=== PATIENT | female | born 1990 | race Caucasian/White ===

== ENCOUNTER 2017-11-05 07:13 | Day surgery (SDC) | payer MEDICAID, SELFPAY ==
[2017-11-05] VITALS (7 sets, daily range): BP systolic 133–157; BP diastolic 81–95; PULSE 102–122; RESP 18; TEMP 36.3–37.1; O2SAT 89–98; BMI 58.3
[2017-11-05 07:51] LABS: Internal QC Validated? YES +Cl - CLEAR BKGD; Pregnancy, Urine Negative Negative
[2017-11-05 08:20] LABS: Bedside Glucose 204 mg/dL (70-110)
[2017-11-05] MEDS: Clindamycin 900 MG/50 ML BAG 75 MG IV (08:41)
--- NOTE | 2017-11-05 08:50 | BON_PTH ---
PATIENT: TODD NESS LOC: [facility] [place] U#:[id number] AGE/SX: 27/F ROOM: RE11/05/[address]: Dr. Zenobia Warner DPM : 1990 BED: DIS: 11/05/2017 SPEC #: [id number] RECD: 11/05/17 15:12 STATUS: ARIELLE MORRISSEY #: [id number] ANTHONY: 11/05/17 08:[address]: Zenobia Warner DEPT: SURGICAL PATHOLOGY RECD BY: Scott Sanford ENTERED: 11/08/17 07:20 SP TYPE: Bone OTHR DR: Dr. Jayro Hines MD Tissues: Bone of foot, NOS Procedures: Decalcification bone/plaque Surgery Specimen Level IV HEADER OPERATION: Excision foot fracture fragment with calcaneal cuboid joint PRE-OP DIAGNOSIS: Arthritis, instability cuboid joint TISSUE SUBMITTED: Bone fragments ? right foot MICROSCOPIC DIAGNOSIS Bone fragments, right foot, biopsy: Reparative and reactive change. Cartilaginous tissue with reparative change. No evidence of acute osteomyelitis. AM:amira 11/11/17 COMMENT Clinical correlation is suggested. MICROSCOPIC DESCRIPTION Slides are reviewed. GROSS DESCRIPTION Received in fixative is one container labeled with the patient's name and designated right foot bone fragment. The specimen consists of multiple irregular fragments of light bennett to dark bennett bone that in aggregate measure 3 x 2.5 x 1 cm. The largest fragment is sectioned and totally submitted along with the smaller fragments in one cassette after decalcification. / AM:amira 11/08/17 TC:5 CPT: 83359, 86844
--- NOTE | 2017-11-05 08:50 | RAD_ITS ---
STUDY: X-RAY - RIGHT FOOT CLINICAL: Female, 27 years old. Arthrodesis. TECHNIQUE: 3 cone-down view(s) of the foot were obtained intraoperatively. COMPARISON: None. FINDINGS: There is evidence of arthrodesis of the distal portion of the calcaneus and cuboid bone. RAD/Foot min 3 Views IMPRESSION: Arthrodesis of the distal portion of the calcaneus and cuboid bone. Electronically Signed: Uriel Najera MD at 14:38 EST Tel [phone], Service support ,
[2017-11-05] MEDS: Bupiv/Epi 0.5% Mpf 30 ML Vial (10:30)
[2017-11-05] MEDS: Bupivacaine Mpf 0.5% 30 ML VIAL (12:33)
--- NOTE | 2017-11-05 13:01 | PCM.DC.POD ---
Discharge Diet: No Restrictions Discharge Activity: May not drive while taking narcotic pain medications., May Not Shower Weight Bearing Status: No weight bearing Keep extremity elevated above heart level: Right Leg Additional Activity Instructions:: strict non weightbearing to right lower extremity with wheelchair use. Keep splint in place Call your doctor if your incision/area has: Continuous Slow Oozing, Sudden Increased Bleeding, Increased Pain/ Swelling, Increased Redness, Foul Smelling Discharge, Swelling at the incision site Call your doctor if you observe: Fever of 101 or Higher, Numbness or Tingling, Shortness of breath, Calf discomfort, Uncontrolled pain Cleanse incision/area with: Do not get Incision Wet, Keep Dressing Clean & Dry Allergies/Adverse Reactions: Allergies Penicillins Allergy (Verified 11/02/17 14:34) Hives angioedema as well etodolac [From Lodine] Adverse Reaction (Intermediate, Verified 11/02/17 14:34) Chest tightness bupropion HCl [From Wellbutrin] Adverse Reaction (Verified 11/02/17 14:34) Other suicidal Medications to take at Discharge Lisinopril [Zestril] 10 mg PO DAILY 09/21/16 Metformin HCl [Glucophage] 500 mg PO BIDCM 09/21/16 Propranolol HCl [Inderal] 10 mg PO BID 09/21/16 Cyclobenzaprine [Flexeril] 10 mg PO TID PRN PRN 11/02/17 Ergocalciferol [Vitamin D] 50,000 unit PO Q7D 11/02/17 Famotidine [Pepcid] 20 mg PO DAILY 11/02/17 Primary Care Physician: Jayro Hines [Primary Care Provider] - Please Follow Up With: Zenobia Warner DPM When: [facility], or sooner if concerns please call Proposed Discharge Date: 11/05/17
--- NOTE | 2017-11-05 13:06 | RAD_ITS ---
STUDY: X-RAY - RIGHT FOOT CLINICAL: Female, 27 years old. Arthrodesis. TECHNIQUE: 4 view(s) of the foot. COMPARISON: Comparison is made with prior examination done earlier in the day. FINDINGS: Normal talus, calcaneus, and tarsal bones. The patient is status post arthrodesis of the distal portion of the calcaneus and cuboid bone. Normal metatarsi. Normal metatarsophalangeal joint of the great toe. Normal tibial and fibular sesamoid bones. Normal interphalangeal joint of the great toe. Normal phalanges of the great toe. Normal second through fifth metatarsophalangeal joints. Normal interphalangeal joints and phalanges of the lesser toes. Postoperative soft tissue changes. RAD/Foot min 3 Views IMPRESSION: Status post arthrodesis of the distal portion of the calcaneal and cuboid bones. Electronically Signed: Uriel Najera MD at 14:38 EST Tel [phone], Service support ,
--- NOTE | 2017-11-05 13:09 | PCM.IMDPSTOP ---
Problem List (1) Calcaneus fracture, right Status: Chronic Qualifiers: Encounter type: sequela Calcaneus location: anterior process Fracture type: closed Fracture alignment: displaced Qualified Code(s): S92.021S - Displaced fracture of anterior process of right calcaneus, sequela (2) Arthritis of right foot Status: Chronic (3) Right foot pain Status: Chronic Immediate Post-Op Note Date of Procedure: 11/05/17 - surgeon: Maico Warner DPM. Manager Sharepoint: Christoph Baca PGY2 Primary Surgeon/Physician: Zenobia Warner DPM seed analysis laboratory assistant: none Pre-Operative Diagnosis: 1. non healed anterior process fracture of calcaneus. 2. arthritis / instability of calcaneal cuboid joint. 3. right foot pain. 4. gastrocnemius equinus, right Post-Operative Diagnosis: 1. non healed anterior process fracture of calcaneus. 2. arthritis / instability of calcaneal cuboid joint. 3. right foot pain. 4. gastrocnemius equinus, right Surgery/Procedure Performed:: 1. excision of fracture fragment, right foot. 2. arthrodesis of calcaneal cuboid joint with internal fixation, right. 3. open gastrocnemius equinus, right lower extremity Description of Surgical Findings:: solid fixation hemostasis controlled see detailed operative report The patient tolerated the procedure well and was transported to the PACU with vitals stable and vascular status intact to the right lower extremity. All post operative orders were entered electronically. Estimated Blood Loss: < 150 mL Specimen's removed: fracture fragment, right foot Type of Anesthesia:: General, Local - preoperative: 20 cc 1:1 mixture of 1% lidocaine plain and 0.5% marcaine plain administered in typical right ankle block fashion intraoperative: 9 cc of 0.5% marcaine with epinephrine administered to right leg at gastrocnemius recession site post operative: 10 cc of 1:1 mixture of 1% lidocaine plain and 0.5% marcaine plain administered in typical ankle block fashion - Admit VTE Documentation VTE Present on Admission: No VTE Mechan Device Prophylaxis: SCD's VTE Pharm Prophylaxis ordered?: Yes
--- NOTE | 2017-11-05 13:14 | PCM.OPRPT ---
Problem List (1) Calcaneus fracture, right Status: Chronic Qualifiers: Encounter type: sequela Calcaneus location: anterior process Fracture type: closed Fracture alignment: nondisplaced Qualified Code(s): S92.024S - Nondisplaced fracture of anterior process of right calcaneus, sequela Comment: non healing (2) Arthritis of right foot Status: Chronic (3) Right foot pain Status: Chronic Report of Operation Date of Procedure: 11/05/17 - surgeon: Maico Warner DPM. Associate Merchandiser: Christoph Baca PGY2 Pre-Operative Diagnosis: 1. non healed anterior process fracture of calcaneus. 2. arthritis of calcaneal cuboid joint. 3. right foot pain. 4. Gastrocnemius equinus, right Post-Operative Diagnosis: 1. non healed anterior process fracture of calcaneus. 2. arthritis of calcaneal cuboid joint. 3. right foot pain. 4. Gastrocnemius equinus, right Surgery/Procedure Performed:: 1. excision of fracture fragment, right foot. 2. arthrodesis of calcaneal cuboid joint with internal fixation, right. 3. open gastrocnemius equinus, right lower extremity Description of Surgical Findings:: Hemostasis: Well-padded pneumatic right thigh tourniquet, 325 mmHg Materials: 1 two hole Arthrex double compression staple, 2 cortical screws, 1 Arthrex compression staple, 2-0 Vicryl, 4-0 nylon Complications: none foam gun operator: None - resident foam gun operator: none Type of Anesthesia:: General, Local - preoperative: 20 cc 1:1 mixture of 1% lidocaine plain and 0.5% marcaine plain administered in typical right ankle block fashion intraoperative: 9 cc of 0.5% marcaine with epinephrine administered to right leg at gastrocnemius recession site post operative: 10 cc of 1:1 mixture of 1% lidocaine plain and 0.5% marcaine plain administered in typical ankle block fashion Specimen's removed: fracture fragment, right foot Estimated Blood Loss (mL): < 150 mL Description of Procedure: Indications: This is a 27-year-old female with significant past medical history of diabetes, obesity, hypertension, depression, and smoking history continues to have right foot pain. She has a history of remote anterior process of the calcaneus fracture with nonhealing and surgical intervention for fragment excision in 2009. She had an additional second surgery this past year for this condition in outside facility by different foot and ankle surgeon again to attempt to remove any additional fracture fragmentation and inspect the calcaneal cuboid joint. She is unable to bear weight, wear shoes, or tolerate touch to this injury site. She continues to fail conservative care including offloading, activity modification, shoe gear change, bracing, strapping, oral pain and anti-inflammatory medications. This is affecting her daily activities. Clinically, her neurovascular status is intact and she has pain on palpation to the calcaneocuboid joint as well as the previous fracture site. There is pain with cuboid calcaneal manipulation. There is no pain to palpation to the subtalar joint. She has decreased ankle joint dorsiflexion with a measurement of -4? with the knee extended and this is increased with the knee bent. Clinically, she also has a flatfoot deformity with decreased medial longitudinal arch noted during an antalgic gait. Her radiographs of the foot demonstrate an abnormal medial calcaneocuboid joint with fracture fragment viewable. There are no other acute fractures or dislocations or degeneration of the adjacent joints. Her MRI exam demonstrates fracture fragments to the calcaneocuboid joint area near the anterior process site and some degenerative and abnormal fragmentation to the medial aspect of the calcaneocuboid joint. The fracture site is not healed. There is no arthritis or edema in the subtalar joint. She did also have a local anesthetic diagnostic injection to the calcaneocuboid joint administered away from the fracture fragment site which did provide relief for over 5 hours confirming joint involvement. She has no pain with passive manipulation of the subtalar joint. The preoperative indications, planned procedure, possible benefits, risks, complications, and anticipated healing time management were discussed in detail with the patient. She understands and elects to proceed with surgery at this time. She understands potential complications include the following but are not limited to: pain, scarring, infection, swelling, loss of feeling, blood clots, allergic reaction, hardware failure, delayed or nonhealing, loss of limb, function, life, need for additional surgery. The goal of the surgery is to reduce pain and improve stability of the calcaneocuboid joint. She understands the goal of the surgery is not reconstruction of her flatfoot deformity. She had two previous fracture fragment excision type surgeries and she understands this procedure will be more aggressive involving fusion of the problematic joint due to arthritis and continued instability/pain. The surgical limb and consent were signed. I answered all of her questions to her satisfaction. She did have a preoperative clearance performed by Dr. Thompson and this is appreciated. A history and physical exam was performed as was her diagnostic data including hemoglobin A1c (7.2%), CBC, CMP. She started smoking cessation and his decreased. She continues on vitamin D supplementation to optimize healing as well. She also has increase family and social support schedule for the postoperative time frame. Procedure in detail: The patient was transported to the operating room via cart and placed on the operating table and placed in supine position. Final verification the patient, surgery, limb designation was performed. IV antibiotics was administered preoperatively including clindamycin; this patient has a penicillin allergy. A well-padded pneumatic right thigh tourniquet was placed. Her right limb was bumped to allow good exposure. The local anesthetic was administered by the podiatry team as noted above. MAC anesthesia was initiated. The right lower extremity was prepped and draped in the usual aseptic manner. Right lower extremity was exsanguinated with an Esmarch bandage and the tourniquet was inflated at this time. Surgery began the following matter: Attention was first directed to the right foot which a curvilinear incision was made just distal to the fibula heading in the direction of the fourth and fifth metatarsal bases through the skin. The patient was moving a lot at this time and she was converted to general anesthesia per recommendation of the anesthesia team. This was successfully performed. The surgery then proceeded. Blunt dissection was performed down to the subcutaneous layer and with scar tissue from her previous surgeries was identified. Care was taken to identify, protect and retract all neurovascular structures at this point and throughout the remainder of surgery. The extensor digitorum brevis muscle belly at the insertion was identified and a linear incision was made distal to the site in which the extensor digitorum brevis was reflected superiorly. The peroneal tendons were identified and retracted inferiorly. The calcaneocuboid joint was identified and confirmed radiographically and with direct visualization. The medial aspect of his joint was investigated in which the fracture fragments were identified and carefully excised from the adjacent soft tissue. These fragments were sent to pathology. Next the joint was reviewed and was noted to be very mobile on passive manipulation and there was some fragmentation within the joint at the medial aspect and some degeneration of the cartilage encompassing approximately over 40% of the wound with evidence of arthritis and instability I suspected at this time. The decision was made to perform the arthrodesis to address both of these issues. The joint surfaces were prepped in which the remaining cartilage was removed utilizing curettes and osteotomes. Subchondral drilling and fish scaling was used to optimize arthrodesis success and to break through the subchondral bone plate. Bone graft fibers were next packed into the wound site and the calcaneocuboid joint was realigned with the foot in a loaded position. This appeared stable and proper alignment clinically and radiographically was confirmed. This was temporarily held in place with a K wire. An arthrex double compression plate and compression staple were applied to the lateral and dorsal aspect of this joint according to standard AO fixation and company protocol techniques. Solid fixation was achieved and was tested with all temporary hardware removed. Intraoperative fluoroscopy was used to confirm proper placement of screws and alignment of the arthrodesis site. Saline irrigation was performed to irrigate the soft tissue. The extensor digitorum brevis muscle belly was used to cover over the hardware back in its anatomic position. The tourniquet was deflated at this time and brisk capillary refill time is noted to all digits of the right foot. Pressure and electrocauterization was used to control minimal bleeding. No pulsatile bleeding was noted. Deep closure was achieved with Vicryl suture and the skin was reapproximated with 4-0 nylon utilizing horizontal mattress technique. Next, the bump was removed and the patient right lower extremity was placed in the frog-leg position to gain exposure to the premarked posterior right leg. The intraoperative local anesthetic with epinephrine was administered to the gastrocnemius recession surgical site. Approximately three fingerbreadths below the medial gastrocnemius head, a 3 cm linear incision was made in the skin just medial to the midline. Blunt dissection was performed through the subcutaneous layer with finger dissection in which the fascial layer was identified. A puncture was made in this fascial layer and additional adipose and veins were identified suggesting that this was a pseudo fascial layer. The fascial layer was next confirmed and a puncture was made to expose the gastrocnemius aponeurosis. The medial most aspect of this was identified and resected with a 15 blade taking care to avoid any venous or neurological structures. This layer was identifiably separate from the deeper soleus aponeurosis and the medial and lateral most aspects in which the soleal aponeurosis fibers were left intact. Improved ankle dorsiflexion with knee extended was identified after this procedure was performed. Copious irrigation was performed with saline irrigation. Deep minimal closure of the fascial layer and more superficial subcutaneous layer was performed with Vicryl. The skin was further reapproximated with nylon suture. Hemostasis was considered controlled. A postoperative dressing consisting of Adaptic soaked in Betadine, 4 x 4, abdominal pad, Kerlix, and Christopher wrap were applied. She was further splinted with fiberglass posterior mold with sugar tong splint with the lower extremity in a relaxed rectus position. After procedure: The patient tolerated the procedure and anesthesia well. She was transferred to the PACU with vital signs stable and vascular status intact to the right lower extremity. She will be discharged home upon continued PACU stability and pain control. The patient was advised to ice and elevate for postoperative pain and inflammation control. She was provided with a postoperative pain medication prescription, Percocet. She was advised on safe and proper use. She was also advised to start Lovenox injections tomorrow for DVT prophylaxis; she was advised again on safe and proper use. She was advised to continue strict nonweightbearing to the right lower extremity with wheelchair or walker use. She already has picked up these durable medical equipment items. She will be staying with family members who will help her in the recovery process. Postoperative x-rays were reviewed with hardware in place with proper trajectory and proper reduction of the deformity. No acute injuries were noted. She will follow-up with Dr. Warner in the clinic next week or will call sooner if concerns. Zenobia Warner DPM, [facility] [phone]
[2017-11-05 13:25] LABS: Bedside Glucose 162 mg/dL (70-110)
[2017-11-05] MEDS: oxyCODONE 5 MG Tablet PO (14:05)
== END 2017-11-05 14:55 | disposition home or self-care (01) ==
LOC: SDC 07:14 → AC 07:16
PROVIDERS: Anesthesiology; Visit Provider Podiatrist
PROC: (CPT 28899; principal; 2017-11-05 08:35)
PROC: (CPT 27687; 2017-11-05 08:35)
DX: S92.021 Displaced fracture of anterior process of right calcaneus (principal); M79.671 Pain in right foot; M13.871 Other specified arthritis, right ankle and foot; E11.9 Type 2 diabetes mellitus without complications; I10 Essential (primary) hypertension; K21.9 Gastro-esophageal reflux disease without esophagitis; M54.5 Low back pain; G89.29 Other chronic pain; G43.909 Migraine, unspecified, not intractable, without status migrainosus
CPT/HCPCS: 01480; 27687; 28715; 73630; 73650; 76000; 81025; 82962; 88305; 88311; J7120; J2405

== ENCOUNTER 2017-12-26 20:18 | Emergency (ER) | payer MEDICAID, SELFPAY ==
[2017-12-26 20:21] VITALS: BP 142/89; PULSE 115; RESP 15; TEMP 36.7; BMI 56.8
--- NOTE | 2017-12-26 21:17 | CT_ITS ---
STUDY: CT ABDOMEN AND PELVIS WITHOUT CONTRAST REASON FOR EXAM: Female, 27 years old. Right upper quadrant pain. RADIATION DOSAGE (If Supplied By Facility): CTDIvol = ( 24.18 ) mGy, DLP = ( 1335.01 ) mGycm TECHNIQUE: Transaxial images were obtained from the dome of the diaphragm to the symphysis pubis without oral contrast, and without intravenous contrast. Sagittal and coronal images were reconstructed. Individualized dose optimization techniques were used for this CT. COMPARISON: 08/21/2017. FINDINGS: The visualized portions of lung bases demonstrate again calcified granuloma in the left lower lobe. The visualized portions of the heart are within normal limits. There again is diffuse fatty infiltration of the liver. The liver is enlarged. No focal lesion is definitely identified. There is non-visualization of the gallbladder, which may be secondary to either contraction or a prior cholecystectomy. Normal spleen. Normal pancreas. Normal bilateral adrenal glands. The previously noted small bilateral nonobstructing renal stones are not seen at this time. There is no evidence of hydronephrosis. The stomach is not well distended. There are nonspecific fluid-filled small bowel loops. There is no evidence of small bowel obstruction. There is fecal retention. There may be mild diverticulosis of the sigmoid colon however there is no evidence of acute diverticulitis. There is no evidence of acute diverticulitis. The exam however is limited due to artifacts due to patient body habitus. There is non-visualization of the appendix. Normal abdominal aorta. Normal inferior vena cava. Normal retroperitoneum. The urinary bladder is not well-distended. There is a small umbilical hernia containing fat. There are Schmorl's nodes in the lower thoracic spine. CT/Abdomen/Pelvis without Cont IMPRESSION: Hepatomegaly. Fatty infiltration of the liver. Nonvisualization of the appendix. Nonspecific fluid-filled small bowel loops without evidence of small bowel obstruction. Mild enteritis is possible. Fecal retention. Electronically Signed: Russell Laird MD at 23:17 EST Tel , Service support ,
[2017-12-26 21:35] LABS: Absolute Lymphocyte Count 1.92 X10^3/ul (0.83-4.51); Absolute Neutrophil Count 4.7 X10^3/uL (2.0-7.7); Basophil# 0.01 X10^3/uL; Basophil% 0.1 % (0-1); Eosinophil# 0.12 X10^3/uL; Eosinophils% 1.7 % (0-5); Hematocrit 37.2 % (37-47); Hemoglobin 11.8 g/dl (12.0-15.0); Lymphocyte # 1.92 X10^3/ul (4.0); Lymphocyte % 27.2 % (19-41); Mean Corp Hgb Conc 31.7 g/gl (32-36); Mean Corpuscular Hgb 29.6 pg (27.0-32.0); Mean Corpuscular Volume 93.2 fL (81-99); Mean Platelet Vol. 9.6 fl (6.2-12.0); Monocyte# 0.29 X10^3/uL; Monocyte% 4.1 % (0-10); Neutrophil % 66.8 % (47-70); Platelet Count 281 K/mm3 (150-450); RBC Distribution Width CV 13.6 % (11.6-14.6); RBC Distribution Width SD 46.5 fl (35.1-43.9); Red Blood Count 3.99 M/mm3 (4.2-5.4); White Blood Count 7.1 K/mm3 (4.4-11.0)
[2017-12-26 21:41] LABS: Anion Gap 10 (5-15); BUN 9 mg/dL (7-18); BUN/Creat Ratio 9.7 RATIO (10-20); Calcium,Total 8.9 mg/dL (8.5-10.1); Chloride 106 mmol/L (98-107); Creatinine, Serum 0.93 mg/dL (0.55-1.02); EST Glomerular Filtration Rate 76 mL/min (>60); Est Glom Filt Rate - Afr Amer 92 mL/min (>60); Glucose 118 mg/dL (70-110); Lipase 219 U/L (73-393); Potassium 3.8 mmol/L (3.5-5.1); Sodium Level 141 mmol/L (136-145)
[2017-12-26 21:45] LABS: POSITIVE COUNT NO; POSITIVE DIFFERENTIAL NO; POSITIVE MORPHOLOGY NO
[2017-12-26 21:46] LABS: Pregnancy, Serum, hCG Quali. NEGATIVE Negative (0-9 Nonpreg)
[2017-12-26 21:49] LABS: Bacteria 0 SEEN /hpf (None Seen); Mucous, Urine 0 SEEN /hpf (<or=2+)
[2017-12-26 21:50] LABS: Color, Urine Yellow (Yellow); Glucose, Dipstick Normal (Normal); Ketone-Dipstick 5 mg/dl (Negative); Leukocyte Esterase-Dipstick 25 /ul (Negative); Nitrite-Dipstick Negative (Negative); Occult Blood-Urine 10 /ul (Negative); Protein-Dipstick 15 mg/dl (Negative); Specific Gravity, Urine 1.025 (1.002-1.030); Urine Bilirubin Dipstick Negative (Negative); Urine Clarity Clear (Clear); Urine Urobilinogen Normal (Normal)
[2017-12-26] MEDS: Ondansetron 4 MG/2 ML Vial IV (21:51)
[2017-12-26] MEDS: 0.9% Normal Saline 1,000 ML 1000 ML IV (21:51)
[2017-12-26 21:56] LABS: Red Blood Cells-Urine 0-5 SEEN /hpf (0-5); White Blood Cells 0-5 SEEN /hpf (0-5)
[2017-12-26 21:57] LABS: Calcium Oxalate Crystals Ur 2+ /hpf (<or=2+); Squamous Epithelial Cells - UA 0-5 SEEN /hpf (5-10)
--- NOTE | 2017-12-27 00:08 | ED.VISSUMM ---
- ER Visit Summary Date of Service: 12/27/17 Chief Complaint: Nausea and vomiting History of Present Illness: The patient is a 27 F presenting with nausea and vomiting which started 5 hours prior to arrival. She states she has vomited 7 times. Denies blood in her emesis. Denies diarrhea. She states she had a normal bowel movement this morning. She has right-sided flank pain. She has a history of kidney stones. Previous cholecystectomy. Denies fever, chest pain, shortness of breath. Physical Examination: Vitals are stable. Patient is afebrile. Alert no acute distress. HEENT exam is unremarkable. Neck is supple. Lungs are clear and equal bilaterally. Heart is regular rate and rhythm. Abdomen is soft obese, nontender nondistended. No guarding or rebound. Back: mild right CVA tenderness Extremities are unremarkable. Skin is warm and dry. Remainder of exam is unremarkable. Emergency Department Course and Treatment: Patient is given IV fluids, morphine, Zofran. She had improvement of her symptoms. CBC is normal except for hemoglobin 11.8. Chemistries normal except for glucose 118. Lipase is 219. Urinalysis is 0-5 white cells, 0-5 red cells, positive calcium oxalate crystals. HCG negative. CT abdomen pelvis shows hepatomegaly, fatty infiltration of the liver, nonvisualization of the appendix, nonspecific fluid-filled small bowel loops without evidence of small bowel obstruction, mild enteritis is possible, fecal retention. On reevaluation, patient has no tenderness of the right lower quadrant. She is advised to watch for worsening symptoms and return to ED if her abdominal pain worsens or if she develops new symptoms. She is advised to follow-up with her primary care physician. She is able to tolerate p.o. on reevaluation. She is given a prescription for Zofran. Disposition: Discharge home Impression: Right flank pain This note was generated with [employer] dictation software. It may contain incorrect words, spelling, and punctuation that were not noted in review of the chart prior to signing ED Disposition - Plan for ED Patient: Chief Complaint: Nausea/Vomiting Referrals: Jayro Hines [Primary Care Provider] -
--- NOTE | 2017-12-27 00:16 | ED.DEP ---
ED Disposition - Plan for ED Patient: Chief Complaint: Nausea/Vomiting Instructions: ED Flank Pain Uncertain Cause, ED Nausea Vomiting Prescriptions: Ondansetron [Zofran Odt] 4 mg PO Q8H PRN PRN #10 tablet PRN Reason: Nausea Referrals: Jayro Hines [Primary Care Provider] -
[2017-12-27 00:34] VITALS: BP 143/95; PULSE 80; RESP 16; O2SAT 100
--- NOTE | 2017-12-27 00:35 | ED.RN ---
DISCHARGE INSTRUCTIONS GIVEN TO AND REVIEWED WITH PATIENT, PATIENT DENIES QUESTIONS OR CONCERNS AND VOICES UNDERSTANDING OF DISCHARGE INSTRUCTIONS. PT AMBULATES OUT OF ROOM WITHOUT DIFFICULTY.
== END 2017-12-27 00:37 | disposition home or self-care (01) ==
LOC: ED 21:39
PROVIDERS: Emergency Provider Emergency Medicine
DX: R10.9 Unspecified abdominal pain (principal); R11.2 Nausea with vomiting, unspecified; E11.9 Type 2 diabetes mellitus without complications; I10 Essential (primary) hypertension; Z72.0 Tobacco use; Z87.442 Personal history of urinary calculi; Z90.49 Acquired absence of other specified parts of digestive tract
CPT/HCPCS: 74176; 80048; 81001; 83690; 84703; 85025; 96361; 96374; 96375; 99284; J7030; A4216; J2405

== ENCOUNTER → 2018-02-07 10:31 | Outpatient (CLI) | payer MEDICAID, SELFPAY ==
[2018-02-07 11:51] LABS: Vitamin D,25 Hydroxy 26.6 ng/mL (29.95-100.01)
== END ==
PROVIDERS: Visit Provider Podiatrist
DX: E55.9 Vitamin D deficiency, unspecified (principal); S92.009A Unspecified fracture of unspecified calcaneus, initial encounter for closed fracture
CPT/HCPCS: 36415; 82306

== ENCOUNTER 2018-03-19 00:18 | Emergency (ER) | payer MEDICAID, SELFPAY ==
--- NOTE | 2018-03-18 23:30 | RAD_ITS ---
STUDY: X-RAY - LEFT KNEE REASON FOR EXAM: Female, 27 years old. Trauma. Knee pain TECHNIQUE: 4 view(s) of the knee. COMPARISON: None. FINDINGS: Normal visualized distal femur. Normal visualized proximal tibia and fibula. Normal proximal tibiofibular articulation. Normal medial femorotibial compartment. Normal lateral femorotibial compartment. Normal patellofemoral articulation. The soft tissue structures are unremarkable. RAD/Knee 4 or More Views IMPRESSION: Normal x-ray examination of the knee. Electronically Signed: Stevan Juarez MD at 1:12 EDT Tel , Service support ,
--- NOTE | 2018-03-19 00:41 | ED.VISSUMM ---
- ER Visit Summary Date of Service: 03/19/18 Chief Complaint: Pain left knee History of Present Illness: The patient is a 27 F pain in the left knee 2 days ago after twisting from chair. She states she felt a pop. She is able to ambulate however increasing pain. Currently wearing a walking boot on the right lower extremity from foot fusion in October [address] luke). Ibuprofen 6 PM with no relief. No history of knee problems. No fevers. Physical Examination: General: Alert and oriented ?3, no acute distress HEENT: Normocephalic, atraumatic. Moist mucosa membranes Neck: supple, nontender. Cardiovascular: Regular rate and rhythm, no murmurs Respiratory: Normal breath sounds, symmetric, no distress Abdomen: Soft, nontender, nondistended Extremities: Left lower extremity: Negative logroll. Knee extensor mechanism intact. Negative varus and valgus. Tender at the proximal tibia laterally. Skin intact. No ankle or foot tenderness. Right lower extremity: Walking boot at the foot. Neuro: no focal neurological deficits. Test Results: Left knee x-ray: No fracture or dislocation Emergency Department Course and Treatment: Patient given oxycodone in the ED. X-ray negative. Reviewed [facility] report, consistent with her reported last prescription in October posterior surgery for an opiate. She is written for 12 tabs to use. Should continue ibuprofen. She states her foot doctor does not handle her knees. She is given follow-up with on-call orthopedist. Christopher wrap placed to the knee. She is able to ambulate. Treatment Plan: [] Disposition: Discharge Impression: Left knee sprain This note was generated with [employer] dictation software. It may contain incorrect words, spelling, and punctuation that were not noted in review of the chart prior to signing ED Disposition - Plan for ED Patient: Disposition: Home or Assisted Living Diagnosis: Left knee sprain Instructions: ED Sprain Knee Prescriptions: Oxycodone HCl/Acetaminophen [Percocet 5/325] 1 tablet PO Q6H PRN PRN 3 Days #12 tablet PRN Reason: Pain Referrals: Jayro Hines [Primary Care Provider] - Phillip Stanley DO [STAFF PHYSICIAN] - 5-7 Days
== END 2018-03-19 01:00 | disposition home or self-care (01) ==
PROVIDERS: Emergency Provider Emergency Medicine
DX: S83.92XA Sprain of unspecified site of left knee, initial encounter (principal); X50.1XXA Overexertion from prolonged static or awkward postures, initial encounter; Y93.89 Activity, other specified; E66.9 Obesity, unspecified; Z79.899 Other long term (current) drug therapy; K21.9 Gastro-esophageal reflux disease without esophagitis; E11.9 Type 2 diabetes mellitus without complications; I10 Essential (primary) hypertension; G43.909 Migraine, unspecified, not intractable, without status migrainosus
CPT/HCPCS: 73564; 99283

== ENCOUNTER 2018-03-31 14:36 | Emergency (ER) | payer MEDICAID, SELFPAY ==
[2018-03-31 14:38] VITALS: BP 181/113; PULSE 95; RESP 16; TEMP 36.2; O2SAT 99; BMI 59.8
--- NOTE | 2018-03-31 14:58 | ED.DCSUM_ITS ---
- ER Visit Summary Date of Service: 03/31/18 Chief Complaint: Bilateral ear pain, sore throat History of Present Illness: The patient is a 27 F who has had bilateral ear pain and sore throat since yesterday. Throat is worse with swallowing. She has had some slight nausea. Denies any ear drainage. No nasal congestion or cough. She tried Tylenol and ibuprofen without any relief. Denies fevers. Physical Examination: Vital signs are reviewed. HEENT exam reveals TMs are clear. Throat is mildly erythematous. Tonsils are not swollen. No exudates. Neck supple without lymphadenopathy. The rest exam is unremarkable. See T sheet for details Test Results: None indicated Emergency Department Course and Treatment: Patient appears to have a viral etiology. I do not feel she requires antibiotics. I will treat her with Mucinex D. She will follow-up with her PCP Treatment Plan: [] Disposition: Discharge Impression: Viral URI This note was generated with [employer] dictation software. It may contain incorrect words, spelling, and punctuation that were not noted in review of the chart prior to signing ED Disposition - Plan for ED Patient: Chief Complaint: Ear Problem Referrals: NOT,DEFINED [Primary Care Provider] -
--- NOTE | 2018-03-31 14:59 | ED.DEP ---
ED Disposition - Plan for ED Patient: Disposition: Home or Assisted Living Chief Complaint: Ear Problem Instructions: ED Upper Resp Infec No Abx Tx Prescriptions: Guaifenesin/Pseudoephedrne HCl [Mucinex D ER 1,200-120 mg Tab] 1 ea PO BID #14 tab.er.12h Referrals: NOT,DEFINED [Primary Care Provider] -
== END 2018-03-31 15:09 | disposition home or self-care (01) ==
LOC: ED 15:08
PROVIDERS: Emergency Provider Emergency Medicine
DX: J06.9 Acute upper respiratory infection, unspecified (principal); E11.9 Type 2 diabetes mellitus without complications; I10 Essential (primary) hypertension
CPT/HCPCS: 99282

== ENCOUNTER 2018-04-02 21:22 | Emergency (ER) | payer MEDICAID, SELFPAY ==
[2018-04-02 21:22] VITALS: BP 158/119; PULSE 110; RESP 22; TEMP 37.1; BMI 59.2
--- NOTE | 2018-04-02 21:56 | ED.DCSUM_ITS ---
- ER Visit Summary Date of Service: 04/02/18 Chief Complaint: Headache, ear pain History of Present Illness: The patient is a 27 F with history of migraine presents to the emergency department with headache, jaw pain, ear pain. Patient 's been having symptoms for the past 3 days. She was actually seen here 2 days ago and diagnosed with a URI. She was placed on Mucinex. She states it does not seem like it is helping. Over the past day and a half, she has had worsening pain in her left lower jaw into her neck. She states she felt like the pain is brought on a migraine. She states this feels like her normal headaches. She denies any visual change. She does admit to nausea. She tried Tylenol and ibuprofen with no relief. She states that she has had some pain with chewing. It does radiate to her left ear. She has had no chest pain or shortness of breath. Physical Examination: Well-appearing patient is in no acute distress. Head is normocephalic, atraumatic. Pupils equal round reactive, extraocular muscles intact. There is no temporal artery tenderness. There is no vesicular rash. Neck supple. Kernig's and Brudzinski's are negative. Posterior oropharynx is widely patent. There is tenderness to palpation over teeth 20 and 22. There is widespread dental disease. No Angel angina. No trismus or stridor. Heart regular rate and rhythm. Lungs clear, chest nontender. Abdomen soft, nontender , nondistended. Neuro exam displays no focal or lateralizing deficit. 2+ symmetric lower extremity reflexes. No clonus. No ataxia or gait abnormality. Test Results: [] Emergency Department Course and Treatment: The patient's symptoms do seem to be referred from dental infection. Her submental space is soft. Her neck is supple. The TMs are clear. There is no vesicular rash. Patient was treated with migraine medication and will be started on clindamycin. The patient did have improvement of her headache. She has a benign examination. She is not meningitic. She is not encephalopathic. Patient will be continued on clindamycin as an outpatient. She will be continued on anti-inflammatories. She will be discharged home, return with any worsening symptoms. Treatment Plan: [] Disposition: Discharge Impression: 1. Dental pain 2. Migraine headache-resolved This note was generated with Dragon dictation software. It may contain incorrect words, spelling, and punctuation that were not noted in review of the chart prior to signing ED Disposition - Plan for ED Patient: Disposition: Home or Assisted Living Chief Complaint: Headache Instructions: ED Tooth Pain, ED Headache Migraine Prescriptions: Ibuprofen [Motrin] 800 mg PO TID PRN PRN #20 tab PRN Reason: Pain Clindamycin [Cleocin] 300 mg PO 4X/DAY #80 cap Referrals: Care Physician,No Primary [Primary Care Provider] -
[2018-04-02] MEDS: Ketorolac 30 MG/ML Syringe IV (22:02)
[2018-04-02] MEDS: DiphenhydrAMINE 50 MG/ML Syringe IV (22:03)
[2018-04-02] MEDS: 0.9% Normal Saline 1,000 ML 999 ML IV (22:03)
[2018-04-02] MEDS: proCHLORPERazine 10 MG/2 ML Vial IV (22:03)
[2018-04-02] MEDS: Clindamycin HCl 150 MG Capsule 300 MG PO (22:03)
[2018-04-02] MEDS: LORazepam 2 MG/ML Syringe 1 MG IV (22:24)
[2018-04-02 22:49] VITALS: PULSE 78; RESP 17; O2SAT 98
== END 2018-04-02 22:49 | disposition home or self-care (01) ==
PROVIDERS: Emergency Provider Emergency Medicine
DX: K02.9 Dental caries, unspecified (principal); K08.89 Other specified disorders of teeth and supporting structures; G43.909 Migraine, unspecified, not intractable, without status migrainosus; E66.9 Obesity, unspecified; E11.9 Type 2 diabetes mellitus without complications; I10 Essential (primary) hypertension; K21.9 Gastro-esophageal reflux disease without esophagitis; Z72.0 Tobacco use
CPT/HCPCS: 99282; J7030; A4216

== ENCOUNTER 2018-04-10 15:24 | Emergency (ER) | payer MEDICAID, SELFPAY ==
[2018-04-10 15:25] VITALS: BP 162/109; PULSE 97; RESP 17; TEMP 37.5; O2SAT 99; BMI 59.5
--- NOTE | 2018-04-10 15:48 | ED.DCSUM_ITS ---
- ER Visit Summary Date of Service: 04/10/18 Chief Complaint: Dental pain History of Present Illness: The patient is a 27 F who presents with dental pain. She initially saw a dentist last month. She was referred to an oral surgeon. She states they are not able to see her until June. She was seen on April 02 here in the emergency department due to headache and dental pain and she was started on clindamycin and ibuprofen. She has been on this since the but reports no improvement. She went to the urgent care who advised her to continue her clindamycin and advised that she needs follow-up with a dentist. She then presented here due to ongoing pain. Physical Examination: Hypertensive at 162/109 vitals otherwise unremarkable Patient has widespread dental decay she has some mild tenderness diffusely of the left mandibular teeth in the premolar and molar regions I do not appreciate a focal abscess amenable to incision and drainage There is no trismus There is no sublingual edema Tympanic membranes are clear Test Results: Not indicated Emergency Department Course and Treatment: I again stressed to the patient that she needs to follow-up with dentistry and oral surgeon. Since she does not seem to be improving with clindamycin will have her discontinue this and try azithromycin as she also has a history of a penicillin allergy. She states that ibuprofen is not helping. We will have her discontinue this and try another anti-inflammatory and she is prescribed naproxen. She was instructed on signs and symptoms which should prompt return here to the emergency department for reevaluation and was discharged home. Treatment Plan: [] Disposition: Discharge Impression: Odontalgia This note was generated with [employer] dictation software. It may contain incorrect words, spelling, and punctuation that were not noted in review of the chart prior to signing ED Disposition - Plan for ED Patient: Chief Complaint: Dental Referrals: Care Physician,No Primary [Primary Care Provider] -
--- NOTE | 2018-04-10 15:48 | ED.DEP ---
ED Disposition - Plan for ED Patient: Chief Complaint: Dental Instructions: ED Tooth Pain Prescriptions: Azithromycin [Zithromax] 250 mg PO DAILY #4 tab Naproxen [Naprosyn] 500 mg PO BID #20 tab Referrals: Care Physician,No Primary [Primary Care Provider] - Additional Instructions: Stop your ibuprofen and clindamycin and start new prescriptions. It is very important that you follow-up with a dentist or oral surgeon for definitive management.
--- NOTE | 2018-04-10 15:54 | ED.RN ---
PT SPOUSE DEMANDED THAT ORAL SURGEON BE CALLED INTO SEE PT. ADVISED PT SPOUSE THAT THEY NEEDED TO SEE THE ORAL SURGEON IN THE DRS OFFICE, THAT DR NUNEZ FELT SHE DIDN'T MEET CRITERIA FOR AN ORAL SURGEON. SPOUSE BECAME IRATE AND STATED THAT WE WERE NOT TREATING THE PT CORRECTLY, ALSO THAT FIORITA WILL COME TO THE HOSPITAL. GAVE PT LIST OF DENTIST TO POSSIBLY USE. PT LEFT.
== END 2018-04-10 16:00 | disposition home or self-care (01) ==
PROVIDERS: Emergency Provider Emergency Medicine
DX: K08.89 Other specified disorders of teeth and supporting structures (principal); R11.0 Nausea; K02.9 Dental caries, unspecified; K21.9 Gastro-esophageal reflux disease without esophagitis; E11.9 Type 2 diabetes mellitus without complications; I10 Essential (primary) hypertension; Z72.0 Tobacco use; Z98.818 Other dental procedure status; Z88.0 Allergy status to penicillin
CPT/HCPCS: 99282

== ENCOUNTER 2018-04-13 15:00 | Outpatient (RCR) | payer MEDICAID, SELFPAY ==
--- NOTE | 2018-02-01 17:46 | HP.PTEVAL_ITS ---
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 Date of Evaluation: 02/01/18 Physical Therapist: Dedra Dangelo - Visit Plan Frequency: 2x /Week Duration: 3 Months Plan: 2X/ week for 12 weeks. Start with AT with 25-50% with CAM boot (Dr farfan with AT) for R ankle AROM, light stretching and strengthening, edema control. May also do some hip and core strength with in limits as well. RESTRICITION PER SCRIPT: WB 25-50% IN CAM BOOT. WATCH MIDFOOT MOTIONS OF INV AND EV UNTIL BONE FUSION IS CONFIRMED - Subjective Subjective: When 7 years old got foot caught under old fashioned Post.[employer] go Rounds. They put in soft cast and mom would not put it back on. In 2009 her foot swelled after walking around [place]. Foot was broken. Saw Dr Burroughs had an MRI done and found it was broke and was in a cast for 8 weeks. At 8 weeks she was placed in walking boot and walked out of the office and felt a real sharp pain and was then NWB and was broke again and went to Dr Lindo in [facility]. In 2009 surgery to remove bone chip. In 2015 she steped on [place] out of vehicle and twisted ankle and they said it was sprained and continued to have more problems and then back to Dr Lindo and another MRI and surgery for another bone chip in 2016. She continue to have more issues and Dr Warner saw where her foot was broke again and the walking boot was not helping. She removed a bone and fused the bones together and that was Nov 05, 2017. She is now in CAM boot and is 25-50% WB. She sees the on Wednesday Morning and will confirm on Wednesday that it is fused this Wednesday. She usually has pain after she has walked on it for a little bit. She has 3 kids and not being able to play with them is hard. She has a bone stimulator that she uses twice a day. She feels water therapy would be good at this point cause weight bearing is rough. - Pain R foot pain Pain Intensity (Out of 10): 4 - Objective R ankle DF 5 DEGREES, AND 30 DEGREES PF. L ankel DF 5 degrees and 62 degrees PF. Girth measurements: R med to lat mal 32.5 cm, figure 8 64.4 cm, met heads 27 cm. L med to lat mal 32 cm, figure 8 62 cm, and met heads 26 cm. Gait: walks with a walking boot with approx 50% WB on the R LE. Tender to palpation along the scar. increase swelling noted along the incision. Increase discomfort with toe towel crunches and increase stiffness. - Goals Goal 1:: I HEP Goal Time Frame: 8-12 Weeks Goal 2:: Increase R ankle AROM to 10 degrees DF Goal Time Frame: 8-12 Weeks Goal 3:: BY DC....ONE WB RESTRCTION IS LIFTED....Increase strength in R ankle to be able to perform 3 x 10 heel and toe raises with some UE support once WB restricitin is lifted Goal Time Frame: 8-12 Weeks Goal 4:: BY DC....be able to walk with a normal gait pattern with no pain and no antalgic gait. Goal Time Frame: 8-12 Weeks - Rehabilitation Potential Rehabilitation Potential: Good - Anticipated Interventions Patient/Client Instruction: Educate patient on: Condition, Plan of Care For the Purpose of:: To decrease pain, To decrease swelling/inflammation, To increase ROM, To improve nutrient delivery to tissue, To improve muscle performance and motor function, To improve ability to perform ADL's, To increase tolerance to activity/condition/position, To improve performance and independence with ADL's, To improve ability of physical actions for home/ community/work/leisure, To improve gait and locomotor functions, To improve health of tissue, To decrease soft tissue restriction, To increase flexibility/ ROM, To improve balance Therapeutic Exercise to Include: Strength training, Balance training, Flexibilty training, Gait and locomotor training, In an aquatic setting, Passive ROM, Active ROM For the Purpose of:: To decrease pain, To decrease swelling/inflammation, To increase ROM, To improve nutrient delivery to tissue, To improve muscle performance and motor function, To improve ability to perform ADL's, To increase tolerance to activity/condition/position, To improve ability of physical actions for home/community/work/leisure, To improve gait and locomotor functions, To improve health of tissue, To decrease soft tissue restriction, To increase flexibility/ROM, To improve balance Functional Training to Include: Gait training For the Purpose of:: To improve gait and locomotor functions Thank you for the opportunity to evaluate your patient. For Medicare and Medicare HMO plans, please review the plan of care and approve it. It will need to be FAXED BACK to us at [phone] for Medicare purposes. Please let me know if there are questions or concerns regarding this plan of care. Physician Signature: Date:
--- NOTE | 2018-07-27 17:29 | HP.PTDCNRP_ITS ---
HP - Discharge Summary (1) - Patient Information TODD RODRIGUEZ was seen in my office for initial evaluation on 02/01/18. The following Plan of Care was established for this patient: Initial Frequency: 2x /Week Initial Duration: 3 Months - Anticipated Interventions Patient/Client Instruction: Educate patient on: Condition, Plan of Care For the Purpose of:: To decrease pain, To decrease swelling/inflammation, To increase ROM, To improve nutrient delivery to tissue, To improve muscle performance and motor function, To improve ability to perform ADL's, To increase tolerance to activity/condition/position, To improve performance and independence with ADL's, To improve ability of physical actions for home/ community/work/leisure, To improve gait and locomotor functions, To improve health of tissue, To decrease soft tissue restriction, To increase flexibility/ ROM, To improve balance Therapeutic Exercise to Include: Strength training, Balance training, Flexibilty training, Gait and locomotor training, In an aquatic setting, Passive ROM, Active ROM For the Purpose of:: To decrease pain, To decrease swelling/inflammation, To increase ROM, To improve nutrient delivery to tissue, To improve muscle performance and motor function, To improve ability to perform ADL's, To increase tolerance to activity/condition/position, To improve ability of physical actions for home/community/work/leisure, To improve gait and locomotor functions, To improve health of tissue, To decrease soft tissue restriction, To increase flexibility/ROM, To improve balance Functional Training to Include: Gait training For the Purpose of:: To improve gait and locomotor functions This patient was last seen in our office 04/13/18. Pertinent comments regarding their Physical therapy will appear below: Pt did not reschedule and will be discharged from our care at this time At this point I will be discontinuing this patient from physical therapy. I would be happy to see this patient again in the future if found appropriate by the physician. Thank you! Dedra Dangelo
== END 2018-04-13 19:00 | disposition home or self-care (01) ==
LOC: PT 15:00
PROVIDERS: Visit Provider Podiatrist
DX: Z98.890 Other specified postprocedural states (principal)
CPT/HCPCS: 36415; 82306; 97113; 97161; 97530

== ENCOUNTER 2018-04-19 17:55 | Emergency (ER) | payer MEDICAID, SELFPAY ==
[2018-04-19 17:56] VITALS: BP 169/106; PULSE 93; RESP 16; TEMP 36.8; O2SAT 99; BMI 56.8
--- NOTE | 2018-04-19 18:17 | CT_ITS ---
STUDY: CT ABDOMEN AND PELVIS WITHOUT CONTRAST REASON FOR EXAM: Female, 27 years old. Left flank pain RADIATION DOSAGE (If Supplied By Facility): CTDIvol = ( 34.45 ) mGy, DLP = ( 1764.54 ) mGycm TECHNIQUE: Transaxial images were obtained from the lower chest to the upper thighs without oral contrast, and without intravenous contrast. Sagittal and coronal images were reconstructed. Individualized dose optimization techniques were used for this CT. COMPARISON: December 26, 2017 FINDINGS: There is a stable 1.3 cm calcified granuloma in the left lower lobe. There is no pleural effusion. The heart is normal in size. There is diffuse decreased density of the liver. The liver is enlarged. There is non-visualization of the gallbladder, which may be secondary to either contraction or a prior cholecystectomy. The spleen measures about 14 cm in the sagittal plane. The pancreas is unremarkable. The adrenal glands are unremarkable. There is a 2 mm calcification in the midpole of the right kidney. There is no dilatation of the collecting system in the right kidney. There is a punctate calcification in the upper pole of the left kidney and another 3 mm calcification in the midpole of the left kidney. There are two calcifications in the left renal pelvis measuring about 2 mm each. There is no dilatation of the collecting system in the left kidney. The stomach is unremarkable. The small bowel is unremarkable. The colon is unremarkable. There is non-visualization of the appendix. The aorta and branch vessels are unremarkable. The IVC is unremarkable. The retroperitoneum is unremarkable. There is no free fluid in the abdomen. The urinary bladder is unremarkable. The uterus is normal in size and appearance. There is a 3 cm cystic mass in the right ovary. The soft tissues are unremarkable. The osseous structures are unremarkable. CT/Abdomen/Pelvis without Cont IMPRESSION: There are two stones in the left renal pelvis measuring about 2 mm each. Although there is no significant hydronephrosis seen on this CT, these stones may be causing partial obstruction of the left collecting system. Calyceal stones are present in both kidneys. There is a 2 mm stone in the midpole of the right kidney. There is a punctate stone in the upper pole of the left kidney and a 3 mm stone in the midpole of the left kidney. There are no acute bowel abnormalities. There is no ascites, free air or significant lymphadenopathy. There is a 3 cm cyst in the right ovary. The liver is markedly enlarged with fatty infiltration. The spleen is prominent in size. Electronically Signed: Lita Pham MD at 20:03 EDT Tel Direct: [phone], Service support ,
--- NOTE | 2018-04-19 18:28 | ED.DCSUM_ITS ---
- ER Visit Summary Date of Service: 04/19/18 Chief Complaint: Left flank pain History of Present Illness: The patient is a 27 F with no primary care physician. She reports that she has left flank pain that began abruptly at 2: 00 today. It is a constant tightness with intermittent sharp episodes. It is 10 out of 10 at worst and 8 out of 10 currently. Is worsened by nothing and relieved by nothing. Patient reports she has been nausea and vomiting, but this began yesterday before the flank pain. States that she is on approximately 10 times. No blood or emesis. No diarrhea. No melena or hematochezia. No dysuria, frequency, or hematuria. Her last period was January of this year, but she reports that she has a Nexplanon and her cycles are irregular. Physical Examination: Vitals: Stable. Afebrile. General: Well-nourished and well-developed. Head: Normocephalic atraumatic. Neck: Supple, no lymphadenopathy. No JVD. Nontender. Cardiovascular: Regular rate and rhythm. No murmurs. Respiratory: No respiratory distress. Clear to auscultation bilaterally. Abdominal: Soft, nontender, nondistended, normal bowel sounds. No guarding, rebound, or peritoneal signs. Back: Moderate left CVA tenderness. Extremities: Nontender, no edema. Skin: Normal color, no rash. Neurologic: Alert and oriented ?3. Cranial nerves II through XII are intact. Normal strength and sensation. Psych: Normal affect. Test Results: test is negative. UA shows blood without evidence of infection. Clinical Impression(s) from Imaging Studies Abdomen/Pelvis CT 04/19/18 18:17 IMPRESSION: There are two stones in the left renal pelvis measuring about 2 mm each. Although there is no significant hydronephrosis seen on this CT, these stones may be causing partial obstruction of the left collecting system. Calyceal stones are present in both kidneys. There is a 2 mm stone in the midpole of the right kidney. There is a punctate stone in the upper pole of the left kidney and a 3 mm stone in the midpole of the left kidney. There are no acute bowel abnormalities. There is no ascites, free air or significant lymphadenopathy. There is a 3 cm cyst in the right ovary. The liver is markedly enlarged with fatty infiltration. The spleen is prominent in size. Electronically Signed: Lita Pham MD at 20:03 EDT Tel Direct: [phone], Service support , Emergency Department Course and Treatment: Patient had an IV placed. She was given a liter bolus of normal saline, Toradol, Zofran, Phenergan, and morphine IV. She is resting comfortably. Treatment Plan: Patient will be discharged with naproxen, [place], and Zofran. She is given a urine strainer. Instructed to follow Dr. Braden in 1 week if not improving. Return to the emergency department for any worsening symptoms. Disposition: To home in improved and stable condition. Impression: 1. Left ureterolithiasis. This note was generated with [employer] dictation software. It may contain incorrect words, spelling, and punctuation that were not noted in review of the chart prior to signing ED Disposition - Plan for ED Patient: Chief Complaint: Flank Pain Instructions: ED Stone Renal W Colic Prescriptions: Ondansetron [Zofran Odt] 4 mg PO Q8H PRN PRN #10 tablet PRN Reason: Nausea Hydrocodone/Acetaminophen [[place] 5-325 Tablet] 1 - 2 each PO 4X/DAY PRN PRN 5 Days #20 tablet PRN Reason: Pain Naproxen [Naprosyn] 500 mg PO BID #14 tablet Referrals: Willis Braden MD [STAFF PHYSICIAN] - 1 Week if not improving
[2018-04-19] MEDS: Ketorolac 30 MG/ML Syringe IV (18:29)
[2018-04-19] MEDS: 0.9% Normal Saline 1,000 ML 999 ML IV (18:29)
[2018-04-19] MEDS: Ondansetron 4 MG/2 ML Vial IV (18:40)
[2018-04-19 18:42] LABS: Bacteria 0 SEEN /hpf (None Seen); Mucous, Urine 0 SEEN /hpf (<or=2+)
[2018-04-19 18:52] LABS: Color, Urine Yellow (Yellow); Glucose, Dipstick Normal (Normal); Ketone-Dipstick Negative (Negative); Leukocyte Esterase-Dipstick 100 /ul (Negative); Nitrite-Dipstick Negative (Negative); Occult Blood-Urine 250 /ul (Negative); Protein-Dipstick 30 mg/dl (Negative); Urine Bilirubin Dipstick Negative (Negative); Urine Clarity Cloudy (Clear); Urine Urobilinogen Normal (Normal)
[2018-04-19 19:01] LABS: Red Blood Cells-Urine > 100 SEEN /hpf (0-5); Squamous Epithelial Cells - UA 0-5 SEEN /hpf (5-10)
[2018-04-19 19:02] LABS: White Blood Cells 0-5 SEEN /hpf (0-5)
[2018-04-19 19:04] VITALS: BP 178/113; PULSE 92; RESP 16; O2SAT 98
[2018-04-19 19:05] LABS: Pregnancy, Serum, hCG Quali. NEGATIVE Negative (0-9 Nonpreg)
[2018-04-19] MEDS: proMETHazine 25 MG/ML Syringe 6.25 MG IV (19:35)
[2018-04-19] MEDS: Morphine 4 MG/ML Syringe IV (19:46)
[2018-04-19 20:32] VITALS: BP 163/96; PULSE 82; RESP 18; O2SAT 98
== END 2018-04-19 20:37 | disposition home or self-care (01) ==
PROVIDERS: Emergency Provider Emergency Medicine
DX: N20.1 Calculus of ureter (principal); E11.9 Type 2 diabetes mellitus without complications; I10 Essential (primary) hypertension; F17.200 Nicotine dependence, unspecified, uncomplicated; Z87.442 Personal history of urinary calculi
CPT/HCPCS: 74176; 81001; 84703; 96361; 96374; 96375; 96376; 99283; J7030; A4216; J2405

== ENCOUNTER 2018-04-26 21:12 | Emergency (ER) | payer MEDICAID, SELFPAY ==
[2018-04-26 21:13] VITALS: BP 177/100; PULSE 107; RESP 22; TEMP 36.8; O2SAT 99; BMI 57.9
--- NOTE | 2018-04-26 21:19 | RAD_ITS ---
STUDY: X-RAY - RIGHT FOOT CLINICAL: Female, 27 years old. Pain, surgery TECHNIQUE: 3 view(s) of the foot. COMPARISON: 11/05/2017 FINDINGS: There is periarticular osteopenia. There is fixation at the calcaneocuboid joint. There is virtually nondisplaced fracture at the second and third metatarsal necks. No osseous destruction. RAD/Foot min 3 Views IMPRESSION: Virtually nondisplaced fracture, second, third metatarsal necks Status post fixation at the calcaneocuboid joint Periarticular osteopenia Electronically Signed: Ming Roland MD at 21:53 EDT Tel , Service support ,
--- NOTE | 2018-04-26 22:09 | ED.DCSUM_ITS ---
- ER Visit Summary Date of Service: 04/26/18 Chief Complaint: Right foot injury History of Present Illness: The patient is a 27 F states that she stepped in a hole tonight causing her toes to be bent back. She heard a pop and notes pain over the second third metatarsal area. She has had prior ankle fusion with Dr. Warner. She denies any other injuries. Physical Examination: Afebrile vital signs are stable Patient has mild swelling and tenderness palpation over the second third and fourth metatarsal area on the dorsum of the right foot. Neurovascularly intact distally. Test Results: Displaced fractures of the second and third metatarsal neck. Emergency Department Course and Treatment: I spoke with Dr. Sanford. Plan will be a boot orthosis and crutches. She is to do nonweightbearing or at worst partial weightbearing and follow-up in the office. I will provide [employer] for pain control. Impression: 1. Right second and third metatarsal neck fracture This note was generated with [employer] dictation software. It may contain incorrect words, spelling, and punctuation that were not noted in review of the chart prior to signing ED Disposition - Plan for ED Patient: Disposition: Home or Assisted Living Chief Complaint: Lower Extremity Injury Instructions: ED Fx Foot Prescriptions: Hydrocodone/Acetaminophen [[employer] 5-325 Tablet] 1 - 2 ea PO 4X/DAY PRN PRN 5 Days #20 tab PRN Reason: Pain Referrals: Zenobia Warner DPM [STAFF PHYSICIAN] - (CALL TO ARRANGE FOLLOW UP)
[2018-04-26 22:30] VITALS: BP 170/84; PULSE 76; RESP 18; O2SAT 100
[2018-04-26] MEDS: HYDROcodone Bitartrate/Apap 5/325 Tablet PO (22:32)
== END 2018-04-26 22:45 | disposition home or self-care (01) ==
PROVIDERS: Emergency Provider Emergency Medicine
DX: S92.321A Displaced fracture of second metatarsal bone, right foot, initial encounter for closed fracture (principal); S92.331A Displaced fracture of third metatarsal bone, right foot, initial encounter for closed fracture; X50.1XXA Overexertion from prolonged static or awkward postures, initial encounter; Y93.9 Activity, unspecified; Y92.9 Unspecified place or not applicable; E66.9 Obesity, unspecified; K21.9 Gastro-esophageal reflux disease without esophagitis; E11.9 Type 2 diabetes mellitus without complications; I10 Essential (primary) hypertension; Z79.84 Long term (current) use of oral hypoglycemic drugs; Z79.899 Other long term (current) drug therapy; Z72.0 Tobacco use
CPT/HCPCS: 73630; 99284

== ENCOUNTER 2018-06-09 11:46 | Emergency (ER) | payer MEDICAID, SELFPAY ==
[2018-06-09 11:47] VITALS: BP 166/128; PULSE 81; RESP 20; TEMP 36.9; O2SAT 97; BMI 57.6
[2018-06-09 12:23] VITALS: BP 158/120; PULSE 100; RESP 20; O2SAT 97
[2018-06-09 13:03] LABS: Mucous, Urine 0 SEEN /hpf (<or=2+)
[2018-06-09] MEDS: Ondansetron 4 MG/2 ML Vial IV (13:05)
[2018-06-09] MEDS: Morphine 4 MG/ML Syringe IV (13:05)
[2018-06-09] MEDS: 0.9% Normal Saline 1,000 ML 1000 ML IV (13:05)
[2018-06-09 13:07] LABS: Color, Urine Yellow (Yellow); Glucose, Dipstick Normal (Normal); Ketone-Dipstick Negative (Negative); Leukocyte Esterase-Dipstick 100 /ul (Negative); Nitrite-Dipstick Negative (Negative); Occult Blood-Urine 250 /ul (Negative); Protein-Dipstick 30 mg/dl (Negative); Urine Bilirubin Dipstick Negative (Negative); Urine Clarity Sl. Cloudy (Clear); Urine Urobilinogen Normal (Normal)
[2018-06-09 13:12] LABS: Internal QC Validated? YES +Cl - CLEAR BKGD; Pregnancy, Urine Negative Negative
[2018-06-09 13:14] LABS: ALB/GLOB Ratio 0.8 RATIO (0.9-2.4); AST(SGOT) 18 U/L (15-37); Alanine Aminotransfer ALT/SGPT 44 U/L (13-56); Albumin, Serum 3.6 g/dL (3.2-5.0); Alkaline Phosphatase 94 U/L (45-117); Anion Gap 8 (5-15); BUN 12 mg/dL (7-18); Calcium,Total 9.2 mg/dL (8.5-10.1); Chloride 105 mmol/L (98-107); EST Glomerular Filtration Rate 69 mL/min (>60); Est Glom Filt Rate - Afr Amer 84 mL/min (>60); Estimated Creatinine Clearance 79.99 ml/min; Globulin 4.5 g/dL (2.2-4.2); Glucose 136 mg/dL (74-106); Potassium 4.1 mmol/L (3.5-5.1); Protein, Total 8.1 g/dL (6.4-8.2); Sodium Level 138 mmol/L (136-145)
[2018-06-09 13:15] LABS: Bacteria RARE /hpf (None Seen); Calcium Oxalate Crystals Ur 2+ /hpf (<or=2+); Red Blood Cells-Urine 0-5 SEEN /hpf (0-5); Squamous Epithelial Cells - UA 0-5 SEEN /hpf (5-10); White Blood Cells 0-5 SEEN /hpf (0-5)
[2018-06-09 13:18] LABS: Hematocrit 40.3 % (37-47); Hemoglobin 12.8 g/dl (12.0-15.0); Mean Corp Hgb Conc 31.8 g/gl (32-36); Mean Corpuscular Hgb 29.2 pg (27.0-32.0); Mean Platelet Vol. 9.9 fl (6.2-12.0); Platelet Count 314 K/mm3 (150-450); RBC Distribution Width CV 13.2 % (11.6-14.6); Red Blood Count 4.38 M/mm3 (4.2-5.4); White Blood Count 10.4 K/mm3 (4.4-11.0)
[2018-06-09 13:19] LABS: Scan Indicated on CBC? Y/N NO
[2018-06-09 13:28] LABS: Pregnancy, Serum, hCG Quali. NEGATIVE Negative (0-9 Nonpreg)
[2018-06-09 14:00] VITALS: BP 161/96; PULSE 87; RESP 18; O2SAT 100
--- NOTE | 2018-06-09 14:50 | ED.VISSUMM ---
- ER Visit Summary Date of Service: 06/09/18 Chief Complaint: Nausea vomiting urinary frequency and flank pain History of Present Illness: The patient is a 28 F with above complaints for 2-3 days. She denies fever she has some left lower quadrant and flank pain. Physical Examination: She is morbidly obese, clear lungs, soft abdomen slight left lower quadrant abdominal pain and flank pain. Not appear in distress, does not appear toxic. Emergency Department Course and Treatment: Patient is found to have a urinary tract infection however with the flank pain she likely has the beginning of pyelonephritis, her white count is unremarkable. I did give her ceftriaxone in the emergency department I will send her home with p.o. antibiotics. If she has fever chills or gets worse she needs to return. discharge stable condition Impression: Pyelonephritis This note was generated with [employer] dictation software. It may contain incorrect words, spelling, and punctuation that were not noted in review of the chart prior to signing ED Disposition - Plan for ED Patient: Disposition: Home or Assisted Living Chief Complaint: Nausea/Vomiting Instructions: Discharge Instructions for Pyelonephritis Prescriptions: Hydrocodone Bitart/Apap 5-325 [[place] 5/325] 1 - 2 tab PO Q4H PRN PRN 5 Days #12 tab PRN Reason: Pain Smz/Tmp Ds [Bactrim Ds] 1 tab PO BID #20 tab Referrals: Care Physician,No Primary [Primary Care Provider] - 3-5 Days
--- NOTE | 2018-06-09 14:56 | ED.DCSUM_ITS ---
- ER Visit Summary Date of Service: 06/09/18 Chief Complaint: Nausea vomiting urinary frequency and flank pain History of Present Illness: The patient is a 28 F with above complaints for 2-3 days. She denies fever she has some left lower quadrant and flank pain. Physical Examination: She is morbidly obese, clear lungs, soft abdomen slight left lower quadrant abdominal pain and flank pain. Not appear in distress, does not appear toxic. Emergency Department Course and Treatment: Patient is found to have a urinary tract infection however with the flank pain she likely has the beginning of pyelonephritis, her white count is unremarkable. I did give her ceftriaxone in the emergency department I will send her home with p.o. antibiotics. If she has fever chills or gets worse she needs to return. discharge stable condition Impression: Pyelonephritis This note was generated with [employer] dictation software. It may contain incorrect words, spelling, and punctuation that were not noted in review of the chart prior to signing ED Disposition - Plan for ED Patient: Disposition: Home or Assisted Living Chief Complaint: Nausea/Vomiting Instructions: Discharge Instructions for Pyelonephritis Prescriptions: Hydrocodone Bitart/Apap 5-325 [[place] 5/325] 1 - 2 tab PO Q4H PRN PRN 5 Days #12 tab PRN Reason: Pain Smz/Tmp Ds [Bactrim Ds] 1 tab PO BID #20 tab Referrals: Care Physician,No Primary [Primary Care Provider] - 3-5 Days
[2018-06-09 15:15] VITALS: BP 159/105; PULSE 80; RESP 14; O2SAT 98
--- NOTE | 2018-06-09 15:15 | ED.RN ---
PT GIVEN WRITTEN AND VERBAL DISCHARGE INSTRUCTIONS AND HOME GOING PRESCRIPTIONS. PT VERBALIZES UNDERSTANDING AND DENIES AN Y FURTHER QUESTIONS. PT SIGNS RELEASE OF INFORMATION TO TAKE HOME RECORD OF MEDICATIONS GIVEN IN ED. IV D/C AND COVERED WITH 2X2 GAUZE DRESSING AND PAPER TAPE. PT DRESSES SELF AND DRIVES WHEELCHAIR OUT OF ED.
== END 2018-06-09 15:17 | disposition home or self-care (01) ==
PROVIDERS: Emergency Provider Emergency Medicine
DX: N12 Tubulo-interstitial nephritis, not specified as acute or chronic (principal); E66.01 Morbid (severe) obesity due to excess calories; E11.9 Type 2 diabetes mellitus without complications; I10 Essential (primary) hypertension
CPT/HCPCS: 80053; 81001; 81025; 84703; 85027; 96361; 96365; 96375; 99283; J7030; A4216; J2405

== ENCOUNTER 2018-06-14 10:49 | Emergency (ER) | payer MEDICAID, SELFPAY ==
[2018-06-14 10:50] VITALS: BP 152/97; PULSE 112; RESP 18; TEMP 37.1; O2SAT 98; BMI 57.6
--- NOTE | 2018-06-14 11:11 | CT_ITS ---
STUDY: CT ABDOMEN AND PELVIS WITHOUT CONTRAST REASON FOR EXAM: Female, 28 years old. Lower abdominal pain. History of UTI. RADIATION DOSAGE (If Supplied By Facility): CTDIvol = ( 34.45 ) mGy, DLP = ( 1824.83 ) mGycm TECHNIQUE: Transaxial images were obtained from the dome of the diaphragm to the symphysis pubis without oral contrast, and without intravenous contrast. Sagittal and coronal images were reconstructed. Individualized dose optimization techniques were used for this CT. COMPARISON: Comparison is made with prior study dated April 19, 2018. FINDINGS: Stable calcified granuloma in the posterior segment of the left lower lobe. The visualized portions of the heart are within normal limits. There is decreased attenuation of the liver consistent with steatosis. Hepatomegaly. The patient status post cholecystectomy. Normal spleen. Normal pancreas. There is a small, circumscribed, smooth, low attenuation left adrenal mass, consistent with an adrenal adenoma. This measures 1.4 cm. Normal right adrenal gland. Normal right kidney. Normal left kidney. Normal visualized stomach. Normal small intestine. Normal colon. The appendix is visualized and appears normal. Normal abdominal aorta. Normal inferior vena cava. Normal retroperitoneum. Normal urinary bladder. There is a 2.8 cm cyst in the right ovary. There is a small umbilical hernia containing fat. Normal osseous structures. CT/Abdomen/Pelvis without Cont IMPRESSION: Hepatomegaly and fatty infiltration of the liver 2.8 cm cyst in the right ovary. Electronically Signed: Uriel Najera MD at 12:11 EDT Tel [phone], Service support ,
[2018-06-14] MEDS: Morphine 4 MG/ML Syringe IV (11:36)
[2018-06-14] MEDS: Ondansetron 4 MG/2 ML Vial IV (11:36)
[2018-06-14] MEDS: 0.9% Normal Saline 1,000 ML 1000 ML IV (11:36)
[2018-06-14 11:42] LABS: Mucous, Urine 0 SEEN /hpf (<or=2+)
[2018-06-14 11:47] LABS: Absolute Lymphocyte Count 2.09 X10^3/ul (0.83-4.51); Absolute Neutrophil Count 7.8 X10^3/uL (2.0-7.7); Basophil# 0.03 X10^3/uL; Basophil% 0.3 % (0-1); Eosinophil# 0.14 X10^3/uL; Eosinophils% 1.3 % (0-5); Hematocrit 39.6 % (37-47); Hemoglobin 12.9 g/dl (12.0-15.0); Lymphocyte # 2.09 X10^3/ul (4.0); Lymphocyte % 19.9 % (19-41); Mean Corp Hgb Conc 32.6 g/gl (32-36); Mean Corpuscular Hgb 29.9 pg (27.0-32.0); Mean Corpuscular Volume 91.7 fL (81-99); Mean Platelet Vol. 9.5 fl (6.2-12.0); Monocyte# 0.45 X10^3/uL; Monocyte% 4.3 % (0-10); Neutrophil # 7.79 X10^3/uL (2.7-7.7); Platelet Count 287 K/mm3 (150-450); RBC Distribution Width CV 13.4 % (11.6-14.6); RBC Distribution Width SD 44.4 fl (35.1-43.9); Red Blood Count 4.32 M/mm3 (4.2-5.4); White Blood Count 10.5 K/mm3 (4.4-11.0)
[2018-06-14 11:48] LABS: POSITIVE COUNT NO; POSITIVE DIFFERENTIAL NO; POSITIVE MORPHOLOGY NO
[2018-06-14 11:48] LABS: Color, Urine Yellow (Yellow); Glucose, Dipstick Normal (Normal); Ketone-Dipstick Negative (Negative); Leukocyte Esterase-Dipstick 25 /ul (Negative); Nitrite-Dipstick Negative (Negative); Occult Blood-Urine 250 /ul (Negative); Protein-Dipstick 15 mg/dl (Negative); Urine Bilirubin Dipstick Negative (Negative); Urine Clarity Sl. Cloudy (Clear); Urine Urobilinogen Normal (Normal)
[2018-06-14 11:54] LABS: Bacteria 1+ /hpf (None Seen); Red Blood Cells-Urine 25-50 SEEN /hpf (0-5); Squamous Epithelial Cells - UA 0-5 SEEN /hpf (5-10); White Blood Cells 0-5 SEEN /hpf (0-5)
[2018-06-14 12:01] LABS: Anion Gap 8 (5-15); BUN 11 mg/dL (7-18); BUN/Creat Ratio 10.8 RATIO (10-20); Calcium,Total 8.8 mg/dL (8.5-10.1); Chloride 104 mmol/L (98-107); Creatinine, Serum 1.02 mg/dL (0.55-1.02); EST Glomerular Filtration Rate 68 mL/min (>60); Est Glom Filt Rate - Afr Amer 82 mL/min (>60); Estimated Creatinine Clearance 78.43 ml/min; Glucose 140 mg/dL (74-106); Potassium 4.2 mmol/L (3.5-5.1); Sodium Level 136 mmol/L (136-145)
[2018-06-14 13:03] VITALS: PULSE 92; RESP 15; O2SAT 96
--- NOTE | 2018-06-14 13:34 | ED.DCSUM_ITS ---
- ER Visit Summary Date of Service: 06/14/18 Chief Complaint: Pelvic pain flank pain dysuria History of Present Illness: The patient is a 28 F who was seen last week was diagnosed with a urinary tract infection and early pyelonephritis was discharged with antibiotics presents with worsening flank pain dysuria and abdominal pain. She tells me she feels worse than she did a week ago. Physical Examination: Orbitally obese female who objectively does not appear in significant distress. Clear lungs regular rate and rhythm abdomen is soft, there is some suprapubic pain and bilateral CVA tenderness no guarding or rebound. rse Emergency Department Course and Treatment: She received IV Rocephin her white counts 10.5, however her symptoms are not improving and she still has a urinary tract infection I will admit her. Impression: [] Pyelonephritis This note was generated with [employer] dictation software. It may contain incorrect words, spelling, and punctuation that were not noted in review of the chart prior to signing ED Disposition - Plan for ED Patient: Chief Complaint: Complaint Referrals: Care Physician,No Primary [Primary Care Provider] -
[2018-06-14] MEDS: Ceftriaxone 1 GM/50 mL Premix x1 IV (13:36)
[2018-06-14 13:43] VITALS: BP 148/102; PULSE 93; RESP 18; TEMP 36.6; O2SAT 98
[2018-06-14] MEDS: oxyCODONE 5 MG Tablet PO (13:54)
--- NOTE | 2018-06-14 14:10 | ED.VISSUMM ---
- ER Visit Summary Date of Service: 06/14/18 Patient was seen by the hospitalist who thought this is more musculoskeletal, we will give her muscle relaxants and discharge her home she is to continue her antibiotics. This note was generated with [employer] dictation software. It may contain incorrect words, spelling, and punctuation that were not noted in review of the chart prior to signing ED Disposition - Plan for ED Patient: Chief Complaint: Complaint Referrals: Care Physician,No Primary [Primary Care Provider] -
--- NOTE | 2018-06-14 14:11 | ED.DEP ---
ED Disposition - Plan for ED Patient: Disposition: Home or Assisted Living Chief Complaint: Complaint Prescriptions: Cyclobenzaprine [Flexeril] 10 mg PO TID PRN #20 tab PRN Reason: Muscle Spasm Referrals: Care Physician,No Primary [Primary Care Provider] - 3-5 Days
--- NOTE | 2018-06-14 15:00 | PCM.CONS.GEN ---
Problem List (1) Back pain Status: Acute Qualifiers: Back pain location: low back pain Chronicity: acute Back pain laterality: bilateral Sciatica presence: without sciatica Qualified Code(s): M54.5 - Low back pain Reason for Consult Date of Consultation: 06/14/18 Reason for Consultation: back pain. History of Present Illness: The patient is a 28 year old F presents with back pain. Began as one-sided pain and was seen in the emergency room also have urinary tract infection possible pyelonephritis and discharged with antibiotics. Patient returns today which is worsening pain on both sides. Denies any fever chills. Hospitalist service was asked to evaluate patient for her acute back pain and. [] Past Medical History Past Medical History (Chronic Problems): Chronic Problems Right foot pain (Chronic) Arthritis of right foot (Chronic) Calcaneus fracture, right (Chronic) non healing Allergies Penicillins Allergy (Verified 06/14/18 10:52) Hives angioedema as well etodolac [From Lodine] Adverse Reaction (Intermediate, Verified 06/14/18 10:52) Chest tightness bupropion HCl [From Wellbutrin] Adverse Reaction (Verified 06/14/18 14:07) suicidal suicidal Home Medications: Ambulatory Orders Medication Instructions Recorded Lisinopril [Zestril] 10 mg PO DAILY 09/21/16 Metformin HCl [Glucophage] 500 mg PO BIDCM 09/21/16 Propranolol HCl [Inderal] 10 mg PO BID 09/21/16 Famotidine [Pepcid] 20 mg PO DAILY 11/02/17 Hydrocodone Bitart/Apap 5-325 1 - 2 tab PO Q4H PRN PRN 5 Days 06/09/18 [[place] 5/325] #12 tab Cyclobenzaprine [Flexeril] 10 mg PO TID PRN #20 tab 06/14/18 Smz/Tmp Ds [Bactrim Ds] 1 tablet PO BID 06/14/18 Surgical History: cholecystectomy, - - 3 previous right foot surgeries Right gastrocnemius recession, calcaneal cuboid joint arthrodesis, fracture fragment excision (Dr. Warner 11/05/2017) Smoking Status: Current every day smoker Tobacco Use: Cigarettes - *Family History Maternal History Items: No pertinent history Review of Systems Constitutional: Denies: Anorexia, Chills, Fever Eyes: Denies: Blurred vision, Double vision HEENT: Denies: Head Aches, Sinus Congestion, Sinus Drainage Cardiovascular: Denies: Chest Pain, Palpitations Respiratory: Denies: Cough, Shortness of breath at rest, Sputum production Gastrointestinal: Denies: Abdominal Pain, Diarrhea, Dyspepsia Genitourinary: Denies: Dysuria Musculoskeletal: Reports: Back Pain. Denies: Arm Pain Skin: Denies: Rash, Wounds Neurological: Reports: - - Patient has been wheelchair-bound since breaking her foot. Comment: All review of systems are negative except as mentioned in the history of present illness and the other review of systems. - Physical Exam General: Alert, Cooperative, No apparent distress HEENT: Atraumatic, Normocephalic Oral: Moist Mucosa, No Gingival or Mucosal Lesions/ Ulcerations Neck: No Nodes, Thyroid Normal Size and Texture Lungs: Clear to auscultation, Normal air movement, No rhonchi, No wheeze Cardiovascular: Regular rate, Regular Rhythm, Normal S1, Normal S2, No murmurs Abdomen: Bowel Sounds Present, Soft, Non Tender, Non-Distended Extremities: No edema, No Calf Tenderness Musculoskeletal: - - Thoracic and lumbar paraspinal tenderness Psych/Mental Status: Appropriate, Anxious Vital Signs Temp Pulse Resp BP Pulse Ox 36.6 C 93 18 148/102 H 98 06/14/18 13:43 06/14/18 13:43 06/14/18 13:43 06/14/18 13:43 06/14/18 13:43 Oxygen Delivery Method Room Air Weight: 166.922 kg Body Mass Index (BMI) 57.6 Finger Stick Blood Glucose 164 Laboratory Tests Past 24 Hrs 06/14/18 06/14/18 06/14/18 11:30 11:33 11:33 WBC 10.5 RBC 4.32 Hgb 12.9 Hct 39.6 MCV 91.7 MCH 29.9 MCHC 32.6 RDW 13.4 RDW Differential 44.4 H Plt Count 287 MPV 9.5 Immature Gran % (Auto) 0.200 Neut % (Auto) 74.0 H Lymph % (Auto) 19.9 [place] % (Auto) 4.3 Eos % (Auto) 1.3 Baso % (Auto) 0.3 Absolute Neuts (auto) 7.8 H Absolute Lymphs (auto) 2.09 Total Counted Not Reportable Sodium 136 Potassium 4.2 Chloride 104 Carbon Dioxide 24.0 Anion Gap 8 BUN 11 Creatinine 1.02 Estim Creat Clear Calc 78.43 Est GFR (MDRD) Af Amer 82 Est GFR (MDRD) Non-Af 68 BUN/Creatinine Ratio 10.8 Glucose 140 H Calcium 8.8 Urine Color Yellow Urine Clarity Sl. Cloudy Urine pH 6.0 Ur Specific [place] 1.020 Urine Protein 15 H Urine Glucose (UA) Normal Urine Ketones Negative Urine Occult Blood 250 H Urine Nitrite Negative Urine Bilirubin Negative Urine Urobilinogen Normal Ur Leukocyte Esterase 25 H Urine RBC 25-50 SEEN Urine WBC 0-5 SEEN Ur Squamous Epith Cells 0-5 SEEN Urine Bacteria 1+ Urine Mucus 0 SEEN Assessment/Plan All Active Problems Back pain (Acute) Cellulitis of leg without foot, right (Acute) Right leg pain (Acute) 1. Back pain I personally reviewed images of her CT abdomen and pelvis. I evaluated her lumbar spine did not did not show any fractures. Patient's pain seems to be more from muscle spasms in the paraspinal musculature. I reviewed the patient's urinalysis there was a little bit of blood but nothing really concerning for urinary tract infection much less pyelonephritis. And I feel her pain is not due to pyelonephritis in the absence of fever and any leukocytosis. Do not feel the patient requires hospitalization for that and recommended Flexeril. I discussed this with Dr. Blount and the plan will be to discharge the patient to home. Code Visit Office Visits / Consults: [id number] OP Consult L3
--- NOTE | 2018-06-14 15:05 | CON.PCM_ITS ---
Problem List (1) Back pain Status: Acute Qualifiers: Back pain location: low back pain Chronicity: acute Back pain laterality : bilateral Sciatica presence: without sciatica Qualified Code(s): M54.5 - Low back pain Reason for Consult Date of Consultation: 06/14/18 Reason for Consultation: back pain. History of Present Illness: The patient is a 28 year old F presents with back pain. Began as one-sided pain and was seen in the emergency room also have urinary tract infection possible pyelonephritis and discharged with antibiotics. Patient returns today which is worsening pain on both sides. Denies any fever chills. Hospitalist service was asked to evaluate patient for her acute back pain and. [] Past Medical History Past Medical History (Chronic Problems): Chronic Problems Right foot pain (Chronic) Arthritis of right foot (Chronic) Calcaneus fracture, right (Chronic) non healing Allergies Penicillins Allergy (Verified 06/14/18 10:52) Hives angioedema as well etodolac [From Lodine] Adverse Reaction (Intermediate, Verified 06/14/18 10:52) Chest tightness bupropion HCl [From Wellbutrin] Adverse Reaction (Verified 06/14/18 14:07) suicidal suicidal Home Medications: Ambulatory Orders Medication Instructions Recorded Lisinopril [Zestril] 10 mg PO DAILY 09/21/16 Metformin HCl [Glucophage] 500 mg PO BIDCM 09/21/16 Propranolol HCl [Inderal] 10 mg PO BID 09/21/16 Famotidine [Pepcid] 20 mg PO DAILY 11/02/17 Hydrocodone Bitart/Apap 5-325 1 - 2 tab PO Q4H PRN PRN 5 Days 06/09/18 [[place] 5/325] #12 tab Cyclobenzaprine [Flexeril] 10 mg PO TID PRN #20 tab 06/14/18 Smz/Tmp Ds [Bactrim Ds] 1 tablet PO BID 06/14/18 Surgical History: cholecystectomy, - - 3 previous right foot surgeries Right gastrocnemius recession, calcaneal cuboid joint arthrodesis, fracture fragment excision (Dr. Warner 11/05/2017) Smoking Status: Current every day smoker Tobacco Use: Cigarettes - *Family History Maternal History Items: No pertinent history Review of Systems Constitutional: Denies: Anorexia, Chills, Fever Eyes: Denies: Blurred vision, Double vision HEENT: Denies: Head Aches, Sinus Congestion, Sinus Drainage Cardiovascular: Denies: Chest Pain, Palpitations Respiratory: Denies: Cough, Shortness of breath at rest, Sputum production Gastrointestinal: Denies: Abdominal Pain, Diarrhea, Dyspepsia Genitourinary: Denies: Dysuria Musculoskeletal: Reports: Back Pain. Denies: Arm Pain Skin: Denies: Rash, Wounds Neurological: Reports: - - Patient has been wheelchair-bound since breaking her foot. Comment: All review of systems are negative except as mentioned in the history of present illness and the other review of systems. - Physical Exam General: Alert, Cooperative, No apparent distress HEENT: Atraumatic, Normocephalic Oral: Moist Mucosa, No Gingival or Mucosal Lesions/ Ulcerations Neck: No Nodes, Thyroid Normal Size and Texture Lungs: Clear to auscultation, Normal air movement, No rhonchi, No wheeze Cardiovascular: Regular rate, Regular Rhythm, Normal S1, Normal S2, No murmurs Abdomen: Bowel Sounds Present, Soft, Non Tender, Non-Distended Extremities: No edema, No Calf Tenderness Musculoskeletal: - - Thoracic and lumbar paraspinal tenderness Psych/Mental Status: Appropriate, Anxious Vital Signs Temp Pulse Resp BP Pulse Ox 36.6 C 93 18 148/102 H 98 06/14/18 13:43 06/14/18 13:43 06/14/18 13:43 06/14/18 13:43 06/14/18 13:43 Oxygen Delivery Method Room Air Weight: 166.922 kg Body Mass Index (BMI) 57.6 Finger Stick Blood Glucose 164 Laboratory Tests Past 24 Hrs 06/14/18 06/14/18 06/14/18 11:30 11:33 11:33 WBC 10.5 RBC 4.32 Hgb 12.9 Hct 39.6 MCV 91.7 MCH 29.9 MCHC 32.6 RDW 13.4 RDW Differential 44.4 H Plt Count 287 MPV 9.5 Immature Gran % (Auto) 0.200 Neut % (Auto) 74.0 H Lymph % (Auto) 19.9 [place] % (Auto) 4.3 Eos % (Auto) 1.3 Baso % (Auto) 0.3 Absolute Neuts (auto) 7.8 H Absolute Lymphs (auto) 2.09 Total Counted Not Reportable Sodium 136 Potassium 4.2 Chloride 104 Carbon Dioxide 24.0 Anion Gap 8 BUN 11 Creatinine 1.02 Estim Creat Clear Calc 78.43 Est GFR (MDRD) Af Amer 82 Est GFR (MDRD) Non-Af 68 BUN/Creatinine Ratio 10.8 Glucose 140 H Calcium 8.8 Urine Color Yellow Urine Clarity Sl. Cloudy Urine pH 6.0 Ur Specific [place] 1.020 Urine Protein 15 H Urine Glucose (UA) Normal Urine Ketones Negative Urine Occult Blood 250 H Urine Nitrite Negative Urine Bilirubin Negative Urine Urobilinogen Normal Ur Leukocyte Esterase 25 H Urine RBC 25-50 SEEN Urine WBC 0-5 SEEN Ur Squamous Epith Cells 0-5 SEEN Urine Bacteria 1+ Urine Mucus 0 SEEN Assessment/Plan All Active Problems Back pain (Acute) Cellulitis of leg without foot, right (Acute) Right leg pain (Acute) 1. Back pain * I personally reviewed images of her CT abdomen and pelvis. I evaluated her lumbar spine did not did not show any fractures. Patient's pain seems to be more from muscle spasms in the paraspinal musculature. * I reviewed the patient's urinalysis there was a little bit of blood but nothing really concerning for urinary tract infection much less pyelonephritis. And I feel her pain is not due to pyelonephritis in the absence of fever and any leukocytosis. * Do not feel the patient requires hospitalization for that and recommended Flexeril. I discussed this with Dr. Blount and the plan will be to discharge the patient to home. Code Visit Office Visits / Consults: [id number] OP Consult L3
== END 2018-06-14 14:31 | disposition home or self-care (01) ==
PROVIDERS: Emergency Provider Emergency Medicine
DX: N12 Tubulo-interstitial nephritis, not specified as acute or chronic (principal); E66.9 Obesity, unspecified; E11.9 Type 2 diabetes mellitus without complications; I10 Essential (primary) hypertension; F17.200 Nicotine dependence, unspecified, uncomplicated
CPT/HCPCS: 74176; 80048; 81001; 85025; 87086; 96361; 96365; 96375; 99284; J7030; J7050; J2405

== ENCOUNTER 2018-07-20 09:57 | Emergency (ER) | payer MEDICAID, SELFPAY ==
[2018-07-20 09:58] VITALS: BP 167/110; PULSE 120; RESP 20; TEMP 36.6; O2SAT 98; BMI 60.0
--- NOTE | 2018-07-20 10:12 | ED.VISSUMM ---
- ER Visit Summary Date of Service: 07/20/18 Chief Complaint: Bilateral lower quadrant abdominal pain with nausea, vomiting diarrhea History of Present Illness: The patient is a 28 F who presents with bilateral lower abdominal pain that is associated with nausea, vomiting and diarrhea that started yesterday. She is vomited total of 2 times. She has had 7 loose watery stools. She denies hematemesis, melena or hematochezia. She denies maroon colored fluids. She does complain of thirst and dry mouth. She states she not permitted to stand because of a calcaneal fracture right foot and is uncertain whether she will be lightheaded or not. She denies headache. She denies ocular, visual auditory symptoms. I trouble speech or swallowing. Denies cardiac respiratory symptoms. She denies any urologic or gynecologic symptoms. She has no ill contacts. She has not been on any antibiotics in the past month. There is no history of inflammatory bowel disorder. Please read written note for complete detail Physical Examination: Vital signs remarkable for an elevated blood pressure 167/110 and heart rate of 120. HEENT exam is remarkable for dry tongue and mucosa. Heart is rapid and regular without murmur, gallop or rub. Lungs are clear to auscultation. Abdomen is remarkable for bilateral lower quadrant abdominal pain. Bowel sounds are slightly increased. There is no guarding or perineal findings. There is swelling of the right foot secondary to calcaneal fracture and dependent edema since she is not permitted to stand and weight-bear. Neuro exam is nonfocal Test Results: Basic metabolic panel is remarkable for an elevated glucose, 169. Emergency Department Course and Treatment: IV was established and she received 1 L of normal saline wide open and 4 mg of Zofran IV push. Patient states blood sugar was greater than 200 this morning. She states that is about baseline. BMP was obtained to assess renal function and electrolytes. Will reassess in 30-45 minutes. Treatment Plan: Patient was reassessed at 1145. She still complains of nausea and one episode of emesis. 12.5 mg of promethazine was ordered. A second liter of normal saline was ordered since she has not urinated nor does she have the urge to urinate. Most recent systolic blood pressure 139. Patient according the nurse had no vomiting diarrhea during her stay even though she reported one episode of vomiting. She has urinated after the second liter. She has passed p.o. challenge. Disposition: Discharge to home with family and prescription for Bentyl and promethazine Impression: 1. Abdominal pain with nausea, vomiting diarrhea 2. Moderate dehydration 3. Hyperglycemia and type II diabetic 4. Sinus tachycardia documented on monitor This note was generated with [employer] dictation software. It may contain incorrect words, spelling, and punctuation that were not noted in review of the chart prior to signing ED Disposition - Plan for ED Patient: Chief Complaint: Nausea/Vomiting/Diarrhea Instructions: ED Vomiting Diarrhea Nonspecific Ad Prescriptions: Promethazine HCl 25 mg PO Q6H PRN PRN #10 tab PRN Reason: Nausea/Vomiting Referrals: Care Physician,No Primary [Primary Care Provider] - Additional Instructions: If no improvement in 2-3 days follow-up with your doctor assigned by your insurance carrier, [employer]
[2018-07-20 10:15] VITALS: BP 168/118
[2018-07-20] MEDS: 0.9% Normal Saline 1,000 ML 1000 ML IV (10:29)
[2018-07-20] MEDS: Ondansetron 4 MG/2 ML Vial IV (10:29)
[2018-07-20 10:51] LABS: Anion Gap 6 (5-15); BUN 10 mg/dL (7-18); BUN/Creat Ratio 10.7 RATIO (10-20); Calcium,Total 8.8 mg/dL (8.5-10.1); Chloride 106 mmol/L (98-107); Creatinine, Serum 0.93 mg/dL (0.55-1.02); EST Glomerular Filtration Rate 75 mL/min (>60); Est Glom Filt Rate - Afr Amer 91 mL/min (>60); Estimated Creatinine Clearance 86.02 ml/min; Glucose 169 mg/dL (74-106); Potassium 3.7 mmol/L (3.5-5.1); Sodium Level 139 mmol/L (136-145)
[2018-07-20 11:19] VITALS: BP 145/85
[2018-07-20] MEDS: Dicyclomine 10 MG Capsule 20 MG PO (11:21)
[2018-07-20] MEDS: proMETHazine 25 MG/ML Syringe 12.5 MG IV (11:54)
[2018-07-20 12:36] VITALS: BP 162/126; PULSE 97; RESP 18; TEMP 36.8; O2SAT 96
[2018-07-20 12:51] VITALS: BP 139/99; PULSE 78; RESP 18
[2018-07-20 13:06] VITALS: BP 139/99; PULSE 79; RESP 18
== END 2018-07-20 13:07 | disposition home or self-care (01) ==
PROVIDERS: Emergency Provider Emergency Medicine
DX: R11.2 Nausea with vomiting, unspecified (principal); R19.7 Diarrhea, unspecified; R10.9 Unspecified abdominal pain; E86.0 Dehydration; E11.65 Type 2 diabetes mellitus with hyperglycemia; R00.0 Tachycardia, unspecified; I10 Essential (primary) hypertension; Z72.0 Tobacco use
CPT/HCPCS: 80048; 96361; 96374; 96375; 99285; J7030; A4216; J2405

== ENCOUNTER 2018-09-03 16:36 | Emergency (ER) | payer MEDICAID, SELFPAY ==
[2018-09-03 16:39] VITALS: BP 168/118; PULSE 105; RESP 20; TEMP 37; O2SAT 99; BMI 60.0
--- NOTE | 2018-09-03 17:27 | ED.VISSUMM ---
- ER Visit Summary Date of Service: 09/03/18 Chief Complaint: Flank pain History of Present Illness: The patient is a 28 F who is had left flank pain since yesterday. She states that wraps around to the front part of her abdomen. She has had associated nausea with this. She denies hematuria or dysuria. She does have a history of kidney stones. She fell 6 days ago. At that time she was evaluated at [place]. She was put on Flexeril and Motrin. She now continues to have a headache since that fall. She has a history of migraine headaches as well. Physical Examination: Vital signs reviewed. BMI is 60. HEENT exam unremarkable. Heart is regular rate and rhythm without murmurs. Lungs are clear to auscultation. Abdomen is soft and nontender. Back exam reveals left lumbar tenderness to palpation. There is no CVA tenderness. Extremities reveal no edema. Skin exam normal. Neurologic exam normal. Test Results: Urinalysis negative infection. Emergency Department Course and Treatment: Patient was given Reglan, Benadryl, Toradol and normal saline. She had a minor reaction to the Reglan but this is since gotten better. She states her headache is much better at 1835. There is no blood or infection in her urine. I feel the patient can be discharged with NSAIDs for pain at home. She will follow-up with her primary care physician. Treatment Plan: [] Disposition: Discharge Impression: Headache, left flank pain This note was generated with [employer] dictation software. It may contain incorrect words, spelling, and punctuation that were not noted in review of the chart prior to signing ED Disposition - Plan for ED Patient: Disposition: Home or Assisted Living Chief Complaint: Flank Pain Instructions: ED Cephalgia Unspecified Prescriptions: Diflunisal [Dolobid] 500 mg PO TID #20 tab Referrals: Care Physician,No Primary [Primary Care Provider] -
[2018-09-03 17:38] LABS: Bacteria 0 SEEN /hpf (None Seen); Mucous, Urine 0 SEEN /hpf (<or=2+)
[2018-09-03] MEDS: Ketorolac 30 MG/ML Syringe IV (17:47)
[2018-09-03] MEDS: 0.9% Normal Saline 1,000 ML 999 ML IV (17:47)
[2018-09-03] MEDS: DiphenhydrAMINE 50 MG/ML Syringe 25 MG IV (17:47)
[2018-09-03 17:48] LABS: Color, Urine Yellow (Yellow); Glucose, Dipstick Normal (Normal); Ketone-Dipstick Negative (Negative); Leukocyte Esterase-Dipstick 500 /ul (Negative); Nitrite-Dipstick Negative (Negative); Occult Blood-Urine Negative /ul (Negative); Protein-Dipstick 30 mg/dl (Negative); Specific Gravity, Urine 1.025 (1.002-1.030); Urine Clarity Clear (Clear); Urine Urobilinogen 1 mg/dl (Normal)
[2018-09-03] MEDS: Metoclopramide 10 MG/2 ML Vial IV (17:57)
[2018-09-03 17:58] LABS: Urine Bilirubin Dipstick 1 mg/dL (Negative)
[2018-09-03 18:05] LABS: Calcium Oxalate Crystals Ur 1+ /hpf (<or=2+); Red Blood Cells-Urine 0-5 SEEN /hpf (0-5); Squamous Epithelial Cells - UA 0-5 SEEN /hpf (5-10); White Blood Cells 0-5 SEEN /hpf (0-5)
[2018-09-03 18:06] LABS: Internal QC Validated? YES +Cl - CLEAR BKGD; Pregnancy, Urine Negative Negative
--- NOTE | 2018-09-03 18:37 | ED.DEP ---
ED Disposition - Plan for ED Patient: Disposition: Home or Assisted Living Chief Complaint: Flank Pain Instructions: ED Cephalgia Unspecified Prescriptions: Diflunisal [Dolobid] 500 mg PO TID #20 tab Referrals: Care Physician,No Primary [Primary Care Provider] -
[2018-09-03 18:53] VITALS: BP 164/116; PULSE 89; RESP 16
== END 2018-09-03 18:53 | disposition home or self-care (01) ==
PROVIDERS: Emergency Provider Emergency Medicine
DX: R51 Headache (principal); R10.9 Unspecified abdominal pain; R11.0 Nausea; E11.9 Type 2 diabetes mellitus without complications; I10 Essential (primary) hypertension; Z72.0 Tobacco use; Z87.442 Personal history of urinary calculi
CPT/HCPCS: 81001; 81025; 96361; 96374; 96375; 99284; J7030

== ENCOUNTER 2018-09-19 22:24 | Emergency (ER) | payer MEDICAID, SELFPAY ==
[2018-09-19 22:25] VITALS: BP 154/102; PULSE 109; RESP 19; TEMP 36.8; O2SAT 99; BMI 60.0
--- NOTE | 2018-09-19 22:45 | ED.DCSUM_ITS ---
- ER Visit Summary Date of Service: 09/19/18 Chief Complaint: Left flank pain History of Present Illness: The patient is a 28 F history of noncemented diabetes, hypertension, migraines and kidney stones. Patient states yesterday she started having mild intermittent left flank pain is worse in the last 3 ho urs. Denies any gross hematuria. No fever. Denies any back injury. Associated nausea no vomiting or diarrhea. No melena. Physical Examination: Young female. No acute distress. Vital signs are stable afebrile. H EENT exam unremarkable. Moist membranes. Neck nontender. Lungs clear to auscultation bilaterally. Heart regular rhythm no murmur rate about 100. Abdomen obese but soft nontender normal bowel sounds no peritoneal signs. Nondistended. Moving all 4 extremities. Neurovascularly intact. He has left CVA and soft tissue tenderness to her back. Neurologically she is awake alert with no focal motor deficits. Test Results: Urinalysis shows no whites or reds or bacteria in the microscopic urinalysis but blood on the macro. No nitrates. No signs of a UTI. This may be from kidney stone. Emergency Department Course and Treatment: Patient treated with IM Toradol and 2 p.o. [place]. On repeat exam she is doing well at 2320. She is comfortable being discharged home. Patient has had multiple CT flank study in the past and we will defer at this time. Treatment Plan: [place] home pack and a prescription for Toradol for possible kidney stone. Strain urine for stone. Return if intractable pain, fever or feeling worse. Disposition: Discharge Impression: Acute left flank pain with hematuria History of kidney stones This note was generated with [employer] dictation software. It may contain incorrect words, spelling, and punctuation that were not noted in review of the chart prior to signing ED Disposition - Plan for ED Patient: Disposition: Home or Assisted Living Chief Complaint: Flank Pain Instructions: ED Flank Pain Uncertain Cause Prescriptions: Ketorolac [Toradol] 10 mg PO Q4H #10 tab Referrals: Prateek Honeycutt MD [Primary Care Provider] - As Needed Additional Instructions: Plenty of fluids and rest. Strain your urine for possible kidney stone. Follow-up your primary care physician as needed. Limited [place] and Toradol for flank pain for the possibility of this being a kidney stone.
[2018-09-19] MEDS: HYDROcodone Bitartrate/Apap 5/325 Tablet PO ×2 (22:50→23:32)
[2018-09-19] MEDS: Ketorolac 60 MG/2 ML Vial IM (22:50)
[2018-09-19 23:01] LABS: Bacteria 0 SEEN /hpf (None Seen); Mucous, Urine 0 SEEN /hpf (<or=2+)
[2018-09-19 23:04] LABS: Color, Urine Yellow (Yellow); Glucose, Dipstick Normal (Normal); Ketone-Dipstick Negative (Negative); Leukocyte Esterase-Dipstick 25 /ul (Negative); Nitrite-Dipstick Negative (Negative); Occult Blood-Urine 50 /ul (Negative); Protein-Dipstick Negative (Negative); Specific Gravity, Urine 1.015 (1.002-1.030); Urine Bilirubin Dipstick Negative (Negative); Urine Clarity Clear (Clear); Urine Urobilinogen Normal (Normal)
[2018-09-19 23:12] LABS: Red Blood Cells-Urine 0-5 SEEN /hpf (0-5); Squamous Epithelial Cells - UA 0-5 SEEN /hpf (5-10); White Blood Cells 0-5 SEEN /hpf (0-5)
--- NOTE | 2018-09-19 23:22 | ED.DEP ---
ED Disposition - Plan for ED Patient: Disposition: Home or Assisted Living Chief Complaint: Flank Pain Instructions: ED Flank Pain Uncertain Cause Prescriptions: Ketorolac [Toradol] 10 mg PO Q4H #10 tab Referrals: Prateek Honeycutt MD [Primary Care Provider] - As Needed Additional Instructions: Plenty of fluids and rest. Strain your urine for possible kidney stone. Follow-up your primary care physician as needed. Limited [place] and Toradol for flank pain for the possibility of this being a kidney stone.
[2018-09-19 23:35] VITALS: BP 149/89; PULSE 85; RESP 17; O2SAT 94
[2018-09-19 23:37] VITALS: RESP 17
== END 2018-09-19 23:38 | disposition home or self-care (01) ==
PROVIDERS: Emergency Provider Emergency Medicine; Family Provider Family Medicine; PCP Family Medicine
DX: R10.9 Unspecified abdominal pain (principal); R31.9 Hematuria, unspecified; E11.9 Type 2 diabetes mellitus without complications; I10 Essential (primary) hypertension; G43.909 Migraine, unspecified, not intractable, without status migrainosus; Z87.442 Personal history of urinary calculi; Z72.0 Tobacco use
CPT/HCPCS: 81001; 96372; 99283

== ENCOUNTER 2018-10-09 22:23 | Emergency (ER) | payer MEDICAID, SELFPAY ==
[2018-10-09 22:23] VITALS: BP 161/103; PULSE 101; RESP 20; TEMP 36.7; O2SAT 98; BMI 60.0
--- NOTE | 2018-10-09 22:35 | RAD_ITS ---
STUDY: X-RAY - RIGHT FOOT CLINICAL: Female, 28 years old. Right foot injury and prior surgery TECHNIQUE: 3 view(s) of the foot. COMPARISON: April 26, 2018 FINDINGS: Normal talus, calcaneus, and tarsal bones. Normal visualized subtalar, talonavicular, calcaneocuboid, tarsal and tarsometatarsal articulations. Metallic hardware transfixes the calcaneocuboid joint. Normal metatarsi. Normal metatarsophalangeal joint of the great toe. Normal tibial and fibular sesamoid bones. Normal interphalangeal joint of the great toe. Normal phalanges of the great toe. Normal second through fifth metatarsophalangeal joints. Normal interphalangeal joints and phalanges of the lesser toes. The soft tissue structures are unremarkable. RAD/Foot min 3 Views IMPRESSION: Postoperative changes. No acute disease. Electronically Signed: Daniel Rios MD at 23:16 EST , Service support ,
--- NOTE | 2018-10-09 22:38 | ED.VISSUMM ---
- ER Visit Summary Date of Service: 10/09/18 Chief Complaint: Right foot pain History of Present Illness: The patient is a 28 F who had a surgery in October 2017 for bone fusion her right foot. Patient states today while walking she felt a pop in her right foot along that site of prior surgery. 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 In spite of doing this she has had continued pain and presented for evaluation. Physical Examination: Blood pressure is 161/103, otherwise vitals unremarkable. Patient sitting upright in bed no acute distress. Lower external examination reveals an old healed incision the lateral tarsal bone region of the right foot. She has mild tenderness along this area with mild edema. She has strong distal pulses. She is good range of motion, but pain with movement. There is no tenderness over the knee or proximal fibula. Test Results: Right foot x-rays reveal postoperative changes with no evidence of acute fracture. Emergency Department Course and Treatment: Patient was given 1 tab of [place] here. Test results are discussed with her. She understands that she may have tendon or ligament injury that is not visible on x-ray. She will be given a walking boot and given a home pack of [place] only. She will follow-up with her company tanker truck driver tomorrow. Treatment Plan: [] Disposition: Discharge Impression: Right foot sprain This note was generated with [employer] dictation software. It may contain incorrect words, spelling, and punctuation that were not noted in review of the chart prior to signing ED Disposition - Plan for ED Patient: Chief Complaint: Lower Extremity Injury Referrals: Prateek Honeycutt MD [Primary Care Provider] -
[2018-10-09] MEDS: HYDROcodone Bitartrate/Apap 5/325 Tablet PO ×2 (22:39→23:32)
--- NOTE | 2018-10-09 23:21 | ED.DEP ---
ED Disposition - Plan for ED Patient: Disposition: Home or Assisted Living Chief Complaint: Lower Extremity Injury Instructions: ED Sprain Foot Referrals: Zenobia Warner DPM [STAFF PHYSICIAN] - As soon as possible
--- NOTE | 2018-10-09 23:37 | ED.RN ---
WALKING BOOT NOT AVAILABLE AND INFORMED OF SAME, AMY WRAP AND WALKING SHOE APPLIED TO RIGHT FOOT.
== END 2018-10-09 23:38 | disposition home or self-care (01) ==
PROVIDERS: Emergency Provider Emergency Medicine; Family Provider Family Medicine; PCP Family Medicine
DX: S93.601A Unspecified sprain of right foot, initial encounter (principal); X58.XXXA Exposure to other specified factors, initial encounter; Y93.01 Activity, walking, marching and hiking; Y92.9 Unspecified place or not applicable; Y99.9 Unspecified external cause status; K21.9 Gastro-esophageal reflux disease without esophagitis; E11.9 Type 2 diabetes mellitus without complications; I10 Essential (primary) hypertension; Z72.0 Tobacco use
CPT/HCPCS: 73630; 99283

== ENCOUNTER 2018-11-24 21:56 | Emergency (ER) | payer MEDICAID, SELFPAY ==
[2018-11-24 21:57] VITALS: BP 158/102; PULSE 111; RESP 16; TEMP 37.2; O2SAT 98; BMI 59.0
--- NOTE | 2018-11-24 22:08 | EKG12_ITS ---
Test Reason : Blood Pressure : / mmHG Vent. Rate : 103 BPM Atrial Rate : 103 BPM P-R Int : 134 ms QRS Dur : 082 ms QT Int : 318 ms P-R-T Axes : 040 023 028 degrees QTc Int : 416 ms Sinus tachycardia Otherwise normal ECG Confirmed by LISSETH RAY, GRICELDA ([id number]), design editor BRISEYDA GANN ([id number] on 11/28/2018 1:22:06 PM Referred By: REJI Confirmed By:GRICELDA MONTANEZ MD
--- NOTE | 2018-11-24 22:09 | ED.VISSUMM ---
- ER Visit Summary Date of Service: 11/24/18 Chief Complaint: [] History of Present Illness: The patient is a 28 F [] Physical Examination: [] Test Results: [] Emergency Department Course and Treatment: [] Treatment Plan: [] Disposition: [] Impression: [] This note was generated with [email or web address] dictation software. It may contain incorrect words, spelling, and punctuation that were not noted in review of the chart prior to signing ED Disposition - Plan for ED Patient: Chief Complaint: Chest Pain Referrals: Prateek Honeycutt MD [Primary Care Provider] -
--- NOTE | 2018-11-24 22:13 | ED.DCSUM_ITS ---
History of Present Illness Chief Complaint: Chest Pain Informant: Patient Onset: Days - 2-3 Context: Gradual Onset Timing: Intermittent Quality: ache Location: mid-sternal. radiates into mid-back between shoulder blades. Current Severity: Moderate Maximum Severity: Moderate Worsened by: lying supine Relieved by: sitting up partially Associated Symptoms: lightheadedness. no sob, jaw/arm pain, nausea, palpitations, syncope. Narrative: Intermittent for the last couple days but today has been constant and radiating into the back for over 6 hours now. Therefore, she called EMS. No history of heart or lung disease. She is treated for hypertension and diabetes. No first- degree family history of heart disease. Discomfort is nonpleuritic. No calf pain or swelling, but she has chronic issues with her right foot for which she is in a boot off and on, saying that she may need another fusion. Her last surgery was about a year ago. - Past Medical History (1) Type 2 diabetes mellitus Status: Chronic (2) HTN (hypertension) Status: Chronic (3) Kidney stones Status: Chronic (4) Arthritis of right foot Status: Chronic Past Medical History - Allergies and Home Meds Allergies/Adverse Reactions: Allergies Penicillins Allergy (Verified 11/24/18 22:03) Hives angioedema as well etodolac [From Lodine] Adverse Reaction (Intermediate, Verified 11/24/18 22:03) Chest tightness bupropion HCl [From Wellbutrin] Adverse Reaction (Verified 11/24/18 22:03) suicidal suicidal metoclopramide [From Reglan] Adverse Reaction (Verified 11/24/18 22:03) Other ANXIETY prochlorperazine [From Compazine] Adverse Reaction (Verified 11/24/18 22:03) Other ANXIETY Primary Care Physician: Prateek Honeycutt MD [Primary Care Provider] - Surgical History: cholecystectomy, - - 3 previous right foot surgeries Right gastrocnemius recession, calcaneal cuboid joint arthrodesis, fracture fragment excision (Dr. Warner 11/05/2017) Smoking Status: Current every day smoker - Family History Maternal Family History: Reports: No pertinent history Review of Systems General: Reports: Malaise. Denies: Chills, Fever, Sweats Cardiovascular: Reports: Chest pain. Denies: Palpitations Respiratory: Denies: Dyspnea, Cough Gastrointestinal: Denies: Abdominal pain, Nausea, Vomiting, Diarrhea, Melena, Hematochezia Genitourinary: Denies: Dysuria, Hematuria, Frequency Musculoskeletal: Reports: Back pain, Extremity Pain. Denies: Neck pain, Swelling Skin: Denies: Rash, Abscess Neurological: Denies: Headache, Weakness, Numbness Psych: Denies: Depression, Anxiety Endocrine: Denies: Polyuria, Polydipsia Hematologic: Denies: Easy bruising, Easy bleeding Allergy: Denies: Swelling of the mouth, Swelling of the tongue Physical Exam Vital Signs/Narrative: Vital Signs Temp Pulse Resp BP Pulse Ox 11/24/18 21:57 98.9 F 111 H 16 158/102 H 98 Inital Vital Signs reviewed: Yes General: Well nourished, Well developed, Obese, - - NAD Head: Normocephalic, Atraumatic Eyes: Perrl, EOMI ENT: Moist mucous membranes, No rhinorrhea Neck: Supple, Nontender, No lymphadenopathy, No JVD Cardiovascular: Regular rate, Regular rhythm, No murmurs, Normal S1, Normal S2, Tachycardia - mild Respiratory: No distress, CTA bilaterally, Chest nontender Abdomen: Soft, Nondistended, Normal bowel sounds, Tender - minimal epigastric only. Negative for: Guarding, Rebound tenderness Back: Nontender, Normal Inspection. Negative for: CVA tenderness Extremities: Nontender - no calf tenderness. R foot boot left intact., No edema Skin: Normal color, No rash Neurological: Alert, Oriented x3, Cranial nerves II-XII grossly intact, Normal Strength, Normal Sensation Psychological: Normal affect Diagnostic/Tx/Re-eval Impressions Chest X-Ray 11/24/18 22:20 IMPRESSION: Normal x-ray examination of the chest. Electronically Signed: Leta Ann MD at 22:58 EST , Service support , 11/24/18 22:20 Chest PA and Lateral [RAD] Stat Laboratory Results 11/24/18 11/24/18 22:04 22:04 WBC 10.9 RBC 4.09 L Hgb 11.9 L Hct 36.8 L MCV 90.0 MCH 29.1 MCHC 32.3 RDW 13.2 RDW Differential 43.7 Plt Count 269 MPV 9.1 Immature Gran % (Auto) 0.300 Neut % (Auto) 76.9 H Lymph % (Auto) 17.7 L Whiteside % (Auto) 3.9 Eos % (Auto) 1.1 Baso % (Auto) 0.1 Absolute Neuts (auto) 8.4 H Absolute Lymphs (auto) 1.93 Total Counted Not Reportable Reactive Lymphocytes RARE Sodium 138 Potassium 3.6 Chloride 106 Carbon Dioxide 24.0 Anion Gap 8 BUN 10 Creatinine 0.93 Estim Creat Clear Calc 86.02 Est GFR (MDRD) Af Amer 91 Est GFR (MDRD) Non-Af 75 BUN/Creatinine Ratio 10.8 Glucose 181 H Calcium 8.6 Troponin I < 0.015 - Rhythm Strip Rhythm Strip: Sinus Tach Rate: 102 Ectopy: None - EKG Initial EKG Interpretation: Sinus Rhythm, No Acute Injury Pattern, - - nml EKG other than mi ld tachycardia. no S1Q3T3. Prior: Unchanged - Medical Decision Making Labs and chest x-ray are normal. Her EKG shows no acute injury pattern except for a heart rate of 103 is normal. After a GI cocktail her symptoms are improved although it is still there is some. I do not think this is a PE and I do not think she needs further emergency department workup at this time. We will place her on a PPI and advised she follow-up closely with her doctor, she is comfortable with that plan. ED Disposition - Plan for ED Patient: Disposition: Home or Assisted Living Chief Complaint: Chest Pain Diagnosis: Chest pain, unspecified Instructions: ED Chest Pain NonCardiac Prescriptions: Omeprazole 40 mg PO DAILY #30 capsule. Referrals: Prateek Honeycutt MD [Primary Care Provider] - 3-5 Days if not improving
[2018-11-24 22:18] LABS: Absolute Lymphocyte Count 1.93 X10^3/ul (0.83-4.51); Absolute Neutrophil Count 8.4 X10^3/uL (2.0-7.7); Basophil# 0.01 X10^3/uL; Basophil% 0.1 % (0-1); Eosinophil# 0.12 X10^3/uL; Eosinophils% 1.1 % (0-5); Hematocrit 36.8 % (37-47); Hemoglobin 11.9 g/dl (12.0-15.0); Lymphocyte # 1.93 X10^3/ul (4.0); Lymphocyte % 17.7 % (19-41); Mean Corp Hgb Conc 32.3 g/gl (32-36); Mean Corpuscular Hgb 29.1 pg (27.0-32.0); Mean Platelet Vol. 9.1 fl (6.2-12.0); Monocyte# 0.42 X10^3/uL; Monocyte% 3.9 % (0-10); Neutrophil # 8.39 X10^3/uL (2.7-7.7); Neutrophil % 76.9 % (47-70); POSITIVE DIFFERENTIAL NO; Platelet Count 269 K/mm3 (150-450); RBC Distribution Width CV 13.2 % (11.6-14.6); RBC Distribution Width SD 43.7 fl (35.1-43.9); Red Blood Count 4.09 M/mm3 (4.2-5.4); White Blood Count 10.9 K/mm3 (4.4-11.0)
[2018-11-24 22:19] LABS: Differential Indicated SCAN CRITERIA MET; POSITIVE COUNT NO; POSITIVE MORPHOLOGY YES
--- NOTE | 2018-11-24 22:20 | RAD_ITS ---
STUDY: X-RAY CHEST REASON FOR EXAM: Female, 28 years old. Chest pain. TECHNIQUE: 2 views COMPARISON: None. FINDINGS: The lungs are clear and expanded. There is no demonstrated pleural abnormality. Normal size heart. Normal mediastinum and marissa. Normal visualized pulmonary arteries. Normal visualized aortic arch and descending thoracic aorta. Normal visualized thoracic spine. Normal visualized ribs, clavicles, and shoulders. There is no demonstrated abnormality of the visualized soft tissue structures of the upper abdomen. RAD/Chest PA and Lateral IMPRESSION: Normal x-ray examination of the chest. Electronically Signed: Leta Ann MD at 22:58 EST , Service support ,
[2018-11-24] MEDS: Mag Hydrox/Al Hydrox/Simeth 30 ML UDC PO (22:22)
[2018-11-24 22:29] LABS: Anion Gap 8 (5-15); BUN 10 mg/dL (7-18); BUN/Creat Ratio 10.8 RATIO (10-20); Calcium,Total 8.6 mg/dL (8.5-10.1); Chloride 106 mmol/L (98-107); Creatinine, Serum 0.93 mg/dL (0.55-1.02); EST Glomerular Filtration Rate 75 mL/min (>60); Est Glom Filt Rate - Afr Amer 91 mL/min (>60); Estimated Creatinine Clearance 86.02 ml/min; Glucose 181 mg/dL (74-106); Potassium 3.6 mmol/L (3.5-5.1); Sodium Level 138 mmol/L (136-145)
[2018-11-24 22:43] LABS: Reactive Lymphocyte RARE
[2018-11-24 23:34] VITALS: BP 160/105; PULSE 99; RESP 15; O2SAT 99
[2018-11-24] MEDS: Pantoprazole Sodium 40 MG Tablet PO (23:54)
[2018-11-24 23:56] VITALS: BP 159/102; PULSE 95; RESP 16; O2SAT 99
== END 2018-11-24 23:58 | disposition home or self-care (01) ==
PROVIDERS: Emergency Provider Emergency Medicine; Family Provider Family Medicine; PCP Family Medicine
DX: R07.9 Chest pain, unspecified (principal); E66.9 Obesity, unspecified; I10 Essential (primary) hypertension; E11.9 Type 2 diabetes mellitus without complications; F17.200 Nicotine dependence, unspecified, uncomplicated; Z87.442 Personal history of urinary calculi; Z88.0 Allergy status to penicillin; R00.0 Tachycardia, unspecified
CPT/HCPCS: 71046; 80048; 84484; 85025; 93005; 99285; A4216

== ENCOUNTER → 2018-12-21 15:03 | Outpatient (CLI) | payer MEDICAID, SELFPAY ==
[2018-11-24 21:57] VITALS: BMI 59.0
[2018-12-21 18:08] LABS: ALB/GLOB Ratio 0.8 RATIO (0.9-2.4); AST(SGOT) 11 U/L (15-37); Alanine Aminotransfer ALT/SGPT 34 U/L (13-56); Albumin, Serum 3.3 g/dL (3.2-5.0); Alkaline Phosphatase 93 U/L (45-117); Anion Gap 10 (5-15); BUN 14 mg/dL (7-18); BUN/Creat Ratio 14.4 RATIO (10-20); Calcium,Total 9.1 mg/dL (8.5-10.1); Chloride 104 mmol/L (98-107); Creatinine, Serum 0.97 mg/dL (0.55-1.02); EST Glomerular Filtration Rate 71 mL/min (>60); Est Glom Filt Rate - Afr Amer 86 mL/min (>60); Globulin 4.1 g/dL (2.2-4.2); Glucose 172 mg/dL (74-106); Potassium 4.6 mmol/L (3.5-5.1); Protein, Total 7.4 g/dL (6.4-8.2); Sodium Level 140 mmol/L (136-145)
[2018-12-21 18:39] LABS: Absolute Lymphocyte Count 2.46 X10^3/ul (0.83-4.51); Absolute Neutrophil Count 7.4 X10^3/uL (2.0-7.7); Basophil# 0.02 X10^3/uL; Basophil% 0.2 % (0-1); Eosinophil# 0.13 X10^3/uL; Eosinophils% 1.2 % (0-5); Hematocrit 40.2 % (37-47); Hemoglobin 12.6 g/dl (12.0-15.0); Lymphocyte # 2.46 X10^3/ul (4.0); Lymphocyte % 23.3 % (19-41); Mean Corp Hgb Conc 31.3 g/gl (32-36); Mean Corpuscular Volume 92.6 fL (81-99); Mean Platelet Vol. 9.5 fl (6.2-12.0); Monocyte# 0.42 X10^3/uL; Neutrophil # 7.38 X10^3/uL (2.7-7.7); Neutrophil % 70.1 % (47-70); Platelet Count 335 K/mm3 (150-450); RBC Distribution Width CV 13.8 % (11.6-14.6); RBC Distribution Width SD 46.7 fl (35.1-43.9); Red Blood Count 4.34 M/mm3 (4.2-5.4); White Blood Count 10.5 K/mm3 (4.4-11.0)
[2018-12-21 18:40] LABS: Differential Indicated SCAN CRITERIA MET; POSITIVE COUNT NO; POSITIVE DIFFERENTIAL NO; POSITIVE MORPHOLOGY YES
--- OUTSIDE RECORDS SUMMARY | 2019-02-22 17:39 | XMS RPT_ITS ---
:1990 Author Organization OHIP Support Name Relationship Address Phone ISAI LOZANO Unavailable [address] + [place] [address] THI BRYANT Unavailable [address] + [place] [address] UE Unavailable Unavailable Unavailable ISAI LOZANO Unavailable [address] + [place] [address] THI BRYANT Unavailable [address] + [place] [address] UE Unavailable Unavailable Unavailable ISAI LOZANO Unavailable [address] + [place] [address] THI BRYANT Unavailable [address] + [place] [address] UE Unavailable Unavailable Unavailable CORBY GRIFFITHS Unavailable [address] + [place] [address] JOSÉ MIGUEL STANLEYSHUA Unavailable [address] + [place] [address] UE Unavailable Unavailable Unavailable CORBY GRIFFITHS Unavailable [address] + [place] [address] THI BRYANT Unavailable [address] + [place] [address] UE Unavailable Unavailable Unavailable CORBY GRIFFITHS Unavailable [address] + [place] [address] THI BRYANT Unavailable [address] + [place] [address] UE Unavailable Unavailable Unavailable THI, BRYANT Unavailable Unavailable + THI BRYANT Unavailable Unavailable + CORBY GRIFFITHS Unavailable [address] + [place] [address] THI BRYANT Unavailable [address] + [place] [address] UE Unavailable Unavailable Unavailable CORBY GRIFFITHS Unavailable [address] + [place] [address] ROME BRYANT Unavailable [address] + [place] [address] UE Unavailable Unavailable Unavailable CORBY GRIFFITHS Unavailable [address] + [place] [address] ROME BRYANT Unavailable [address] + [place] [address] UE Unavailable Unavailable Unavailable CORBY GRIFFITHS Unavailable [address] + [place] [address] ROME BRYANT Unavailable [address] + [place] [address] UE Unavailable Unavailable Unavailable CORBY GRIFFITHS Unavailable [address] + [place] [address] ROME, BRYANT Unavailable [address] + [place] [address] UE Unavailable Unavailable Unavailable CORBY GRIFFITHS Unavailable [address] + [place] [address] ROME, BRYANT Unavailable [address] + [place] [address] UE Unavailable Unavailable Unavailable CORBY GRIFFITHS Unavailable [address] + [place] [address] THI, BRYANT Unavailable [address] + [place] [address] UE Unavailable Unavailable Unavailable CORBY GRIFFITHS Unavailable [address] + [place] [address] THI, BRYANT Unavailable [address] + [place] [address] UE Unavailable Unavailable Unavailable CORBY GRIFFITHS Unavailable [address] + [place] [address] SVETLANA STANLEYUA Unavailable [address] + [place] [address] UE Unavailable Unavailable Unavailable TUNDE, CORBY Unavailable [address] + [place] [address] SVETLANA STANLEYUA Unavailable [address] + [place] [address] UE Unavailable Unavailable Unavailable TUNDE, CORBY Unavailable [address] + [place] [address] SVETLANA STANLEYUA Unavailable [address] + [place] [address] UE Unavailable Unavailable Unavailable TUNDE CORBY Unavailable [address] + [place] [address] BRYANT STANLEY Unavailable [address] + [place] [address] UE Unavailable Unavailable Unavailable Care Team Providers Name Role Phone Gene Cormier Attending Unavailable Zenobia Warner Consulting Unavailable Prateek Honeycutt Primary Care Unavailable Wilmar Chow Attending Unavailable Primay Care Physicia, No Primary Care Unavailable Zenobia Warner Attending Unavailable HINES, DALJIT Primary Care Unavailable Zenobia Warner Referring Unavailable Chano Chavarria Attending Unavailable HINES, DALJIT Primary Care Unavailable Yinka Prateek Primary Care Unavailable Lita Palomo Attending Unavailable Primay Care Physicia, No Primary Care Unavailable Wilmar Chow Attending Unavailable Primay Care Physicia, No Primary Care Unavailable Sinclair, Chris Attending Unavailable Jacques Alcaraz Attending Unavailable Primay Care Physicia, No Primary Care Unavailable Primay Care Physicia, No Primary Care Unavailable Gianni Blount Attending Unavailable Primay Care Physicia, No Primary Care Unavailable Gianni Blount Attending Unavailable Primay Care Physicia, No Primary Care Unavailable Keny Dietrich Attending Unavailable Santosh Johnson Attending Unavailable Primay Care Physicia, No Primary Care Unavailable Primay Care Physicia, No Primary Care Unavailable Bryant Stout Attending Unavailable Primay Care Physicia, No Primary Care Unavailable Christoph Miramontes Attending Unavailable Zenobia Warner Attending Unavailable Alexandrialey, Prateek Primary Care Unavailable Prateek Honeycutt Primary Care Unavailable HERBERT HART Attending Unavailable Zenobia Warner Attending Unavailable Zenobia Warner Referring Unavailable DALJIT HINES Primary Care Unavailable Usman Chapman Attending Unavailable Prateek Honeycutt Primary Care Unavailable UZMA SYKES MD Attending Unavailable AYAAN RAY., DR. GIANNI Breaux Primary Care Unavailable PROBLEMS PROBLEMS DATE TYPE CONDITION / CODE ATTENDING STATUS SOURCE 06/09/2018 Unknown N28.85 - Gianni Blount Active [facility] N28.85(ICD-10) Repository 04/26/2018 Unknown S92.901A - Keny Dietrich Active [facility] Unspecified fracture Community of right foot, Hospital initial encounter for Repository closed fracture / S92.901A(ICD-10) 04/20/2018 Unknown N20.0 - Calculus of ElizabethSantosh sanchez Active [facility] N20.0(ICD-10) Hospital Repository 07/29/2018 Unknown Z98.890 - Other Fascione, Active [facility] specified [facility] / Z98.890(ICD-10) Repository 03/21/2018 Unknown S83.90XA - Sprain of Le, Chano Active [facility] [place] unspecified site of Community unspecified knee, Hospital initial encounter / Repository S83.90XA(ICD-10) 02/07/2018 Unknown E55.9 - Vitamin D Fascione, Active [facility] deficiency, [facility] unspecified / Hospital E55.9(ICD-10) Repository PROCEDURES PROCEDURES No Procedure Records FoundRESULTS RESULTS COMPREHENSIVE METABOLIC Collected: 12/21/2018 Status: F Source: [place] [facility] 3:05 PM [facility] REPOSITORY TYPE CODE TESTS RESULT OUT OF RANGE REFERENCE UNITS LAB L501.0100 74-106 mg/dL High GLU 172 Result Comment: Fasting Glucose result greater than or equal to 126 mg/dL suggests DIABETES MELLITUS per A.D.A. criteria. Please note revised GLUCOSE reference range effective 2017. LAB L501.1000 7-18 mg/dL Normal BUN 14 LAB L501.1100 0.55-1.02 mg/dL Normal CREAT,SERUM 0.97 Result Comment: The validity of the calculated GFR AND GFRAA in patients over 70 years has not been determined. Clinical correlation is essential. LAB L501.1110 >60 mL/min Normal EST GFR 71 Result Comment: Non- GFR Calc LAB L501.1115 >60 mL/min Normal EST GFR - AA 86 Result Comment: GFR Calc LAB L501.1300 10-20 RATIO Normal BUN/CRE 14.4 LAB L501.1500 6.4-8.2 g/dL T Normal PROT 7.4 LAB L501.1800 3.2-5.0 g/dL Normal ALB 3.3 LAB L501.1950 2.2-4.2 g/dL Normal GLOB 4.1 LAB L501.2000 0.9-2.4 RATIO Low A/G 0.8 LAB L501.2200 8.5-10.1 mg/dL CA Normal 9.1 LAB L501.4100 15-37 U/L Low AST 11 LAB L501.4305 45-117 U/L Normal ALK P 93 LAB L501.4405 13-56 U/L Normal ALT 34 LAB L501.4600 0.20-1.00 mg/dL T Normal BILI 0.20 LAB L501.5300 136-145 mmol/L NA Normal 140 LAB L501.5600 3.5-5.1 mmol/L K Normal 4.6 LAB L501.5900 98-107 mmol/L CL Normal 104 LAB L501.6100 21.0-32.0 mmol/L Normal CO2 26.0 LAB L501.6200 5-15 Normal GAP 10 Performed By: #### L500.4050, L100.0100 #### [facility] [address] [place], [place] [address]all [place]ji. [place], [place], [address] CBC W/DIFF, AUTOMATED Collected: 12/21/2018 Status: F Source: [place] 3:05 PM [facility] REPOSITORY TYPE CODE TESTS RESULT OUT OF RANGE REFERENCE UNITS LAB L100.1000 4.4-11.0 K/mm3 Normal WBC 10.5 LAB L100.1200 4.2-5.4 M/mm3 Normal RBC 4.34 LAB L100.1300 12.0-15.0 g/dl Normal HGB 12.6 LAB L100.1400 37-47 % Normal HCT 40.2 LAB L100.1500 81-99 fL Normal MCV 92.6 LAB L100.1600 27.0-32.0 pg Normal MCH 29.0 LAB L100.1700 32-36 g/gl Low MCHC 31.3 LAB L100.1810 11.6-14.6 % Normal RDW CV 13.8 LAB L100.1820 35.1-43.9 fl High RDW SD 46.7 LAB L100.1900 150-450 K/mm3 Normal PLT 335 LAB L100.2000 6.2-12.0 fl Normal MPV 9.5 LAB L100.2100 47-70 % High NEUT% 70.1 LAB L100.2200 19-41 % Normal LY% 23.3 LAB L100.2300 0-10 % Normal MONO% 4.0 LAB L100.2400 0-5 % Normal EO% 1.2 LAB L100.2500 0-1 % Normal BASO% 0.2 LAB L100.2550 0.0-0.9 % High IM GRAN % 1.200 Result Comment: IG% - Immature Granulocytes (promyelocytes, myelocytes and metamyelocytes) > 1% indicates that a LEFT SHIFT is Present. LAB L100.2620 2.0-7.7 X10 3/uL Normal Absolute Neut 7.4 LAB L100.2720 0.83-4.51 X10 3/ul Normal Absolute Lymph 2.46 Performed By: #### L500.4050, L100.0100 #### [facility] [address] [place], [address] PROGRESS Observed: 12/14/2018 Status: COMPLETED Source: [place] 11:55 AM [facility] REPOSITORY HNO ID: [id number] Author: Katherin Blair Service: (none) Author Type: Nurse Practitioner Type: Progress Notes Filed: 12/14/2018 11:58 AM Note Text: Subjective HPI Pt presents with c/o sore throat and nasal congestion x 2 days. This am developed an occasional moist cough. Denies fever, chills, myalgias, dyspnea. Has not taken any OTC medications. Review of Systems Constitutional: Negative for chills and fever. HENT: Positive for congestion and sore throat. Negative for ear discharge, ear pain, sinus pain and tinnitus. Respiratory: Positive for cough. Negative for sputum production, shortness of breath and wheezing. Cardiovascular: Negative for chest pain. Skin: Negative for rash. Neurological: Negative for headaches. Objective Physical Exam Constitutional: She is oriented to person, place, and time and well-developed, well-nourished, and in no distress. No distress. HENT: Head: Normocephalic. Right Ear: Hearing, tympanic membrane, external ear and ear canal normal. Left Ear: Hearing, tympanic membrane, external ear and ear canal normal. Nose: Nose normal. Right sinus exhibits no maxillary sinus tenderness and no frontal sinus tenderness. Left sinus exhibits no maxillary sinus tenderness and no frontal sinus tenderness. Mouth/Throat: Uvula is midline and mucous membranes are normal. Oropharyngeal exudate (right tonsil) and posterior oropharyngeal erythema (mild erythema) present. No posterior oropharyngeal edema or tonsillar abscesses. Eyes: Pupils are equal, round, and reactive to light. Conjunctivae are normal. Right eye exhibits no discharge. Left eye exhibits no discharge. Neck: Neck supple. Cardiovascular: Normal rate, regular rhythm and normal heart sounds. Exam reveals no gallop and no friction rub. No murmur heard. Pulmonary/Chest: Effort normal and breath sounds normal. No accessory muscle usage. No tachypnea. No respiratory distress. She has no decreased breath sounds (CTA, good air movement throughout, no cough noted during exam.). She has no wheezes. She has no rhonchi. She has no rales. Lymphadenopathy: She has no cervical adenopathy. Neurological: She is alert and oriented to person, place, and time. Skin: Skin is warm. She is not diaphoretic. BP 136/82 Pulse 116 Temp 37.1 ?C (98.7 ?F) (Tympanic) Resp 16 Wt (!) 170.1 kg (375 lb) SpO2 97% BMI 58.73 kg/m? .Patient presents with: ST, and congestion: x 2 days PAST MEDICAL HISTORY Diagnosis Date - Anemia ANEMIA WITH PREVIOUS - Anemia complicating 09/09/2012 September 09, 2012 started on iron - Diabetes in 06/12/2014 - Dysthymic disorder Depression (non-psychotic) - Fam hx-diabetes mellitus 01/14/2011 - Family history of congenital heart defect 06/20/2013 06/20/2013 Father of the baby's father born with heart valve defect. TKRN - FRACTURE ANKLE - History of depression 05/05/2012 06/20/2013 Pt has a history of depression since age 10. She has been off medication since 2009. She believes she is doing well off medication. Discussed increased risks of depression during and and importance of reporting the development or worsening of symptoms should they occur. Pt had suicidal thoughts at age 10 and 13 but none since then. She did some cutting in the past but none for approximately 10 years. TKRN - History of recurrent UTI (urinary tract infection) 05/05/2012 05/21/2013Pt has a history of recurrent UTI. Discussed importance of reporting the onset of any symptoms of a UTI should it occur during . TKRN - Hypertension complicating 11/10/2012 November 16, 2012 Stopped labetlol due to lower bps, normal bps now Sm November 10, 2012 normal 24 hour urine on labetalol 100mg BID Recommend delivery at 39-40 weeks. Weekly NST/NELSON - Mild or unspecified pre-eclampsia, unspecified as to episode of care 2008 Pre-ecclampsia - Obesity, unspecified - depression - Tobacco use 03/07/2014 PAST SURGICAL HISTORY Procedure Laterality Date - DANDC, DIAG AND/OR THERAPEUTIC Dilation AND curettage - FOOT RIGHT OP SURGERY 06/2010 Dr. Belgica Curry. - LAPAROSCOPIC CHOLEYCYSTECTOMY 03-23-13 - PAST SURGICAL HISTORY OF 2005 WISDOM TEETH - SUCTION D AND C 2012 8 week missed ab ALLERGIES Compazine [Prochlorperazine Edisylate]; Lodine [Etodolac]; Penicillins; Reglan [Metoclopramide Hcl]; Wellbutrin [Bupropion Hcl] MEDICATIONS meloxicam (MOBIC) 7.5 mg tablet Take 7.5 mg by mouth once daily. propranolol (INDERAL) 10 mg tablet Take 1 tablet by mouth twice daily. famotidine (PEPCID) 20 mg tablet Take 1 tablet by mouth once daily. metFORMIN (GLUCOPHAGE) 500 mg tablet Take 500 mg by mouth twice daily with meals. lisinopril (ZESTRIL, PRINIVIL) 10 mg tablet Take 10 mg by mouth once daily. lidocaine viscous (LIDOCAINE VISCOUS) 2 % solution Gargle and spit 10-15mLs every 3-4 hours as need for throat discomfort. ibuprofen (MOTRIN) 600 mg tablet Take 1 tablet by mouth every 6 hours as needed for Pain. guaiFENesin (MUCINEX) 600 mg 12 hr tablet Take 2 tablets by mouth twice daily. ergocalciferol, vitamin D2, (DRISDOL) 50,000 unit capsule Take 1 capsule by mouth once each week. cyclobenzaprine (FLEXERIL) 10 mg tablet Take 1 tablet by mouth three times daily as needed for Pain. clindamycin (CLEOCIN) 150 mg capsule Take 1 capsule by mouth four times daily. FAMILY HISTORY Problem Relation Age of Onset - Arthritis Maternal Grandmother - Arthritis Maternal Grandfather - Arthritis Paternal Grandmother - Arthritis Paternal Grandfather - Cancer Paternal Grandfather - Diabetes Maternal Grandmother - Diabetes Maternal Grandfather - Diabetes Paternal Grandmother - Diabetes Paternal Grandfather - Heart Maternal Grandmother - Heart Maternal Grandfather - Heart Paternal Grandmother - Heart Paternal Grandfather - Heart Paternal Uncle - Hypertension Maternal Grandmother - Hypertension Maternal Grandfather - Lipids Maternal Grandmother - Lipids Maternal Grandfather - Stroke Maternal Grandmother Social History Substance Use Topics - Smoking status: Current Every Day Smoker Packs/day: 0.25 Years: 7.00 Types: Cigarettes - Smokeless tobacco: Former User - Alcohol use Yes Comment: OCCASIONALLY, BUT NOT WHILE ASSESSMENT/PLAN: 1. Viral URI with cough - ICD9: 465.9, ICD10: J06.9, B97.89 (primary diagnosis) - Discussed viral etiology and rationale for treatment. - Symptomatic treatment with prn analgesia - Supportive care with fluids and rest - Follow up in 3-5 days if symptoms persist or sooner if worsening of symptoms - GUAIFENESIN ER 600 MG TABLET, EXTENDED RELEASE 12 HR 2. Sore throat - ICD9: 462, ICD10: J02.9 - Rapid Strep negative in the office today and Throat culture pending - Discussed supportive care treatment with fluids, rest and analgesia. - The patient should follow up in 3-5 days if symptoms persist or worsen - Call back if drooling, increased temperature, symptoms of dehydration and/or still sick in one week - RAPID STREP TEST B/O - GROUP A STREPTOCOCCUS BY PCR - LIDOCAINE 2 % MUCOSAL SOLUTION - IBUPROFEN 600 MG TABLET the patient is instructed to return or seek emergency treatment if symptoms become worse or with any acute change in condition. The patient verbalizes understanding and is in agreement with plan of care. Katherin Blair CNP GROUP A STREP BY Collected: 12/14/2018 Status: F Source: [place] PCR 10:40 AM [facility] REPOSITORY TYPE CODE TESTS RESULT OUT OF REFERENCE UNITS RANGE LAB GASSRC Throat Swab GAS Specimen Source LAB PCRGAS Negative for Group A Strep Group A PCR Streptococcus by PCR. Result Comment: This test was developed and its performance characteristics determined by [facility]'s [facility] ([facility]). It has not been cleared or approved by the FDA. [facility] is regulated under CLIA as qualified to perform high-complexity testing. This test is used for clinical purposes. It should not be regarded as inv estigational or for research. Performed By: #### GASPCR #### [facility] [address] [place], [place] [address] CNOV Observed: 12/14/2018 Status: COMPLETED Source: [place] 10:15 AM [facility] REPOSITORY Office Visit (WSTR) KRISTA ROWE ([id number]) 1990 F Date Time Provider Department 12/14/18 10:15 AM KATHERIN BLAIR [facility] During your visit today, we recorded the following information about you: Temperature Pulse Respiration Blood pressure 98.7 degrees 116/minute 16/minute 136/82 Weight 170.1 kg Katherin Blair APRN.DARIA 12/14/2018 10:38 AM Signed [facility] PATIENT INFO COMMON COLD OVERVIEW The common cold is one of the most frequent illnesses in the [place]. Although most colds are mild and resolve within a short time period, colds cost billions of dollars per year, mostly due to lost time at work and school. COMMON COLD CAUSES The common cold is a group of symptoms caused by one of a large number of viruses. Rhinoviruses cause the greatest number of colds; there are more than 100 different varieties of rhinovirus. Most viruses cause a person to be ill only once. However, due to the large number of viruses, a person can have a cold multiple times throughout his or her lifetime. The average adult experiences two to three colds per year, while children average 8 to 12 colds per year. Colds are transmitted from [id number]-[id number]. Less often, the virus can be transmitted by touching a surface. Direct contact ? People with colds typically carry the cold virus on their hands. The virus may remain alive on the skin and capable of infecting another person for at least two hours. Thus, if a sick person shakes someone's hand and that individual then touches his eye, nose, or mouth, the virus can be transmitted and later infect that person. Infection from particles on surfaces ? Some cold viruses can live on surfaces (such as a counter top, door handle, or phone) for several hours. Inhaling viral particles ? Droplets containing viral particles can be breathed, coughed, or sneezed into the air by a person with a cold. The virus can be transmitted to others if another person is standing close (a few feet) and the droplet touches that person?s eye, nose, or mouth. Covering the mouth while coughing or sneezing greatly reduces this risk. Most cold viruses are not spread by saliva. Thus, kissing itself is not likely to transmit the common cold, but close direct contact can. Colds are not caused by cold climates or being exposed to cold air. However, some types of virus cause more colds during certain seasons (eg, fall and winter versus spring). COMMON COLD SIGNS AND SYMPTOMS The common cold usually causes nasal congestion, runny nose, and sneezing. A sore throat may be present on the first day but usually resolves quickly. If a cough occurs, it generally develops on about the fourth or fifth day of symptoms, typically when congestion and runny nose are usually resolving. COMMON COLD COMPLICATIONS In most cases, colds do not cause serious illness. Most colds last for three to seven days, although many people continue to have symptoms (coughing, sneezing, congestion) for up to two weeks. Some viruses that cause the common cold can also depress the immune system or cause swelling in the lining of the nose or airways; this can, in turn, lead to a new viral infection or bacterial infection. ? One of the more common complications is sinusitis, which is usually caused by viruses and rarely (about 2 percent of the time) by bacteria. However, it can be difficult to distinguish bacterial sinusitis from sinusitis caused by a cold because the signs and symptoms can be similar Having thick or yellow to green-colored nasal discharge does not mean that bacterial sinusitis has developed; discolored nasal discharge is a normal phase of the common cold. ? Lower respiratory infections, such as pneumonia or bronchitis, may develop following a cold. ? Infection of the middle ear, or otitis media, can accompany or follow a cold. ? The influenza virus, which causes the flu, can also cause features similar to those of a cold. However, the flu usually causes other signs and symptoms (fever, body aches) and is more serious than a cold. COMMON COLD TREATMENT There is no specific treatment for the viruses that cause the common cold. Most treatments are aimed at relieving some of the symptoms of the cold, but do not shorten or cure the cold. Antibiotics are not useful for treating the common cold; antibiotics are only used to treat illnesses caused by bacteria, not viruses. The symptoms of a cold will resolve over time, even without any treatment. The following are treatments that may reduce the symptoms caused by the common cold. People with underlying medical conditions and those who use other [id number]-[id number] or prescription medications should speak with their healthcare provider or pharmacist to ensure that it is safe to use these treatments. Runny nose and nasal congestion ? Runny nose and congestion may improve with the use of decongestants. Pseudoephedrine is a decongestant that can improve nasal congestion. Most drugstores in the [place] carry pseudoephedrine behind the counter, so it must be requested from the pharmacist (a prescription is not required). Antihistamines such as diphenhydramine (Benadryl?) may also help, but can cause side effects such as drowsiness and drying of the eyes, nose, and mouth. Nasal inhalers, including ipratropium bromide (Atrovent?, available by prescription) may relieve runny nose and sneezing while cromolyn sodium (NasalCrom?, a non-prescription medicine) may relieve runny nose, cough, and sneezing. Other nasal sprays such an oxymetazoline (Afrin? and others) can also give temporary relief of nasal congestion. However, these sprays should never be used for more than two to three days; use for more than three days use can worsen congestion. Nasal irrigation and saline sprays ? Rinsing the nose with a salt-water (saline) solution is called nasal irrigation or nasal lavage. Saline is also available in a standard nasal spray, although this is not as effective as using larger amounts of water in an irrigation. Nasal irrigation is particularly useful for treating drainage down the back of the throat, sneezing, nasal dryness, and congestion. The treatment helps by rinsing out allergens and irritants from the nose. Saline rinses also clean the nasal lining and can be used before applying sprays containing medications, to get a better effect from the medication. Nasal lavage with warmed saline can be performed as needed, once per day, or twice daily for increased symptoms. Nasal lavage carries few risks when performed correctly. Saline nasal sprays and irrigation kits can be purchased [id number]-[id number]. Saline mixes can also be purchased or patients can make their own solution. A variety of devices, including bulb syringes, Neti pots, and bottle sprayers, may be used to perform nasal lavage; instructions for nasal lavage are provided in the table. At least 200 mL (about 3/4 cup) of fluid is recommended for each nostril. Sore throat and headache ? Sore throat and headache are best treated with a mild pain reliever such as acetaminophen (Tylenol?) or a non-steroidal anti-inflammatory agent such as ibuprofen or naproxen (Motrin? or Aleve?). Cough ? Common cough medicine ingredients include guaifenesin and dextromethorphan; these are often combined with other medications in dtqg-kpv-cwfpuhl cold formulas. However, the benefit of cough medicines is likely to be small to non-existent. In clinical trials, cough suppressants were no more effective in reducing the duration or severity of coughing due to cold than a placebo (a non-drug substitute). Antibiotics ? Antibiotics should not be used to treat an uncomplicated common cold. As noted above, colds are caused by viruses. Antibiotics treat bacterial, not viral infections. Alternative treatments ? Heated, humidified air can improve symptoms of nasal congestion and runny nose, and causes few to no side effects. PREVENTION Hand washing is an essential and highly effective way to prevent the spread of infection. Hands should be wet with water and plain soap, and rubbed together for 15 to 30 seconds. Special attention should be paid to the fingernails, between the fingers, and the wrists. Hands should be rinsed thoroughly, and dried with a single use towel. Alcohol-based hand rubs are a good alternative for disinfecting hands if a sink is not available. Hand rubs should be spread over the entire surface of hands, fingers, and wrists until dry, and may be used several times. These rubs can be used repeatedly without skin irritation or loss of effectiveness. Hand rubs are available as a liquid or wipe in small, portable sizes that are easy to carry in a pocket or handbag. When a sink is available, visibly soiled hands should be washed with soap and water. Hands should be washed before preparing food and eating, and after coughing, blowing the nose, or sneezing. While it is not always possible to limit contact with people who may be infected with a cold, touching the eyes, nose, or mouth after direct contact should be avoided when possible. In addition, tissues should be used to cover the mouth when sneezing or coughing. These used tissues should be disposed of promptly. Sneezing/coughing into the sleeve of one's clothing (at the inner elbow) is another means of containing sprays of saliva and secretions and does not contaminate the hands. SUMMARY ? The average adult experiences two to three colds per year, while children average 8 to 12 colds per year. ? Symptoms of the common cold usually include nasal congestion, runny nose, and sneezing. They typically last for three to seven days, although many people have symptoms (coughing, sneezing, congestion) for up to two weeks. ? People with colds typically carry the cold virus on their hands, where it can infect another person for at least two hours. Some cold viruses can live on surfaces (such as a counter top, door handle, or phone) for several hours. Droplets containing viral particles can be breathed, coughed, or sneezed into the air. ? There is no specific treatment for colds. Treatment may reduce some of the symptoms of the cold, but do not shorten or cure the cold. Antibiotics are not useful for treating the common cold. Hand washing can prevent the spread of infection. Hands should be wet with water and plain soap, and rubbed together for 15 to 30 seconds. Alcohol-based hand rubs are a good alternative for disinfecting hands if a sink is not available Katherin Blair APRN.DARIA 12/14/2018 11:58 AM Signed Subjective HPI Pt presents with c/o sore throat and nasal congestion x 2 days. This am developed an occasional moist cough. Denies fever, chills, myalgias, dyspnea. Has not taken any OTC medications. Review of Systems Constitutional: Negative for chills and fever. HENT: Positive for congestion and sore throat. Negative for ear discharge, ear pain, sinus pain and tinnitus. Respiratory: Positive for cough. Negative for sputum production, shortness of breath and wheezing. Cardiovascular: Negative for chest pain. Skin: Negative for rash. Neurological: Negative for headaches. Objective Physical Exam Constitutional: She is oriented to person, place, and time and well-developed, well-nourished, and in no distress. No distress. HENT: Head: Normocephalic. Right Ear: Hearing, tympanic membrane, external ear and ear canal normal. Left Ear: Hearing, tympanic membrane, external ear and ear canal normal. Nose: Nose normal. Right sinus exhibits no maxillary sinus tenderness and no frontal sinus tenderness. Left sinus exhibits no maxillary sinus tenderness and no frontal sinus tenderness. Mouth/Throat: Uvula is midline and mucous membranes are normal. Oropharyngeal exudate (right tonsil) and posterior oropharyngeal erythema (mild erythema) present. No posterior oropharyngeal edema or tonsillar abscesses. Eyes: Pupils are equal, round, and reactive to light. Conjunctivae are normal. Right eye exhibits no discharge. Left eye exhibits no discharge. Neck: Neck supple. Cardiovascular: Normal rate, regular rhythm and normal heart sounds. Exam reveals no gallop and no friction rub. No murmur heard. Pulmonary/Chest: Effort normal and breath sounds normal. No accessory muscle usage. No tachypnea. No respiratory distress. She has no decreased breath sounds (CTA, good air movement throughout, no cough noted during exam.). She has no wheezes. She has no rhonchi. She has no rales. Lymphadenopathy: She has no cervical adenopathy. Neurological: She is alert and oriented to person, place, and time. Skin: Skin is warm. She is not diaphoretic. BP 136/82 Pulse 116 Temp 37.1 ?C (98.7 ?F) (Tympanic) Resp 16 Wt (!) 170.1 kg (375 lb) SpO2 97% BMI 58.73 kg/m? .Patient presents with: ST, and congestion: x 2 days PAST MEDICAL HISTORY Diagnosis Date - Anemia ANEMIA WITH PREVIOUS - Anemia complicating 09/09/2012 September 09, 2012 started on iron - Diabetes in 06/12/2014 - Dysthymic disorder Depression (non-psychotic) - Fam hx-diabetes mellitus 01/14/2011 - Family history of congenital heart defect 06/20/2013 06/20/2013 Father of the baby's father born with heart valve defect. TKRN - FRACTURE ANKLE - History of depression 05/05/2012 06/20/2013 Pt has a history of depression since age 10. She has been off medication since 2009. She believes she is doing well off medication. Discussed increased risks of depression during and and importance of reporting the development or worsening of symptoms should they occur. Pt had suicidal thoughts at age 10 and 13 but none since then. She did some cutting in the past but none for approximately 10 years. TKRN - History of recurrent UTI (urinary tract infection) 05/05/2012 05/21/2013Pt has a history of recurrent UTI. Discussed importance of reporting the onset of any symptoms of a UTI should it occur during . TKRN - Hypertension complicating 11/10/2012 November 16, 2012 Stopped labetlol due to lower bps, normal bps now Sm November 10, 2012 normal 24 hour urine on labetalol 100mg BID Recommend delivery at 39-40 weeks. Weekly NST/NELSON - Mild or unspecified pre-eclampsia, unspecified as to episode of care 2008 Pre-ecclampsia - Obesity, unspecified - depression - Tobacco use 03/07/2014 PAST SURGICAL HISTORY Procedure Laterality Date - DANDC, DIAG AND/OR THERAPEUTIC Dilation AND curettage - FOOT RIGHT OP SURGERY 06/2010 Dr. Belgica Curry. - LAPAROSCOPIC CHOLEYCYSTECTOMY 03-23-13 - PAST SURGICAL HISTORY OF 2006 WISDOM TEETH - SUCTION D AND C 2012 8 week missed ab ALLERGIES Compazine [Prochlorperazine Edisylate]; Lodine [Etodolac]; Penicillins; Reglan [Metoclopramide Hcl]; Wellbutrin [Bupropion Hcl] MEDICATIONS meloxicam (MOBIC) 7.5 mg tablet Take 7.5 mg by mouth once daily. propranolol (INDERAL) 10 mg tablet Take 1 tablet by mouth twice daily. famotidine (PEPCID) 20 mg tablet Take 1 tablet by mouth once daily. metFORMIN (GLUCOPHAGE) 500 mg tablet Take 500 mg by mouth twice daily with meals. lisinopril (ZESTRIL, PRINIVIL) 10 mg tablet Take 10 mg by mouth once daily. lidocaine viscous (LIDOCAINE VISCOUS) 2 % solution Gargle and spit 10-15mLs every 3-4 hours as need for throat discomfort. ibuprofen (MOTRIN) 600 mg tablet Take 1 tablet by mouth every 6 hours as needed for Pain. guaiFENesin (MUCINEX) 600 mg 12 hr tablet Take 2 tablets by mouth twice daily. ergocalciferol, vitamin D2, (DRISDOL) 50,000 unit capsule Take 1 capsule by mouth once each week. cyclobenzaprine (FLEXERIL) 10 mg tablet Take 1 tablet by mouth three times daily as needed for Pain. clindamycin (CLEOCIN) 150 mg capsule Take 1 capsule by mouth four times daily. FAMILY HISTORY Problem Relation Age of Onset - Arthritis Maternal Grandmother - Arthritis Maternal Grandfather - Arthritis Paternal Grandmother - Arthritis Paternal Grandfather - Cancer Paternal Grandfather - Diabetes Maternal Grandmother - Diabetes Maternal Grandfather - Diabetes Paternal Grandmother - Diabetes Paternal Grandfather - Heart Maternal Grandmother - Heart Maternal Grandfather - Heart Paternal Grandmother - Heart Paternal Grandfather - Heart Paternal Uncle - Hypertension Maternal Grandmother - Hypertension Maternal Grandfather - Lipids Maternal Grandmother - Lipids Maternal Grandfather - Stroke Maternal Grandmother Social History Substance Use Topics - Smoking status: Current Every Day Smoker Packs/day: 0.25 Years: 7.00 Types: Cigarettes - Smokeless tobacco: Former User - Alcohol use Yes Comment: OCCASIONALLY, BUT NOT WHILE ASSESSMENT/PLAN: 1. Viral URI with cough - ICD9: 465.9, ICD10: J06.9, B97.89 (primary diagnosis) - Discussed viral etiology and rationale for treatment. - Symptomatic treatment with prn analgesia - Supportive care with fluids and rest - Follow up in 3-5 days if symptoms persist or sooner if worsening of symptoms - GUAIFENESIN ER 600 MG TABLET, EXTENDED RELEASE 12 HR 2. Sore throat - ICD9: 462, ICD10: J02.9 - Rapid Strep negative in the office today and Throat culture pending - Discussed supportive care treatment with fluids, rest and analgesia. - The patient should follow up in 3-5 days if symptoms persist or worsen - Call back if drooling, increased temperature, symptoms of dehydration and/or still sick in one week - RAPID STREP TEST B/O - GROUP A STREPTOCOCCUS BY PCR - LIDOCAINE 2 % MUCOSAL SOLUTION - IBUPROFEN 600 MG TABLET the patient is instructed to return or seek emergency treatment if symptoms become worse or with any acute change in condition. The patient verbalizes understanding and is in agreement with plan of care. Katherin Blair CNP Referring Provider: SELF [[id number]] Allergies As of Date: 12/14/2018 Noted Allergy Reaction COMPAZINE (PROCHLORPERAZINE EDISY*12/14/2018 1 - Mental Status Change Comments: Causes anxiety attack LODINE (ETODOLAC) 10/03/2015 14 - Other: See Comments Comments: Chest Pain PENICILLINS 03/14/2009 4 - Hives 12 - Shortness of Breath REGLAN (METOCLOPRAMIDE HCL) 12/14/2018 1 - Mental Status Change Comments: Causes anxiety attack WELLBUTRIN (BUPROPION HCL) 01/28/2011 1 - Mental Status Change Comments: Anger/aggression Date Reviewed: 12/14/2018 Reviewed by: Lorelei Palacio LPN - Fully Assessed Reason for Visit: ST, and congestion [Other] Cmt: x 2 days Primary Visit Diagnosis:Viral URI with cough [J06.9, B97.89] Other Visit Diagnosis:Sore throat [J02.9] Order(s):RAPID STREP TEST B/O [[id number]] Order #: [id number] GROUP A STREPTOCOCCUS BY PCR [SQGASPCR] Order #: [id number] lidocaine viscous (LIDOCAINE VISCOUS) 2 % solutionGargle and spit 10-15mLs every 3-4 hours as need for throat discomfort.Disp: 120 mLRfl: 0 ibuprofen (MOTRIN) 600 mg tabletTake 1 tablet by mouth every 6 hours as needed for Pain.Disp: 30 tabletRfl: 0 guaiFENesin (MUCINEX) 600 mg 12 hr tabletTake 2 tablets by mouth twice daily.Disp: 30 tabletRfl: 0 Prescriptions as of 12/14/2018 Sig: MELOXICAM 7.5 MG TABLET Take 7.5 mg by mouth once hilary* PROPRANOLOL 10 MG TABLET Take 1 tablet by mouth twice * FAMOTIDINE 20 MG TABLET Take 1 tablet by mouth once d* METFORMIN 500 MG TABLET Take 500 mg by mouth twice da* LISINOPRIL 10 MG TABLET Take 10 mg by mouth once jared* LIDOCAINE 2 % MUCOSAL SOLUTION Gargle and spit 10-15mLs ever* IBUPROFEN 600 MG TABLET Take 1 tablet by mouth every * GUAIFENESIN ER 600 MG TABLET,* Take 2 tablets by mouth twice* ERGOCALCIFEROL (VITAMIN D2) 5* Take 1 capsule by mouth once * CYCLOBENZAPRINE 10 MG TABLET Take 1 tablet by mouth three * CLINDAMYCIN HCL 150 MG CAPSULE Take 1 capsule by mouth four * Problem List As Of Date 12/14/2018 Noted Resolved Supervision of other high-risk [O09.8*INVALID FOR*05/16/2012 Fx cuboid-closed [S92.213A] INVALID FOR*05/16/2012 Closed fracture of calcaneus [S92.009A] INVALID FOR*05/16/2012 More... Routine general medical examination at a [facility]*INVALID FOR*05/16/2012 Class: Chronic More... Routine gynecological examination [Z01.419] INVALID FOR*05/16/2012 Class: Chronic More... More... Iron deficiency [E61.1] INVALID FOR*05/16/2012 More... Patient requested diagnostic testing [Z01.89] INVALID FOR*09/08/2012 More... More... More... More... More... More... More... More... More... More... More... Tattoos [L81.8] INVALID FOR*01/30/2015 More... More... More... Dysthymic disorder [F34.1] More... Tobacco use [Z72.0] INVALID FOR*01/30/2015 More... Seasonal allergies [J30.2] INVALID FOR* History of kidney stones [Z87.442] INVALID FOR* Arthralgia [M25.50] INVALID FOR* MACY positive [R76.8] INVALID FOR* ESR raised [R70.0] INVALID FOR* CRP elevated [R79.82] INVALID FOR* Hx of preeclampsia, prior , currently *INVALID FOR*01/30/2015 More... History of recurrent UTI (urinary tract infecti*INVALID FOR*01/30/2015 More... More... Family history of congenital heart defect [Z82.*INVALID FOR*01/30/2015 More... Diabetes in (HCC) [O24.919] INVALID FOR*01/30/2015 More... SUPRF HIGH RISK NEC [V23.89] [O09.899]INVALID FOR*01/30/2015 More... Anemia complicating [O99.019] INVALID FOR*01/30/2015 Other instructions from your clinician: EXPRESS CARE PATIENT INFO COMMON COLD OVERVIEW The common cold is one of the most frequent illnesses in the [place]. Although most colds are mild and resolve within a short time period, colds cost billions of dollars per year, mostly due to lost time at work and school. COMMON COLD CAUSES The common cold is a group of symptoms caused by one of a large number of viruses. Rhinoviruses cause the greatest number of colds; there are more than 100 different varieties of rhinovirus. Most viruses cause a person to be ill only once. However, due to the large number of viruses, a person can have a cold multiple times throughout his or her lifetime. The average adult experiences two to three colds per year, while children average 8 to 12 colds per year. Colds are transmitted from gkruno-il-dcxtwn. Less often, the virus can be transmitted by touching a surface. Direct contact ? People with colds typically carry the cold virus on their hands. The virus may remain alive on the skin and capable of infecting another person for at least two hours. Thus, if a sick person shakes someone's hand and that individual then touches his eye, nose, or mouth, the virus can be transmitted and later infect that person. Infection from particles on surfaces ? Some cold viruses can live on surfaces (such as a counter top, door handle, or phone) for several hours. Inhaling viral particles ? Droplets containing viral particles can be breathed, coughed, or sneezed into the air by a person with a cold. The virus can be transmitted to others if another person is standing close (a few feet) and the droplet touches that person?s eye, nose, or mouth. Covering the mouth while coughing or sneezing greatly reduces this risk. Most cold viruses are not spread by saliva. Thus, kissing itself is not likely to transmit the common cold, but close direct contact can. Colds are not caused by cold climates or being exposed to cold air. However, some types of virus cause more colds during certain seasons (eg, fall and winter versus spring). COMMON COLD SIGNS AND SYMPTOMS The common cold usually causes nasal congestion, runny nose, and sneezing. A sore throat may be present on the first day but usually resolves quickly. If a cough occurs, it generally develops on about the fourth or fifth day of symptoms, typically when congestion and runny nose are usually resolving. COMMON COLD COMPLICATIONS In most cases, colds do not cause serious illness. Most colds last for three to seven days, although many people continue to have symptoms (coughing, sneezing, congestion) for up to two weeks. Some viruses that cause the common cold can also depress the immune system or cause swelling in the lining of the nose or airways; this can, in turn, lead to a new viral infection or bacterial infection. ? One of the more common complications is sinusitis, which is usually caused by viruses and rarely (about 2 percent of the time) by bacteria. However, it can be difficult to distinguish bacterial sinusitis from sinusitis caused by a cold because the signs and symptoms can be similar Having thick or yellow to green-colored nasal discharge does not mean that bacterial sinusitis has developed; discolored nasal discharge is a normal phase of the common cold. ? Lower respiratory infections, such as pneumonia or bronchitis, may develop following a cold. ? Infection of the middle ear, or otitis media, can accompany or follow a cold. ? The influenza virus, which causes the flu, can also cause features similar to those of a cold. However, the flu usually causes other signs and symptoms (fever, body aches) and is more serious than a cold. COMMON COLD TREATMENT There is no specific treatment for the viruses that cause the common cold. Most treatments are aimed at relieving some of the symptoms of the cold, but do not shorten or cure the cold. Antibiotics are not useful for treating the common cold; antibiotics are only used to treat illnesses caused by bacteria, not viruses. The symptoms of a cold will resolve over time, even without any treatment. The following are treatments that may reduce the symptoms caused by the common cold. People with underlying medical conditions and those who use other kpcf-llc-mlyybze or prescription medications should speak with their healthcare provider or pharmacist to ensure that it is safe to use these treatments. Runny nose and nasal congestion ? Runny nose and congestion may improve with the use of decongestants. Pseudoephedrine is a decongestant that can improve nasal congestion. Most drugstores in the [place] carry pseudoephedrine behind the counter, so it must be requested from the pharmacist (a prescription is not required). Antihistamines such as diphenhydramine (Benadryl?) may also help, but can cause side effects such as drowsiness and drying of the eyes, nose, and mouth. Nasal inhalers, including ipratropium bromide (Atrovent?, available by prescription) may relieve runny nose and sneezing while cromolyn sodium (NasalCrom?, a non-prescription medicine) may relieve runny nose, cough, and sneezing. Other nasal sprays such an oxymetazoline (Afrin? and others) can also give temporary relief of nasal congestion. However, these sprays should never be used for more than two to three days; use for more than three days use can worsen congestion. Nasal irrigation and saline sprays ? Rinsing the nose with a salt-water (saline) solution is called nasal irrigation or nasal lavage. Saline is also available in a standard nasal spray, although this is not as effective as using larger amounts of water in an irrigation. Nasal irrigation is particularly useful for treating drainage down the back of the throat, sneezing, nasal dryness, and congestion. The treatment helps by rinsing out allergens and irritants from the nose. Saline rinses also clean the nasal lining and can be used before applying sprays containing medications, to get a better effect from the medication. Nasal lavage with warmed saline can be performed as needed, once per day, or twice daily for increased symptoms. Nasal lavage carries few risks when performed correctly. Saline nasal sprays and irrigation kits can be purchased [id number]. Saline mixes can also be purchased or patients can make their own solution. A variety of devices, including bulb syringes, Neti pots, and bottle sprayers, may be used to perform nasal lavage; instructions for nasal lavage are provided in the table. At least 200 mL (about 3/4 cup) of fluid is recommended for each nostril. Sore throat and headache ? Sore throat and headache are best treated with a mild pain reliever such as acetaminophen (Tylenol?) or a non-steroidal anti-inflammatory agent such as ibuprofen or naproxen (Motrin? or Aleve?). Cough ? Common cough medicine ingredients include guaifenesin and dextromethorphan; these are often combined with other medications in hzno-cfa-edxffim cold formulas. However, the benefit of cough medicines is likely to be small to non-existent. In clinical trials, cough suppressants were no more effective in reducing the duration or severity of coughing due to cold than a placebo (a non-drug substitute). Antibiotics ? Antibiotics should not be used to treat an uncomplicated common cold. As noted above, colds are caused by viruses. Antibiotics treat bacterial, not viral infections. Alternative treatments ? Heated, humidified air can improve symptoms of nasal congestion and runny nose, and causes few to no side effects. PREVENTION Hand washing is an essential and highly effective way to prevent the spread of infection. Hands should be wet with water and plain soap, and rubbed together for 15 to 30 seconds. Special attention should be paid to the fingernails, between the fingers, and the wrists. Hands should be rinsed thoroughly, and dried with a single use towel. Alcohol-based hand rubs are a good alternative for disinfecting hands if a sink is not available. Hand rubs should be spread over the entire surface of hands, fingers, and wrists until dry, and may be used several times. These rubs can be used repeatedly without skin irritation or loss of effectiveness. Hand rubs are available as a liquid or wipe in small, portable sizes that are easy to carry in a pocket or handbag. When a sink is available, visibly soiled hands should be washed with soap and water. Hands should be washed before preparing food and eating, and after coughing, blowing the nose, or sneezing. While it is not always possible to limit contact with people who may be infected with a cold, touching the eyes, nose, or mouth after direct contact should be avoided when possible. In addition, tissues should be used to cover the mouth when sneezing or coughing. These used tissues should be disposed of promptly. Sneezing/coughing into the sleeve of one's clothing (at the inner elbow) is another means of containing sprays of saliva and secretions and does not contaminate the hands. SUMMARY ? The average adult experiences two to three colds per year, while children average 8 to 12 colds per year. ? Symptoms of the common cold usually include nasal congestion, runny nose, and sneezing. They typically last for three to seven days, although many people have symptoms (coughing, sneezing, congestion) for up to two weeks. ? People with colds typically carry the cold virus on their hands, where it can infect another person for at least two hours. Some cold viruses can live on surfaces (such as a counter top, door handle, or phone) for several hours. Droplets containing viral particles can be breathed, coughed, or sneezed into the air. ? There is no specific treatment for colds. Treatment may reduce some of the symptoms of the cold, but do not shorten or cure the cold. Antibiotics are not useful for treating the common cold. Hand washing can prevent the spread of infection. Hands should be wet with water and plain soap, and rubbed together for 15 to 30 seconds. Alcohol-based hand rubs are a good alternative for disinfecting hands if a sink is not available Prescriptions ordered this encounter Disp Refills Start End LIDOCAINE 2 % MUCOSAL SOLUTION 120 * 0 12/14/2018 Sig: Gargle and spit 10-15mLs every 3-4 hours as need for throat discomfort. IBUPROFEN 600 MG TABLET 30 t* 0 12/14/2018 Route: ORAL Sig: Take 1 tablet by mouth every 6 hours as needed for Pain. GUAIFENESIN ER 600 MG TABLET, EXTEND* 30 t* 0 12/14/2018 Route: ORAL Sig: Take 2 tablets by mouth twice daily. Encounter Status:Closed by KATHERIN BLAIR CNP on 12/14/18 12 LEAD ELECTROCARDIOGRAM Observed: 11/28/2018 Status: F Source: [place] 1:22 PM [facility] REPOSIT[facility] Cardiovascular Services [address] [place] [address] 12 Lead EKG 11/24/18 2201 MR#: [id number] Acct: [id number] Name: KRISTA ROWE Rep #: [id number] : 1990 28 From: Gianni Montanez MD Attending Dr: Status: DEP ER Ordering Dr: Herbert Hart MD Date: 11/24/18 Location: ED Sex: F C Admitted: Test Reason : Blood Pressure : / mmHG Vent. Rate : 103 BPM Atrial Rate : 103 BPM P-R Int : 134 ms QRS Dur : 082 ms QT Int : 318 ms P-R-T Axes : 040 023 028 degrees QTc Int : 416 ms Sinus tachycardia Otherwise normal ECG Confirmed by LISSETH RAY, GIANNI ([id number]), electronic news gathering editor BRISEYDA GANN ([id number]) on 11/28/2018 1:22:06 PM Referred By: REJI Confirmed By:GIANNI MONTANEZ MD 11/28/18 1322 Date Gianni Montanez MD CC: HERBERT HART MD; Prateek Honeycutt MD Signed EMERGENCY DEPARTMENT Observed: 11/24/2018 Status: F Source: [place] SUMMARY 11:45 PM [facility] REPOSITORY [facility] Medical Records Department [address] [place] [address] Emergency Department Summary 11/24/18 2209 MR#: [id number] Acct: [id number] Name: KRISTA ROWE Rep #: [id number] : 1990 28 From: Herbert Hart MD PCP: Prateek Honeycutt MD Status: REG ER History of Present Illness Chief Complaint: Chest Pain Informant: Patient Onset: Days - 2-3 Context: Gradual Onset Timing: Intermittent Quality: ache Location: mid-sternal. radiates into mid-back between shoulder blades. Current Severity: Moderate Maximum Severity: Moderate Worsened by: lying supine Relieved by: sitting up partially Associated Symptoms: lightheadedness. no sob, jaw/arm pain, nausea, palpitations, syncope. Narrative: Intermittent for the last couple days but today has been constant and radiating into the back for over 6 hours now. Therefore, she called EMS. No history of heart or lung disease. She is treated for hypertension and diabetes. No first-degree family history of heart disease. Discomfort is nonpleuritic. No calf pain or swelling, but she has chronic issues with her right foot for which she is in a boot off and on, saying that she may need another fusion. Her last surgery was about a year ago. - Past Medical History (1) Type 2 diabetes mellitus Status: Chronic (2) HTN (hypertension) Status: Chronic (3) Kidney stones Status: Chronic (4) Arthritis of right foot Status: Chronic Past Medical History - Allergies and Home Meds Allergies/Adverse Reactions: Allergies Penicillins Allergy (Verified 11/24/18 22:03) Hives angioedema as well etodolac [From Lodine] Adverse Reaction (Intermediate, Verified 11/24/18 22:03) Chest tightness bupropion HCl [From Wellbutrin] Adverse Reaction (Verified 11/24/18 22:03) suicidal suicidal metoclopramide [From Reglan] Adverse Reaction (Verified 11/24/18 22:03) Other ANXIETY prochlorperazine [From Compazine] Adverse Reaction (Verified 11/24/18 22:03) Other ANXIETY Primary Care Physician: Prateek Honeycutt MD [Primary Care Provider] - Surgical History: cholecystectomy, - - 3 previous right foot surgeries Right gastrocnemius recession, calcaneal cuboid joint arthrodesis, fracture fragment excision (Dr. Warner 11/05/2017) Smoking Status: Current every day smoker - Family History Maternal Family History: Reports: No pertinent history Review of Systems General: Reports: Malaise. Denies: Chills, Fever, Sweats Cardiovascular: Reports: Chest pain. Denies: Palpitations Respiratory: Denies: Dyspnea, Cough Gastrointestinal: Denies: Abdominal pain, Nausea, Vomiting, Diarrhea, Melena, Hematochezia Genitourinary: Denies: Dysuria, Hematuria, Frequency Musculoskeletal: Reports: Back pain, Extremity Pain. Denies: Neck pain, Swelling Skin: Denies: Rash, Abscess Neurological: Denies: Headache, Weakness, Numbness Psych: Denies: Depression, Anxiety Endocrine: Denies: Polyuria, Polydipsia Hematologic: Denies: Easy bruising, Easy bleeding Allergy: Denies: Swelling of the mouth, Swelling of the tongue Physical Exam Vital Signs/Narrative: Vital Signs 11/24/18 21:57 98.9 F 111 H 16 158/102 H 98 Inital Vital Signs reviewed: Yes General: Well nourished, Well developed, Obese, - - NAD Head: Normocephalic, Atraumatic Eyes: Perrl, EOMI ENT: Moist mucous membranes, No rhinorrhea Neck: Supple, Nontender, No lymphadenopathy, No JVD Cardiovascular: Regular rate, Regular rhythm, No murmurs, Normal S1, Normal S2, Tachycardia - mild Respiratory: No distress, CTA bilaterally, Chest nontender Abdomen: Soft, Nondistended, Normal bowel sounds, Tender - minimal epigastric only. Negative for: Guarding, Rebound tenderness Back: Nontender, Normal Inspection. Negative for: CVA tenderness Extremities: Nontender - no calf tenderness. R foot boot left intact., No edema Skin: Normal color, No rash Neurological: Alert, Oriented x3, Cranial nerves II-XII grossly intact, Normal Strength, Normal Sensation Psychological: Normal affect Diagnostic/Tx/Re-eval Impressions Chest X-Ray 11/24/18 22:20 IMPRESSION: Normal x-ray examination of the chest. Electronically Signed: Leta Ann MD at 22:58 EST , Service support , 11/24/18 22:20 Chest PA and Lateral [RAD] Stat Laboratory Results WBC 10.9 RBC 4.09 L Hgb 11.9 L Hct 36.8 L MCV 90.0 MCH 29.1 MCHC 32.3 RDW 13.2 RDW Differential 43.7 Plt Count 269 - Rhythm Strip Rhythm Strip: Sinus Tach Rate: 102 Ectopy: None - EKG Initial EKG Interpretation: Sinus Rhythm, No Acute Injury Pattern, - - nml EKG other than mild tachycardia. no S1Q3T3. Prior: Unchanged - Medical Decision Making Labs and chest x-ray are normal. Her EKG shows no acute injury pattern except for a heart rate of 103 is normal. After a GI cocktail her symptoms are improved although it is still there is some. I do not think this is a PE and I do not think she needs further emergency department workup at this time. We will place her on a PPI and advised she follow-up closely with her doctor, she is comfortable with that plan. ED Disposition - Plan for ED Patient: Disposition: Home or Assisted Living Chief Complaint: Chest Pain Diagnosis: Chest pain, unspecified Instructions: ED Chest Pain NonCardiac Prescriptions: Omeprazole 40 mg PO DAILY #30 capsule.dr Referrals: Prateek Honeycutt MD [Primary Care Provider] - 3-5 Days if not improving What to do if you have Problems For any increased pain, shortness of breath, bleeding, nausea or vomiting, chest pain, or any unexpected problems, contact your Primary Care Provider. Call [facility] ([phone]) or report to the closest Emergency Room. Call 911 if necessary. 11/24/18 5775 <Electronically signed by Herbert Hart MD> Date Herbert Hart MD Cosigner Signature (If Indicated): Date CC: Prateek Honeycutt MD CHEST PA AND LATERAL Observed: 11/24/2018 Status: F Source: [place] 10:09 PM [facility] REPOSITORY [facility] Imaging Services [address] [place] [address] Chest PA and Lateral MR#: [id number] Acct: [id number] Name: KRISTA ROWE Rep #: [id number] : 1990 F 28 From: Leta Ann MD PCP: Prateek Honeycutt MD Status: REG ER Study: Chest PA and Lateral Date of Exam: 11/24/18 Exam# [id number] Ordering Dr: Herbert Hart MD STUDY: X-RAY CHEST REASON FOR EXAM: Female, 28 years old. Chest pain. TECHNIQUE: 2 views COMPARISON: None. FINDINGS: The lungs are clear and expanded. There is no demonstrated pleural abnormality. Normal size heart. Normal mediastinum and marissa. Normal visualized pulmonary arteries. Normal visualized aortic arch and descending thoracic aorta. Normal visualized thoracic spine. Normal visualized ribs, clavicles, and shoulders. There is no demonstrated abnormality of the visualized soft tissue structures of the upper abdomen. RAD/Chest PA and Lateral IMPRESSION: Normal x-ray examination of the chest. Electronically Signed: Leta Ann MD at 22:58 EST , Service support , CC: HERBERT HART MD; Prateek Honeycutt MD Product Developer: Signed CBC W/DIFF, AUTOMATED Collected: 11/24/2018 Status: F Source: [place] 10:04 PM [facility] REPOSITORY TYPE CODE TESTS RESULT OUT OF RANGE REFERENCE UNITS LAB L100.1000 4.4-11.0 K/mm3 Normal WBC 10.9 LAB L100.1200 4.2-5.4 M/mm3 Low RBC 4.09 LAB L100.1300 12.0-15.0 g/dl Low HGB 11.9 LAB L100.1400 37-47 % Low HCT 36.8 LAB L100.1500 81-99 fL Normal MCV 90.0 LAB L100.1600 27.0-32.0 pg Normal MCH 29.1 LAB L100.1700 32-36 g/gl Normal MCHC 32.3 LAB L100.1810 11.6-14.6 % Normal RDW CV 13.2 LAB L100.1820 35.1-43.9 fl Normal RDW SD 43.7 LAB L100.1900 150-450 K/mm3 Normal PLT 269 LAB L100.2000 6.2-12.0 fl Normal MPV 9.1 LAB L100.2100 47-70 % High NEUT% 76.9 LAB L100.2200 19-41 % Low LY% 17.7 LAB L100.2300 0-10 % Normal MONO% 3.9 LAB L100.2400 0-5 % Normal EO% 1.1 LAB L100.2500 0-1 % Normal BASO% 0.1 LAB L100.2550 0.0-0.9 % Normal IM GRAN % 0.300 Result Comment: IG% - Immature Granulocytes (promyelocytes, myelocytes and metamyelocytes) > 1% indicates that a LEFT SHIFT is Present. LAB L100.2620 2.0-7.7 X10 3/uL High Absolute Neut 8.4 LAB L100.2720 0.83-4.51 X10 3/ul Normal Absolute Lymph 1.93 LAB L100.4700 Normal REACTIVE LYMPH RARE Performed By: #### L100.0100 #### [facility] [address] [facility] [place], [place], [address] BASIC METABOLIC Collected: 11/24/2018 Status: F Source: [place] PROFILE (BMP) 10:04 PM [facility] REPOSITORY TYPE CODE TESTS RESULT OUT OF RANGE REFERENCE UNITS LAB L501.0100 74-106 mg/dL High GLU 181 Result Comment: Fasting Glucose result greater than or equal to 126 mg/dL suggests DIABETES MELLITUS per A.D.A. criteria. Please note revised GLUCOSE reference range effective 2017. LAB L501.1000 7-18 mg/dL Normal BUN 10 LAB L501.1100 0.55-1.02 mg/dL Normal CREAT,SERUM 0.93 Result Comment: The validity of the calculated GFR AND GFRAA in patients over 70 years has not been determined. Clinical correlation is essential. LAB L501.1110 >60 mL/min Normal EST GFR 75 Result Comment: Non- GFR Calc LAB L501.1115 >60 mL/min Normal EST GFR - AA 91 Result Comment: GFR Calc LAB L501.1255 ml/min Normal Estimated CRCL 86.02 LAB L501.1300 10-20 RATIO Normal BUN/CRE 10.8 LAB L501.2200 8.5-10 mg/dL Normal .1 CA 8.6 LAB L501.5300 136-14 mmol/L Normal 5 NA 138 LAB L501.5600 3.5-5. mmol/L Normal 1 K 3.6 LAB L501.5900 98-107 mmol/L Normal CL 106 LAB L501.6100 21.0-3 mmol/L Normal 2.0 CO2 24.0 LAB L501.6200 5-15 Normal GAP 8 Performed By: #### L500.2500, L501.4010 #### [facility] [address] [place], [address] TROPONIN-I Collected: 11/24/2018 Status: F Source: [place] 10:04 PM [facility] REPOSITORY TYPE CODE TESTS RESULT OUT OF RANGE REFERENCE UNITS LAB L501.4010 <0.045 ng/mL Normal < 0.015 TROPONIN-I Result Comment: TROPONIN-I EXPECTED VALUES <0.045 Negative 0.045 - 0.590 Consistent with Cardiac Damage > OR = 0.600 Critical Value Not every elevated troponin is indicative of PR. These values should be used with clinical judgement in examining the patient's clinical picture for diagnosis. To establish a diagnosis of PR versus myocardial injury, there must be a demonstrated rise and/or fall in the troponin values, in addition to ischemic symptoms, EKG changes, new regional wall motion abnormality, and/or angiographical evidence. PLEASE NOTE: REFERENCE RANGES EDITED 18 Performed By: #### L500.2500, L501.4010 #### [facility] [address] [place], [address] EMERGENCY DEPARTMENT Observed: 10/10/2018 Status: F Source: [place] SUMMARY 4:44 AM [facility] REPOSITORY [facility] Medical Records Department [address] [place] [address] Emergency Department Summary 10/09/18 2238 MR#: [id number] Acct: [id number] Name: KRISTA ROWE Rep #: [id number] : 1990 28 From: Lita Palomo MD PCP: Prateek Honeycutt MD Status: DEP ER - ER Visit Summary Date of Service: 10/09/18 Chief Complaint: Right foot pain History of Present Illness: The patient is a 28 F who had a surgery in October 2017 for bone fusion her right foot. Patient states today while walking she felt a pop in her right foot along that site of prior surgery. Patient called her slitter processed film who advised her to ice, elevate, and take anti-inflammatories. In spite of doing this she has had continued pain and presented for evaluation. Physical Examination: Blood pressure is 161/103, otherwise vitals unremarkable. Patient sitting upright in bed no acute distress. Lower external examination reveals an old healed incision the lateral tarsal bone region of the right foot. She has mild tenderness along this area with mild edema. She has strong distal pulses. She is good range of motion, but pain with movement. There is no tenderness over the knee or proximal fibula. Test Results: Right foot x-rays reveal postoperative changes with no evidence of acute fracture. Emergency Department Course and Treatment: Patient was given 1 tab of [place] here. Test results are discussed with her. She understands that she may have tendon or ligament injury that is not visible on x-ray. She will be given a walking boot and given a home pack of [place] only. She will follow-up with her slitter processed film tomorrow. Treatment Plan: [] Disposition: Discharge Impression: Right foot sprain This note was generated with ChoicePass dictation software. It may contain incorrect words, spelling, and punctuation that were not noted in review of the chart prior to signing ED Disposition - Plan for ED Patient: Chief Complaint: Lower Extremity Injury Referrals: Prateek Honeycutt MD [Primary Care Provider] - What to do if you have Problems For any increased pain, shortness of breath, bleeding, nausea or vomiting, chest pain, or any unexpected problems, contact your Primary Care Provider. Call [facility] ([phone]) or report to the closest Emergency Room. Call 911 if necessary. 10/10/18 0444 <Electronically signed by Lita Palomo MD> Date Lita Palomo MD Cosigner Signature (If Indicated): Date CC: Prateek Honeycutt MD DISCHARGE INSTRUCTION Observed: 10/09/2018 Status: F Source: [place] 11:22 PM [facility] RE[facility] Medical Records Department [address] [place] [address] Discharge Instruction 10/09/18 2321 MR#: [id number] Acct: [id number] Name: KRISTA ROWE Rep #: [id number] : 1990 28 From: Lita Palomo MD PCP: Prateek Honeycutt MD Status: REG ER ED Disposition - Plan for ED Patient: Disposition: Home or Assisted Living Chief Complaint: Lower Extremity Injury Instructions: ED Sprain Foot Referrals: Zenobia Warner DPM [STAFF PHYSICIAN] - As soon as possible What to do if you have Problems For any increased pain, shortness of breath, bleeding, nausea or vomiting, chest pain, or any unexpected problems, contact your Primary Care Provider. Call [facility] ([phone]) or report to the closest Emergency Room. Call 911 if necessary. 10/09/18 2322 <Electronically signed by Lita Palomo MD> Date Lita Palomo MD Cosigner Signature (If Indicated): Date CC: Prateek Honeycutt MD FOOT MIN 3 VIEWS Observed: 10/09/2018 Status: F Source: [place] 10:35 PM [facility] Imaging Services [address] [place] [address] Foot min 3 Views MR#: [id number] Acct: [id number] Name: KRISTA ROWE Rep #: [id number] : 1990 F 28 From: Daniel Rios MD PCP: Prateek Honeycutt MD Status: REG ER Study: Foot min 3 Views Date of Exam: 10/09/18 Exam# [id number] Ordering Dr: Lita Palomo MD STUDY: X-RAY - RIGHT FOOT CLINICAL: Female, 28 years old. Right foot injury and prior surgery TECHNIQUE: 3 view(s) of the foot. COMPARISON: April 26, 2018 FINDINGS: Normal talus, calcaneus, and tarsal bones. Normal visualized subtalar, talonavicular, calcaneocuboid, tarsal and tarsometatarsal articulations. Metallic hardware transfixes the calcaneocuboid joint. Normal metatarsi. Normal metatarsophalangeal joint of the great toe. Normal tibial and fibular sesamoid bones. Normal interphalangeal joint of the great toe. Normal phalanges of the great toe. Normal second through fifth metatarsophalangeal joints. Normal interphalangeal joints and phalanges of the lesser toes. The soft tissue structures are unremarkable. RAD/Foot min 3 Views IMPRESSION: Postoperative changes. No acute disease. Electronically Signed: Daniel Rios MD at 23:16 EST , Service support , CC: Prateek Honeycutt MD; Lita Palomo MD Product Developer: Signed DISCHARGE INSTRUCTION Observed: 09/19/2018 Status: F Source: [place] 11:29 PM [facility] Medical Records Department [address] [place] [address] Discharge Instruction 09/19/18 2322 MR#: [id number] Acct: [id number] Name: KRISTA ROWE Rep #: [id number] : 1990 28 From: Usman Chapman MD PCP: Prateek Honeycutt MD Status: REG ER ED Disposition - Plan for ED Patient: Disposition: Home or Assisted Living Chief Complaint: Flank Pain Instructions: ED Flank Pain Uncertain Cause Prescriptions: Ketorolac [Toradol] 10 mg PO Q4H #10 tab Referrals: Prateek Honeycutt MD [Primary Care Provider] - As Needed Additional Instructions: Plenty of fluids and rest. Strain your urine for possible kidney stone. Follow-up your primary care physician as needed. Limited [place] and Toradol for flank pain for the possibility of this being a kidney stone. What to do if you have Problems For any increased pain, shortness of breath, bleeding, nausea or vomiting, chest pain, or any unexpected problems, contact your Primary Care Provider. Call [facility] ([phone]) or report to the closest Emergency Room. Call 911 if necessary. 09/19/18 2329 <Electronically signed by Usman Chapman MD> Date Usman Chapman MD Cosigner Signature (If Indicated): Date CC: Prateek Honeycutt MD EMERGENCY DEPARTMENT Observed: 09/19/2018 Status: F Source: [place] SUMMARY 11:29 PM [facility] REPOSITORY [facility] Medical Records Department [address] [place] [address] Emergency Department Summary 09/19/18 2243 MR#: [id number] Acct: [id number] Name: SUSAN ROWESUSHANT Mo Rep #: [id number] : 1990 28 From: Usman Chapman MD PCP: Prateek Honeycutt MD Status: REG ER - ER Visit Summary Date of Service: 09/19/18 Chief Complaint: Left flank pain History of Present Illness: The patient is a 28 F history of noncemented diabetes, hypertension, migraines and kidney stones. Patient states yesterday she started having mild intermittent left flank pain is worse in the last 3 hours. Denies any gross hematuria. No fever. Denies any back injury. Associated nausea no vomiting or diarrhea. No melena. Physical Examination: Young female. No acute distress. Vital signs are stable afebrile. H EENT exam unremarkable. Moist membranes. Neck nontender. Lungs clear to auscultation bilaterally. Heart regular rhythm no murmur rate about 100. Abdomen obese but soft nontender normal bowel sounds no peritoneal signs. Nondistended. Moving all 4 extremities. Neurovascularly intact. He has left CVA and soft tissue tenderness to her back. Neurologically she is awake alert with no focal motor deficits. Test Results: Urinalysis shows no whites or reds or bacteria in the microscopic urinalysis but blood on the macro. No nitrates. No signs of a UTI. This may be from kidney stone. Emergency Department Course and Treatment: Patient treated with IM Toradol and 2 p.o. [place]. On repeat exam she is doing well at 2320. She is comfortable being discharged home. Patient has had multiple CT flank study in the past and we will defer at this time. Treatment Plan: [place] home pack and a prescription for Toradol for possible kidney stone. Strain urine for stone. Return if intractable pain, fever or feeling worse. Disposition: Discharge Impression: Acute left flank pain with hematuria History of kidney stones This note was generated with ChoicePass dictation software. It may contain incorrect words, spelling, and punctuation that were not noted in review of the chart prior to signing ED Disposition - Plan for ED Patient: Disposition: Home or Assisted Living Chief Complaint: Flank Pain Instructions: ED Flank Pain Uncertain Cause Prescriptions: Ketorolac [Toradol] 10 mg PO Q4H #10 tab Referrals: Prateek Honeycutt MD [Primary Care Provider] - As Needed Additional Instructions: Plenty of fluids and rest. Strain your urine for possible kidney stone. Follow-up your primary care physician as needed. Limited [place] and Toradol for flank pain for the possibility of this being a kidney stone. What to do if you have Problems For any increased pain, shortness of breath, bleeding, nausea or vomiting, chest pain, or any unexpected problems, contact your Primary Care Provider. Call [facility] ([phone]) or report to the closest Emergency Room. Call 911 if necessary. 09/19/18 2329 <Electronically signed by Usman Chapman MD> Date Usman Chapman MD Cosigner Signature (If Indicated): Date CC: Prateek Honeycutt MD URINALYSIS, COMPLETE Collected: 09/19/2018 Status: F Source: BAO 10:53 PM [facility] REPOSITORY Order Comment: How was Urine Obtained? MELTER CASTER TO SPECIFY TYPE CODE TESTS RESULT OUT OF RANGE REFERENCE UNITS LAB L400.3000 Yellow COLOR Normal Yellow LAB L400.3050 Clear Normal CLARITY Clear LAB L400.3200 Normal mg/dl Normal GLUCOSE, UR Normal LAB L400.3300 Negative mg/dL Normal BILIRUBIN URINE Negative LAB L400.3400 Negative mg/dl Normal KETONE UR Negative LAB L400.3465 1.002-1.030 Normal SP.GR. DIPSTX 1.015 LAB L400.3550 5.0 - 8.0 pH UR Normal 6.0 LAB L400.3600 Negative mg/dl PROT Normal DIPSTX Negative LAB L400.3700 Normal mg/dl Normal UROBILI Normal LAB L400.3750 Negative Normal NITRITE UR Negative LAB L400.3780 Negative /ul High 50 OCCULT BLOOD-UR LAB L400.3800 Negative /ul High LEUK 25 ESTERASE LAB L400.4050 0-5 /hpf WBC Normal 0-5 SEEN LAB L400.4100 0-5 /hpf Normal RBC-UA 0-5 SEEN LAB L400.4150 5-10 /hpf SQUAM Normal EPI 0-5 SEEN LAB L400.4300 None Seen /hpf 0 Normal BACTERIA SEEN LAB L400.4350 <or=2+ /hpf 0 Normal MUCUS, URINE SEEN Performed By: #### L400.0001 #### [facility] [address] [place], [address] EMERGENCY DEPARTMENT Observed: 09/03/2018 Status: F Source: [place] SUMMARY 8:47 PM [facility] REPOSITORY [facility] Medical Records Department [address] [place] [address] Emergency Department Summary 09/03/18 1727 MR#: [id number] Acct: [id number] Name: KRISTA ROWE Rep #: [id number] : 1990 28 From: Wilmar Chow MD PCP: Care Physician, No Primary Status: DEP ER - ER Visit Summary Date of Service: 09/03/18 Chief Complaint: Flank pain History of Present Illness: The patient is a 28 F who is had left flank pain since yesterday. She states that wraps around to the front part of her abdomen. She has had associated nausea with this. She denies hematuria or dysuria. She does have a history of kidney stones. She fell 6 days ago. At that time she was evaluated at [facility]. She was put on Flexeril and Motrin. She now continues to have a headache since that fall. She has a history of migraine headaches as well. Physical Examination: Vital signs reviewed. BMI is 60. HEENT exam unremarkable. Heart is regular rate and rhythm without murmurs. Lungs are clear to auscultation. Abdomen is soft and nontender. Back exam reveals left lumbar tenderness to palpation. There is no CVA tenderness. Extremities reveal no edema. Skin exam normal. Neurologic exam normal. Test Results: Urinalysis negative infection. Emergency Department Course and Treatment: Patient was given Reglan, Benadryl, Toradol and normal saline. She had a minor reaction to the Reglan but this is since gotten better. She states her headache is much better at 1835. There is no blood or infection in her urine. I feel the patient can be discharged with NSAIDs for pain at home. She will follow-up with her primary care physician. Treatment Plan: [] Disposition: Discharge Impression: Headache, left flank pain This note was generated with ChoicePass dictation software. It may contain incorrect words, spelling, and punctuation that were not noted in review of the chart prior to signing ED Disposition - Plan for ED Patient: Disposition: Home or Assisted Living Chief Complaint: Flank Pain Instructions: ED Cephalgia Unspecified Prescriptions: Diflunisal [Dolobid] 500 mg PO TID #20 tab Referrals: Care Physician,No Primary [Primary Care Provider] - What to do if you have Problems For any increased pain, shortness of breath, bleeding, nausea or vomiting, chest pain, or any unexpected problems, contact your Primary Care Provider. Call [facility] ([phone]) or report to the closest Emergency Room. Call 911 if necessary. 09/03/182046 <Electronically signed by Wilmar Chow MD> Date Wilmar Chow MD Cosigner Signature (If Indicated): Date CC: No Primary Care Physician DISCHARGE INSTRUCTION Observed: 09/03/2018 Status: F Source: BAO 6:38 PM [facility] REPOSIT[facility] Medical Records Department [address] [place] [address] Discharge Instruction 09/03/181836 MR#: [id number] Acct: [id number] Name: KRISTA ROWE Rep #: [id number] : 1990 28 From: Wilmar Chow MD PCP: Care Physician, No Primary Status: REG ER ED Disposition - Plan for ED Patient: Disposition: Home or Assisted Living Chief Complaint: Flank Pain Instructions: ED Cephalgia Unspecified Prescriptions: Diflunisal [Dolobid] 500 mg PO TID #20 tab Referrals: Care Physician,No Primary [Primary Care Provider] - What to do if you have Problems For any increased pain, shortness of breath, bleeding, nausea or vomiting, chest pain, or any unexpected problems, contact your Primary Care Provider. Call [facility] ([phone]) or report to the closest Emergency Room. Call 911 if necessary. 09/03/181837 <Electronically signed by Wilmar Chow MD> Date Wilmar Chow MD Cosigner Signature (If Indicated): Date CC: No Primary Care Physician URINALYSIS, COMPLETE Collected: 09/03/2018 Status: F Source: BAO 5:37 PM [facility] REPOSITORY Order Comment: Order Date: 09/03/18 How was Urine Obtained? MELTER CASTER TO SPECIFY TYPE CODE TESTS RESULT OUT OF RANGE REFERENCE UNITS LAB L400.3000 Yellow COLOR Normal Yellow LAB L400.3050 Clear Normal CLARITY Clear LAB L400.3200 Normal mg/dl Normal GLUCOSE, UR Normal LAB L400.3300 Negative mg/dL High BILIRUBIN URINE 1 Result Comment: COLOR OF URINE MAY AFFECT DIPSTICK RESULTS. LAB L400.3400 Negative mg/dl Normal KETONE UR Negative LAB L400.3465 1.002-1.030 Normal SP.GR. DIPSTX 1.025 LAB L400.3550 5.0 - 8.0 pH Normal UR 6.0 LAB L400.3600 Negative mg/dl High PROT DIPSTX 30 LAB L400.3700 Normal mg/dl High UROBILI 1 LAB L400.3750 Negative Normal NITRITE UR Negative LAB L400.3780 Negative /ul Normal OCCULT Negative BLOOD-UR LAB L400.3800 Negative /ul High LEUK ESTERASE 500 LAB L400.4050 0-5 /hpf Normal WBC 0-5 SEEN LAB L400.4100 0-5 /hpf Normal RBC-UA 0-5 SEEN LAB L400.4150 5-10 /hpf Normal SQUAM EPI 0-5 SEEN LAB L400.4300 None Seen /hpf Normal BACTERIA 0 SEEN LAB L400.4350 <or=2+ /hpf Normal MUCUS, URINE 0 SEEN LAB L400.4700 <or=2+ /hpf CA Normal OX CRYSTAL 1+ Performed By: #### L400.0001 #### [facility] [address] [place], [address] ,URINE Collected: 09/03/2018 Status: F Source: [place] 5:37 PM [facility] REPOSITORY Order Comment: Order Date: 09/03/18 TYPE CODE TESTS RESULT OUT OF REFERENCE UNITS RANGE LAB L400.8000 Negative Normal HCGUQUAL Negative Result Comment: Very dilute urine specimens, as indicated by a low specific gravity, may not contain admitting representative levels of hCG. If is still suspected, a first morning urine specimen should be collected 48 hours later and tested. Performed By: #### L400.7600 #### [facility] [address] [place], [address] EMERGENCY DEPARTMENT Observed: 07/20/2018 Status: F Source: [place] SUMMARY 12:55 PM [facility] REPOSITORY [facility] Medical Records Department [address] [place] [address] [place] [address] Emergency Department Summary 07/20/18 1012 MR#: [id number] Acct: [id number] Name: KRISTA ROWE Rep #: [id number] : 1990 28 From: Chris Sinclair MD PCP: Care Physician, No Primary Status: REG ER - ER Visit Summary Date of Service: 07/20/18 Chief Complaint: Bilateral lower quadrant abdominal pain with nausea, vomiting diarrhea History of Present Illness: The patient is a 28 F who presents with bilateral lower abdominal pain that is associated with nausea, vomiting and diarrhea that started yesterday. She is vomited total of 2 times. She has had 7 loose watery stools. She denies hematemesis, melena or hematochezia. She denies maroon colored fluids. She does complain of thirst and dry mouth. She states she not permitted to stand because of a calcaneal fracture right foot and is uncertain whether she will be lightheaded or not. She denies headache. She denies ocular, visual auditory symptoms. I trouble speech or swallowing. Denies cardiac respiratory symptoms. She denies any urologic or gynecologic symptoms. She has no ill contacts. She has not been on any antibiotics in the past month. There is no history of inflammatory bowel disorder. Please read written note for complete detail Physical Examination: Vital signs remarkable for an elevated blood pressure 167/110 and heart rate of 120. HEENT exam is remarkable for dry tongue and mucosa. Heart is rapid and regular without murmur, gallop or rub. Lungs are clear to auscultation. Abdomen is remarkable for bilateral lower quadrant abdominal pain. Bowel sounds are slightly increased. There is no guarding or perineal findings. There is swelling of the right foot secondary to calcaneal fracture and dependent edema since she is not permitted to stand and weight-bear. Neuro exam is nonfocal Test Results: Basic metabolic panel is remarkable for an elevated glucose, 169. Emergency Department Course and Treatment: IV was established and she received 1 L of normal saline wide open and 4 mg of Zofran IV push. Patient states blood sugar was greater than 200 this morning. She states that is about baseline. BMP was obtained to assess renal function and electrolytes. Will reassess in 30-45 minutes. Treatment Plan: Patient was reassessed at 1145. She still complains of nausea and one episode of emesis. 12.5 mg of promethazine was ordered. A second liter of normal saline was ordered since she has not urinated nor does she have the urge to urinate. Most recent systolic blood pressure 139. Patient according the nurse had no vomiting diarrhea during her stay even though she reported one episode of vomiting. She has urinated after the second liter. She has passed p.o. challenge. Disposition: Discharge to home with family and prescription for Bentyl and promethazine Impression: 1. Abdominal pain with nausea, vomiting diarrhea 2. Moderate dehydration 3. Hyperglycemia and type II diabetic 4. Sinus tachycardia documented on monitor This note was generated with ChoicePass dictation software. It may contain incorrect words, spelling, and punctuation that were not noted in review of the chart prior to signing ED Disposition - Plan for ED Patient: Chief Complaint: Nausea/Vomiting/Diarrhea Instructions: ED Vomiting Diarrhea Nonspecific Ad Prescriptions: Promethazine HCl 25 mg PO Q6H PRN PRN #10 tab PRN Reason: Nausea/Vomiting Referrals: Care Physician,No Primary [Primary Care Provider] - Additional Instructions: If no improvement in 2-3 days follow-up with your doctor assigned by your insurance carrier, [employer] What to do if you have Problems For any increased pain, shortness of breath, bleeding, nausea or vomiting, chest pain, or any unexpected problems, contact your Primary Care Provider. Call [facility] ([phone]) or report to the closest Emergency Room. Call 911 if necessary. 07/20/18 1255 <Electronically signed by Chris Sinclair MD> Date Chris Sinclair MD Cosigner Signature (If Indicated): Date CC: No Primary Care Physician BASIC METABOLIC Collected: 07/20/2018 Status: F Source: BAO PROFILE ([facility]) 10:30 AM [facility] REPOSITORY TYPE CODE TESTS RESULT OUT OF RANGE REFERENCE UNITS LAB L501.0100 74-106 mg/dL High GLU 169 Result Comment: Fasting Glucose result greater than or equal to 126 mg/dL suggests DIABETES MELLITUS per A.D.A. criteria. Please note revised GLUCOSE reference range effective 2017. LAB L501.1000 7-18 mg/dL Normal BUN 10 LAB L501.1100 0.55-1.02 mg/dL Normal CREAT,SERUM 0.93 Result Comment: The validity of the calculated GFR AND GFRAA in patients over 70 years has not been determined. Clinical correlation is essential. LAB L501.1110 >60 mL/min Normal EST GFR 75 Result Comment: Non- GFR Calc LAB L501.1115 >60 mL/min Normal EST GFR - AA 91 Result Comment: GFR Calc LAB L501.1255 ml/min Normal Estimated CRCL 86.02 LAB L501.1300 10-20 RATIO Normal BUN/CRE 10.7 LAB L501.2200 8.5-10 mg/dL Normal .1 CA 8.8 LAB L501.5300 136-14 mmol/L Normal 5 NA 139 LAB L501.5600 3.5-5. mmol/L Normal 1 K 3.7 LAB L501.5900 98-107 mmol/L Normal CL 106 LAB L501.6100 21.0-3 mmol/L Normal 2.0 CO2 27.0 LAB L501.6200 5-15 Normal GAP 6 Performed By: #### L500.2500 #### [facility] [address] [place], [address] CONSULTATION Observed: 06/14/2018 Status: F Source: [place] 3:05 PM [facility] RE[facility] Medical Records Department [address] [place] [address] Consultation 06/14/18 1500 MR#: [id number] Acct: [id number] Name: KRISTA ROWE Rep #: [id number] : 1990 28 From: Jacques Alcaraz DO PCP: Care Physician, No Primary Status: DEP ER Y Location: ED Problem List (1) Back pain Status: Acute Qualifiers: Back pain location: low back pain Chronicity: acute Back pain laterality: bilateral Sciatica presence: without sciatica Qualified Code(s): M54.5 - Low back pain Reason for Consult Date of Consultation: 06/14/18 Reason for Consultation: back pain. History of Present Illness: The patient is a 28 year old F presents with back pain. Began as one-sided pain and was seen in the emergency room also have urinary tract infection possible pyelonephritis and discharged with antibiotics. Patient returns today which is worsening pain on both sides. Denies any fever chills. Hospitalist service was asked to evaluate patient for her acute back pain and. [] Past Medical History Past Medical History (Chronic Problems): Chronic Problems Right foot pain (Chronic) Arthritis of right foot (Chronic) Calcaneus fracture, right (Chronic) non healing Allergies Penicillins Allergy (Verified 06/14/18 10:52) Hives angioedema as well etodolac [From Lodine] Adverse Reaction (Intermediate, Verified 06/14/18 10:52) Chest tightness bupropion HCl [From Wellbutrin] Adverse Reaction (Verified 06/14/18 14:07) suicidal suicidal Home Medications: Ambulatory Orders Medication Instructions Recorded Lisinopril [Zestril] 10 mg PO DAILY 09/21/16 Surgical History: cholecystectomy, - - 3 previous right foot surgeries Right gastrocnemius recession, calcaneal cuboid joint arthrodesis, fracture fragment excision (Dr. Warner 11/05/2017) Smoking Status: Current every day smoker Tobacco Use: Cigarettes - *Family History Maternal History Items: No pertinent history Review of Systems Constitutional: Denies: Anorexia, Chills, Fever Eyes: Denies: Blurred vision, Double vision HEENT: Denies: Head Aches, Sinus Congestion, Sinus Drainage Cardiovascular: Denies: Chest Pain, Palpitations Respiratory: Denies: Cough, Shortness of breath at rest, Sputum production Gastrointestinal: Denies: Abdominal Pain, Diarrhea, Dyspepsia Genitourinary: Denies: Dysuria Musculoskeletal: Reports: Back Pain. Denies: Arm Pain Skin: Denies: Rash, Wounds Neurological: Reports: - - Patient has been wheelchair-bound since breaking her foot. Comment: All review of systems are negative except as mentioned in the history of present illness and the other review of systems. - Physical Exam General: Alert, Cooperative, No apparent distress HEENT: Atraumatic, Normocephalic Oral: Moist Mucosa, No Gingival or Mucosal Lesions/ Ulcerations Neck: No Nodes, Thyroid Normal Size and Texture Lungs: Clear to auscultation, Normal air movement, No rhonchi, No wheeze Cardiovascular: Regular rate, Regular Rhythm, Normal S1, Normal S2, No murmurs Abdomen: Bowel Sounds Present, Soft, Non Tender, Non-Distended Extremities: No edema, No Calf Tenderness Musculoskeletal: - - Thoracic and lumbar paraspinal tenderness Psych/Mental Status: Appropriate, Anxious Vital Signs Temp Pulse Resp BP Pulse Ox 36.6 C 93 18 148/102 H 98 06/14/18 13:43 06/14/18 13:43 06/14/18 13:43 06/14/18 13:43 06/14/18 13:43 Oxygen Delivery Method Room Air Weight: 166.922 kg Body Mass Index (BMI) 57.6 Finger Stick Blood Glucose 164 Laboratory Tests Past 24 Hrs Assessment/Plan All Active Problems Back pain (Acute) Cellulitis of leg without foot, right (Acute) Right leg pain (Acute) 1. Back pain * I personally reviewed images of her CT abdomen and pelvis. I evaluated her lumbar spine did not did not show any fractures. Patient's pain seems to be more from muscle spasms in the paraspinal musculature. * I reviewed the patient's urinalysis there was a little bit of blood but nothing really concerning for urinary tract infection much less pyelonephritis. And I feel her pain is not due to pyelonephritis in the absence of fever and any leukocytosis. * Do not feel the patient requires hospitalization for that and recommended Flexeril. I discussed this with Dr. Blount and the plan will be to discharge the patient to home. Code Visit Office Visits / Consults: [id number] OP Consult L3 06/14/18 1505 <Electronically signed by Jacques Alcaraz DO> Date Jacques Alcaraz DO Cosigner Signature (if applicable): Date CC: No Primary Care Physician Signed DISCHARGE INSTRUCTION Observed: 06/14/2018 Status: F Source: BAO 2:12 PM [facility] REPOSITORY [facility] Medical Records Department [address] [place] [address] Discharge Instruction 06/14/18 1411 MR#: [id number] Acct: [id number] Name: KRISTA ROWE Rep #: [id number] : 1990 28 From: Gianni Blount MD PCP: Ginny Physician, No Primary Status: REG ER ED Disposition - Plan for ED Patient: Disposition: Home or Assisted Living Chief Complaint: Complaint Prescriptions: Cyclobenzaprine [Flexeril] 10 mg PO TID PRN #20 tab PRN Reason: Muscle Spasm Referrals: Care Physician,No Primary [Primary Care Provider] - 3-5 Days What to do if you have Problems For any increased pain, shortness of breath, bleeding, nausea or vomiting, chest pain, or any unexpected problems, contact your Primary Care Provider. Call [facility] ([phone]) or report to the closest Emergency Room. Call 911 if necessary. 06/14/18 1412 <Electronically signed by Gianni Blount MD> Date Gianni Blount MD Cosigner Signature (If Indicated): Date CC: No Primary Care Physician EMERGENCY DEPARTMENT Observed: 06/14/2018 Status: F Source: [place] SUMMARY 2:11 PM [facility] REPOS[facility]ORY [facility] Medical Records Department [address] [place] [address] Emergency Department Summary 06/14/18 1410 MR#: [id number] Acct: [id number] Name: KRISTA ROWE Rep #: [id number] : 1990 28 From: Gianni Blount MD PCP: Ginny Physician, No Primary Status: REG ER - ER Visit Summary Date of Service: 06/14/18 Patient was seen by the hospitalist who thought this is more musculoskeletal, we will give her muscle relaxants and discharge her home she is to continue her antibiotics. This note was generated with Zen[employer]rollation software. It may contain incorrect words, spelling, and punctuation that were not noted in review of the chart prior to signing ED Disposition - Plan for ED Patient: Chief Complaint: Complaint Referrals: Care Physician,No Primary [Primary Care Provider] - What to do if you have Problems For any increased pain, shortness of breath, bleeding, nausea or vomiting, chest pain, or any unexpected problems, contact your Primary Care Provider. Call [facility] ([phone]) or report to the closest Emergency Room. Call 911 if necessary. 06/14/18 1411 <Electronically signed by Gianni Blount MD> Date Gianni Blount MD Cosigner Signature (If Indicated): Date CC: No Primary Care Physician EMERGENCY DEPARTMENT Observed: 06/14/2018 Status: F Source: [place] SUMMARY 1:34 PM [facility] REPOS[facility] Medical Records Department [address] [place] [address] Emergency Department Summary 06/14/18 1328 MR#: [id number] Acct: [id number] Name: KRISTA ROWE Rep #: [id number] : 1990 28 From: Gianni Blount MD PCP: Ginny Physician, No Primary Status: REG ER - ER Visit Summary Date of Service: 06/14/18 Chief Complaint: Pelvic pain flank pain dysuria History of Present Illness: The patient is a 28 F who was seen last week was diagnosed with a urinary tract infection and early pyelonephritis was discharged with antibiotics presents with worsening flank pain dysuria and abdominal pain. She tells me she feels worse than she did a week ago. Physical Examination: Orbitally obese female who objectively does not appear in significant distress. Clear lungs regular rate and rhythm abdomen is soft, there is some suprapubic pain and bilateral CVA tenderness no guarding or rebound. rse Emergency Department Course and Treatment: She received IV Rocephin her white counts 10.5, however her symptoms are not improving and she still has a urinary tract infection I will admit her. Impression: [] Pyelonephritis This note was generated with Dragon dictation software. It may contain incorrect words, spelling, and punctuation that were not noted in review of the chart prior to signing ED Disposition - Plan for ED Patient: Chief Complaint: Complaint Referrals: Care Physician,No Primary [Primary Care Provider] - What to do if you have Problems For any increased pain, shortness of breath, bleeding, nausea or vomiting, chest pain, or any unexpected problems, contact your Primary Care Provider. Call [facility] ([phone]) or report to the closest Emergency Room. Call 911 if necessary. 06/14/18 1334 <Electronically signed by Gianni Blount MD> Date Gianni Blount MD Cosigner Signature (If Indicated): Date CC: No Primary Care Physician CBC W/DIFF, AUTOMATED Collected: 06/14/2018 Status: F Source: BAO 11:33 AM [facility] REPOSITORY TYPE CODE TESTS RESULT OUT OF RANGE REFERENCE UNITS LAB L100.1000 4.4-11.0 K/mm3 Normal WBC 10.5 LAB L100.1200 4.2-5.4 M/mm3 Normal RBC 4.32 LAB L100.1300 12.0-15.0 g/dl Normal HGB 12.9 LAB L100.1400 37-47 % Normal HCT 39.6 LAB L100.1500 81-99 fL Normal MCV 91.7 LAB L100.1600 27.0-32.0 pg Normal MCH 29.9 LAB L100.1700 32-36 g/gl Normal MCHC 32.6 LAB L100.1810 11.6-14.6 % Normal RDW CV 13.4 LAB L100.1820 35.1-43.9 fl High RDW SD 44.4 LAB L100.1900 150-450 K/mm3 Normal PLT 287 LAB L100.2000 6.2-12.0 fl Normal MPV 9.5 LAB L100.2100 47-70 % High NEUT% 74.0 LAB L100.2200 19-41 % Normal LY% 19.9 LAB L100.2300 0-10 % Normal MONO% 4.3 LAB L100.2400 0-5 % Normal EO% 1.3 LAB L100.2500 0-1 % Normal BASO% 0.3 LAB L100.2550 0.0-0.9 % Normal IM GRAN % 0.200 Result Comment: IG% - Immature Granulocytes (promyelocytes, myelocytes and metamyelocytes) > 1% indicates that a LEFT SHIFT is Present. LAB L100.2620 2.0-7.7 X10 3/uL High Absolute Neut 7.8 LAB L100.2720 0.83-4.51 X10 3/ul Normal Absolute Lymph 2.09 Performed By: #### L100.0100 #### [facility] [address] [place], [address] BASIC METABOLIC Collected: 06/14/2018 Status: F Source: [place] PROFILE (BMP) 11:33 AM [facility] REPOSITORY TYPE CODE TESTS RESULT OUT OF RANGE REFERENCE UNITS LAB L501.0100 74-106 mg/dL High GLU 140 Result Comment: Fasting Glucose result greater than or equal to 126 mg/dL suggests DIABETES MELLITUS per A.D.A. criteria. Please note revised GLUCOSE reference range effective 2017. LAB L501.1000 7-18 mg/dL Normal BUN 11 LAB L501.1100 0.55-1.02 mg/dL Normal CREAT,SERUM 1.02 Result Comment: The validity of the calculated GFR AND GFRAA in patients over 70 years has not been determined. Clinical correlation is essential. LAB L501.1110 >60 mL/min Normal EST GFR 68 Result Comment: Non- GFR Calc LAB L501.1115 >60 mL/min Normal EST GFR - AA 82 Result Comment: GFR Calc LAB L501.1255 ml/min Normal Estimated CRCL 78.43 LAB L501.1300 10-20 RATIO Normal BUN/CRE 10.8 LAB L501.2200 8.5-10 mg/dL Normal .1 CA 8.8 LAB L501.5300 136-14 mmol/L Normal 5 NA 136 LAB L501.5600 3.5-5. mmol/L Normal 1 K 4.2 LAB L501.5900 98-107 mmol/L Normal CL 104 LAB L501.6100 21.0-3 mmol/L Normal 2.0 CO2 24.0 LAB L501.6200 5-15 Normal GAP 8 Performed By: #### L500.2500 #### [facility] [address] [place], [place], [address] URINALYSIS, COMPLETE Collected: 06/14/2018 Status: F Source: BAO 11:30 AM [facility] REPOSITORY Order Comment: Order Date: 06/14/18 How was Urine Obtained? CLEAN CATCH TYPE CODE TESTS RESULT OUT OF RANGE REFERENCE UNITS LAB L400.3000 Yellow COLOR Normal Yellow LAB L400.3050 Clear Normal CLARITY Sl. Cloudy LAB L400.3200 Normal mg/dl Normal GLUCOSE, UR Normal LAB L400.3300 Negative mg/dL Normal BILIRUBIN URINE Negative LAB L400.3400 Negative mg/dl Normal KETONE UR Negative LAB L400.3465 1.002-1.030 Normal SP.GR. DIPSTX 1.020 LAB L400.3550 5.0 - 8.0 pH UR Normal 6.0 LAB L400.3600 Negative mg/dl High PROT 15 DIPSTX LAB L400.3700 Normal mg/dl Normal UROBILI Normal LAB L400.3750 Negative Normal NITRITE UR Negative LAB L400.3780 Negative /ul High OCCULT BLOOD-UR 250 LAB L400.3800 Negative /ul High LEUK 25 ESTERASE LAB L400.4050 0-5 /hpf WBC Normal 0-5 SEEN LAB L400.4100 0-5 /hpf Normal RBC-UA 25-50 SEEN LAB L400.4150 5-10 /hpf SQUAM Normal EPI 0-5 SEEN LAB L400.4300 None Seen /hpf 1+ Normal BACTERIA LAB L400.4350 <or=2+ /hpf 0 Normal MUCUS, URINE SEEN Performed By: #### L400.0001 #### [facility] [address] [place], [address] Observed: 06/14/2018 Status: F Source: BAO CULTURE, URINE 11:30 AM [facility] REPOSITORY Order Date: 06/14/18 Urine Culture Culture exhibits no growth. Performed By: #### M100.0650 #### [facility] [address] [place], [address] ABDOMEN/PELVIS WITHOUT Observed: 06/14/2018 Status: F Source: BAO CONT 11:13 AM [facility] REPOSITORY [facility] Imaging Services [address] [place] [address] Abdomen/Pelvis without Cont MR#: [id number] Acct: [id number] Name: KRISTA ROWE Rep #: [id number] : 1990 F 28 From: Uriel Najera MD PCP: Care Physician, No Primary Status: REG ER Study: Abdomen/Pelvis without Cont Date of Exam: 06/14/18 Exam# [id number] Ordering Dr: Gianni Blount MD STUDY: CT ABDOMEN AND PELVIS WITHOUT CONTRAST REASON FOR EXAM: Female, 28 years old. Lower abdominal pain. History of UTI. RADIATION DOSAGE (If Supplied By Facility): CTDIvol = ( 34.45 ) mGy, DLP = ( 1824.83 ) mGycm TECHNIQUE: Transaxial images were obtained from the dome of the diaphragm to the symphysis pubis without oral contrast, and without intravenous contrast. Sagittal and coronal images were reconstructed. Individualized dose optimization techniques were used for this CT. COMPARISON: Comparison is made with prior study dated April 19, 2018. FINDINGS: Stable calcified granuloma in the posterior segment of the left lower lobe. The visualized portions of the heart are within normal limits. There is decreased attenuation of the liver consistent with steatosis. Hepatomegaly. The patient status post cholecystectomy. Normal spleen. Normal pancreas. There is a small, circumscribed, smooth, low attenuation left adrenal mass, consistent with an adrenal adenoma. This measures 1.4 cm. Normal right adrenal gland. Normal right kidney. Normal left kidney. Normal visualized stomach. Normal small intestine. Normal colon. The appendix is visualized and appears normal. Normal abdominal aorta. Normal inferior vena cava. Normal retroperitoneum. Normal urinary bladder. There is a 2.8 cm cyst in the right ovary. There is a small umbilical hernia containing fat. Normal osseous structures. CT/Abdomen/Pelvis without Cont IMPRESSION: Hepatomegaly and fatty infiltration of the liver 2.8 cm cyst in the right ovary. Electronically Signed: Uriel Najera MD at 12:11 EDT Tel [phone], Service support , CC: No Primary Care Physician; Gianni Blount MD Product Developer: Signed EMERGENCY DEPARTMENT Observed: 06/09/2018 Status: F Source: [place] SUMMARY 2:56 PM [facility] REPOSITORY [facility] Medical Records Department [address] [place] [address] Emergency Department Summary 06/09/18 1450 MR#: [id number] Acct: [id number] Name: KRISTA ROWE Rep #: [id number] : 1990 28 From: Gianni Blount MD PCP: Care Physician, No Primary Status: REG ER - ER Visit Summary Date of Service: 06/09/18 Chief Complaint: Nausea vomiting urinary frequency and flank pain History of Present Illness: The patient is a 28 F with above complaints for 2-3 days. She denies fever she has some left lower quadrant and flank pain. Physical Examination: She is morbidly obese, clear lungs, soft abdomen slight left lower quadrant abdominal pain and flank pain. Not appear in distress, does not appear toxic. Emergency Department Course and Treatment: Patient is found to have a urinary tract infection however with the flank pain she likely has the beginning of pyelonephritis, her white count is unremarkable. I did give her ceftriaxone in the emergency department I will send her home with p.o. antibiotics. If she has fever chills or gets worse she needs to return. discharge stable condition Impression: Pyelonephritis This note was generated with ChoicePass dictation software. It may contain incorrect words, spelling, and punctuation that were not noted in review of the chart prior to signing ED Disposition - Plan for ED Patient: Disposition: Home or Assisted Living Chief Complaint: Nausea/Vomiting Instructions: Discharge Instructions for Pyelonephritis Prescriptions: Hydrocodone Bitart/Apap 5-325 [[place] 5/325] 1 - 2 tab PO Q4H PRN PRN 5 Days #12 tab PRN Reason: Pain Smz/Tmp Ds [Bactrim Ds] 1 tab PO BID #20 tab Referrals: Care Physician,No Primary [Primary Care Provider] - 3-5 Days What to do if you have Problems For any increased pain, shortness of breath, bleeding, nausea or vomiting, chest pain, or any unexpected problems, contact your Primary Care Provider. Call [facility] ([phone]) or report to the closest Emergency Room. Call 911 if necessary. 06/09/18 7866 <Electronically signed by Gianni Blount MD> Date Gianni Blount MD Cosigner Signature (If Indicated): Date CC: No Primary Care Physician URINALYSIS, COMPLETE Collected: 06/09/2018 Status: C Source: BAO 12:24 PM [facility] REPOSITORY Order Comment: Order Date: 06/09/18 Has pt arrived? Y Order Date: 06/09/18 How was Urine Obtained? MELTER CASTER TO SPECIFY TYPE CODE TESTS RESULT OUT OF RANGE REFERENCE UNITS LAB L400.4050 0-5 /hpf Normal WBC 0-5 SEEN Result Comment: AMENDED REPORT 06/09/18 2594 WBC previously reported as: 0 SEEN /hpf LAB L400.4100 0-5 /hpf Normal RBC-UA 0-5 SEEN Result Comment: AMENDED REPORT 06/09/185 RBC-UA previously reported as: 0 SEEN /hpf LAB L400.4150 5-10 /hpf Normal SQUAM EPI 0-5 SEEN Result Comment: AMENDED REPORT 06/09/181314 SQUAM EPI previously reported as: 0 SEEN /hpf LAB L400.4300 None Seen /hpf Normal BACTERIA RARE Result Comment: AMENDED REPORT 06/09/185 BACTERIA previously reported as: 0 SEEN /hpf LAB L400.4350 <or=2+ /hpf Normal MUCUS, URINE 0 SEEN LAB L400.3000 Yellow COLOR Normal Yellow LAB L400.3050 Clear Normal CLARITY Sl. Cloudy LAB L400.3200 Normal mg/dl Normal GLUCOSE, UR Normal LAB L400.3300 Negative mg/dL Normal BILIRUBIN URINE Negative LAB L400.3400 Negative mg/dl Normal KETONE UR Negative LAB L400.3465 1.002-1.030 Normal SP.GR. DIPSTX 1.020 LAB L400.3550 5.0 - 8.0 pH UR Normal 5.0 LAB L400.3600 Negative mg/dl PROT High DIPSTX 30 LAB L400.3700 Normal mg/dl Normal UROBILI Normal LAB L400.3750 Negative Normal NITRITE UR Negative LAB L400.3780 Negative /ul High OCCULT BLOOD-UR 250 LAB L400.3800 Negative /ul LEUK High ESTERASE 100 LAB L400.4700 <or=2+ /hpf CA OX Normal CRYSTAL 2+ Performed By: #### L400.0001, L400.7600 #### [facility] [address] [place], [place], [address] ,URINE Collected: 06/09/2018 Status: F Source: [place] 12:24 PM [facility] REPOSITORY Order Comment: Order Date: 06/09/18 Has pt arrived? Y Order Date: 06/09/18 How was Urine Obtained? MELTER CASTER TO SPECIFY TYPE CODE TESTS RESULT OUT OF REFERENCE UNITS RANGE LAB L400.8000 Negative Normal HCGUQUAL Negative Result Comment: Very dilute urine specimens, as indicated by a low specific gravity, may not contain admitting representative levels of hCG. If is still suspected, a first morning urine specimen should be collected 48 hours later and tested. Performed By: #### L400.0001, L400.7600 #### [facility] [address] [facility] [place], [address] COMPREHENSIVE METABOLIC Collected: 06/09/2018 Status: F Source: [place] PROFIL 12:00 PM [facility] REPOSITORY TYPE CODE TESTS RESULT OUT OF RANGE REFERENCE UNITS LAB L501.0100 74-106 mg/dL High GLU 136 Result Comment: Fasting Glucose result greater than or equal to 126 mg/dL suggests DIABETES MELLITUS per A.D.A. criteria. Please note revised GLUCOSE reference range effective 2017. LAB L501.1000 7-18 mg/dL Normal BUN 12 LAB L501.1100 0.55-1.02 mg/dL Normal CREAT,SERUM 1.00 Result Comment: The validity of the calculated GFR AND GFRAA in patients over 70 years has not been determined. Clinical correlation is essential. LAB L501.1110 >60 mL/min Normal EST GFR 69 Result Comment: Non- GFR Calc LAB L501.1115 >60 mL/min Normal EST GFR - AA 84 Result Comment: GFR Calc LAB L501.1255 ml/min Normal Estimated CRCL 79.99 LAB L501.1300 10-20 RATIO Normal BUN/CRE 12.0 LAB L501.1500 6.4-8. g/dL Normal 2 T PROT 8.1 LAB L501.1800 3.2-5. g/dL Normal 0 ALB 3.6 LAB L501.1950 2.2-4. g/dL High 2 GLOB 4.5 LAB L501.2000 0.9-2. RATIO Low 4 A/G 0.8 LAB L501.2200 8.5-10 mg/dL Normal .1 CA 9.2 LAB L501.4100 15-37 U/L Normal AST 18 LAB L501.4305 45-117 U/L Normal ALK P 94 LAB L501.4405 13-56 U/L Normal ALT 44 LAB L501.4600 0.20-1 mg/dL Normal .00 T BILI 0.20 LAB L501.5300 136-14 mmol/L Normal 5 NA 138 LAB L501.5600 3.5-5. mmol/L Normal 1 K 4.1 LAB L501.5900 98-107 mmol/L Normal CL 105 LAB L501.6100 21.0-3 mmol/L Normal 2.0 CO2 25.0 LAB L501.6200 5-15 Normal GAP 8 Performed By: #### L500.4050 #### [facility] [address] [place], [address] CBC-COMPLETE BLOOD CNT Collected: 06/09/2018 Status: F Source: BAO NO DIFF 12:00 PM [facility] REPOSITORY TYPE CODE TESTS RESULT OUT OF RANGE REFERENCE UNITS LAB L100.1000 4.4-11.0 K/mm3 Normal WBC 10.4 LAB L100.1200 4.2-5.4 M/mm3 Normal RBC 4.38 LAB L100.1300 12.0-15.0 g/dl Normal HGB 12.8 LAB L100.1400 37-47 % Normal HCT 40.3 LAB L100.1500 81-99 fL Normal MCV 92.0 LAB L100.1600 27.0-32.0 pg Normal MCH 29.2 LAB L100.1700 32-36 g/gl Low MCHC 31.8 LAB L100.1810 11.6-14.6 % Normal RDW CV 13.2 LAB L100.1820 35.1-43.9 fl High RDW SD 44.0 LAB L100.1900 150-450 K/mm3 Normal PLT 314 LAB L100.2000 6.2-12.0 fl Normal MPV 9.9 Performed By: #### L100.0500 #### [facility] [address] [place], [address] ,SERUM,HCG QUALI. Collected: Status: F Source: [place] 06/09/2018 12:00 PM [facility] REPOSITORY TYPE CODE TESTS RESULT OUT OF REFERENCE UNITS RANGE LAB L700.7000 0-9 Nonpreg Negative Normal HCGSQUAL NEGATIVE LAB L700.6700 =>Qualitative mIU/mL Normal HCG Qual < 1 triggr Performed By: #### L700.6800 #### [facility] [address] [place], [address] EMERGENCY DEPARTMENT Observed: 04/27/2018 Status: F Source: [place] SUMMARY 12:20 AM [facility] REPOSITORY [facility] Medical Records Department [address] [place] [address] Emergency Department Summary 04/26/18 2207 MR#: [id number] Acct: [id number] Name: KRISTA ROWE Rep #: [id number] : 1990 27 From: Keny Dietrich DO PCP: Care Physician, No Primary Status: DEP ER - ER Visit Summary Date of Service: 04/26/18 Chief Complaint: Right foot injury History of Present Illness: The patient is a 27 F states that she stepped in a hole tonight causing her toes to be bent back. She heard a pop and notes pain over the second third metatarsal area. She has had prior ankle fusion with Dr. Warner. She denies any other injuries. Physical Examination: Afebrile vital signs are stable Patient has mild swelling and tenderness palpation over the second third and fourth metatarsal area on the dorsum of the right foot. Neurovascularly intact distally. Test Results: Displaced fractures of the second and third metatarsal neck. Emergency Department Course and Treatment: I spoke with Dr. Sanford. Plan will be a boot orthosis and crutches. She is to do nonweightbearing or at worst partial weightbearing and follow-up in the office. I will provide [place] for pain control. Impression: 1. Right second and third metatarsal neck fracture This note was generated with ChoicePass dictation software. It may contain incorrect words, spelling, and punctuation that were not noted in review of the chart prior to signing ED Disposition - Plan for ED Patient: Disposition: Home or Assisted Living Chief Complaint: Lower Extremity Injury Instructions: ED Fx Foot Prescriptions: Hydrocodone/Acetaminophen [[place] 5-325 Tablet] 1 - 2 ea PO 4X/DAY PRN PRN 5 Days #20 tab PRN Reason: Pain Referrals: Zenobia Warner DPM [STAFF PHYSICIAN] - (CALL TO ARRANGE FOLLOW UP) What to do if you have Problems For any increased pain, shortness of breath, bleeding, nausea or vomiting, chest pain, or any unexpected problems, contact your Primary Care Provider. Call [facility] ([phone]) or report to the closest Emergency Room. Call 911 if necessary. 04/27/18 0020 <Electronically signed by Keny Dietrich DO> Date Keny Dietrich DO Cosigner Signature (If Indicated): Date CC: No Primary Care Physician FOOT MIN 3 VIEWS Observed: 04/26/2018 Status: F Source: BAO 9:23 PM [facility] REPOSITORY [facility] Imaging Services [address] [place] [address] Foot min 3 Views MR#: [id number] Acct: [id number] Name: KRISTA ROWE Rep #: [id number] : 1990 From: Ming Roland MD PCP: Care Physician, No Primary Status: REG ER Study: Foot min 3 Views Date of Exam: 04/26/18 Exam# [id number] Ordering Dr: Keny Dietrich DO STUDY: X-RAY - RIGHT FOOT CLINICAL: Female, 27 years old. Pain, surgery TECHNIQUE: 3 view(s) of the foot. COMPARISON: 11/05/2017 FINDINGS: There is periarticular osteopenia. There is fixation at the calcaneocuboid joint. There is virtually nondisplaced fracture at the second and third metatarsal necks. No osseous destruction. RAD/Foot min 3 Views IMPRESSION: Virtually nondisplaced fracture, second, third metatarsal necks Status post fixation at the calcaneocuboid joint Periarticular osteopenia Electronically Signed: Ming Roland MD at 21:53 EDT Tel , Service support , CC: No Primary Care Physician; Keny Dietrich DO Product Developer: Signed EMERGENCY DEPARTMENT Observed: 04/20/2018 Status: F Source: BAO SUMMARY 12:01 AM [facility] REPOSITORY [facility] Medical Records Department [address] [place] [address] Emergency Department Summary 04/19/18 1827 MR#: [id number] Acct: [id number] Name: KRISTA ROWE Rep #: [id number] : 1990 27 From: Santosh Johnson MD PCP: Care Physician, No Primary Status: DEP ER - ER Visit Summary Date of Service: 04/19/18 Chief Complaint: Left flank pain History of Present Illness: The patient is a 27 F with no primary care physician. She reports that she has left flank pain that began abruptly at 2:00 today. It is a constant tightness with intermittent sharp episodes. It is 10 out of 10 at worst and 8 out of 10 currently. Is worsened by nothing and relieved by nothing. Patient reports she has been nausea and vomiting, but this began yesterday before the flank pain. States that she is on approximately 10 times. No blood or emesis. No diarrhea. No melena or hematochezia. No dysuria, frequency, or hematuria. Her last period was January of this year, but she reports that she has a Nexplanon and her cycles are irregular. Physical Examination: Vitals: Stable. Afebrile. General: Well-nourished and well-developed. Head: Normocephalic atraumatic. Neck: Supple, no lymphadenopathy. No JVD. Nontender. Cardiovascular: Regular rate and rhythm. No murmurs. Respiratory: No respiratory distress. Clear to auscultation bilaterally. Abdominal: Soft, nontender, nondistended, normal bowel sounds. No guarding, rebound, or peritoneal signs. Back: Moderate left CVA tenderness. Extremities: Nontender, no edema. Skin: Normal color, no rash. Neurologic: Alert and oriented 3. Cranial nerves II through XII are intact. Normal strength and sensation. Psych: Normal affect. Test Results: test is negative. UA shows blood without evidence of infection. Clinical Impression(s) from Imaging Studies Abdomen/Pelvis CT 04/19/18 18:17 IMPRESSION: There are two stones in the left renal pelvis measuring about 2 mm each. Although there is no significant hydronephrosis seen on this CT, these stones may be causing partial obstruction of the left collecting system. Calyceal stones are present in both kidneys. There is a 2 mm stone in the midpole of the right kidney. There is a punctate stone in the upper pole of the left kidney and a 3 mm stone in the midpole of the left kidney. There are no acute bowel abnormalities. There is no ascites, free air or significant lymphadenopathy. There is a 3 cm cyst in the right ovary. The liver is markedly enlarged with fatty infiltration. The spleen is prominent in size. Electronically Signed: Lita Pham MD at 20:03 EDT Tel Direct: [phone], Service support , Emergency Department Course and Treatment: Patient had an IV placed. She was given a liter bolus of normal saline, Toradol, Zofran, Phenergan, and morphine IV. She is resting comfortably. Treatment Plan: Patient will be discharged with naproxen, [place], and Zofran. She is given a urine strainer. Instructed to follow Dr. Braden in 1 week if not improving. Return to the emergency department for any worsening symptoms. Disposition: To home in improved and stable condition. Impression: 1. Left ureterolithiasis. This note was generated with ChoicePass dictation software. It may contain incorrect words, spelling, and punctuation that were not noted in review of the chart prior to signing ED Disposition - Plan for ED Patient: Chief Complaint: Flank Pain Instructions: ED Stone Renal W Colic Prescriptions: Ondansetron [Zofran Odt] 4 mg PO Q8H PRN PRN #10 tablet PRN Reason: Nausea Hydrocodone/Acetaminophen [[place] 5-325 Tablet] 1 - 2 each PO 4X/DAY PRN PRN 5 Days #20 tablet PRN Reason: Pain Naproxen [Naprosyn] 500 mg PO BID #14 tablet Referrals: Willis Braden MD [STAFF PHYSICIAN] - 1 Week if not improving What to do if you have Problems For any increased pain, shortness of breath, bleeding, nausea or vomiting, chest pain, or any unexpected problems, contact your Primary Care Provider. Call [facility] ([phone]) or report to the closest Emergency Room. Call 911 if necessary. 04/20/18 0001 <Electronically signed by Santosh Johnson MD> Date Santosh Johnson MD Cosigner Signature (If Indicated): Date CC: No Primary Care Physician URINALYSIS, COMPLETE Collected: 04/19/2018 Status: F Source: [place] 6:35 PM [facility] REPOSITORY Order Comment: How was Urine Obtained? CLEAN CATCH TYPE CODE TESTS RESULT OUT OF RANGE REFERENCE UNITS LAB L400.3000 Yellow COLOR Normal Yellow LAB L400.3050 Clear Normal CLARITY Cloudy LAB L400.3200 Normal mg/dl Normal GLUCOSE, UR Normal LAB L400.3300 Negative mg/dL Normal BILIRUBIN URINE Negative LAB L400.3400 Negative mg/dl Normal KETONE UR Negative LAB L400.3465 1.002-1.030 Normal SP.GR. DIPSTX 1.020 LAB L400.3550 5.0 - 8.0 pH UR Normal 6.0 LAB L400.3600 Negative mg/dl High PROT 30 DIPSTX LAB L400.3700 Normal mg/dl Normal UROBILI Normal LAB L400.3750 Negative Normal NITRITE UR Negative LAB L400.3780 Negative /ul High OCCULT BLOOD-UR 250 LAB L400.3800 Negative /ul High LEUK ESTERASE 100 LAB L400.4050 0-5 /hpf WBC Normal 0-5 SEEN LAB L400.4100 0-5 /hpf > Normal RBC-UA 100 SEEN LAB L400.4150 5-10 /hpf SQUAM Normal EPI 0-5 SEEN LAB L400.4300 None Seen /hpf 0 Normal BACTERIA SEEN LAB L400.4350 <or=2+ /hpf 0 Normal MUCUS, URINE SEEN Performed By: #### L400.0001 #### [facility] [address] [facility] [place], [address] ABDOMEN/PELVIS WITHOUT Observed: 04/19/2018 Status: F Source: BAO CONT 6:18 PM [facility] REPOSITORY [facility] Imaging Services [address] [place] [address] Abdomen/Pelvis without Cont MR#: [id number] Acct: [id number] Name: KRISTA ROWE Chely Rep #: [id number] : 1990 F 27 From: Lita Pham MD PCP: Care Physician, No Primary Status: REG ER Study: Abdomen/Pelvis without Cont Date of Exam: 04/19/18 Exam# [id number] Ordering Dr: Santosh Johnson MD STUDY: CT ABDOMEN AND PELVIS WITHOUT CONTRAST REASON FOR EXAM: Female, 27 years old. Left flank pain RADIATION DOSAGE (If Supplied By Facility): CTDIvol = ( 34.45 ) mGy, DLP = ( 1764.54 ) mGycm TECHNIQUE: Transaxial images were obtained from the lower chest to the upper thighs without oral contrast, and without intravenous contrast. Sagittal and coronal images were reconstructed. Individualized dose optimization techniques were used for this CT. COMPARISON: December 26, 2017 FINDINGS: There is a stable 1.3 cm calcified granuloma in the left lower lobe. There is no pleural effusion. The heart is normal in size. There is diffuse decreased density of the liver. The liver is enlarged. There is non-visualization of the gallbladder, which may be secondary to either contraction or a prior cholecystectomy. The spleen measures about 14 cm in the sagittal plane. The pancreas is unremarkable. The adrenal glands are unremarkable. There is a 2 mm calcification in the midpole of the right kidney. There is no dilatation of the collecting system in the right kidney. There is a punctate calcification in the upper pole of the left kidney and another 3 mm calcification in the midpole of the left kidney. There are two calcifications in the left renal pelvis measuring about 2 mm each. There is no dilatation of the collecting system in the left kidney. The stomach is unremarkable. The small bowel is unremarkable. The colon is unremarkable. There is non-visualization of the appendix. The aorta and branch vessels are unremarkable. The IVC is unremarkable. The retroperitoneum is unremarkable. There is no free fluid in the abdomen. The urinary bladder is unremarkable. The uterus is normal in size and appearance. There is a 3 cm cystic mass in the right ovary. The soft tissues are unremarkable. The osseous structures are unremarkable. CT/Abdomen/Pelvis without Cont IMPRESSION: There are two stones in the left renal pelvis measuring about 2 mm each. Although there is no significant hydronephrosis seen on this CT, these stones may be causing partial obstruction of the left collecting system. Calyceal stones are present in both kidneys. There is a 2 mm stone in the midpole of the right kidney. There is a punctate stone in the upper pole of the left kidney and a 3 mm stone in the midpole of the left kidney. There are no acute bowel abnormalities. There is no ascites, free air or significant lymphadenopathy. There is a 3 cm cyst in the right ovary. The liver is markedly enlarged with fatty infiltration. The spleen is prominent in size. Electronically Signed: Lita Pham MD at 20:03 EDT Tel Direct: [phone], Service support , CC: No Primary Care Physician; Santosh Johnson MD Product Developer: Signed ,SERUM,HCG QUALI. Collected: Status: F Source: [place] 04/19/2018 6:08 PM [facility] REPOSITORY TYPE CODE TESTS RESULT OUT OF REFERENCE UNITS RANGE LAB L700.7000 0-9 Nonpreg Negative Normal HCGSQUAL NEGATIVE LAB L700.6700 =>Qualitative mIU/mL Normal HCG Qual < 1 triggr Performed By: #### L700.6800 #### [facility] [address] [facility] [place], [address] DISCHARGE INSTRUCTION Observed: 04/10/2018 Status: F Source: [place] 3:50 PM [facility] REPOSITORY [facility] Medical Records Department [address] [place] [address] Discharge Instruction 04/10/18 1548 MR#: [id number] Acct: [id number] Name: KRISTA ROWE Rep #: [id number] : 1990 27 From: Bryant Stout MD PCP: Care Physician, No Primary Status: REG ER ED Disposition - Plan for ED Patient: Chief Complaint: Dental Instructions: ED Tooth Pain Prescriptions: Azithromycin [Zithromax] 250 mg PO DAILY #4 tab Naproxen [Naprosyn] 500 mg PO BID #20 tab Referrals: Care Physician,No Primary [Primary Care Provider] - Additional Instructions: Stop your ibuprofen and clindamycin and start new prescriptions. It is very important that you follow-up with a dentist or oral surgeon for definitive management. What to do if you have Problems For any increased pain, shortness of breath, bleeding, nausea or vomiting, chest pain, or any unexpected problems, contact your Primary Care Provider. Call [facility] ([phone]) or report to the closest Emergency Room. Call 911 if necessary. 04/10/18 1550 <Electronically signed by Bryant Stout MD> Date Bryant Stout MD Cosigner Signature (If Indicated): Date CC: No Primary Care Physician EMERGENCY DEPARTMENT Observed: 04/10/2018 Status: F Source: [place] SUMMARY 3:48 PM [facility] REPOSITORY [facility] Medical Records Department [address] [facility] [place] [address] Emergency Department Summary 04/10/18 1545 MR#: [id number] Acct: [id number] Name: KRISTA ROWE Rep #: [id number] : 1990 27 From: Bryant Stout MD PCP: Care Physician, No Primary Status: REG ER - ER Visit Summary Date of Service: 04/10/18 Chief Complaint: Dental pain History of Present Illness: The patient is a 27 F who presents with dental pain. She initially saw a dentist last month. She was referred to an oral surgeon. She states they are not able to see her until June. She was seen on April 02 here in the emergency department due to headache and dental pain and she was started on clindamycin and ibuprofen. She has been on this since the but reports no improvement. She went to the urgent care who advised her to continue her clindamycin and advised that she needs follow- up with a dentist. She then presented here due to ongoing pain. Physical Examination: Hypertensive at 162/109 vitals otherwise unremarkable Patient has widespread dental decay she has some mild tenderness diffusely of the left mandibular teeth in the premolar and molar regions I do not appreciate a focal abscess amenable to incision and drainage There is no trismus There is no sublingual edema Tympanic membranes are clear Test Results: Not indicated Emergency Department Course and Treatment: I again stressed to the patient that she needs to follow-up with dentistry and oral surgeon. Since she does not seem to be improving with clindamycin will have her discontinue this and try azithromycin as she also has a history of a penicillin allergy. She states that ibuprofen is not helping. We will have her discontinue this and try another anti-inflammatory and she is prescribed naproxen. She was instructed on signs and symptoms which should prompt return here to the emergency department for reevaluation and was discharged home. Treatment Plan: [] Disposition: Discharge Impression: Odontalgia This note was generated with ChoicePass dictation software. It may contain incorrect words, spelling, and punctuation that were not noted in review of the chart prior to signing ED Disposition - Plan for ED Patient: Chief Complaint: Dental Referrals: Care Physician,No Primary [Primary Care Provider] - What to do if you have Problems For any increased pain, shortness of breath, bleeding, nausea or vomiting, chest pain, or any unexpected problems, contact your Primary Care Provider. Call [facility] ([phone]) or report to the closest Emergency Room. Call 911 if necessary. 04/10/18 1548 <Electronically signed by Bryant Stout MD> Date Bryant Stout MD Cosigner Signature (If Indicated): Date CC: No Primary Care Physician PROGRESS Observed: 04/10/2018 Status: COMPLETED Source: [place] 2:36 PM [facility] REPOSITORY HNO ID: [id number] Author: Lisa Ramos (Sales And Leasing Agent) Service: (none) Author Type: Nurse Practitioner Type: Progress Notes Filed: 04/10/2018 3:33 PM Note Text: Subjective HPI Krista Rowe is a 27 year old female who presents with left ear and jaw pain, she is taking clindamycin since 04/03 for an infected tooth, prescribed at the ER. She has had some nausea, denies fever or chills. Sounds are muffled in the left ear. She has been taking clindamycin 4 times daily and states the jaw pain never improved on this treatment, only got worse. She has been taking ibuprofen 800 mg 4 times daily without relief. She rates her pain a /10. Review of Systems Constitutional: Negative. Negative for chills and fever. HENT: Positive for ear pain (left), hearing loss and sinus pain (left maxillary area). Negative for congestion, ear discharge and sore throat. See HPI Respiratory: Negative. Negative for cough. Cardiovascular: Negative. Gastrointestinal: Positive for nausea. Negative for abdominal pain, diarrhea and vomiting. Skin: Negative. BP 160/110 (BP Site: Right Arm, BP Position: Sitting, BP Cuff Size: Regular Adult) Pulse 84 Temp 36.4 ?C (97.6 ?F) (Right Tympanic) Resp 16 Wt (!) 171.7 kg (378 lb 9.6 oz) SpO2 99% BMI 59.30 kg/m? PAST MEDICAL HISTORY Diagnosis Date - Anemia ANEMIA WITH PREVIOUS - Anemia complicating 09/09/2012 September 09, 2012 started on iron - Diabetes in 06/12/2014 - Dysthymic disorder Depression (non-psychotic) - [facility]-diabetes mellitus 01/14/2011 - Family history of congenital heart defect 06/20/2013 06/20/2013 Father of the baby's father born with heart valve defect. TKRN - FRACTURE ANKLE - History of depression 05/05/2012 06/20/2013 Pt has a history of depression since age 10. She has been off medication since 2009. She believes she is doing well off medication. Discussed increased risks of depression during and and importance of reporting the development or worsening of symptoms should they occur. Pt had suicidal thoughts at age 10 and 13 but none since then. She did some cutting in the past but none for approximately 10 years. TKRN - History of recurrent UTI (urinary tract infection) 05/05/2012 05/21/2013Pt has a history of recurrent UTI. Discussed importance of reporting the onset of any symptoms of a UTI should it occur during . TKRN - Hypertension complicating 11/10/2012 November 16, 2012 Stopped labetlol due to lower bps, normal bps now Sm November 10, 2012 normal 24 hour urine on labetalol 100mg BID Recommend delivery at 39-40 weeks. Weekly NST/NELSON - Mild or unspecified pre-eclampsia, unspecified as to episode of care 2008 Pre-ecclampsia - Obesity, unspecified - depression - Tobacco use 03/07/2014 PAST SURGICAL HISTORY Procedure Laterality Date - DANDC, DIAG AND/OR THERAPEUTIC Dilation AND curettage - FOOT RIGHT OP SURGERY 06/2010 Dr. Belgica Curry. - LAPAROSCOPIC CHOLEYCYSTECTOMY 03-23-13 - PAST SURGICAL HISTORY OF 2005 WISDOM TEETH - SUCTION D AND C 2012 8 week missed ab ALLERGIES Lodine [Etodolac]; Penicillins; Wellbutrin [Bupropion Hcl] MEDICATIONS propranolol (INDERAL) 10 mg tablet Take 1 tablet by mouth twice daily. ergocalciferol, vitamin D2, (DRISDOL) 50,000 unit capsule Take 1 capsule by mouth once each week. famotidine (PEPCID) 20 mg tablet Take 1 tablet by mouth once daily. cyclobenzaprine (FLEXERIL) 10 mg tablet Take 1 tablet by mouth three times daily as needed for Pain. clindamycin (CLEOCIN) 150 mg capsule Take 1 capsule by mouth four times daily. metFORMIN (GLUCOPHAGE) 500 mg tablet Take 500 mg by mouth twice daily with meals. lisinopril (ZESTRIL, PRINIVIL) 10 mg tablet Take 10 mg by mouth once daily. ondansetron orally disintegrating (ZOFRAN ODT) 4 mg disintegrating tablet Take 1 tablet by mouth every 12 hours as needed for Nausea/Vomiting. albuterol HFA (VENTOLIN HFA) 90 mcg/actuation inhaler Inhale 2 Puffs as instructed every 4 hours as needed for Wheezing/Shortness of Breath. benzonatate (TESSALON PERLE) 100 mg capsule Take 1 capsule by mouth three times daily as needed. Ferrous Sulfate (IRON, FERROUS SULFATE,) 325 mg (65 mg iron) tablet Take 325 mg by mouth daily with breakfast. FOLIC ACID ORAL Take by mouth. fluticasone (FLONASE) 50 mcg/actuation nasal spray Use 2 Sprays in each nostril once daily. FAMILY HISTORY Problem Relation Age of Onset - Arthritis Maternal Grandmother - Arthritis Maternal Grandfather - Arthritis Paternal Grandmother - Arthritis Paternal Grandfather - Cancer Paternal Grandfather - Diabetes Maternal Grandmother - Diabetes Maternal Grandfather - Diabetes Paternal Grandmother - Diabetes Paternal Grandfather - Heart Maternal Grandmother - Heart Maternal Grandfather - Heart Paternal Grandmother - Heart Paternal Grandfather - Heart Paternal Uncle - Hypertension Maternal Grandmother - Hypertension Maternal Grandfather - Lipids Maternal Grandmother - Lipids Maternal Grandfather - Stroke Maternal Grandmother Social History Substance Use Topics - Smoking status: Current Every Day Smoker Packs/day: 0.25 Years: 7.00 Types: Cigarettes - Smokeless tobacco: Former User - Alcohol use Yes Comment: OCCASIONALLY, BUT NOT WHILE Objective Physical Exam Constitutional: She is oriented to person, place, and time and well-developed, well-nourished, and in no distress. HENT: Head: Normocephalic. Right Ear: Tympanic membrane, external ear and ear canal normal. Left Ear: Tympanic membrane, external ear and ear canal normal. Tympanic membrane is not injected and not erythematous. Nose: Sinus tenderness present. No rhinorrhea. Mouth/Throat: Uvula is midline, oropharynx is clear and moist and mucous membranes are normal. Mucous membranes are not pale and not dry. No oral lesions. No trismus in the jaw. Abnormal dentition. Dental caries present. No uvula swelling. No posterior oropharyngeal edema. Eyes: Conjunctivae are normal. Right eye exhibits no discharge. Left eye exhibits no discharge. Neck: Neck supple. Cardiovascular: Normal rate. Pulmonary/Chest: Effort normal. Lymphadenopathy: She has no cervical adenopathy. Neurological: She is alert and oriented to person, place, and time. Skin: Skin is warm and dry. No erythema. Vitals reviewed. ASSESSMENT/PLAN: 1. Pain, dental - ICD9: 525.9, ICD10: K08.89 - referred patient to ER, she is having worsening pain despite appropriate treatment. Cannot rule out sinus involvement in Express Care setting, and cannot prescribe controlled substance for pain control. Patient verbalized understanding. Lisa Ramos APRN.DARIA Jasmine APRN.DARIA RICKETTS Observed: 04/10/2018 Status: COMPLETED Source: [place] 2:15 PM [facility] REPOSITORY Office Visit (UCWSTR) KRISTA ROWE ([id number]) 1990 F Date Time Provider Department 04/10/18 2:15 PM LISA RAMOS ([facility]) [facility] During your visit today, we recorded the following information about you: Temperature Pulse Respiration Blood pressure 97.6 degrees 84/minute 16/minute 160/110 Weight 171.7 kg Lisa Ramos ([facility]) 04/10/2018 3:33 PM Signed Subjective HPI Krista Rowe is a 27 year old female who presents with left ear and jaw pain, she is taking clindamycin since 04/03 for an infected tooth, prescribed at the ER. She has had some nausea, denies fever or chills. Sounds are muffled in the left ear. She has been taking clindamycin 4 times daily and states the jaw pain never improved on this treatment, only got worse. She has been taking ibuprofen 800 mg 4 times daily without relief. She rates her pain a 9/10. Review of Systems Constitutional: Negative. Negative for chills and fever. HENT: Positive for ear pain (left), hearing loss and sinus pain (left maxillary area). Negative for congestion, ear discharge and sore throat. See HPI Respiratory: Negative. Negative for cough. Cardiovascular: Negative. Gastrointestinal: Positive for nausea. Negative for abdominal pain, diarrhea and vomiting. Skin: Negative. BP 160/110 (BP Site: Right Arm, BP Position: Sitting, BP Cuff Size: Regular Adult) Pulse 84 Temp 36.4 ?C (97.6 ?F) (Right Tympanic) Resp 16 Wt (!) 171.7 kg (378 lb 9.6 oz) SpO2 99% BMI 59.30 kg/m? PAST MEDICAL HISTORY Diagnosis Date - Anemia ANEMIA WITH PREVIOUS - Anemia complicating 09/09/2012 September 09, 2012 started on iron - Diabetes in 06/12/2014 - Dysthymic disorder Depression (non-psychotic) - Fam hx-diabetes mellitus 01/14/2011 - Family history of congenital heart defect 06/20/2013 06/20/2013 Father of the baby's father born with heart valve defect. TKRN - FRACTURE ANKLE - History of depression 05/05/2012 06/20/2013 Pt has a history of depression since age 10. She has been off medication since 2009. She believes she is doing well off medication. Discussed increased risks of depression during and and importance of reporting the development or worsening of symptoms should they occur. Pt had suicidal thoughts at age 10 and 13 but none since then. She did some cutting in the past but none for approximately 10 years. TKRN - History of recurrent UTI (urinary tract infection) 05/05/2012 05/21/2013Pt has a history of recurrent UTI. Discussed importance of reporting the onset of any symptoms of a UTI should it occur during . TKRN - Hypertension complicating 11/10/2012 November 16, 2012 Stopped labetlol due to lower bps, normal bps now Sm November 10, 2012 normal 24 hour urine on labetalol 100mg BID Recommend delivery at 39-40 weeks. Weekly NST/NELSON - Mild or unspecified pre-eclampsia, unspecified as to episode of care 2008 Pre-ecclampsia - Obesity, unspecified - depression - Tobacco use 03/07/2014 PAST SURGICAL HISTORY Procedure Laterality Date - DANRI, DIAG AND/OR THERAPEUTIC Dilation AND curettage - FOOT RIGHT OP SURGERY 06/2010 Dr. Belgica Curry. - LAPAROSCOPIC CHOLEYCYSTECTOMY 03-23-13 - PAST SURGICAL HISTORY OF 2006 WISDOM TEETH - SUCTION D AND C 2012 8 week missed ab ALLERGIES Lodine [Etodolac]; Penicillins; Wellbutrin [Bupropion Hcl] MEDICATIONS propranolol (INDERAL) 10 mg tablet Take 1 tablet by mouth twice daily. ergocalciferol, vitamin D2, (DRISDOL) 50,000 unit capsule Take 1 capsule by mouth once each week. famotidine (PEPCID) 20 mg tablet Take 1 tablet by mouth once daily. cyclobenzaprine (FLEXERIL) 10 mg tablet Take 1 tablet by mouth three times daily as needed for Pain. clindamycin (CLEOCIN) 150 mg capsule Take 1 capsule by mouth four times daily. metFORMIN (GLUCOPHAGE) 500 mg tablet Take 500 mg by mouth twice daily with meals. lisinopril (ZESTRIL, PRINIVIL) 10 mg tablet Take 10 mg by mouth once daily. ondansetron orally disintegrating (ZOFRAN ODT) 4 mg disintegrating tablet Take 1 tablet by mouth every 12 hours as needed for Nausea/Vomiting. albuterol HFA (VENTOLIN HFA) 90 mcg/actuation inhaler Inhale 2 Puffs as instructed every 4 hours as needed for Wheezing/Shortness of Breath. benzonatate (TESSALON PERLE) 100 mg capsule Take 1 capsule by mouth three times daily as needed. Ferrous Sulfate (IRON, FERROUS SULFATE,) 325 mg (65 mg iron) tablet Take 325 mg by mouth daily with breakfast. FOLIC ACID ORAL Take by mouth. fluticasone (FLONASE) 50 mcg/actuation nasal spray Use 2 Sprays in each nostril once daily. FAMILY HISTORY Problem Relation Age of Onset - Arthritis Maternal Grandmother - Arthritis Maternal Grandfather - Arthritis Paternal Grandmother - Arthritis Paternal Grandfather - Cancer Paternal Grandfather - Diabetes Maternal Grandmother - Diabetes Maternal Grandfather - Diabetes Paternal Grandmother - Diabetes Paternal Grandfather - Heart Maternal Grandmother - Heart Maternal Grandfather - Heart Paternal Grandmother - Heart Paternal Grandfather - Heart Paternal Uncle - Hypertension Maternal Grandmother - Hypertension Maternal Grandfather - Lipids Maternal Grandmother - Lipids Maternal Grandfather - Stroke Maternal Grandmother Social History Substance Use Topics - Smoking status: Current Every Day Smoker Packs/day: 0.25 Years: 7.00 Types: Cigarettes - Smokeless tobacco: Former User - Alcohol use Yes Comment: OCCASIONALLY, BUT NOT WHILE Objective Physical Exam Constitutional: She is oriented to person, place, and time and well-developed, well-nourished, and in no distress. HENT: Head: Normocephalic. Right Ear: Tympanic membrane, external ear and ear canal normal. Left Ear: Tympanic membrane, external ear and ear canal normal. Tympanic membrane is not injected and not erythematous. Nose: Sinus tenderness present. No rhinorrhea. Mouth/Throat: Uvula is midline, oropharynx is clear and moist and mucous membranes are normal. Mucous membranes are not pale and not dry. No oral lesions. No trismus in the jaw. Abnormal dentition. Dental caries present. No uvula swelling. No posterior oropharyngeal edema. Eyes: Conjunctivae are normal. Right eye exhibits no discharge. Left eye exhibits no discharge. Neck: Neck supple. Cardiovascular: Normal rate. Pulmonary/Chest: Effort normal. Lymphadenopathy: She has no cervical adenopathy. Neurological: She is alert and oriented to person, place, and time. Skin: Skin is warm and dry. No erythema. Vitals reviewed. ASSESSMENT/PLAN: 1. Pain, dental - ICD9: 525.9, ICD10: K08.89 - referred patient to ER, she is having worsening pain despite appropriate treatment. Cannot rule out sinus involvement in Express Care setting, and cannot prescribe controlled substance for pain control. Patient verbalized understanding. Lisa Ramos APRN.DARIA Ramos APRN.DARIA Referring Provider: SELF [[id number]] Allergies As of Date: 04/10/2018 Noted Allergy Reaction LODINE (ETODOLAC) 10/03/2015 14 - Other: See Comments Comments: Chest Pain PENICILLINS 03/14/2009 4 - Hives 12 - Shortness of Breath WELLBUTRIN (BUPROPION HCL) 01/28/2011 1 - Mental Status Change Comments: Anger/aggression Date Reviewed: 04/10/2018 Reviewed by: Lisa Ramos ([facility]) - Fully Assessed Reason for Visit: left ear pain [Other] Cmt: x 3 days Primary Visit Diagnosis:Pain, dental [K08.89] Prescriptions as of 04/10/2018 Sig: PROPRANOLOL 10 MG TABLET Take 1 tablet by mouth twice * ERGOCALCIFEROL (VITAMIN D2) 5* Take 1 capsule by mouth once * FAMOTIDINE 20 MG TABLET Take 1 tablet by mouth once d* CYCLOBENZAPRINE 10 MG TABLET Take 1 tablet by mouth three * CLINDAMYCIN HCL 150 MG CAPSULE Take 1 capsule by mouth four * METFORMIN 500 MG TABLET Take 500 mg by mouth twice da* LISINOPRIL 10 MG TABLET Take 10 mg by mouth once jared* Problem List As Of Date 04/10/2018 Noted Resolved Supervision of other high-risk [O09.8*INVALID FOR*05/16/2012 Fx cuboid-closed [S92.213A] INVALID FOR*05/16/2012 Closed fracture of calcaneus [S92.009A] INVALID FOR*05/16/2012 More... Routine general medical examination at a health*INVALID FOR*05/16/2012 Priority: A Class: Chronic More... Routine gynecological examination [Z01.419] INVALID FOR*05/16/2012 Priority: B Class: Chronic More... More... Iron deficiency [E61.1] INVALID FOR*05/16/2012 Priority: B More... Patient requested diagnostic testing [Z01.89] INVALID FOR*09/08/2012 More... More... More... More... More... More... More... More... More... More... More... Tattoos [L81.8] INVALID FOR*01/30/2015 Priority: D More... More... More... Dysthymic disorder [F34.1] Priority: A More... Tobacco use [Z72.0] INVALID FOR*01/30/2015 Priority: D More... Seasonal allergies [J30.2] INVALID FOR* Priority: B History of kidney stones [Z87.442] INVALID FOR* Arthralgia [M25.50] INVALID FOR* MACY positive [R76.8] INVALID FOR* ESR raised [R70.0] INVALID FOR* CRP elevated [R79.82] INVALID FOR* Hx of preeclampsia, prior , currently *INVALID FOR*01/30/2015 More... History of recurrent UTI (urinary tract infecti*INVALID FOR*01/30/2015 More... More... Family history of congenital heart defect [Z82.*INVALID FOR*01/30/2015 More... Diabetes in (HCC) [O24.919] INVALID FOR*01/30/2015 More... SUPRF HIGH RISK NEC [V23.89] [O09.899]INVALID FOR*01/30/2015 More... Anemia complicating [O99.019] INVALID FOR*01/30/2015 Medications Discontinued During This Encounter ondansetron orally disintegrating (Z* 8 ta* 0 07/31/2017 04/10/2018 Route: ORAL Sig: Take 1 tablet by mouth every 12 hours as needed for Nausea/Vomiting. Disc: Reason for discontinue is not on file. albuterol HFA (VENTOLIN HFA) 90 mcg/* 1 In* 0 07/31/2017 04/10/2018 Route: INHALATION Sig: Inhale 2 Puffs as instructed every 4 hours as needed for Wheezing/Shortness of Breath. Disc: Reason for discontinue is not on file. benzonatate (TESSALON PERLE) 100 mg * 30 c* 0 07/31/2017 04/10/2018 Route: ORAL Sig: Take 1 capsule by mouth three times daily as needed. Disc: Reason for discontinue is not on file. Ferrous Sulfate (IRON, FERROUS SULFA* 04/10/2018 Class: Historical Med Route: ORAL Sig: Take 325 mg by mouth daily with breakfast. Disc: Reason for discontinue is not on file. fluticasone (FLONASE) 50 mcg/actuati* 1 Arpit* 2 08/16/2013 04/10/2018 Route: EACH NOSTRIL Sig: Use 2 Sprays in each nostril once daily. Disc: Reason for discontinue is not on file. FOLIC ACID ORAL 04/10/2018 Class: Historical Med Route: ORAL Sig: Take by mouth. Disc: Reason for discontinue is not on file. Encounter Status:Closed by LISA RAMOS on 04/10/18 EMERGENCY DEPARTMENT Observed: 04/02/2018 Status: F Source: [place] SUMMARY 11:08 PM [facility] REPOSITORY [facility] Medical Records Department [address] [facility] [place] [address] Emergency Department Summary 04/02/18 2154 MR#: [id number] Acct: [id number] Name: KRISTA ROWE Rep #: [id number] : 1990 27 From: Christoph Miramontes MD PCP: Care Physician, No Primary Status: DEP ER - ER Visit Summary Date of Service: 04/02/18 Chief Complaint: Headache, ear pain History of Present Illness: The patient is a 27 F with history of migraine presents to the emergency department with headache, jaw pain, ear pain. Patient's been having symptoms for the past 3 days. She was actually seen here 2 days ago and diagnosed with a URI. She was placed on Mucinex. She states it does not seem like it is helping. Over the past day and a half, she has had worsening pain in her left lower jaw into her neck. She states she felt like the pain is brought on a migraine. She states this feels like her normal headaches. She denies any visual change. She does admit to nausea. She tried Tylenol and ibuprofen with no relief. She states that she has had some pain with chewing. It does radiate to her left ear. She has had no chest pain or shortness of breath. Physical Examination: Well-appearing patient is in no acute distress. Head is normocephalic, atraumatic. Pupils equal round reactive, extraocular muscles intact. There is no temporal artery tenderness. There is no vesicular rash. Neck supple. Kernig's and Brudzinski's are negative. Posterior oropharynx is widely patent. There is tenderness to palpation over teeth 20 and 22. There is widespread dental disease. No Angel angina. No trismus or stridor. Heart regular rate and rhythm. Lungs clear, chest nontender. Abdomen soft, nontender, nondistended. Neuro exam displays no focal or lateralizing deficit. 2+ symmetric lower extremity reflexes. No clonus. No ataxia or gait abnormality. Test Results: [] Emergency Department Course and Treatment: The patient's symptoms do seem to be referred from dental infection. Her submental space is soft. Her neck is supple. The TMs are clear. There is no vesicular rash. Patient was treated with migraine medication and will be started on clindamycin. The patient did have improvement of her headache. She has a benign examination. She is not meningitic. She is not encephalopathic. Patient will be continued on clindamycin as an outpatient. She will be continued on anti-inflammatories. She will be discharged home, return with any worsening symptoms. Treatment Plan: [] Disposition: Discharge Impression: 1. Dental pain 2. Migraine headache-resolved This note was generated with ChoicePass dictation software. It may contain incorrect words, spelling, and punctuation that were not noted in review of the chart prior to signing ED Disposition - Plan for ED Patient: Disposition: Home or Assisted Living Chief Complaint: Headache Instructions: ED Tooth Pain, ED Headache Migraine Prescriptions: Ibuprofen [Motrin] 800 mg PO TID PRN PRN #20 tab PRN Reason: Pain Clindamycin [Cleocin] 300 mg PO 4X/DAY #80 cap Referrals: Care Physician,No Primary [Primary Care Provider] - What to do if you have Problems For any increased pain, shortness of breath, bleeding, nausea or vomiting, chest pain, or any unexpected problems, contact your Primary Care Provider. Call [facility] ([phone]) or report to the closest Emergency Room. Call 911 if necessary. 04/02/18 2308 <Electronically signed by Christoph Miramontes MD> Date Christoph Miramontes MD Cosigner Signature (If Indicated): Date CC: No Primary Care Physician DISCHARGE INSTRUCTION Observed: 03/31/2018 Status: F Source: [place] 3:00 PM [facility] REPOSITORY [facility] Medical Records Department [address] [place] [id number] Discharge Instruction 03/31/18 1459 MR#: [id number] Acct: [id number] Name: BRANDENBARTOLOKRISTA Rep #: [id number] : 1990 27 From: Wilmar Chow MD PCP: NOT, DEFINED Status: PRE ER ED Disposition - Plan for ED Patient: Disposition: Home or Assisted Living Chief Complaint: Ear Problem Instructions: ED Upper Resp Infec No Abx Tx Prescriptions: Guaifenesin/Pseudoephedrne HCl [Mucinex D ER 1,200-120 mg Tab] 1 ea PO BID #14 tab.er.12h Referrals: NOT,DEFINED [Primary Care Provider] - What to do if you have Problems For any increased pain, shortness of breath, bleeding, nausea or vomiting, chest pain, or any unexpected problems, contact your Primary Care Provider. Call [facility] ([phone]) or report to the closest Emergency Room. Call 911 if necessary. 03/31/18 1500 <Electronically signed by Wilmar Chow MD> Date Wilmar Chow MD Cosigner Signature (If Indicated): Date CC: DEFINED NOT; Daljit Hines MD EMERGENCY DEPARTMENT Observed: 03/31/2018 Status: F Source: [place] SUMMARY 2:58 PM [facility] REPOSITORY [facility] Medical Records Department [address] [place] [address] Emergency Department Summary 03/31/18 1456 MR#: [id number] Acct: [id number] Name: KRISTA ROWE Rep #: [id number] : 1990 27 From: Wilmar Chow MD PCP: NOT, DEFINED Status: PRE ER - ER Visit Summary Date of Service: 03/31/18 Chief Complaint: Bilateral ear pain, sore throat History of Present Illness: The patient is a 27 F who has had bilateral ear pain and sore throat since yesterday. Throat is worse with swallowing. She has had some slight nausea. Denies any ear drainage. No nasal congestion or cough. She tried Tylenol and ibuprofen without any relief. Denies fevers. Physical Examination: Vital signs are reviewed. HEENT exam reveals TMs are clear. Throat is mildly erythematous. Tonsils are not swollen. No exudates. Neck supple without lymphadenopathy. The rest exam is unremarkable. See T sheet for details Test Results: None indicated Emergency Department Course and Treatment: Patient appears to have a viral etiology. I do not feel she requires antibiotics. I will treat her with Mucinex D. She will follow-up with her PCP Treatment Plan: [] Disposition: Discharge Impression: Viral URI This note was generated with ChoicePass dictation software. It may contain incorrect words, spelling, and punctuation that were not noted in review of the chart prior to signing ED Disposition - Plan for ED Patient: Chief Complaint: Ear Problem Referrals: NOT,DEFINED [Primary Care Provider] - What to do if you have Problems For any increased pain, shortness of breath, bleeding, nausea or vomiting, chest pain, or any unexpected problems, contact your Primary Care Provider. Call [facility] ([phone]) or report to the closest Emergency Room. Call 911 if necessary. 03/31/18 1458 <Electronically signed by Wilmar Chow MD> Date Wilmar Chow MD Cosigner Signature (If Indicated): Date CC: DEFINED NOT; Daljit Hines MD KNEE 4 OR MORE Observed: 03/19/2018 Status: F Source: [place] VIEWS 2:51 AM [facility] REPOSITORY [facility] Imaging Services [address] [place] [address] [place] [address] Knee 4 or More Views MR#: [id number] Acct: [id number] Name: KRISTA ROWE Rep #: [id number] : 1990 F 27 From: Stevan Juarez MD PCP: DALJIT HINES Status: REG ER Study: Knee 4 or More Views Date of Exam: 03/18/18 Exam# [id number] Ordering Dr: Chano Chavarria DO STUDY: X-RAY - LEFT KNEE REASON FOR EXAM: Female, 27 years old. Trauma. Knee pain TECHNIQUE: 4 view(s) of the knee. COMPARISON: None. FINDINGS: Normal visualized distal femur. Normal visualized proximal tibia and fibula. Normal proximal tibiofibular articulation. Normal medial femorotibial compartment. Normal lateral femorotibial compartment. Normal patellofemoral articulation. The soft tissue structures are unremarkable. RAD/Knee 4 or More Views IMPRESSION: Normal x-ray examination of the knee. Electronically Signed: Stevan Juarez MD at 1:12 EDT Tel , Service support , CC: DALJIT HINES; Chano Chavarria Product Developer: Signed EMERGENCY DEPARTMENT Observed: 03/19/2018 Status: F Source: BAO SUMMARY 12:52 AM [facility] REPOSITORY [facility] Medical Records Department [address] [place] [address] Emergency Department Summary 03/19/18 0041 MR#: [id number] Acct: [id number] Name: KRISTA ROWE Rep #: [id number] : 1990 27 From: Chano Sanchez PCP: DALJIT HINES Status: REG ER - ER Visit Summary Date of Service: 03/19/18 Chief Complaint: Pain left knee History of Present Illness: The patient is a 27 F pain in the left knee 2 days ago after twisting from chair. She states she felt a pop. She is able to ambulate however increasing pain. Currently wearing a walking boot on the right lower extremity from foot fusion in October [address] luke). Ibuprofen 6 PM with no relief. No history of knee problems. No fevers. Physical Examination: General: Alert and oriented 3, no acute distress HEENT: Normocephalic, atraumatic. Moist mucosa membranes Neck: supple, nontender. Cardiovascular: Regular rate and rhythm, no murmurs Respiratory: Normal breath sounds, symmetric, no distress Abdomen: Soft, nontender, nondistended Extremities: Left lower extremity: Negative logroll. Knee extensor mechanism intact. Negative varus and valgus. Tender at the proximal tibia laterally. Skin intact. No ankle or foot tenderness. Right lower extremity: Walking boot at the foot. Neuro: no focal neurological deficits. Test Results: Left knee x-ray: No fracture or dislocation Emergency Department Course and Treatment: Patient given oxycodone in the ED. X-ray negative. Reviewed [facility] report, consistent with her reported last prescription in October posterior surgery for an opiate. She is written for 12 tabs to use. Should continue ibuprofen. She states her foot doctor does not handle her knees. She is given follow-up with on-call orthopedist. Christopher wrap placed to the knee. She is able to ambulate. Treatment Plan: [] Disposition: Discharge Impression: Left knee sprain This note was generated with ChoicePass dictation software. It may contain incorrect words, spelling, and punctuation that were not noted in review of the chart prior to signing ED Disposition - Plan for ED Patient: Disposition: Home or Assisted Living Diagnosis: Left knee sprain Instructions: ED Sprain Knee Prescriptions: Oxycodone HCl/Acetaminophen [Percocet 5/325] 1 tablet PO Q6H PRN PRN 3 Days #12 tablet PRN Reason: Pain Referrals: Daljit Hines [Primary Care Provider] - Phillip Stanley DO [STAFF PHYSICIAN] - 5-7 Days What to do if you have Problems For any increased pain, shortness of breath, bleeding, nausea or vomiting, chest pain, or any unexpected problems, contact your Primary Care Provider. Call [facility] ([phone]) or report to the closest Emergency Room. Call 911 if necessary. 03/19/18 0052 <Electronically signed by Chano Sanchez> Date Chano Sanchez Cosigner Signature (If Indicated): Date CC: DALJIT HINES VITAMIN D,25 HYDROXY Collected: 02/07/2018 Status: F Source: BAO 10:35 AM [facility] REPOSITORY TYPE CODE TESTS RESULT OUT OF REFERENCE UNITS RANGE LAB L506.1000 29.95-100.01 ng/mL Low Vitamin D 26.6 25-OH Result Comment: Vitamin D 25(OH) Status Range Deficiency <20 ng/mL (50nmol/L) Insuffciency 20 - 30 ng/mL (50 - 75 nmol/L) Sufficiency 30 - 100 ng/mL (75 - 250 nmol/L) Toxicity >100 ng/mL (>250 nmol/L) Performed By: #### L506.1000 #### [place] Laboratory [facility] Maye [place]. [place], [address] INITAL EVALUATION (1) Observed: 02/01/2018 Status: F Source: [place] - PT 5:55 PM [facility] REPOSITORY [facility] Physical [facility] 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 Date of Evaluation: 02/01/18 Physical Therapist: Dedra Dangelo - Visit Plan Frequency: 2x /Week Duration: 3 Months Plan: 2X/ week for 12 weeks. Start with AT with 25-50% with CAM boot (Dr farfan with AT) for R ankle AROM, light stretching and strengthening, edema control. May also do some hip and core strength with in limits as well. RESTRICITION PER SCRIPT: WB 25-50% IN CAM BOOT. WATCH MIDFOOT MOTIONS OF INV AND EV UNTIL BONE FUSION IS CONFIRMED - Subjective Subjective: When 7 years old got foot caught under old fashioned [place] go [employer]. They put in soft cast and mom would not put it back on. In 2009 her foot swelled after walking around [place]. Foot was broken. Saw Dr Burroughs had an MRI done and found it was broke and was in a cast for 8 weeks. At 8 weeks she was placed in walking boot and walked out of the office and felt a real sharp pain and was then NWB and was broke again and went to Dr Lindo in [facility]. In 2009 surgery to remove bone chip. In 2015 she steped on [place] out of vehicle and twisted ankle and they said it was sprained and continued to have more problems and then back to Dr Lindo and another MRI and surgery for another bone chip in 2016. She continue to have more issues and Dr Warner saw where her foot was broke again and the walking boot was not helping. She removed a bone and fused the bones together and that was Nov 05, 2017. She is now in CAM boot and is 25-50% WB. She sees the Dr on Wednesday Morning and will confirm on Wednesday that it is fused this Wednesday. She usually has pain after she has walked on it for a little bit. She has 3 kids and not being able to play with them is hard. She has a bone stimulator that she uses twice a day. She feels water therapy would be good at this point cause weight bearing is rough. - Pain R foot pain Pain Intensity (Out of 10): 4 - Objective R ankle DF 5 DEGREES, AND 30 DEGREES PF. L ankel DF 5 degrees and 62 degrees PF. Girth measurements: R med to lat mal 32.5 cm, figure 8 64.4 cm, met heads 27 cm. L med to lat mal 32 cm, figure 8 62 cm, and met heads 26 cm. Gait: walks with a walking boot with approx 50% WB on the R LE. Tender to palpation along the scar. increase swelling noted along the incision. Increase discomfort with toe towel crunches and increase stiffness. - Goals Goal 1:: I HEP Goal Time Frame: 8-12 Weeks Goal 2:: Increase R ankle AROM to 10 degrees DF Goal Time Frame: 8-12 Weeks Goal 3:: BY DC....ONE WB RESTRCTION IS LIFTED....Increase strength in R ankle to be able to perform 3 x 10 heel and toe raises with some UE support once WB restricitin is lifted Goal Time Frame: 8-12 Weeks Goal 4:: BY DC....be able to walk with a normal gait pattern with no pain and no antalgic gait. Goal Time Frame: 8-12 Weeks - Rehabilitation Potential Rehabilitation Potential: Good - Anticipated Interventions Patient/Client Instruction: Educate patient on: Condition, Plan of Care For the Purpose of:: To decrease pain, To decrease swelling/inflammation, To increase ROM, To improve nutrient delivery to tissue, To improve muscle performance and motor function, To improve ability to perform ADL's, To increase tolerance to activity/condition/position, To improve performance and independence with ADL's, To improve ability of physical actions for home/community/work/leisure, To improve gait and locomotor functions, To improve health of tissue, To decrease soft tissue restriction, To increase flexibility/ROM, To improve balance Therapeutic Exercise to Include: Strength training, Balance training, Flexibilty training, Gait and locomotor training, In an aquatic setting, Passive ROM, Active ROM For the Purpose of:: To decrease pain, To decrease swelling/inflammation, To increase ROM, To improve nutrient delivery to tissue, To improve muscle performance and motor function, To improve ability to perform ADL's, To increase tolerance to activity/condition/position, To improve ability of physical actions for home/community/work/leisure, To improve gait and locomotor functions, To improve health of tissue, To decrease soft tissue restriction, To increase flexibility/ROM, To improve balance Functional Training to Include: Gait training For the Purpose of:: To improve gait and locomotor functions Thank you for the opportunity to evaluate your patient. For Medicare and Medicare HMO plans, please review the plan of care and approve it. It will need to be FAXED BACK to us at [phone] for Medicare purposes. Please let me know if there are questions or concerns regarding this plan of care. Physician Signature: Date: <Electronically signed by Dedra Dangelo MPT> 02/01/18 1755 CC: DALJIT Warner DPM Signed For Medicare only, by signing this I certify the plan of care. Physicians Signature Date ALLERGIES ALLERGIES DATE TYPE / CODE NAME / CODE REACTION SEVERITY SOURCE 11/24/2018 Drug bupropion SUICIDAL Unknown [place] Allergy/416 HCl/[id number](RXN Community 538507([facility] ED CT) Repository 11/24/2018 Drug Penicillins/R65642 Hives Unknown [place] Allergy/416 0476(RXNORM) Community 340568([facility] ED CT) Repository 11/24/2018 Drug prochlorperazine/F Other Unknown [place] Allergy/416 493773553(RXNORM) Community 650968([facility] ED CT) Repository 11/24/2018 Drug etodolac/R41800036 Chest tightness MO [place] Allergy/416 7(RXNORM) Community 044926([facility] ED CT) Repository 11/24/2018 Drug metoclopramide/F00 Other Unknown [place] Allergy/611 5009211(RXNORM) Community 377727([facility] ED CT) Repository 10/03/2015 DRUG ETODOLAC OTHER: SEE C [facility] INGREDI/[address] [place] 508536(SNOM Repository ED CT) 01/28/2011 DRUG BUPROPION HCL Mental Chg [facility] INGREDI/[address] [place] 314449(SNOM Repository ED CT) 03/14/2009 Drug PENICILLINS HIVES [facility] Class/79547 [address] [place] 1003(SNOMED Repository CT) ENCOUNTERS ENCOUNTERS ADMIT/DISCHARGE ACCOUNT NUMBER ADMITTING ENCOUNTER LOCATION SOURCE CLASS 12/26/2018 [id number] Ambulatory [facility] ding:NS Repository 12/21/2018 [id number] Ambulatory [facility] ding:MFPLAB Repository 12/14/2018/12/14/19 [id number] Ambulatory [address] [place] Repository 11/24/2018/11/24/20 [id number] Emergency [address] ding:ED Repository 10/09/2018/10/09/20 [id number] Emergency [address] ding:ED Repository 09/19/2018/09/19/20 [id number] Emergency [address] ding:ED Repository 09/03/2018/09/03/20 [id number] Emergency [address] ding:ED Repository 08/29/2018/08/29/20 [id number] Emergency BBuilding:SHAKA Bob [address] [place] [address] Repository 07/20/2018/07/20/20 [id number] Emergency [place] ding:ED Repository 06/14/2018 [id number] Ambulatory BMSBuilding: [place] BMS.[facility] Repository 06/14/2018/06/14/20 [id number] Emergency [address] ding:ED Repository 06/09/2018/06/09/20 [id number] Emergency [address] ding:ED Repository 04/26/2018/04/26/20 [id number] Emergency [place] ding:ED Repository 04/19/2018/04/19/20 [id number] Emergency [address] ding:ED Repository 04/13/2018/04/13/20 [id number] Ambulatory [address] ding:PT Repository 04/10/2018/04/10/20 [id number] Emergency [address] ding:ED Repository 04/10/2018/04/12/20 [id number] Ambulatory [address] Repository 04/02/2018/04/02/20 [id number] Emergency [address] ding:ED Repository 03/31/2018/03/31/20 [id number] Emergency [address] ding:ED Repository 03/19/2018/03/19/20 [id number] Emergency [address] ding:ED Repository 02/07/2018 [id number] Ambulatory [facility] ding:LAB Repository PAYERS PAYERS ENCOUNTER GUARANTOR PAYER SUBSCRIBER SOURCE 12/26/2018 KRITSA Mo Primary KRISTA [id number] Insurance:[facility] [place] Number: [id number] [id number] Repository [address]Vxk: [phone] Date:2018-12-23 O [phone] (CC) [address]ATTN: [place] [address]HQ: 12/26/2018 Secondary NOT GIVENUNK [place] Insurance:SELF PAY [facility] Number: Effective Repository Date:2018-12-23 12/21/2018 KRISTA Mo Primary KRISTA [place] [id number] Insurance:CARESOURCEP BERSCHDOB: [facility] Number: [id number], [place] [id number] Repository [address]Drw: ([phone]) Date:2018-12-21P O [phone] () [address]ATTN: [place] [address]DH: 12/21/2018 Secondary NOT GIVENUNK [place] Insurance:SELF PAY [facility] Number: Effective Repository Date:2018-12-21 11/24/2018 KRISTA Mo Primary KRISTA [place] [id number] [address] Insurance:CARESOURCEP BERSCHDOB: [facility] Number: [id number] Creek, [place] [id number] Repository [address]Ykn: ([phone]) Date:2018-11-24P O [phone] () [address]ATTN: [place] [address]JP: 11/24/2018 Secondary NOT GIVENUNK [place] Insurance:SELF PAY [facility] Number: Effective Repository Date:2018-11-24 10/09/2018 KRISTA Mo Primary RKISTA Gore [id number] N Insurance:CARESOURCEP BERSCHDOB: [facility] [place] Number: [id number], [place] [id number] Repository [address]Att: (330) Date:2018-10-09P O [phone] () [address]ATTN: [place] [address]NJ: 10/09/2018 Secondary NOT GIVENUNK [place] Insurance:SELF PAY [facility] Number: Effective Repository Date:2018-10-09 09/19/2018 KRISTA Mo Primary KRISTA [place] [id number] S Insurance:CARESOURCEP BERSCHDOB: [facility] Number: [id number], [place] [id number] Repository [address]Zse: ([phone]) Date:2018-09-19P O [phone] () [address]ATTN: [place] [address]YI: 09/19/2018 Secondary NOT GIVENUNK [place] Insurance:SELF PAY [facility] Number: Effective Repository Date:2018-09-19 09/03/2018 KRISTA M Primary KRISTA [facility] [id number] S Insurance:CARESOURCEP [facility]ERSCHDOB[facility] Number: [id number], [place] [id number] Repository [address]Atr: ([phone]) Date:2018-09-03P O [phone] () [address]ATTN: [place] [address]LO: 09/03/2018 Secondary NOT GIVENUNK [place] Insurance:SELF PAY [facility] Number: Effective Repository Date:2018-09-03 08/29/2018 KRISTA M [facility]: Insurance:CARESOURCE BERSCHDOB: [facility] N MEDICAIDPolicy [id number] Repository [place] Number: [place], [place] [id number] [place], [place] [address]Kqa: ([phone]) Date:2018-08-29 442[address]Fhy: () [phone] [phone] Name:[address] ()Tel: [phone], [place] [phone] () [address]AH: 07/20/2018 KRISTA M Primary KRISTA M [place] [id number] S Insurance:CARESOURCEP BERSCHDOB: [facility] Number: [id number], [place] [id number] Repository [address]Led: ([phone]) Date:2018-07-20P O [phone] () [address]ATTN: [place] [address]FM: 07/20/2018 Secondary NOT GIVENUNK [place] Insurance:SELF PAY [facility]: Effective Repository Date:2018-07-20 06/14/2018 KRISTA M Primary KRISTA [place] [id number] S Insurance:CARESOURCEP BERSCHDOB: Community [facility] olicy Number: [id number], [place] [id number] Repository [address]Xoi: ([phone]) Date:2018-06-14P O [phone] () [address]ATTN: [place] [address]WF: 06/14/2018 Secondary NOT GIVENUNK [place] Insurance:SELF PAY [facility] Number: Effective Repository Date:2018-06-14 06/14/2018 KRISTA M Primary KRISTA Gore [id number] S Insurance:CARESOURCEP BERSCHDOB: Community [facility] olicy Number: [id number], [place] [id number] Repository [address]Wbk: [phone]) Date:2018-06-14 O [phone] () [address]ATTN: [place] [address]DO: 06/14/2018 Secondary NOT GIVENUNK [place] Insurance:SELF PAY [facility] Number: Effective Repository Date:2018-06-14 06/09/2018 KRISTA M Primary KRISTA Gore [id number] Insurance:CARESOURCEP BERSCHDOB: [place] olicy Number: [id number] Hospital [address]Nze: [phone] [id number] Repository [phone] () Date:2018-06-09 O [address]ATTN: [place] [address]BT: 06/09/2018 Secondary NOT GIVENUNK [place] Insurance:SELF PAY [facility] Number: Effective Repository Date:2018-06-09 04/26/2018 KRISTA M Primary KRISTA Gore [id number] N Insurance:CARESOURCEP BERSCHDOB: [facility], [place] Number: [id number], [place] [id number] Repository [address]Xos: ([phone]) Date:2018-04-26P O [phone] () [address]ATTN: [place] [address]OQ: 04/26/2018 Secondary NOT GIVENUNK [place] Insurance:SELF PAY [facility] Number: Effective Repository Date:2018-04-26 04/19/2018 KRISTA M Primary KRISTA Mo [place] [id number] N Insurance:CARESOURCEP BERSCHDOB: [facility], [place] Number: [id number], [place] [id number] Repository [address]Vsn: (330) Date:2018-04-19P O [phone] () [address]ATTN: [place] [address]HF: 04/19/2018 Secondary NOT GIVENUNK [place] Insurance:SELF PAY [facility] Number: Effective Repository Date:2018-04-19 04/13/2018 KRISTA M Primary KRISTA Gore [id number] Insurance:CARESOURCEP BERSCHDOB: [facility] Number: [id number] Hospital [address]Ape: ([phone] [id number] Repository [phone] () Date:2017-07-30P O [address]ATTN: [place] [address]BS: 04/13/2018 Secondary NOT GIVENUNK [place] Insurance:SELF PAY [facility] Number: Effective Repository Date:2018-01-11 04/10/2018 KRISTA M Primary KRISTA [place] [id number] N Insurance:CARESOURCEP BERSCHDOB: [facility], [place] Number: [id number], [place] [id number] Repository [address]Kwg: (330) Date:2018-04-10P O [phone] () [address]ATTN: [place] [address]EI: 04/10/2018 Secondary NOT GIVENUNK [place] Insurance:SELF PAY [facility] Number: Effective Repository Date:2018-04-10 04/02/2018 KRISTA Mo Primary KRISTA Mo [place] [id number] N Insurance:CARESOURCEP BERSCHDOB: Community [facility] Number: [id number], [place] [id number] Repository [address]Npb: ([phone]) Date:2018-04-02P O [phone] () [address]ATTN: [place] [address]JP: 04/02/2018 Secondary NOT GIVENUNK [place] Insurance:SELF PAY [facility] Number: Effective Repository Date:2018-04-02 03/31/2018 KRISTA Mo Primary KRISTA Mo [place] [id number] N Insurance:CARESOURCEP BERSCHDOB: [facility], [place] Number: [id number], [place] [id number] Repository [address]Not: ([phone]) Date:2018-03-31P O [phone] () [address]ATTN: [place] [address]WH: 03/31/2018 Secondary NOT GIVENUNK [place] Insurance:SELF PAY [facility] Number: Effective Repository Date:2018-03-31 03/19/2018 KRISTA Mo Primary KRISTA Mo [place] [id number] N Insurance:CARESOURCEP BERSCHDOB: [facility], [place] Number: [id number], [place] [id number] Repository [address]Zzv: (330) Date:2018-03-19P O [phone] () [address]ATTN: [place] [address]QO: 03/19/2018 Secondary NOT GIVENUNK [place] Insurance:SELF PAY [facility] Number: Effective Repository Date:2018-03-19 02/07/2018 KRISTA Mo Primary KRISTA Gore [id number] N Insurance:CARESOURCABRAZO CENTRAL CAMPUSSCHDOB: [facility], [place] Number: [id number], [place] [id number] Repository [address]Pgs: [phone]) Date:2018-02-07 O [phone] (NX) [address]ATTN: [place] [address]FN: 02/07/2018 Secondary NOT GIVENFERNY [place] Insurance:SELF PAY [facility] Number: Effective Repository Date:2018-02-07
== END ==
PROVIDERS: Family Provider Family Medicine; PCP Family Medicine; Visit Provider Nurse Practitioner Family
DX: Z01.818 Encounter for other preprocedural examination (principal)
CPT/HCPCS: 36415; 80053; 85025

== ENCOUNTER 2018-12-26 08:55 | Outpatient (RCR) | payer MEDICAID, SELFPAY | END 2018-12-26 23:59 | disposition home or self-care (01) | LOC: NS 08:55 | PROVIDERS: Family Provider Family Medicine; PCP Family Medicine; Visit Provider Podiatrist | DX: E66.8 Other obesity (principal); Z68.44 Body mass index [BMI] 60.0-69.9, adult; Z71.3 Dietary counseling and surveillance | CPT/HCPCS: 97802 ==

== ENCOUNTER 2019-01-11 03:23 | Emergency (ER) | payer MEDICAID, SELFPAY ==
[2019-01-11 03:25] VITALS: BP 147/115; PULSE 139; RESP 20; TEMP 36.9; O2SAT 97; BMI 58.2
[2019-01-11 03:38] VITALS: BP 147/115; PULSE 139; RESP 20; TEMP 36.9; O2SAT 97
[2019-01-11 03:49] VITALS: BP 146/103; PULSE 108; RESP 19; O2SAT 98
[2019-01-11] MEDS: 0.9% Normal Saline 1,000 ML 999 ML IV (04:33)
[2019-01-11] MEDS: Ketorolac 30 MG/ML Syringe IV (04:34)
[2019-01-11] MEDS: Dihydroergotamine 1 MG/ML Ampul IV (04:35)
--- NOTE | 2019-01-11 05:44 | ED.DEP ---
ED Disposition - Plan for ED Patient: Instructions: ED Cephalgia Unspecified Referrals: Prateek Honeycutt MD [Primary Care Provider] -
[2019-01-11 05:59] VITALS: BP 144/66; PULSE 114; RESP 16; O2SAT 95
--- NOTE | 2019-01-11 06:09 | ED.DCSUM_ITS ---
- ER Visit Summary Date of Service: 01/11/19 Chief Complaint: Cough and headache History of Present Illness: The patient is a 28 F who presents with cough and headache. She has been ill for about 2 days. She complains of congestion rhinorrhea and nasal chest congestion. She has had sick contacts with carolyne bhandari. He complains of cough. She reports nausea without vomiting. She does complain of muscle aches and joint aches. Her largest complaint however is a headache which began about 5 hours ago. Physical Examination: Blood pressure 146/103 heart rate 108 Patient appears uncomfortable Moist mucous membranes Heart regular rate and rhythm Lungs are clear Abdomen soft Alert and oriented with no focal or lateralizing neurologic deficits, normal strength, normal sensation Test Results: Rapid influenza negative Emergency Department Course and Treatment: Patient was treated with IV fluids Toradol and dihydroergotamine. On reevaluation her headache is completely resolved. She feels much better. She was advised on supportive care. She understands return for new or worsening symptoms and was discharged home. Treatment Plan: [] Disposition: Discharge Impression: Headache Influenza-like illness This note was generated with [employer] dictation software. It may contain incorrect words, spelling, and punctuation that were not noted in review of the chart prior to signing ED Disposition - Plan for ED Patient: Disposition: Home or Assisted Living Instructions: ED Cephalgia Unspecified Referrals: Prateek Honeycutt MD [Primary Care Provider] -
== END 2019-01-11 05:59 | disposition home or self-care (01) ==
PROVIDERS: Emergency Provider Emergency Medicine; Family Provider Family Medicine; PCP Family Medicine
DX: R51 Headache (principal); R05 Cough; R09.81 Nasal congestion; J34.89 Other specified disorders of nose and nasal sinuses; R11.0 Nausea; M79.10 Myalgia, unspecified site; M25.50 Pain in unspecified joint; E11.9 Type 2 diabetes mellitus without complications; Z79.84 Long term (current) use of oral hypoglycemic drugs; Z72.0 Tobacco use
CPT/HCPCS: 87804; 96361; 96374; 96375; 99283; J7030; A4216; J1110

== ENCOUNTER 2019-01-13 18:46 | Emergency (ER) | payer MEDICAID, SELFPAY ==
[2019-01-13 18:48] VITALS: BP 151/110; PULSE 131; RESP 20; TEMP 35.9; O2SAT 97; BMI 58.2
--- NOTE | 2019-01-13 19:02 | EKG12_ITS ---
Test Reason : Blood Pressure : / mmHG Vent. Rate : 123 BPM Atrial Rate : 123 BPM P-R Int : 128 ms QRS Dur : 078 ms QT Int : 316 ms P-R-T Axes : 041 027 030 degrees QTc Int : 452 ms Sinus tachycardia Otherwise normal ECG Confirmed by REGINA RAY, RANDY ([id number]), news video editor BRISEYDA GANN ([id number]) on 01/17/2019 11:38:16 AM Referred By: CLIFF Confirmed By:RANDY TAPIA MD
[2019-01-13] MEDS: HYDROcodone Bitartrate/Apap 5/325 Tablet PO (19:14)
[2019-01-13 19:20] VITALS: BP 151/110; PULSE 123; PULSE 128; RESP 17; RESP 19; TEMP 35.9; O2SAT 93
[2019-01-13] MEDS: 0.9% Normal Saline 1,000 ML 999 ML IV (19:23)
--- NOTE | 2019-01-13 19:30 | RAD_ITS ---
STUDY: X-RAY CHEST REASON FOR EXAM: Female, 28 years old. Cough congestion fever fatigue TECHNIQUE: PA and lateral views of the chest. COMPARISON: Prior study of 11/24/2018 FINDINGS: flight purser leads are present. There is right perihilar peribronchial cuffing. There is no demonstrated pleural abnormality. Normal size heart. Normal mediastinum and marissa. Normal visualized pulmonary arteries. Normal visualized aortic arch and descending thoracic aorta. Normal visualized thoracic spine. Normal visualized ribs, clavicles, and shoulders. There is no demonstrated abnormality of the visualized soft tissue structures of the upper abdomen. RAD/Chest PA and Lateral IMPRESSION: Right perihilar peribronchial cuffing which may be associated with bronchitis or bronchospastic disease. Electronically Signed: Timmy Vilchis MD at 19:45 EST , Service support ,
[2019-01-13 19:34] LABS: Absolute Lymphocyte Count 1.14 X10^3/ul (0.83-4.51); Absolute Neutrophil Count 2.7 X10^3/uL (2.0-7.7); Basophil# 0.01 X10^3/uL; Basophil% 0.2 % (0-1); Eosinophil# 0.11 X10^3/uL; Eosinophils% 2.6 % (0-5); Hematocrit 39.4 % (37-47); Hemoglobin 12.5 g/dl (12.0-15.0); Lymphocyte # 1.14 X10^3/ul (4.0); Lymphocyte % 26.7 % (19-41); Mean Corp Hgb Conc 31.7 g/gl (32-36); Mean Corpuscular Hgb 28.9 pg (27.0-32.0); Mean Platelet Vol. 9.3 fl (6.2-12.0); Monocyte# 0.27 X10^3/uL; Monocyte% 6.3 % (0-10); Neutrophil # 2.73 X10^3/uL (2.7-7.7); POSITIVE COUNT NO; POSITIVE DIFFERENTIAL NO; POSITIVE MORPHOLOGY NO; Platelet Count 222 K/mm3 (150-450); RBC Distribution Width CV 13.7 % (11.6-14.6); RBC Distribution Width SD 45.7 fl (35.1-43.9); Red Blood Count 4.33 M/mm3 (4.2-5.4); White Blood Count 4.3 K/mm3 (4.4-11.0)
--- NOTE | 2019-01-13 19:37 | ED.VISSUMM ---
- ER Visit Summary Date of Service: 01/13/19 Chief Complaint: Cough, shortness of breath History of Present Illness: The patient is a 28 F who presents to the emergency department upper respiratory infectious symptoms. Patient symptoms began early this week. She was actually seen here. She did negative flu and was treated symptomatically. She states her cough is been worsening. She feeling more short of breath. She had productive sputum. She is also had persistent fevers and chills. She does admit to positive sick contacts. She does have history of diabetes but is not on insulin. She also has a smoking history. Physical Examination: Vital signs reviewed General: Well-nourished, well-developed Head: Normocephalic, atraumatic Eyes: Pupils equal and reactive, extraocular muscles intact Neck, supple, no lymphadenopathy Heart: Regular rate and rhythm Respiratory: No distress, wheezing in all lung maxwell Abdomen: Soft, nontender, nondistended, no peritoneal signs Back: Nontender Extremities: Nontender, no edema, no cords Skin: Normal color no rash Neuro: Alert and oriented, no focal or lateralizing deficits Test Results: [] Emergency Department Course and Treatment: The patient did have wheezing in all lung maxwell. IV was established. She was given fluids. She was also given nebulized breathing treatments. She did have improvement of her aeration. Labs relatively unremarkable. EKG shows sinus tachycardia without acute ischemic change. Chest x-ray does show some focal bronchial cuffing in the right lobe. Given the persistence of her symptoms, continued fever, productive sputum I am going to treat her as an atypical pneumonia. Patient was given azithromycin here. I did discuss prednisone and she has had this without issues before. I will keep her on this along with an inhaler. I do feel that she is safe for outpatient therapy. She is comfortable with this plan of care. She will be discharged home. Treatment Plan: [] Disposition: Discharge Impression: Atypical pneumonia This note was generated with [employer] dictation software. It may contain incorrect words, spelling, and punctuation that were not noted in review of the chart prior to signing ED Disposition - Plan for ED Patient: Instructions: ED Upper Resp Infec Abx Tx Prescriptions: Albuterol Inhaler [Ventolin Hfa] 2 puff INHALATION Q4H PRN PRN #1 inhaler PRN Reason: Wheezing Azithromycin [Zithromax] 250 mg PO DAILY #4 tab Prednisone [Deltasone] 40 mg PO DAILY #10 tab Referrals: Prateek Honeycutt MD [Primary Care Provider] -
[2019-01-13 19:43] LABS: Anion Gap 9 (5-15); BUN 7 mg/dL (7-18); Calcium,Total 8.7 mg/dL (8.5-10.1); Chloride 109 mmol/L (98-107); EST Glomerular Filtration Rate 69 mL/min (>60); Est Glom Filt Rate - Afr Amer 83 mL/min (>60); Estimated Creatinine Clearance 79.99 ml/min; Glucose 147 mg/dL (74-106); Potassium 3.6 mmol/L (3.5-5.1); Sodium Level 140 mmol/L (136-145)
[2019-01-13 19:44] VITALS: PULSE 129; RESP 20
[2019-01-13] MEDS: Albuterol 2.5 MG/3 ML VIAL.NEB. INHALATION (19:45)
[2019-01-13] MEDS: Ipratropium/Albuterol Sulfate 3 ML AMPUL.NEB INHALATION (19:45)
[2019-01-13 19:53] VITALS: BP 155/110; PULSE 121; RESP 20; TEMP 37.2; O2SAT 96
[2019-01-13] MEDS: predniSONE 20 MG Tablet 40 MG PO (20:19)
[2019-01-13] MEDS: Azithromycin 250 MG Tablet 500 MG PO (20:19)
[2019-01-13 20:21] VITALS: BP 153/94; PULSE 79; RESP 20; O2SAT 96
--- NOTE | 2019-01-13 20:22 | ED.RN ---
THIS NURSE REVIEWED D/C INSTRUCTIONS WITH PT. PT VERBALIZED UNDERSTANDING OF INSTRUCTIONS. IV D/C. IV CATHETER INTACT. PT TOLERATED WELL. PT DENIES FURTHER NEEDS OR QUESTIONS AT THIS TIME. PT AMBULATES FROM ROOM ON OWN WITHOUT ASSISTANCE FROMCatherine MONTEIRO
== END 2019-01-13 20:23 | disposition home or self-care (01) ==
LOC: ED 19:16
PROVIDERS: Emergency Provider Emergency Medicine; Family Provider Family Medicine; PCP Family Medicine
DX: J18.9 Pneumonia, unspecified organism (principal); E11.9 Type 2 diabetes mellitus without complications; I10 Essential (primary) hypertension; Z72.0 Tobacco use
CPT/HCPCS: 71046; 80048; 85025; 93005; 94640; 96360; 99285; J7030; A4216

== ENCOUNTER 2019-01-23 16:04 | Emergency (ER) | payer MEDICAID, SELFPAY ==
[2019-01-23 16:05] VITALS: BP 161/110; PULSE 120; RESP 20; TEMP 37; O2SAT 96; BMI 53.5
[2019-01-23 18:17] LABS: Absolute Lymphocyte Count 2.88 X10^3/ul (0.83-4.51); Absolute Neutrophil Count 9.7 X10^3/uL (2.0-7.7); Basophil# 0.02 X10^3/uL; Basophil% 0.1 % (0-1); Eosinophil# 0.15 X10^3/uL; Eosinophils% 1.1 % (0-5); Hematocrit 43.4 % (37-47); Hemoglobin 13.9 g/dl (12.0-15.0); Lymphocyte # 2.88 X10^3/ul (4.0); Lymphocyte % 21.5 % (19-41); Mean Corpuscular Hgb 28.8 pg (27.0-32.0); Mean Platelet Vol. 9.6 fl (6.2-12.0); Monocyte# 0.62 X10^3/uL; Monocyte% 4.6 % (0-10); Neutrophil % 72.4 % (47-70); Platelet Count 356 K/mm3 (150-450); RBC Distribution Width CV 14.2 % (11.6-14.6); RBC Distribution Width SD 46.5 fl (35.1-43.9); Red Blood Count 4.82 M/mm3 (4.2-5.4); White Blood Count 13.4 K/mm3 (4.4-11.0)
[2019-01-23 18:23] VITALS: BP 158/79; PULSE 105; RESP 18; RESP 20; TEMP 37; O2SAT 97
[2019-01-23 18:23] LABS: Anion Gap 8 (5-15); BUN 8 mg/dL (7-18); BUN/Creat Ratio 7.9 RATIO (10-20); Calcium,Total 9.1 mg/dL (8.5-10.1); Chloride 106 mmol/L (98-107); Creatinine, Serum 1.01 mg/dL (0.55-1.02); EST Glomerular Filtration Rate 68 mL/min (>60); Est Glom Filt Rate - Afr Amer 82 mL/min (>60); Glucose 128 mg/dL (74-106); POSITIVE COUNT NO; POSITIVE DIFFERENTIAL NO; POSITIVE MORPHOLOGY NO; Potassium 3.5 mmol/L (3.5-5.1); Sodium Level 137 mmol/L (136-145)
[2019-01-23 18:30] LABS: Pregnancy, Serum, hCG Quali. NEGATIVE Negative (0-9 Nonpreg)
[2019-01-23] MEDS: 0.9% Normal Saline 1,000 ML 1000 ML IV (18:31)
[2019-01-23] MEDS: Ondansetron 4 MG/2 ML Vial IV (18:31)
[2019-01-23] MEDS: Morphine 4 MG/ML Syringe IV (18:31)
[2019-01-23 19:00] VITALS: PULSE 96; RESP 18; TEMP 37.1; O2SAT 98
--- NOTE | 2019-01-23 19:16 | ED.VISSUMM ---
- ER Visit Summary Date of Service: 01/23/19 Chief Complaint: Abdominal pain History of Present Illness: The patient is a [address] Ivy woodson. She reports that she has abdominal pain began yesterday. Is gradually gotten worse. Sharp, cramping pains 1010 worsening a 10 currently. Is worsened by movement relieved by remaining still. She reports she had nausea without vomiting. She states she had approximately 10 episodes of diarrhea. No blood in her stools or black tarry stools. No dysuria frequency. Last menstrual period was 2 weeks ago. No vaginal bleeding or discharge. Patient reports that she was on Zithromax 1 week ago for bronchitis. Patient denies sick contacts. Has not been camping out of the country. No possible bad food exposure. Does not drink well water. Physical Examination: Vitals: Stable. Afebrile. General: Well-nourished and well-developed. Head: Normocephalic atraumatic. Neck: Supple, no lymphadenopathy. No JVD. Nontender. Cardiovascular: Regular rate and rhythm. No murmurs. Respiratory: No respiratory distress. Clear to auscultation bilaterally. Abdominal: Soft, mild diffuse tenderness palpation over entire lower abdomen, nondistended, normal bowel sounds. No guarding, rebound, or peritoneal signs. Back: Nontender. Extremities: Nontender, no edema. Skin: Normal color, no rash. Neurologic: Alert and oriented ?3. Cranial nerves II through XII are intact. Normal strength and sensation. Psych: Normal affect. Test Results: CBC is more for white count 13.4 with 72 segmented neutrophils. Chem-7 is more for glucose 128. test negative. Patient has been unable to provide a stool sample. Emergency Department Course and Treatment: Patient had an IV placed. She was given a liter normal saline. She was given morphine and Zofran IV. She is resting comfortably. Treatment Plan: Patient will be discharged instructions follow-up with her primary care physician 1-2 days if she is not improving. I did discuss with her that she needs to be checked for C. difficile if she continues to have diarrhea. She will be discharged on Zofran. Instructed to push fluids. Use Tylenol and ibuprofen for pain. Return to the emergency department for any worsening symptoms. Disposition: To home in improved and stable condition. Impression: 1. Diarrhea. This note was generated with Dragon dictation software. It may contain incorrect words, spelling, and punctuation that were not noted in review of the chart prior to signing ED Disposition - Plan for ED Patient: Disposition: Home or Assisted Living Instructions: ED Vomiting Diarrhea Nonspecific Ad Prescriptions: Ondansetron [Zofran Odt] 4 mg PO Q8H PRN PRN #10 tablet PRN Reason: Nausea Referrals: Prateek Honeycutt MD [Primary Care Provider] - 1-2 Days if not improving
[2019-01-23 19:47] VITALS: RESP 18
== END 2019-01-23 19:47 | disposition home or self-care (01) ==
PROVIDERS: Emergency Provider Emergency Medicine; Family Provider Family Medicine; PCP Family Medicine
DX: R19.7 Diarrhea, unspecified (principal); R10.9 Unspecified abdominal pain; R11.0 Nausea; E11.9 Type 2 diabetes mellitus without complications; I10 Essential (primary) hypertension; Z87.891 Personal history of nicotine dependence; Z87.442 Personal history of urinary calculi
CPT/HCPCS: 80048; 84703; 85025; 96361; 96374; 96375; 99284; J7030; A4216; J2405

== ENCOUNTER → 2019-02-03 10:36 | Outpatient (CLI) | payer MEDICAID, SELFPAY ==
[2019-01-23 16:05] VITALS: BMI 53.5
[2019-02-03 12:39] LABS: Absolute Lymphocyte Count 1.53 X10^3/ul (0.83-4.51); Absolute Neutrophil Count 5.6 X10^3/uL (2.0-7.7); Basophil# 0.02 X10^3/uL; Basophil% 0.3 % (0-1); Eosinophil# 0.09 X10^3/uL; Eosinophils% 1.2 % (0-5); Lymphocyte # 1.53 X10^3/ul (4.0); Lymphocyte % 20.2 % (19-41); Mean Corpuscular Hgb 29.1 pg (27.0-32.0); Monocyte# 0.32 X10^3/uL; Monocyte% 4.2 % (0-10); Neutrophil % 73.8 % (47-70); Platelet Count 286 K/mm3 (150-450); RBC Distribution Width CV 14.1 % (11.6-14.6); RBC Distribution Width SD 48.4 fl (35.1-43.9); Red Blood Count 4.47 M/mm3 (4.2-5.4); White Blood Count 7.6 K/mm3 (4.4-11.0)
[2019-02-03 12:44] LABS: POSITIVE COUNT NO; POSITIVE DIFFERENTIAL NO; POSITIVE MORPHOLOGY NO
[2019-02-03 12:52] LABS: ALB/GLOB Ratio 0.9 RATIO (0.9-2.4); AST(SGOT) 20 U/L (15-37); Alanine Aminotransfer ALT/SGPT 37 U/L (13-56); Albumin, Serum 3.4 g/dL (3.2-5.0); Alkaline Phosphatase 78 U/L (45-117); Anion Gap 8 (5-15); BUN 11 mg/dL (7-18); Calcium,Total 8.6 mg/dL (8.5-10.1); Chloride 106 mmol/L (98-107); EST Glomerular Filtration Rate 69 mL/min (>60); Est Glom Filt Rate - Afr Amer 84 mL/min (>60); Globulin 3.9 g/dL (2.2-4.2); Glucose 234 mg/dL (74-106); Potassium 4.2 mmol/L (3.5-5.1); Protein, Total 7.3 g/dL (6.4-8.2); Sodium Level 138 mmol/L (136-145)
== END ==
PROVIDERS: Family Provider Family Medicine; PCP Family Medicine; Referring Provider Family Medicine; Visit Provider Family Medicine
DX: Z01.818 Encounter for other preprocedural examination (principal)
CPT/HCPCS: 36415; 80053; 85025

== ENCOUNTER 2019-02-17 13:17 | Observation (INO) | payer MEDICAID, SELFPAY ==
[2019-02-17] VITALS (11 sets, daily range): BP systolic 118–142; BP diastolic 66–98; PULSE 83–121; RESP 14–18; TEMP 35.7–37.3; O2SAT 85–100; BMI 56.7; BMI 58.0
[2019-02-17 06:20] LABS: Internal QC Validated? YES +Cl - CLEAR BKGD; Pregnancy, Urine Negative Negative
[2019-02-17 06:36] LABS: Bedside Glucose 151 mg/dL (70-110)
--- NOTE | 2019-02-17 07:00 | RAD_ITS ---
STUDY: X-RAY - RIGHT FOOT CLINICAL: Female, 28 years old. orif. TECHNIQUE: 3 images, 149.4 sec. fl., 4.71 mgy COMPARISON: None. FINDINGS: Normal talus, calcaneus, and tarsal bones. Arthrodesis of the subtalar and calcaneocuboid articulations. Normal metatarsi. The soft tissue structures are unremarkable. RAD/Foot 2 Views IMPRESSION: Arthrodesis of the subtalar and calcaneocuboid articulations. Electronically Signed: Stevan Juarez, at 14:01 EDT Tel , Service support ,
--- NOTE | 2019-02-17 07:00 | RAD_ITS ---
STUDY: X-RAY - RIGHT TIBIA AND FIBULA REASON FOR EXAM: Female, 28 years old. bone marrow aspiration. orif. 2 images TECHNIQUE: 2 view(s) of the tibia and fibula were obtained. COMPARISON: None. FINDINGS: Normal visualized tibia. Normal visualized fibula. There is a trocar in the proximal tibial metaphysis. The soft tissue structures are unremarkable. RAD/Tibia & Fibula 2 Views IMPRESSION: Normal x-ray examination of the visualized tibia and fibula. Electronically Signed: Stevan Juarez, at 14:02 EDT Tel , Service support ,
[2019-02-17] MEDS: Heparin 10,000 UNITS/10 ML Vial 10000 UNITS (08:10)
[2019-02-17] MEDS: Bupivacaine Mpf 0.5% 30 ML VIAL (11:07)
--- NOTE | 2019-02-17 11:39 | RAD_ITS ---
STUDY: X-RAY - RIGHT FOOT CLINICAL: Female, 28 years old. post op calcaneous cuboid joint arthrodesis TECHNIQUE: 3 view(s) of the foot. COMPARISON: None. FINDINGS: Normal talus, calcaneus, and tarsal bones. Arthrodesis of the subtalar and calcaneocuboid articulations. Normal metatarsi. The soft tissue structures are unremarkable. RAD/Foot min 3 Views IMPRESSION: Arthrodesis of the subtalar and calcaneocuboid articulations. Electronically Signed: Stevan Juarez, at 15:53 EDT Tel , Service support ,
[2019-02-17 12:06] LABS: Bedside Glucose 147 mg/dL (70-110)
--- NOTE | 2019-02-17 12:12 | OP.PCM_ITS ---
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 Arthritis subtalar joint, right. Right foot pain Post-Operative Diagnosis: non union calcaneal cuboid joint, right. Arthritis subtalar joint, right. Right foot pain Surgery/Procedure Performed:: -Revisional arthrodesis with internal fixation of calcaneocuboid joint of right foot with application of bone graft and bone marrow aspirate. -Arthrodesis with internal fixation of subtalar joint of right foot with application of bone graft and bone marrow aspirate Description of Surgical Findings:: Hemostasis: Right well-padded thigh tourniquet, 315 mmHg, 120 minutes Materials: two Arthrex dynanite nitinol kedar (25 x 20 and 18 x 15), two Arthrex 6.7 low profile short threaded cannulated screws (85 and 80 mm), 5 cc allosync (bone graft), cancellous bone chips, BMAC, PRP, PPP, 2-0 and 3-0 Vicryl, 4-0 nylon Complications: None The patient tolerated the procedure and anesthesia well. She was transported to the PACU with vital signs stable and vascular status intact to the right lower extremity. She will be admitted for observation and pain control. Postoperative orders were entered electronically. Postoperative x-rays were reviewed with arthrodesis sites in good alignment with hardware intact and with proper trajectory and placement. I will follow her closely while in house. intelligence applications: None - Surgeon: Zenobia Warner DPM. [employer] Supervisor: Tony Arreguin PGY2 Type of Anesthesia:: General/Regional, Local - Preoperative: 1:1 mixture of 1% lidocaine plain 0.5% Marcaine plain administered in partial right ankle block fashion to include the dorsal intermediate cutaneous and sural nerves, 10 cc Postoperative: 2 cc of same mixture administered locally to the bone marrow aspirate harvest site of the right proximal leg Anesthesiologist: Celio Wade Description of Procedure: Indications: This is a 28-year-old female with significant past medical history of diabetes, obesity, hypertension, depression, vitamin D deficiency, and smoking history (cessation recommended) continues to have right foot pain. She has a history of remote anterior process of the calcaneus fracture with associated degeneration of the calcaneocuboid joint with previous excision of the fracture fragment and arthrodesis. This developed into a nonunion and she now has pain at this site as well as the adjacent subtalar joint of the right lower extremity. She is unable to bear weight, wear shoes, or tolerate touch to this injury site. She continues to fail conservative care including offloading, activity modification, shoe gear change, custom bracing (maine), strapping, oral pain and anti- inflammatory medications. This is affecting her daily activities. Clinically, her neurovascular status is intact and she has pain on palpation to the calcaneocuboid and subtalar joints of the right lower extremity. There is pain with passive manipulation of the subtalar joint. Her ankle joint dorsiflexion remains improved since her previous gastrocnemius recession. Radiographs demonstrate a decently visualized calcaneocuboid joint with hardware in place this consistent with a nonunion. There is also diminished posterior facet subtalar joint space with periarticular sclerosis. She does have other radiographic findings consistent with pes planus including decreased calcaneal inclination angle and anterior displaced sign aligned. The ankle mortise remains rectus and the calcaneal axial x-ray demonstrates a rectus hindfoot. The preoperative indications, planned procedure, possible benefits, risks, complications, and anticipated healing time management were discussed in detail with the patient. She understands and elects to proceed with surgery at this time. She understands potential complications include the following but are not limited to: pain, scarring, infection, swelling, loss of feeling, blood clots, allergic reaction, hardware failure, delayed or nonhealing, loss of limb, function, life, need for additional surgery. The goal of the surgery is to reduce pain and improve stability of the calcaneocuboid and subtalar joints. The surgical limb and consent were signed. I answered all of her questions to her satisfaction. She did have a preoperative clearance performed by Dr. Thompson and this was reviewed. A history and physical exam was performed as was her diagnostic data including hemoglobin A1c (7.3%), CBC, and CMP. 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 I answered all of her questions and she elects to proceed at this time. Procedure in detail: The patient was transported to the operating room via cart and placed on the operating table and placed in supine position. Final verification the patient, surgery, limb designation was performed. IV antibiotics was administered preoperatively including clindamycin; this patient has a penicillin allergy. A well-padded pneumatic right thigh tourniquet was placed. Her right limb was bumped to allow good exposure. The local anesthetic was administered by the podiatry team as noted above. General anesthesia was initiated. The right lower extremity was prepped and draped in the usual aseptic manner. Marrow marrow aspirate was harvested from the right proximal medial tibial tuberosity. A 1 cm linear incision was made just medial to the tibial tuberosity through the skin. Blunt dissection was performed down to the tibia in which a bone marrow aspirate trocar was entered. Care was taken at this point and throughout the remainder of the surgery to identify, protect, and retract all neurovascular structures. A radiograph was utilized to confirm desired positioning. Approximately 80 cc of bone marrow aspirate was extracted and further processed according to standard protocol. The denzel ([email or web address]) system was utilized. This was set aside later for application to the revisional arthrodesis site as well as the in situ subtalar joint arthrodesis site as concentrated BMAC. PRP was also obtained from this sample and mixed with the bone graft as well. Further PPP that was obtained was applied to the incisional wound site during closure as well. This small wound was copiously irrigated with normal saline and the skin was reapproximated with 4-0 nylon. An overlying compressive dressing was applied. Next, the right lower extremity was exsanguinated with an Esmarch bandage and the tourniquet was inflated at this time. Surgery proceeded in the following matter: Attention was first directed to the right foot in which a curvilinear incision was made just distal to the fibula heading in the direction of the fourth and fifth metatarsal bases through the skin utilizing the previous cicatrix. Blunt dissection was performed down to the subcutaneous layer and with scar tissue from her previous surgeries was identified. Care was taken to identify, protect and retract all neurovascular structures at this point and throughout the remainder of surgery. The extensor digitorum brevis muscle belly at the insertion was identified and an L shaped incision was made to reflect this structure superiorly to obtain good exposure. The peroneal tendons were identified and retracted inferiorly. The calcaneocuboid joint was identified including previous staple and plate hardware fixation. An osteotome was used to remove osseous overgrowth and the hardware was removed in total without difficulty. The joint surfaces were inspected and reprepped until additional healthy spongy bleeding bone was noted. Subchondral drilling and fish scaling was used to optimize arthrodesis success and to break through the subchondral bone plate was checked and redone. Allosync mixed with concentrated bone marrow aspirate was applied to this site. Next attention was directed to the posterior facet of the subtalar joint. A small joint distractor was used to allow good exposure to this joint and the joint surfaces were debrided utilizing gentle bur, osteotomes and curved curettes to remove cartilage and subchondral bone plate. The talar and calcaneal surfaces were additionally prepared with subchondral drilling and fish scaling to optimize arthrodesis success. Allosync bone graft was mixed with the concentrated bone marrow aspirate and cancellous bone chips were applied to this site. This was held in a rectus position including slight hindfoot valgus and temporary fixation was achieved with a K wire that correspond to the cannulated Arthrex screw. Proper positioning of the screw and joint were confirmed with intraoperative fluoroscopy. Utilizing proper AO fixation technique, one low- profile screw was applied with good compression noted. Attention was next redirected back at the revisional calcaneocuboid joint arthrodesis site in which a laterally and dorsally applied stable were applied and a compressive manner utilizing proper AO fixation technique to the calcaneocuboid joint. Compression was directly visualized and confirmed with intraoperative fluoroscopy. Solid fixation was achieved and stability was manually test with all temporary hardware removed. Intraoperative fluoroscopy was used to confirm proper placement of screws and alignment of the arthrodesis sites. The tourniquet was deflated at this time and brisk capillary refill time was noted to all digits of the right foot. There was no pulsatile bleeding noted. Attention was then directed back to subtalar joint arthrodesis site in which a second cannulated low-profile Arthrex screw was applied for additional subtalar joint support and rotation control. This was applied with proper AO fixation technique and solid fixation was achieved. Proper placement was confirmed again with intraoperative fluoroscopy. Saline irrigation was performed to the soft tissue. The extensor digitorum brevis muscle belly was used to cover over the hardware back in its anatomic position. Deep closure was achieved with Vicryl suture and the skin was reapproximated with 4-0 nylon utilizing horizontal mattress and simple suture techniques. A postoperative dressing consisting of Adaptic soaked in Betadine, 4 x 4, abdominal pad, Kerlix, and Christopher wrap were applied. She was further splinted with fiberglass posterior mold with sugar tong splint with the lower extremity in a neutral position. After procedure: The patient tolerated the procedure and anesthesia well. She was transferred to the PACU with vital signs stable and vascular status intact to the right lower extremity. She will be monitored from an observation status on the medical surgical floor for postoperative pain control. A postoperative popliteal block was administered. The patient was advised to ice and elevate for postoperative pain and inflammation control. She was provided with postoperative pain medication while on the floor. DVT prophylaxis can be resumed tomorrow morning. She was advised to continue strict nonweightbearing to the right lower extremity with wheelchair or walker use. Smoking cessation, nutritional support, bone stimulator use, and vitamin D supplementation will be continued to optimize healing. Medical comanagement is appreciated. Postoperative orders were entered electronically. Zenobia Warner DPM, [facility] Grafts/Implants Used: see materials - Complications none
--- NOTE | 2019-02-17 13:19 | PCM.HP.STD ---
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 She underwent previous fracture fragment excision and arthrodesis secondary to degenerative changes to the calcaneal cuboid joint. She developed a nonunion that is symptomatic to this site as well as the adjacent subtalar joint. Revisional arthrodesis of the calcaneal cuboid joint and in situ arthrodesis of the subtalar joint of the right lower extremity were performed today she be admitted for pain control. She is stable in the PACU. Past Medical History Past Medical History (Chronic Problems): Chronic Problems Type 2 diabetes mellitus (Chronic) HTN (hypertension) (Chronic) Kidney stones (Chronic) Pseudarthrosis after fusion or arthrodesis (Chronic) Secondary osteoarthritis, right ankle and foot (Chronic) Pes planus of right foot (Chronic) Foot pain, right (Chronic) Right foot pain (Chronic) Arthritis of right foot (Chronic) Calcaneus fracture, right (Chronic) non healing Allergies Penicillins Allergy (Verified 02/10/19 13:36) Hives angioedema as well etodolac [From Lodine] Adverse Reaction (Intermediate, Verified 02/10/19 13:36) Chest tightness bupropion HCl [From Wellbutrin] Adverse Reaction (Verified 02/10/19 13:36) suicidal suicidal metoclopramide [From Reglan] Adverse Reaction (Verified 02/10/19 13:36) Other ANXIETY prochlorperazine [From Compazine] Adverse Reaction (Verified 02/10/19 13:36) Other ANXIETY Home Medications: Ambulatory Orders Medication Instructions Recorded Metformin HCl [Glucophage] 1,000 mg PO BIDCM 09/21/16 Meloxicam 7.5 mg PO DAILY 11/24/18 Albuterol Inhaler [Ventolin Hfa] 2 puff INHALATION Q4H PRN PRN #1 01/13/19 inhaler Sertraline HCl 50 mg PO DAILY 01/13/19 Lisinopril [Zestril] 10 mg PO DAILY 02/10/19 Surgical History: cholecystectomy, - - 3 previous right foot surgeries Right gastrocnemius recession, calcaneal cuboid joint arthrodesis, fracture fragment excision (Dr. Warner 11/05/2017, [address] Lindo in prior years) Psychiatric History: Depression Lives: With Family Smoking Status: Former smoker Tobacco Use: Cigarettes - *Family History Maternal History Items: No pertinent history Review of Systems Unable to obtain accurate/complete ROS d/t: postoperative setting VTE Information - Inpt Only VTE Present on Admission: No VTE Mechan Device Prophylaxis: SCD's VTE Pharm Prophylaxis ordered?: Yes - Physical Exam General: Cooperative, No apparent distress, Lethargic - post operative HEENT: Atraumatic Extremities: No cyanosis, Capillary Refill Less than 3 Seconds - Digits right foot, No Calf Tenderness - Negative Zuleta right, Edema - Bilateral lower extremity, Peripheral Pulses Normal Skin: - - Postoperative dressing is clean, dry, and intact with posterior mold splint in place with the foot in a rectus position Musculoskeletal: No Tenderness to Palpation of Joints or Extremities, - - Rectus foot and ankle right Neurological: - - Lack of sensation secondary to regional block Psych/Mental Status: Normal Affect, Appropriate Vital Signs Temp Pulse Resp BP Pulse Ox 98.2 F 94 16 127/73 H 98 02/17/19 13:00 02/17/19 13:00 02/17/19 13:00 02/17/19 13:00 02/17/19 13:00 Oxygen Flow Rate (L/min) 2 Oxygen Delivery Method Nasal Cannula Weight: 164.5 kg Body Mass Index (BMI) 56.7 Finger Stick Blood Glucose 147 Intake and Output for Last 24 Hours 02/15/19 02/16/19 02/17/19 23:59 23:59 23:59 Intake Total 2200 / 2200 Balance 2200 / 2200 Laboratory Tests Past 24 Hrs 02/17/19 02/17/19 05:55 06:09 Urine Test Negative Blood Type B POSITIVE Antibody Screen NEGATIVE POC Glucose 02/17/19 02/17/19 12:04 06:15 POC Glucose 147 H 151 H Assessment/Plan All Active Problems Back pain (Acute) Cellulitis of leg without foot, right (Acute) Right leg pain (Acute) She is status post right subtalar joint arthrodesis and revisional calcaneal cuboid joint arthrodesis with bone graft and bone marrow aspirate augmentation. She is stable in the PACU setting will be admitted for pain control. Medications have been ordered as needed. Her medical comorbidities are noted. I recommend resuming DVT prophylaxis tomorrow. Her vitamin D level will also be checked. She does have a history of low vitamin D which may have contributed to her nonunion lack of healing. She will also resume bone stimulator use after the surgical wound is healed. Physical therapy will also see her while in house to confirm she can maintain a strict nonweightbearing status to the right lower extremity. Medical management per hospitalist, Dr. Alcaraz is appreciated. The case was discussed. I will continue to follow her while in house closely. Zenobia Warner DPM, [facility] [phone]
--- NOTE | 2019-02-17 14:08 | HP.PCM_ITS ---
Problem List (1) Secondary osteoarthritis, right ankle and foot Status: Chronic History of Present Illness Date of Admission: 02/17/19 Chief Complaint: Post operative right foot. The patient is a 28 year old F admitted postoperatively after undergoing rev isional arthrodesis of the calcaneal cuboid joint and in situ arthrodesis of the subtalar joint of the right lower extremity. Patient admitted for postoperative pain control. Patient states that her pain is fairly well controlled at this time. 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, right ankle and foot (Chronic) Pes planus of right foot (Chronic) Foot pain, right (Chronic) Right foot pain (Chronic) Arthritis of right foot (Chronic) Calcaneus fracture, right (Chronic) non healing Allergies Penicillins Allergy (Verified 02/10/19 13:36) Hives angioedema as well etodolac [From Lodine] Adverse Reaction (Intermediate, Verified 02/10/19 13:36) Chest tightness bupropion HCl [From Wellbutrin] Adverse Reaction (Verified 02/10/19 13:36) suicidal suicidal metoclopramide [From Reglan] Adverse Reaction (Verified 02/10/19 13:36) Other ANXIETY prochlorperazine [From Compazine] Adverse Reaction (Verified 02/10/19 13:36) Other ANXIETY Home Medications: Ambulatory Orders Medication Instructions Recorded Metformin HCl [Glucophage] 1,000 mg PO BIDCM 09/21/16 Meloxicam 7.5 mg PO DAILY 11/24/18 Albuterol Inhaler [Ventolin Hfa] 2 puff INHALATION Q4H PRN PRN #1 01/13/19 inhaler Sertraline HCl 50 mg PO DAILY 01/13/19 Lisinopril [Zestril] 10 mg PO DAILY 02/10/19 Surgical History: cholecystectomy, - - 3 previous right foot surgeries Right gastrocnemius recession, calcaneal cuboid joint arthrodesis, fracture fragment excision (Dr. Warner 11/05/2017, [address] Lindo in prior years) Psychiatric History: Depression Lives: With Family Smoking Status: Former smoker Tobacco Use: Cigarettes - *Family History Maternal History Items: No pertinent history Review of Systems Constitutional: Denies: Chills, Fever, Weight Change Eyes: Denies: Blurred vision, Double vision HEENT: Denies: Head Aches, Sinus Congestion, Sinus Drainage Cardiovascular: Denies: Chest Pain, Palpitations Respiratory: Denies: Cough, Shortness of breath at rest, Sputum production Gastrointestinal: Denies: Abdominal Pain, Nausea, Vomiting Genitourinary: Denies: Dysuria Musculoskeletal: Denies: Joint Pain, Joint Tenderness Skin: Denies: Rash, Wounds Neurological: Denies: Numbness, Tingling, Focal weakness Psychiatric: Reports: Anxiety, Depression Hematologic/ Lymphatic: Denies: Easy Bruising, Easy Bleeding, Hx of blood clot Comment: A 10 point review of systems were negative except as mentioned in the history of present illness and the other review of systems. VTE Information - Inpt Only VTE Present on Admission: No VTE Pharm Prophylaxis ordered?: Yes - Physical Exam General: Alert, Cooperative, No apparent distress HEENT: Atraumatic, Normocephalic Oral: Moist Mucosa, No Gingival or Mucosal Lesions/ Ulcerations Neck: No Nodes, Thyroid Normal Size and Texture Lungs: Clear to auscultation, Normal air movement, No rhonchi, No wheeze Cardiovascular: Regular rate, Regular Rhythm, Normal S1, Normal S2, No murmurs Abdomen: Bowel Sounds Present, Soft, Non Tender, Non-Distended, No Hepato- splenomegaly, Obese Extremities: No edema, No Calf Tenderness Skin: No rashes, No breakdown Musculoskeletal: - - right foot in cast--did not remove. Psych/Mental Status: Normal Affect, Appropriate Vital Signs Temp Pulse Resp BP Pulse Ox 36.8 C 94 16 127/73 H 98 02/17/19 13:00 02/17/19 13:00 02/17/19 13:00 02/17/19 13:00 02/17/19 13:00 Oxygen Flow Rate (L/min) 2 Oxygen Delivery Method Nasal Cannula Weight: 164.5 kg Body Mass Index (BMI) 56.7 Finger Stick Blood Glucose 147 Intake and Output for Last 24 Hours 02/15/19 02/16/19 02/17/19 23:59 23:59 23:59 Intake Total 2200 / 2200 Balance 2200 / 2200 Laboratory Tests Past 24 Hrs 02/17/19 02/17/19 05:55 06:09 Urine Test Negative Blood Type B POSITIVE Antibody Screen NEGATIVE POC Glucose 02/17/19 02/17/19 12:04 06:15 POC Glucose 147 H 151 H Assessment/Plan All Active Problems Back pain (Acute) Cellulitis of leg without foot, right (Acute) Right leg pain (Acute) 1. Postoperative pain control: Patient has oxycodone as well as morphine ordered by podiatry. We will monitor the patient's response postoperatively. 2. Status post revisional arthrodesis: Patient had nonhealing fracture from 2009. Underwent surgery today. Management per podiatry. 3. Diabetes mellitus type 2: [id number]. Continue with metformin. Car control diet. Sliding scale insulin. 4. DVT prophylaxis: Patient high risk given this surgery and elevation. Patient will be on Lovenox. Code Visit OBSV E&M: 83009 Initial observation care L2
[2019-02-17 15:30] LABS: Bedside Glucose 149 mg/dL (70-110)
[2019-02-17] MEDS: Acetaminophen 325 MG Tablet 650 MG PO (21:46)
[2019-02-17 21:56] LABS: Bedside Glucose 161 mg/dL (70-110)
[2019-02-17] MEDS: oxyCODONE 5 MG Tablet 10 MG PO (23:52)
[2019-02-18] MEDS: Morphine 2 MG/ML Syringe IV ×3 (01:15→03:45)
[2019-02-18 02:22] VITALS: BP 136/88; PULSE 96; RESP 18; TEMP 37.3; O2SAT 100
[2019-02-18] MEDS: Ketorolac 30 MG/ML Syringe IV ×2 (05:18→14:12)
[2019-02-18] MEDS: 0.9% NaCl Peripheral Flush Adult/Peds IV ×4 (05:19→14:13)
[2019-02-18] MEDS: Acetaminophen 500 MG Tablet 1000 MG PO ×2 (05:19→14:12)
[2019-02-18] MEDS: Morphine 4 MG/ML Syringe 3 MG IV ×3 (05:57→12:48)
[2019-02-18] MEDS: Insulin Lispro 100 UNIT/ML INSULN.PEN SQ (06:38)
[2019-02-18 06:41] LABS: Bedside Glucose 190 mg/dL (70-110)
[2019-02-18 07:08] LABS: Absolute Neutrophil Count 5.6 X10^3/uL (2.0-7.7); Basophil# 0.01 X10^3/uL; Basophil% 0.1 % (0-1); Eosinophil# 0.05 X10^3/uL; Eosinophils% 0.7 % (0-5); Hematocrit 35.2 % (37-47); Hemoglobin 10.9 g/dl (12.0-15.0); Lymphocyte % 14.7 % (19-41); Mean Corpuscular Hgb 29.4 pg (27.0-32.0); Mean Corpuscular Volume 94.9 fL (81-99); Mean Platelet Vol. 9.8 fl (6.2-12.0); Monocyte# 0.66 X10^3/uL; Monocyte% 8.8 % (0-10); Neutrophil # 5.63 X10^3/uL (2.7-7.7); Neutrophil % 75.4 % (47-70); Platelet Count 231 K/mm3 (150-450); RBC Distribution Width CV 14.3 % (11.6-14.6); RBC Distribution Width SD 46.6 fl (35.1-43.9); Red Blood Count 3.71 M/mm3 (4.2-5.4); White Blood Count 7.5 K/mm3 (4.4-11.0)
[2019-02-18 07:40] LABS: POSITIVE COUNT NO; POSITIVE DIFFERENTIAL NO; POSITIVE MORPHOLOGY NO
[2019-02-18 08:20] VITALS: BP 163/108; PULSE 98; RESP 18; TEMP 36.8; O2SAT 95
[2019-02-18] MEDS: Enoxaparin 40 MG/0.4 ML Syringe SC (08:20)
[2019-02-18] MEDS: oxyCODONE 5 MG Tablet 10 MG PO ×3 (08:20→16:16)
[2019-02-18 08:28] LABS: Vitamin D,25 Hydroxy 18.5 ng/mL (29.95-100.01)
[2019-02-18] MEDS: Sertraline 50 MG Tablet PO (08:58)
[2019-02-18] MEDS: Lisinopril 10 MG Tablet PO (08:58)
--- NOTE | 2019-02-18 09:10 | PCM.PROGNOTE ---
Subjective: The patient is a 28 year old F with significant past medical history of obesity, diabetes, hypertension, and depression was seen bedside postoperative day #1 of right lower extremity subtalar joint arthrodesis and revisional arthrodesis of the calcaneal cuboid joint with bone graft and bone marrow aspirate augmentation. She denies fever, chill, nausea, vomiting, shortness of breath, chest pain, calf pain, constipation. Her pain is rated as a 6 out of 10 this morning and she relates her nerve block has worn off. - Physical Exam General: Alert, Oriented x3, Cooperative Lungs: Clear to auscultation, Normal air movement, No wheeze Cardiovascular: Regular rate, Regular Rhythm Extremities: Capillary Refill Less than 3 Seconds, No Calf Tenderness - negative hutchins signs bilateral, Edema - mild right Skin: Ulcer/ Wound - there is no strikethrough noted on the dressing which is clean, dry, intact Musculoskeletal: - - active range of motion of digits noted. Rectus right lower extremity in splint is intact Neurological: - - epicritic sensation intact via light touch to all digits right foot Psych/Mental Status: Normal Affect, Appropriate Vital Signs Temp Pulse Resp BP Pulse Ox 98.2 F 98 18 163/108 H 95 02/18/19 08:20 02/18/19 08:20 02/18/19 08:20 02/18/19 08:20 02/18/19 08:20 Oxygen Flow Rate (L/min) 3 Oxygen Delivery Method Room Air Weight: 168 kg Body Mass Index (BMI) 58.0 Finger Stick Blood Glucose 147 Intake and Output for Last 24 Hours 02/16/19 02/17/19 02/18/19 23:59 23:59 23:59 Intake Total 2620 / 2620 500 / 500 Output Total 850 / 850 950 / 950 Balance 1770 / 1770 -450 / -450 Laboratory Tests Past 24 Hrs 02/18/19 02/18/19 06:15 06:15 WBC 7.5 RBC 3.71 L Hgb 10.9 L Hct 35.2 L MCV 94.9 MCH 29.4 MCHC 31.0 L RDW 14.3 RDW Differential 46.6 H Plt Count 231 MPV 9.8 Immature Gran % (Auto) 0.300 Neut % (Auto) 75.4 H Lymph % (Auto) 14.7 L [place] % (Auto) 8.8 Eos % (Auto) 0.7 Baso % (Auto) 0.1 Absolute Neuts (auto) 5.6 Absolute Lymphs (auto) 1.10 Total Counted Not Reportable Vitamin D 25-Hydroxy 18.5 L POC Glucose 02/18/19 02/17/19 02/17/19 06:34 21:52 15:20 POC Glucose 190 H 161 H 149 H 02/17/19 12:04 POC Glucose 147 H Medical Necessity - Tobacco Use Smoking Status: Former smoker Tobacco Use: Cigarettes Assessment/Plan All Active Problems Back pain (Acute) Cellulitis of leg without foot, right (Acute) Right leg pain (Acute) Postoperative day #1 right subtalar joint arthrodesis and revisional calcaneal cuboid joint arthrodesis Right lower external knee pain Diabetes Obesity Vitamin D deficiency DVT prophylaxis Her right lower extremity dressing and splint are clean, dry, and intact. Her postoperative x-rays were reviewed with arthrodesis sites and proper alignment with hardware in the desired trajectory and position. No acute injuries are noted. Her labs (CBC) are reviewed and appear to be stable. Her vital signs remained stable and she is afebrile this morning. She did have a very low-grade temperature elevation overnight which is likely secondary to anesthesia; this we monitored. I recommend she continues with strict nonweightbearing to the right lower extremity. Physical therapy will evaluate her today to confirm she is able to safely perform this. To ice and elevate for pain and inflammation management. Her pain medications were adjusted overnight and is noted her regional block has worn off. She will be transitioned off of all IV antibiotics prior to discharge home; she will be reassessed this evening for pain control to consider discharge. She does not appear to be ready this morning yet. She will resume DVT prophylaxis today. We discussed DVT prophylaxis at discharge and she is comfortable utilizing Lovenox. Her low vitamin D level (18.5) was noted and she will continue on supplementation. I also reviewed with her how to improve her vitamin D through sun exposure. She will resume her bone stimulator in a few weeks when her incision is further healed to optimize healing. She understands the anticipated healing and management. She will also continue to go through nutritional services to improve her diabetic stability and weight control. Medical management per hospitalist is appreciated. Please not hesitate to call if you have any questions. The recommended discharge prescriptions including pain medication, DVT prophylaxis, and vitamin D supplementation are in the chart. Zenobia Warner DPM, [facility] [phone]
--- NOTE | 2019-02-18 09:39 | PCM.PN.HOSP ---
Subjective: Increased pain in RLE with nerve block wore off. Vitals/I&O's: Vital Signs Temp Pulse Resp BP Pulse Ox 36.8 C 98 18 163/108 H 95 02/18/19 08:20 02/18/19 08:20 02/18/19 08:20 02/18/19 08:20 02/18/19 08:20 Oxygen Flow Rate (L/min) 3 Oxygen Delivery Method Room Air Weight: 168 kg Body Mass Index (BMI) 58.0 Finger Stick Blood Glucose 147 Intake and Output for Last 24 Hours 02/16/19 02/17/19 02/18/19 23:59 23:59 23:59 Intake Total 2620 / 2620 500 / 500 Output Total 850 / 850 950 / 950 Balance 1770 / 1770 -450 / -450 General: Alert, No apparent distress HEENT: Atraumatic, Normocephalic Oral: Moist Mucosa, No Gingival or Mucosal Lesions/ Ulcerations Neck: No Nodes, Thyroid Normal Size and Texture Lungs: Clear to auscultation, Normal air movement, No rhonchi, No wheeze Cardiovascular: Regular rate, Regular Rhythm, Normal S1, Normal S2, No murmurs Abdomen: Bowel Sounds Present, Soft, Non Tender, Non-Distended, Obese Extremities: - - cast on RLE Neurological: - - FLORES spontaneously. Psych/Mental Status: Normal Affect, Appropriate Laboratory Results 02/17/19 12:04: POC Glucose 147 H 02/17/19 15:20: POC Glucose 149 H 02/17/19 21:52: POC Glucose 161 H 02/18/19 06:15: WBC 7.5, RBC 3.71 L, Hgb 10.9 L, Hct 35.2 L, MCV 94.9, MCH 29.4, MCHC 31.0 L, RDW 14.3, RDW Differential 46.6 H, Plt Count 231, MPV 9.8, Immature Gran % (Auto) 0.300, Neut % (Auto) 75.4 H, Lymph % (Auto) 14.7 L, [place] % (Auto) 8.8, Eos % (Auto) 0.7, Baso % (Auto) 0.1, Absolute Neuts (auto) 5.6, Absolute Lymphs (auto) 1.10, Total Counted Not Reportable 02/18/19 06:15: Vitamin D 25-Hydroxy 18.5 L 02/18/19 06:34: POC Glucose 190 H Current Medications Acetaminophen (Tylenol) 1,000 mg PO Q8 [facility] Last Admin: 02/18/19 05:19 Dose: 1,000 mg Dextrose (D50w Syringe) 0 gm IV X1 PRN; Protocol PRN Reason: Hypoglycemia Enoxaparin Sodium (Lovenox) 40 mg SC DAILY@1000 [place] Last Admin: 02/18/19 08:20 Dose: 40 mg Ergocalciferol (Vitamin D) 50,000 unit PO Q7D [facility] Glucagon () 1 mg IM .X1 PRN PRN Reason: Hypoglycemia Insulin Human Lispro (Humalog Kwikpen (Bkc)) 0 unit SQ TIDAC [facility]; Protocol Last Admin: 02/18/19 06:38 Dose: 2 u Ketorolac Tromethamine (Toradol) 30 mg IV Q8 [facility] Stop: 02/18/19 22:01 Last Admin: 02/18/19 05:18 Dose: 30 mg Lisinopril (Zestril) 10 mg PO DAILY [facility] Last Admin: 02/18/19 08:58 Dose: 10 mg Magnesium Hydroxide (Milk Of Magnesia) 30 ml PO DAILY PRN PRN PRN Reason: Constipation Metformin HCl (Glucophage) 1,000 mg PO BIDCM [facility] Morphine Sulfate () 3 mg IV Q2H PRN PRN PRN Reason: SEVERE PAIN (6-10/10) Last Admin: 02/18/19 08:57 Dose: 3 mg Ondansetron HCl (Zofran) 4 mg IV Q8H PRN PRN PRN Reason: NAUSEA Oxycodone HCl (Oxyir) 10 mg PO Q4H PRN PRN PRN Reason: SEVERE PAIN (6-10/10) Last Admin: 02/18/19 08:20 Dose: 10 mg Sertraline HCl (Zoloft) 50 mg PO DAILY [facility] Last Admin: 02/18/19 08:58 Dose: 50 mg Sodium Chloride () 5 - 15 ml IV UD PRN PRN Reason: SALINE FLUSH Last Admin: 02/18/19 08:58 Dose: 10 ml Medical Necessity - Tobacco Use Smoking Status: Former smoker Tobacco Use: Cigarettes Assessment/Plan All Active Problems Back pain (Acute) Cellulitis of leg without foot, right (Acute) Right leg pain (Acute) 1. Postoperative pain control: Patient has oxycodone as well as morphine ordered by podiatry. We will monitor the patient's response postoperatively. 2. Status post revisional arthrodesis: Patient had nonhealing fracture from 2009. Underwent surgery today. Management per podiatry. 3. Diabetes mellitus type 2: [id number]. Continue with metformin. Carb control diet. Sliding scale insulin. 4. DVT prophylaxis: Patient high risk given this surgery and elevation. Patient will be on Lovenox. Code Visit OBSV E&M: 27087 Subsequent observation care L2
[2019-02-18 11:55] LABS: Bedside Glucose 143 mg/dL (70-110)
[2019-02-18 14:20] VITALS: BP 136/83; PULSE 97; RESP 18; TEMP 36.7; O2SAT 98
--- NOTE | 2019-02-18 14:28 | DCINST_ITS ---
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, right ankle and foot (Chronic) Pes planus of right foot (Chronic) Foot pain, right (Chronic) You will use the following diet at home:: Calorie/Carbohydrate Controlled (specify 1200, 1400, etc) - 1800 Your food should be the consistency of: Regular Your liquids should be the consistency of: Regular/Thin Discharge Activity: Use Walker, Use Crutches Weight Bearing Status: No weight bearing Keep extremity elevated above heart level: Right Leg Call your doctor if your incision/area has: Continuous Slow Oozing, Sudden Increased Bleeding, Increased Pain/ Swelling Call your doctor if you observe: Fever of 101 or Higher Allergies/Adverse Reactions: Allergies Penicillins Allergy (Verified 02/10/19 13:36) Hives angioedema as well etodolac [From Lodine] Adverse Reaction (Intermediate, Verified 02/10/19 13:36) Chest tightness bupropion HCl [From Wellbutrin] Adverse Reaction (Verified 02/10/19 13:36) suicidal suicidal metoclopramide [From Reglan] Adverse Reaction (Verified 02/10/19 13:36) Other ANXIETY prochlorperazine [From Compazine] Adverse Reaction (Verified 02/10/19 13:36) Other ANXIETY Medications to take at Discharge Metformin HCl [Glucophage] 1,000 mg PO BIDCM 09/21/16 Albuterol Inhaler [Ventolin Hfa] 2 puff INHALATION Q4H PRN PRN #1 inhaler 01/13/19 Sertraline HCl 50 mg PO DAILY 01/13/19 Lisinopril [Zestril] 10 mg PO DAILY 02/10/19 Enoxaparin [Lovenox] 40 mg SC DAILY@1000 syringe 02/18/19 Ergocalciferol [Vitamin D] 50,000 unit PO Q7D capsule 02/18/19 Ibuprofen 3 - 4 mg PO TID PRN #1 tablet 02/18/19 Meloxicam 7.5 mg PO DAILY #0 02/18/19 Oxycodone HCl/Acetaminophen [Percocet 10-325 mg Tablet] 1 tablet PO Q4H PRN 1 Days #1 tablet 02/18/19 The following prescriptions were given: Oxycodone HCl/Acetaminophen [Percocet 10-325 mg Tablet] 1 tablet PO Q4H PRN 1 Days #1 tablet PRN Reason: Pain Ibuprofen 3 - 4 mg PO TID PRN #1 tablet PRN Reason: Pain Primary Care Physician: Prateek Honeycutt MD [Primary Care Provider] - Within 2 Weeks Test Results: Test results from this visit will be discussed in further detail at your follow- up appointment, if applicable. Please Follow Up With: Zenobia Warner DPM When: 1 week Proposed Discharge Date: 02/18/19
--- NOTE | 2019-02-18 14:28 | PCM.DC.SUM ---
Discharge Date and Diagnosis Date of Admission: 02/17/19 Date of Discharge: 02/18/19 - Primary Discharge Diagnosis 1. Postoperative pain control: Patient has oxycodone as well as morphine ordered by podiatry. We will monitor the patient's response postoperatively. 2. Status post revisional arthrodesis: Patient had nonhealing fracture from 2009. Underwent surgery today. Management per podiatry. 3. Diabetes mellitus type 2: [id number]. Continue with metformin. Car control diet. Sliding scale insulin. 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 Electronically Signed: Stevan Juarez, at 14:01 EDT Tel , Service support , Tibia/Fibula X-Ray 02/17/19 07:00 IMPRESSION: Normal x-ray examination of the visualized tibia and fibula. Electronically Signed: Stevan Juarez, at 14:02 EDT Tel , Service support , Foot X-Ray 02/17/19 11:39 IMPRESSION: Arthrodesis of the subtalar and calcaneocuboid articulations. Electronically Signed: Stevan Juarez, at 15:53 EDT Tel , Service support , Elinor Warner DPM Operations: - - Revisional arthrodesis with internal fixation of calcaneocuboid joint of right foot with application of bone graft and bone marrow aspirate. -Arthrodesis with internal fixation of subtalar joint of right foot with application of bone graft and bone marrow aspirate Summary of Care Provided: The patient is a 28 year old F admitted postoperatively after undergoing revisional arthrodesis of the calcaneal cuboid joint and in situ arthrodesis of the subtalar joint of the right lower extremity. Patient admitted for postoperative pain control. Patient's course was uncomplicated patient was having pain. Patient did require some IV supplementation. But patient overall is improved. Patient be discharged with Percocet. Patient also was found to have a low 25 hydroxy vitamin D level of 18. Goal level is around 50. Patient has been ordered 50,000 units of ergocalciferol. Patient will need a total of 8 weeks and then can be positioned to 2000 units of cholecalciferol daily. I recommend following up in a 25 hydroxy vitamin D level in about 3 months to make sure that she is not getting too much vitamin D. Patient is nonweightbearing in her right podiatry. Patient will use a walker or crutches. [] - Physical Exam Vital Signs Temp Pulse Resp BP Pulse Ox 36.7 C 97 18 136/83 H 98 02/18/19 14:20 02/18/19 14:20 02/18/19 14:20 02/18/19 14:20 02/18/19 14:20 Oxygen Flow Rate (L/min) 3 Oxygen Delivery Method Room Air Weight: 168 kg Body Mass Index (BMI) 58.0 Finger Stick Blood Glucose 147 Intake and Output for Last 24 Hours 02/16/19 02/17/19 02/18/19 23:59 23:59 23:59 Intake Total 2620 / 2620 940 / 940 Output Total 850 / 850 1450 / 1450 Balance 1770 / 1770 -510 / -510 Laboratory Tests Past 24 Hrs 02/18/19 02/18/19 06:15 06:15 WBC 7.5 RBC 3.71 L Hgb 10.9 L Hct 35.2 L MCV 94.9 MCH 29.4 MCHC 31.0 L RDW 14.3 RDW Differential 46.6 H Plt Count 231 MPV 9.8 Immature Gran % (Auto) 0.300 Neut % (Auto) 75.4 H Lymph % (Auto) 14.7 L [place] % (Auto) 8.8 Eos % (Auto) 0.7 Baso % (Auto) 0.1 Absolute Neuts (auto) 5.6 Absolute Lymphs (auto) 1.10 Total Counted Not Reportable Vitamin D 25-Hydroxy 18.5 L POC Glucose 02/18/19 02/18/19 02/17/19 11:51 06:34 21:52 POC Glucose 143 H 190 H 161 H 02/17/19 15:20 POC Glucose 149 H Discharge Diet: 1800 Calorie Control Diet Discharge Activity: Use Walker, Use Crutches Weight Bearing Status: No weight bearing Keep extremity elevated above heart level: Right Leg Call your doctor if your incision/area has: Continuous Slow Oozing, Sudden Increased Bleeding, Increased Pain/ Swelling Call your doctor if you observe: Fever of 101 or Higher Home Medications: Medications to take at Discharge Metformin HCl [Glucophage] 1,000 mg PO BIDCM 09/21/16 Albuterol Inhaler [Ventolin Hfa] 2 puff INHALATION Q4H PRN PRN #1 inhaler 01/13/19 Sertraline HCl 50 mg PO DAILY 01/13/19 Lisinopril [Zestril] 10 mg PO DAILY 02/10/19 Enoxaparin [Lovenox] 40 mg SC DAILY@1000 syringe 02/18/19 Ergocalciferol [Vitamin D] 50,000 unit PO Q7D capsule 02/18/19 Ibuprofen 3 - 4 mg PO TID PRN #1 tablet 02/18/19 Meloxicam 7.5 mg PO DAILY #0 02/18/19 Oxycodone HCl/Acetaminophen [Percocet 10-325 mg Tablet] 1 tablet PO Q4H PRN 1 Days #1 tablet 02/18/19 Following Prescrptions Were Given to Patient: Oxycodone HCl/Acetaminophen [Percocet 10-325 mg Tablet] 1 tablet PO Q4H PRN 1 Days #1 tablet PRN Reason: Pain Ibuprofen 3 - 4 mg PO TID PRN #1 tablet PRN Reason: Pain Primary Care Physician: Prateek Honeycutt MD [Primary Care Provider] - Within 2 Weeks Please Follow Up With: Zenobia Warner DPM When: 1 week Disposition: Home Minutes spent on discharge:: 28 Patient Condition:: Good Medical Necessity - Tobacco Use Smoking Status: Former smoker Tobacco Use: Cigarettes Meaningful Use Info Meaningful Use Diagnoses (Choose all that apply): None applicable Code Visit OBSV E&M: 42952 Observation care discharge
--- NOTE | 2019-02-18 14:32 | DS.PCM_ITS ---
Discharge Date and Diagnosis Date of Admission: 02/17/19 Date of Discharge: 02/18/19 - Primary Discharge Diagnosis 1. Postoperative pain control: Patient has oxycodone as well as morphine ordered by podiatry. We will monitor the patient's response postoperatively. 2. Status post revisional arthrodesis: Patient had nonhealing fracture from 2009. Underwent surgery today. Management per podiatry. 3. Diabetes mellitus type 2: [id number]. Continue with metformin. Car control diet. Sliding scale insulin. 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 Electronically Signed: Stevan Juarez, at 14:01 EDT Tel , Service support , Tibia/Fibula X-Ray 02/17/19 07:00 IMPRESSION: Normal x-ray examination of the visualized tibia and fibula. Electronically Signed: Stevan Juarez, at 14:02 EDT Tel , Service support , Foot X-Ray 02/17/19 11:39 IMPRESSION: Arthrodesis of the subtalar and calcaneocuboid articulations. Electronically Signed: Stevan Juarez, at 15:53 EDT Tel , Service support , Elinor Warner DPM Operations: - - Revisional arthrodesis with internal fixation of calcaneocuboid joint of right foot with application of bone graft and bone marrow aspirate. - Arthrodesis with internal fixation of subtalar joint of right foot with application of bone graft and bone marrow aspirate Summary of Care Provided: The patient is a 28 year old F admitted postoperatively after undergoing revisional arthrodesis of the calcaneal cuboid joint and in situ arthrodesis of the subtalar joint of the right lower extremity. Patient admitted for postoperative pain control. Patient's course was uncomplicated patient was having pain. Patient did require some IV supplementation. But patient overall is improved. Patient be discharged with Percocet. Patient also was found to have a low 25 hydroxy vitamin D level of 18. Goal level is around 50. Patient has been ordered 50,000 units of ergocalciferol. Patient will need a total of 8 weeks and then can be positioned to 2000 units of cholecalciferol daily. I recommend following up in a 25 hydroxy vitamin D level in about 3 months to make sure that she is not getting too much vitamin D. Patient is nonweightbearing in her right podiatry. Patient will use a walker or crutches. [] - Physical Exam Vital Signs Temp Pulse Resp BP Pulse Ox 36.7 C 97 18 136/83 H 98 02/18/19 14:20 02/18/19 14:20 02/18/19 14:20 02/18/19 14:20 02/18/19 14:20 Oxygen Flow Rate (L/min) 3 Oxygen Delivery Method Room Air Weight: 168 kg Body Mass Index (BMI) 58.0 Finger Stick Blood Glucose 147 Intake and Output for Last 24 Hours 02/16/19 02/17/19 02/18/19 23:59 23:59 23:59 Intake Total 2620 / 2620 940 / 940 Output Total 850 / 850 1450 / 1450 Balance 1770 / 1770 -510 / -510 Laboratory Tests Past 24 Hrs 02/18/19 02/18/19 06:15 06:15 WBC 7.5 RBC 3.71 L Hgb 10.9 L Hct 35.2 L MCV 94.9 MCH 29.4 MCHC 31.0 L RDW 14.3 RDW Differential 46.6 H Plt Count 231 MPV 9.8 Immature Gran % (Auto) 0.300 Neut % (Auto) 75.4 H Lymph % (Auto) 14.7 L [place] % (Auto) 8.8 Eos % (Auto) 0.7 Baso % (Auto) 0.1 Absolute Neuts (auto) 5.6 Absolute Lymphs (auto) 1.10 Total Counted Not Reportable Vitamin D 25-Hydroxy 18.5 L POC Glucose 02/18/19 02/18/19 02/17/19 11:51 06:34 21:52 POC Glucose 143 H 190 H 161 H 02/17/19 15:20 POC Glucose 149 H Discharge Diet: 1800 Calorie Control Diet Discharge Activity: Use Walker, Use Crutches Weight Bearing Status: No weight bearing Keep extremity elevated above heart level: Right Leg Call your doctor if your incision/area has: Continuous Slow Oozing, Sudden Increased Bleeding, Increased Pain/ Swelling Call your doctor if you observe: Fever of 101 or Higher Home Medications: Medications to take at Discharge Metformin HCl [Glucophage] 1,000 mg PO BIDCM 09/21/16 Albuterol Inhaler [Ventolin Hfa] 2 puff INHALATION Q4H PRN PRN #1 inhaler 01/13/19 Sertraline HCl 50 mg PO DAILY 01/13/19 Lisinopril [Zestril] 10 mg PO DAILY 02/10/19 Enoxaparin [Lovenox] 40 mg SC DAILY@1000 syringe 02/18/19 Ergocalciferol [Vitamin D] 50,000 unit PO Q7D capsule 02/18/19 Ibuprofen 3 - 4 mg PO TID PRN #1 tablet 02/18/19 Meloxicam 7.5 mg PO DAILY #0 02/18/19 Oxycodone HCl/Acetaminophen [Percocet 10-325 mg Tablet] 1 tablet PO Q4H PRN 1 Days #1 tablet 02/18/19 Following Prescrptions Were Given to Patient: Oxycodone HCl/Acetaminophen [Percocet 10-325 mg Tablet] 1 tablet PO Q4H PRN 1 Days #1 tablet PRN Reason: Pain Ibuprofen 3 - 4 mg PO TID PRN #1 tablet PRN Reason: Pain Primary Care Physician: Prateek Honeycutt MD [Primary Care Provider] - Within 2 Weeks Please Follow Up With: Zenobia Warner DPM When: 1 week Disposition: Home Minutes spent on discharge:: 28 Patient Condition:: Good Medical Necessity - Tobacco Use Smoking Status: Former smoker Tobacco Use: Cigarettes Meaningful Use Info Meaningful Use Diagnoses (Choose all that apply): None applicable Code Visit OBSV E&M: 46890 Observation care discharge
[2019-02-18 16:25] LABS: Bedside Glucose 143 mg/dL (70-110)
--- NOTE | 2019-02-18 17:20 | DCINST_ITS ---
Discharge Diet: 1800 Calorie Control Diet Discharge Activity: Use Walker, Use Crutches Weight Bearing Status: No weight bearing Keep extremity elevated above heart level: Right Leg Call your doctor if your incision/area has: Continuous Slow Oozing, Sudden Increased Bleeding, Increased Pain/ Swelling Call your doctor if you observe: Fever of 101 or Higher, Calf discomfort, Uncontrolled pain Cleanse incision/area with: Keep Dressing Clean & Dry Allergies/Adverse Reactions: Allergies Penicillins Allergy (Verified 02/10/19 13:36) Hives angioedema as well etodolac [From Lodine] Adverse Reaction (Intermediate, Verified 02/10/19 13:36) Chest tightness bupropion HCl [From Wellbutrin] Adverse Reaction (Verified 02/10/19 13:36) suicidal suicidal metoclopramide [From Reglan] Adverse Reaction (Verified 02/10/19 13:36) Other ANXIETY prochlorperazine [From Compazine] Adverse Reaction (Verified 02/10/19 13:36) Other ANXIETY Medications to take at Discharge Metformin HCl [Glucophage] 1,000 mg PO BIDCM 09/21/16 Albuterol Inhaler [Ventolin Hfa] 2 puff INHALATION Q4H PRN PRN #1 inhaler 01/13/19 Sertraline HCl 50 mg PO DAILY 01/13/19 Lisinopril [Zestril] 10 mg PO DAILY 02/10/19 Enoxaparin [Lovenox] 40 mg SC DAILY@1000 syringe 02/18/19 Ergocalciferol [Vitamin D] 50,000 unit PO Q7D capsule 02/18/19 Ibuprofen 3 - 4 mg PO TID PRN #1 tablet 02/18/19 Meloxicam 7.5 mg PO DAILY #0 02/18/19 Oxycodone HCl/Acetaminophen [Percocet 10-325 mg Tablet] 1 tablet PO Q4H PRN 1 Days #1 tablet 02/18/19 The following prescriptions were given: Oxycodone HCl/Acetaminophen [Percocet 10-325 mg Tablet] 1 tablet PO Q4H PRN 1 Days #1 tablet PRN Reason: Pain Ibuprofen 3 - 4 mg PO TID PRN #1 tablet PRN Reason: Pain Primary Care Physician: Prateek Honeycutt MD [Primary Care Provider] - Within 2 Weeks Test Results: Test results from this visit will be discussed in further detail at your follow- up appointment, if applicable. Please Follow Up With: Zenobia Warner DPM When: 1 week. [facility] if questions / concerns: [phone] Proposed Discharge Date: 02/18/19
== END 2019-02-18 17:30 | disposition home or self-care (01) ==
LOC: SDC 13:27
PROVIDERS: Anesthesiology; Admitting Provider Podiatrist; Family Provider Family Medicine; PCP Family Medicine; Referring Provider Podiatrist; Visit Provider Podiatrist
PROC: (CPT 28725; principal; 2019-02-17 07:15)
DX: M96.0 Pseudarthrosis after fusion or arthrodesis (principal); Y83.8 Other surgical procedures as the cause of abnormal reaction of the patient, or of later complication, without mention of misadventure at the time of the procedure; M21.41 Flat foot [pes planus] (acquired), right foot; M19.271 Secondary osteoarthritis, right ankle and foot; E11.9 Type 2 diabetes mellitus without complications; F32.9 Major depressive disorder, single episode, unspecified; Z79.84 Long term (current) use of oral hypoglycemic drugs; Z79.899 Other long term (current) drug therapy; I10 Essential (primary) hypertension; E66.9 Obesity, unspecified; Z68.43 Body mass index [BMI] 50.0-59.9, adult; Z71.3 Dietary counseling and surveillance; F17.210 Nicotine dependence, cigarettes, uncomplicated
CPT/HCPCS: 01480; 28725; 28740; 64447; 36415; 73590; 73620; 73630; 76000; 81025; 82306; 82962; 85025; 86850; 86900; 96372; 96374; 96375; 96376; 99218; 99406; C1713; J7120; A4216; G0378; G0379; J2405

== ENCOUNTER 2019-07-10 15:20 | Emergency (ER) | payer MEDICAID, SELFPAY ==
[2019-02-17 13:58] VITALS: BMI 58.0
[2019-07-10 15:22] VITALS: BP 162/100; PULSE 82; RESP 18; TEMP 36.2; O2SAT 97; BMI 56.2
--- NOTE | 2019-07-10 17:08 | CT_ITS ---
STUDY: CT ABDOMEN AND PELVIS WITHOUT CONTRAST REASON FOR EXAM: Female, 29 years old. Pain RADIATION DOSAGE (If Supplied By Facility): DLP = ( 1922.73 ) mGycm TECHNIQUE: Transaxial images were obtained from the dome of the diaphragm to the symphysis pubis without oral contrast, and without intravenous contrast. Sagittal and coronal images were reconstructed. Individualized dose optimization techniques were used for this CT. COMPARISON: CT abdomen pelvis June 14, 2018 FINDINGS: Evaluation of the abdominal viscera is limited in the absence of intravenous contrast. There is a stable left base 1.3 cm nodule. The visualized portions of the heart and pericardium are within normal limits. There are no calcified gallstones present. There is decreased hepatic attenuation. The liver is enlarged. No hepatic lesions are present. The spleen is normal in size. The pancreas demonstrates an unremarkable unenhanced appearance. There is a stable left adrenal 1.1 cm adenoma. The right adrenal gland is normal. There are no obstructing renal stones. There is no hydronephrosis. Normal visualized stomach. There is no bowel obstruction or inflammation. The appendix is not visualized, but there are no findings to suggest acute appendicitis. The aorta is normal in caliber. There is no abdominal or pelvic free air, free fluid, fluid collection or lymphadenopathy. There are no destructive osseous lesions. CT/Abdomen/Pelvis without Cont IMPRESSION: No acute abdominal or pelvic pathology demonstrated on this noncontrast CT. Fatty liver and hepatomegaly. 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 Electronically Signed: Usman Will, at 18:33 EDT Tel , Service support ,
--- NOTE | 2019-07-10 17:09 | ED.DCSUM_ITS ---
History of Present Illness Chief Complaint: Abd Pain Detail of Chief Complaint: Right side Informant: Patient Onset: Today - Nausea and vomiting started this morning., Days - Right side abdominal pain/right flank pain for the past 2 to 3 days. Context: Sudden Onset Timing: Continuous, Waxes and wanes Quality: Pain Location: Right flank and abdomen Current Severity: Mild Maximum Severity: Moderate Worsened by: Nothing Relieved by: Nothing Associated Symptoms: Nausea and vomiting Narrative: Patient is a morbidly obese 29-year-old woman with a regular menstrual period who presents with right flank and right-sided abdominal pain that started 2 to 3 days ago. She has history of renal/ureteral calculi. She denies dysuria, frequency, urgency or hematuria. She denies fever, chills or night sweats. She denies respiratory discomfort or pleuritic pain. She is status post cholecystectomy by Dr. Paul 2012. She reports nausea and vomiting several times that started this morning. Nothing makes the pain better or worse. There is no history of trauma. Prior similar symptoms: Yes - Ureterolithiasis Recent Illness/Hospitalization: No - Past Medical History (1) Calcaneus fracture, right Status: Chronic Comment: non healing (2) HTN (hypertension) Status: Chronic (3) Kidney stones Status: Chronic (4) Pes planus of right foot Status: Chronic (5) Secondary osteoarthritis, right ankle and foot Status: Chronic (6) Type 2 diabetes mellitus Status: Chronic Past Medical History - Allergies and Home Meds Allergies/Adverse Reactions: Allergies Penicillins Allergy (Verified 07/10/19 15:24) Hives angioedema as well etodolac [From Lodine] Adverse Reaction (Intermediate, Verified 07/10/19 15:24) Chest tightness bupropion HCl [From Wellbutrin] Adverse Reaction (Verified 07/10/19 15:24) suicidal suicidal metoclopramide [From Reglan] Adverse Reaction (Verified 07/10/19 15:24) Other ANXIETY prochlorperazine [From Compazine] Adverse Reaction (Verified 07/10/19 15:24) Other ANXIETY Primary Care Physician: Prateek Honeycutt MD [Primary Care Provider] - Surgical History: cholecystectomy, - - 3 previous right foot surgeries Right gastrocnemius recession, calcaneal cuboid joint arthrodesis, fracture fragment excision (Dr. Warner 11/05/2017, [address] Lindo in prior years) Lives: Spouse/ Significant Other, With Family Smoking Status: Current every day smoker Alcohol: None Drugs: None - Family History Maternal Family History: Reports: No pertinent history Review of Systems General: Denies: Chills, Fever, Sweats Eyes: Denies: Visual changes - bilaterally, Blurred Vision - bilaterally, Diplopia ENT: Denies: Bilateral ear pain, Rhinorrhea, Sore throat Cardiovascular: Denies: Chest pain, Palpitations Respiratory: Denies: Dyspnea, Cough, Dyspnea on exertion, Orthopnea Gastrointestinal: Reports: Abdominal pain, Nausea, Vomiting, Diarrhea - 1 loose stool. Denies: Constipation, Melena, Hematochezia Genitourinary: Denies: Dysuria, Hematuria, Frequency Musculoskeletal: Reports: Back pain. Denies: Myalgias, Arthralgias, Neck pain, Swelling, Extremity Pain, -, - Skin: Denies: Rash, Wounds Neurological: Denies: Headache, Weakness, Numbness Psych: Reports: Depression Hematologic: Denies: Easy bruising, Easy bleeding Allergy: Denies: Uticaria, Swelling of the mouth Physical Exam Vital Signs/Narrative: Vital Signs Temp Pulse Resp BP Pulse Ox 07/10/19 15:22 97.1 F L 82 18 162/100 H 97 Inital Vital Signs reviewed: Yes General: Well nourished, Well developed, Obese, Acute Distress Head: Normocephalic, Atraumatic Eyes: Perrl, EOMI ENT: No rhinorrhea, Dry mucous membranes Neck: Supple, Nontender, No lymphadenopathy, No JVD Cardiovascular: Regular rate, Regular rhythm, No murmurs, Normal S1, Normal S2 Respiratory: No distress, CTA bilaterally, Chest nontender Abdomen: Soft, Nontender, Nondistended, Normal bowel sounds, No masses Back: Nontender, Normal Inspection. Negative for: CVA tenderness Extremities: Nontender, No edema Skin: Normal color, No rash Neurological: Alert, Oriented x3, Cranial nerves II-XII grossly intact, Normal Strength, Normal Sensation Psychological: Normal affect, Normal Mood Diagnostic/Tx/Re-eval Impressions Abdomen/Pelvis CT 07/10/19 17:08 IMPRESSION: No acute abdominal or pelvic pathology demonstrated on this noncontrast CT. Fatty liver and hepatomegaly. 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 Electronically Signed: Usman Will, at 18:33 EDT Tel , Service support , 07/10/19 17:08 Abdomen/Pelvis without Cont [CT] Stat Laboratory Results 07/10/19 07/10/19 07/10/19 15:32 17:16 17:16 WBC 9.6 RBC 4.30 Hgb 12.7 Hct 39.4 MCV 91.6 MCH 29.5 MCHC 32.2 RDW Std Deviation 44.9 H RDW Coeff of Sarah 13.2 Plt Count 350 MPV 9.4 Immature Gran % (Auto) 0.400 Neut % (Auto) 69.2 Lymph % (Auto) 25.0 Solano % (Auto) 3.8 Eos % (Auto) 1.3 Baso % (Auto) 0.3 Absolute Neuts (auto) 6.7 Absolute Lymphs (auto) 2.41 Nucleated RBC % 0 Differential Comment Platelet Estimate ADEQUATE RBC Morphology NORM C+C Sodium 138 Potassium 3.8 Chloride 106 Carbon Dioxide 26.0 Anion Gap 6 BUN 10 Creatinine 1.03 H Estim Creat Clear Calc 76.96 Est GFR (MDRD) Af Amer 80 Est GFR (MDRD) Non-Af 66 BUN/Creatinine Ratio 9.7 L Glucose 119 H Calcium 8.9 Serum , Qual Urine Color Yellow Urine Clarity Sl. Cloudy Urine pH 7.0 Ur Specific Avery 1.010 Urine Protein 15 H Urine Glucose (UA) Normal Urine Ketones Negative Urine Occult Blood 250 H Urine Nitrite Negative Urine Bilirubin Negative Urine Urobilinogen Normal Ur Leukocyte Esterase 25 H Urine RBC 5-10 SEEN Urine WBC 5-10 SEEN Ur Squamous Epith Cells 0-5 SEEN Urine Bacteria 1+ Urine Mucus 0 SEEN 07/10/19 17:16 WBC RBC Hgb Hct MCV MCH MCHC RDW Std Deviation RDW Coeff of Sarah Plt Count MPV Immature Gran % (Auto) Neut % (Auto) Lymph % (Auto) Solano % (Auto) Eos % (Auto) Baso % (Auto) Absolute Neuts (auto) Absolute Lymphs (auto) Nucleated RBC % Differential Comment Platelet Estimate RBC Morphology Sodium Potassium Chloride Carbon Dioxide Anion Gap BUN Creatinine Estim Creat Clear Calc Est GFR (MDRD) Af Amer Est GFR (MDRD) Non-Af BUN/Creatinine Ratio Glucose Calcium Serum , Qual NEGATIVE Urine Color Urine Clarity Urine pH Ur Specific Avery Urine Protein Urine Glucose (UA) Urine Ketones Urine Occult Blood Urine Nitrite Urine Bilirubin Urine Urobilinogen Ur Leukocyte Esterase Urine RBC Urine WBC Ur Squamous Epith Cells Urine Bacteria Urine Mucus T is unremarkable. UA is suggestive of urinary tract infection. Will treat with antibiotics. Her CBC and electric panel unremarkable. test was negative. The exact cause of her flank pain is unknown. Clinically she does not have pyelonephritis. - Medical Decision Making With nonreproducible pain and history of ureterolithiasis concern patient has obstructing stone. CBC was obtained to assess white count and H&H. Basic metabolic panel was obtained to assess electrolytes, blood sugar since she is diabetic and has not checked her blood sugar recently as well as renal function. UA was obtained to assess for infection. Because she has history of diabetes, hypertension she was medicated with 4 mg of Zofran and 4 mg of morphine. She was not given Toradol. CT of the abdomen was ordered without contrast. Since CAT scan reveals no acute abnormality will discharge with antibiotics for urinary tract infection. ED Disposition - Plan for ED Patient: Disposition: Home or Assisted Living Diagnosis: Urinary tract infection, Acute right flank pain, Right-sided abdominal pain of unknown cause Instructions: Bladder Infection, Female (Adult) Prescriptions: Nitrofurantoin Macrocrystals [Macrobid] 100 mg PO Q12 #10 cap [id number] Referrals: Prateek Honeycutt MD [Primary Care Provider] - 3-5 Days if not improving Additional Instructions: [facility] your designated pharmacy of choice.
[2019-07-10 17:14] LABS: Mucous, Urine 0 SEEN /hpf (<or=2+)
[2019-07-10 17:17] LABS: Color, Urine Yellow (Yellow); Glucose, Dipstick Normal (Normal); Ketone-Dipstick Negative (Negative); Leukocyte Esterase-Dipstick 25 /ul (Negative); Nitrite-Dipstick Negative (Negative); Occult Blood-Urine 250 /ul (Negative); Protein-Dipstick 15 mg/dl (Negative); Urine Bilirubin Dipstick Negative (Negative); Urine Clarity Sl. Cloudy (Clear); Urine Urobilinogen Normal (Normal)
[2019-07-10] MEDS: Ondansetron 4 MG/2 ML Vial IV (17:19)
[2019-07-10] MEDS: Morphine 4 MG/ML Syringe IV ×2 (17:20→18:36)
[2019-07-10] MEDS: 0.9% Normal Saline 1,000 ML 250 ML IV (17:21)
[2019-07-10 17:22] VITALS: RESP 18
[2019-07-10 17:37] LABS: Absolute Lymphocyte Count 2.41 X10^3/uL (0.83-4.51); Absolute Neutrophil Count 6.7 X10^3/uL (2.0-7.7); Basophil# 0.03 X10^3/uL; Basophil% 0.3 % (0-1); Eosinophil# 0.13 X10^3/uL; Eosinophils% 1.3 % (0-5); Hematocrit 39.4 % (37-47); Hemoglobin 12.7 g/dL (12.0-15.0); Lymphocyte # 2.41 X10^3/ul (4.0); Mean Corp Hgb Conc 32.2 g/dL (32-36); Mean Corpuscular Hgb 29.5 pg (27.0-32.0); Mean Corpuscular Volume 91.6 fL (81-99); Mean Platelet Vol. 9.4 fl (6.2-12.0); Monocyte# 0.37 X10^3/uL; Monocyte% 3.8 % (0-10); NRBC Flagged by Analyzer 0 % (0-5); Neutrophil # 6.65 X10^3/uL (2.7-7.7); Neutrophil % 69.2 % (47-70); POSITIVE MORPHOLOGY YES; Platelet Count 350 K/mm3 (150-450); RBC Distribution Width CV 13.2 % (11.6-14.6); RBC Distribution Width SD 44.9 fl (35.1-43.9); White Blood Count 9.6 K/mm3 (4.4-11.0)
[2019-07-10 17:44] LABS: Bacteria 1+ /hpf (None Seen); Red Blood Cells-Urine 5-10 SEEN /hpf (0-5); Squamous Epithelial Cells - UA 0-5 SEEN /hpf (5-10); White Blood Cells 5-10 SEEN /hpf (0-5)
[2019-07-10 17:48] LABS: BUN 10 mg/dL (7-18); Creatinine, Serum 1.03 mg/dL (0.55-1.02); EST Glomerular Filtration Rate 66 mL/min (>60); Estimated Creatinine Clearance 76.96 ml/min; Glucose 119 mg/dL (74-106)
[2019-07-10 17:49] LABS: Anion Gap 6 (5-15); BUN/Creat Ratio 9.7 RATIO (10-20); Calcium,Total 8.9 mg/dL (8.5-10.1); Chloride 106 mmol/L (98-107); Est Glom Filt Rate - Afr Amer 80 mL/min (>60); Potassium 3.8 mmol/L (3.5-5.1); Sodium Level 138 mmol/L (136-145)
[2019-07-10 17:58] LABS: Internal QC Validated? YES +Cl - CLEAR BKGD; Pregnancy, Serum, hCG Quali. NEGATIVE Negative
[2019-07-10 18:44] LABS: Differential Indicated SCAN CRITERIA MET
[2019-07-10 18:45] LABS: Platelet Estimate ADEQUATE (ADEQ); Red Cell Morphology NORM C+C NORMAL (NORM C&C)
[2019-07-10 19:33] VITALS: BP 146/87; RESP 18; O2SAT 98
[2019-07-10] MEDS: Nitrofurantoin Macrocrystals 100 MG Capsule PO (20:45)
[2019-07-10 20:46] VITALS: BP 145/88; PULSE 79; RESP 16; O2SAT 99
== END 2019-07-10 20:55 | disposition home or self-care (01) ==
PROVIDERS: Emergency Provider Emergency Medicine; Family Provider Family Medicine; PCP Family Medicine
DX: N39.0 Urinary tract infection, site not specified (principal); R10.9 Unspecified abdominal pain; E11.9 Type 2 diabetes mellitus without complications; I10 Essential (primary) hypertension; F17.200 Nicotine dependence, unspecified, uncomplicated; Z90.49 Acquired absence of other specified parts of digestive tract; Z88.0 Allergy status to penicillin; M19.271 Secondary osteoarthritis, right ankle and foot; M21.41 Flat foot [pes planus] (acquired), right foot; E66.01 Morbid (severe) obesity due to excess calories; Z87.442 Personal history of urinary calculi; K76.0 Fatty (change of) liver, not elsewhere classified
CPT/HCPCS: 74176; 80048; 81001; 84703; 85025; 96361; 96374; 96375; 96376; 99284; J7030; J2405

== ENCOUNTER → 2019-09-14 13:48 | Outpatient (CLI) | payer MEDICAID, SELFPAY ==
--- NOTE | 2019-09-14 13:50 | CT_ITS ---
STUDY: CT RIGHT ANKLE WITHOUT CONTRAST REASON FOR EXAM: Right foot pain. TECHNIQUE: Thin section transaxial imaging of the ankle was obtained, with sagittal and coronal reconstructed images. Individualized dose optimization techniques were used for this CT. COMPARISON: Radiographs 02/17/2019. FINDINGS: Normal visualized distal tibia and fibula. Normal tibiotalar articulation and talar dome. There are 2 orthopedic screws transfixing the posterior subtalar articulation with osseous bridging at the lateral aspect (sagittal reconstructions 21, 22; coronal reconstruction 63, 64) of approximately 20% of the articulation. There are 2 kedar transfixing the calcaneocuboid articulation without solid osseous bridging (sagittal reconstructions 16-25). There is a well-defined ossicle at the anterior superior calcaneal process (sagittal reconstruction 22). There is an os trigonum. Normal navicular. Normal talonavicular articulation. Normal navicular-cuneiform, cuneiform tarsal bones and intercuneiform articulations. Normal tarsometatarsal articulations and metatarsals. Normal metatarsophalangeal joints, interphalangeal joints and phalanges. There is soft tissue swelling/scarring at the lateral aspect of the hindfoot/midfoot. 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 No demonstrated solid osseous bridging of the calcaneocuboid arthrodesis. Electronically Signed: Amadeo Sainz MD at 10:35 EDT Tel , Service support ,
== END ==
PROVIDERS: Family Provider Family Medicine; PCP Family Medicine; Referring Provider Podiatrist; Visit Provider Podiatrist
DX: M96.0 Pseudarthrosis after fusion or arthrodesis (principal); S92.014A Nondisplaced fracture of body of right calcaneus, initial encounter for closed fracture; M79.671 Pain in right foot
CPT/HCPCS: 73700

== ENCOUNTER → 2019-09-21 10:47 | Outpatient (CLI) | payer MEDICAID, SELFPAY ==
[2019-09-21 13:41] LABS: Vitamin D,25 Hydroxy 31.6 ng/mL (29.95-100.01)
== END ==
PROVIDERS: Family Provider Family Medicine; PCP Family Medicine; Referring Provider Podiatrist; Visit Provider Podiatrist
DX: E55.9 Vitamin D deficiency, unspecified (principal); M96.0 Pseudarthrosis after fusion or arthrodesis
CPT/HCPCS: 36415; 82306

== ENCOUNTER 2019-10-06 05:49 | Day surgery (SDC) | payer MEDICAID, SELFPAY ==
[2019-10-06 06:19] LABS: Internal QC Validated? YES +Cl - CLEAR BKGD; Pregnancy, Urine Negative Negative
[2019-10-06 06:38] VITALS: BP 127/74; PULSE 113; RESP 16; TEMP 36.4; O2SAT 97; BMI 54.9
[2019-10-06 06:45] LABS: Bedside Glucose 149 mg/dL (70-110)
[2019-10-06] MEDS: Lactated Ringers 1,000 ML 100 ML IV (07:04)
--- NOTE | 2019-10-06 07:30 | RAD_ITS ---
STUDY: X-RAY - RIGHT FOOT CLINICAL: Female, 29 years old. Intraoperative imaging for apheresis. TECHNIQUE: 8 coned-down view(s) of the foot. COMPARISON: Comparison is made with prior study dated February 17, 2019. FINDINGS: Intraoperative imaging provided for revision of the arthrodesis with bone aspirate. The hardware is unchanged. RAD/Foot min 3 Views IMPRESSION: Intraoperative imaging provided for revision of arthrodesis and bone aspirate and bone graft. Electronically Signed: Uriel Najera, at 13:11 EST , Service support ,
--- NOTE | 2019-10-06 07:30 | BON_PTH ---
PATIENT: TODD NESS LOC: [facility] U#:[id number] AGE/SX: 29/F ROOM: RE10/06/[address]: Dr. Zenobia Warner DPM : 1990 BED: DIS: 10/06/2019 SPEC #: [id number] RECD: 10/06/19 10:50 STATUS: ARIELLE YUNI #: [id number] ANTHONY: 10/06/19 07:[address]: Zenobia Warner DEPT: SURGICAL PATHOLOGY RECD BY: Babatunde Rockwell ENTERED: 10/06/19 11:34 SP TYPE: Bone OTHR DR: Dr. Prateek Honeycutt MD Tissues: A - Bone of foot, NOS B - Bone of foot, NOS Procedures: Decalcification bone/plaque Surgery Specimen Level IV HEADER OPERATION: Revision arthrodesis with bone marrow aspirate PRE-OP DIAGNOSIS: Subtalar joint nonunion; calcaneal cuboid joint nonunion TISSUE SUBMITTED: A - Subtalar joint, B - Calcaneal cuboid joint bone MICROSCOPIC DIAGNOSIS A. Subtalar joint, biopsy: Fragments of bone and fibrous tissue. No evidence of inflammation. B. Calcaneal cuboid joint bone, biopsy: Reparative and reactive change. No evidence of inflammation. YASMANI:amira 10/11/19 MICROSCOPIC DESCRIPTION Slides are reviewed. GROSS DESCRIPTION A - Received in fixative is one container labeled with the patient's name and designated right subtalar joint. The specimen consists of a core biopsy of bennett bone measuring 0.8 cm in length and 0.3 cm in diameter. The specimen is totally submitted in one cassette after decalcification. B - Received in fixative is one container labeled with the patient's name and designated calcaneal cuboid joint bone. The specimen consists of a core biopsy of bennett bone measuring 0.8 cm in length and 0.3 cm in diameter. The specimen is totally submitted in one cassette after decalcification. / YASMANI:amira 10/06/19 TC:5 CPT: 24770 x2, 20696 x2
[2019-10-06] MEDS: Bupivacaine Mpf 0.5% 30 ML VIAL (07:55)
[2019-10-06 09:42] VITALS: BP 111/73; BP 127/74; PULSE 98; RESP 16; TEMP 36.3; O2SAT 92
--- NOTE | 2019-10-06 09:44 | PCM.DC.POD ---
Discharge Diet: Carb Control Diet Discharge Activity: Use Walker, Use Crutches Ice area for (Minutes): 15 - place behind knee Weight Bearing Status: No weight bearing Keep extremity elevated above heart level: Right Leg Call your doctor if your incision/area has: Continuous Slow Oozing, Sudden Increased Bleeding, Increased Pain/ Swelling, Increased Redness, Foul Smelling Discharge, Swelling at the incision site Call your doctor if you observe: Fever of 101 or Higher, Calf discomfort, Uncontrolled pain Cleanse incision/area with: Keep Dressing Clean & Dry Allergies/Adverse Reactions: Allergies Penicillins Allergy (Verified 10/03/19 15:06) Hives angioedema as well etodolac [From Lodine] Adverse Reaction (Intermediate, Verified 10/03/19 15:06) Chest tightness bupropion HCl [From Wellbutrin] Adverse Reaction (Verified 10/03/19 15:06) suicidal suicidal metoclopramide [From Reglan] Adverse Reaction (Verified 10/03/19 15:06) Other ANXIETY prochlorperazine [From Compazine] Adverse Reaction (Verified 10/03/19 15:06) Other ANXIETY Medications to take at Discharge metFORMIN HCl [Glucophage] 1,000 mg PO BIDCM 09/21/16 Albuterol Inhaler [Ventolin Hfa] 2 puff INHALATION Q4H PRN PRN #1 inhaler 01/13/19 Ergocalciferol [Vitamin D] 50,000 unit PO Q7D cap 02/18/19 Meloxicam 7.5 mg PO DAILY #0 02/18/19 Famotidine 20 mg PO DAILY 07/10/19 sertraline 50 mg tablet 100 mg PO DAILY tab 09/25/19 Lisinopril [Zestril] 10 mg PO DAILY 10/03/19 Primary Care Physician: Prateek Honeycutt MD [Primary Care Provider] - Test Results: Test results from this visit will be discussed in further detail at your follow-up appointment, if applicable. Please Follow Up With: Zenobia Warner DPM When: 1 week at [facility]. Call [phone] sooner if questions. Proposed Discharge Date: 10/06/19
--- NOTE | 2019-10-06 09:50 | OP.PCM_ITS ---
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 She was transported to the PACU with vital signs stable and vascular status intact to the right lower extremity. She will be discharged home upon continued stability. Postoperative x-rays were reviewed prior to leaving the operating room with well aligned arth rodesis sites with hardware remaining intact. No acute injuries are noted. Her specimen results are pending including bone biopsies to each revisional arthrodesis site that were sent to microbiology and pathology. Her postoperative orders were entered electronically. risk control representative: none - Surgeon: Zenobia Warner DPM. Bond Trader: Osvaldo Casarez PGY1 Type of Anesthesia:: General, Local - preoperative injection: One-to-one mixture of 1% lidocaine plain 0.5% Marcaine plain administered in right ankle block fashion Intraoperative: One-to-one mixture of 1% lidocaine plain and 0.5% Marcaine plain administered and local infiltrative manner to the bone marrow aspirate harvest site and Right foot procedure sites, 15 cc Specimen's removed: 1. Calcaneal cuboid joint arthrodesis bone biopsy sent to microbiology including aerobic, anaerobic, acid-fast, fungal. 2. Calcaneal cuboid joint arthrodesis bone biopsy sent to pathology. 3. Subtalar joint arthrodesis bone biopsy sent to microbiology including aerobic, anaerobic, acid- fast, fungal. 4. Subtalar joint arthrodesis bone biopsy sent to pathology Estimated Blood Loss (mL): < 50 mL Description of Procedure: Indications: This is a 29-year-old female with significant past medical history of diabetes, obesity, hypertension, depression, vitamin D deficiency, and smoking history (cessation recommended) continues to have right foot pain. She has a history of remote anterior process of the calcaneus fracture with associated degeneration of the calcaneocuboid joint with previous excision of the fracture fragment and arthrodesis with prior revision. 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 Her most recent CT scan failed to demonstrate osseous bridging at the calcaneocuboid joint and there is only 20% arthrodesis success noted at the posterior facet of the subtalar joint. There is no hardware loosening or malfunction. The arthrodesis sites appear well approximated and compressed. Preoperative x-rays also confirm the approximation of the arthrodesis sites and proper hardware placement. She is unable to bear weight, wear shoes, or tolerate touch to this injury site. She continues to fail conservative care including offloading, activity modification, shoe gear change, custom bracing ([place]), strapping, oral pain and anti- inflammatory medications. Her vitamin D is also managed via pharmacological, diet, and sun exposure modifications. A referral to endocrinology has also been initiated. Her pain and dysfunction is affecting her daily activities. Clinically, her neurovascular status is intact and she has pain on palpation to the calcaneocuboid and subtalar joints of the right lower extremity. Her ankle joint dorsiflexion remains improved since her previous gastrocnemius recession. The preoperative indications, planned procedure, possible benefits, risks, complications, and anticipated healing time management were discussed in detail with the patient. She understands and elects to proceed with surgery at this time. She understands potential complications include the following but are not limited to: pain, scarring, infection, swelling, loss of feeling, blood clots, allergic reaction, hardware failure, delayed or nonhealing, loss of limb, function, life, need for additional surgery. The goal of the surgery is to reduce pain and improve stability of the calcaneocuboid and subtalar joints. The surgical limb and consent were signed. I answered all of her questions to her satisfaction. She did have a preoperative clearance performed by nurse practitioner Masha Umaña, and this was reviewed. A history and physical exam was performed as was her diagnostic data including CBC, and CMP. She started dialysis clinical manager intervention to reduce weight and improve diabetic control. I answered all of her questions and she elects to proceed at this time. Procedure in detail: The patient was transported to the operating room via cart and placed on the operating table and placed in the supine position. Final verification the patient, surgery, limb designation was performed. IV antibiotics was administered preoperatively including clindamycin; this patient has a penicillin allergy. A well-padded pneumatic right thigh tourniquet was placed. Her right limb was bumped to allow good exposure. The local anesthetic was administered by the podiatry team as noted above. General anesthesia was initiated. The right lower extremity was prepped and draped in the usual aseptic manner. Bone marrow aspirate was harvested from the right proximal medial tibial tuberosity. A 1 cm linear incision was made just medial to the tibial tuberosity through the skin. Blunt dissection was performed down to the tibia in which a bone marrow aspirate trocar was entered. Care was taken at this point and throughout the remainder of the surgery to identify, protect, and retract all neurovascular structures. Approximately 40 cc of bone marrow aspirate was extracted and set aside for future surgical use. This was set aside later for application to the revisional arthrodesis sites. This small wound was copiously irrigated with normal saline and the skin was reapproximated with 4-0 nylon. A dressing of gauze and Tegaderm were applied. Next, the right lower extremity was exsanguinated with an Esmarch bandage and the tourniquet was inflated at this time. The surgery proceeded in the following matter: Attention was next directed to the right foot in which a curvilinear incision was made just distal to the fibula about 3 cm in length utilizing the previous cicatrix to gain good exposure of the posterior facet of the subtalar joint. Blunt dissection was performed down to the subcutaneous layer and with scar tissue from her previous surgeries was identified. Care was taken to identify, protect and retract all neurovascular structures and tendons at this point and throughout the remainder of surgery. Proper anatomic location was confirmed with intraoperative fluoroscopy and a Nirav needle biopsy device was entered into the posterior facet of the subtalar joint and the specimens were obtained. This was sent to microbiology and pathology to rule out any infectious process. Next, a drill bit was used to debride and stimulate healing at the posterior facet of the subtalar joint non union site taking care to enter from several different angles under live fluoroscopy. Next 3 cc of augment bone graft that was enriched with growth factors was applied into this debrided nonunion site. After this settled, additional bone marrow aspirate was also applied to enhance the healing process and success. A separate dorsal lateral and lateral right foot incision was made to gain entry to the calcaneocuboid joint. Proper placement was confirmed with intraoperative fluoroscopy and the staple was seen during this dissection. Proper anatomic location was confirmed with intraoperative fluoroscopy and a Nirav needle biopsy device was entered into the calcaneal cuboid joint and the specimens were obtained. This was sent to microbiology and pathology to rule out any infectious process. Next, a drill bit was used to debride and stimulate healing at the calcaneal cuboid joint non union site taking care to enter from several different angles under live fluoroscopy. Next 3 cc of augment bone graft that was enriched with growth factors was applied into this debrided nonunion site. After this settled, additional bone marrow aspirate was also applied to enhance the healing process and success. Intraoperative fluoroscopy was utilized to confirm solid fixation was still achieved and there was no loosening or malfunction of the hardware. No acute injuries were noted. The surgical site was gently irrigated with saline with care taken not to wash away any of the bone graft or bone marrow aspirate application. The extensor digitorum brevis muscle belly was reapproximated with Vicryl. Deep closure was achieved with Vicryl suture. The tourniquet was deflated at this time and brisk capillary refill time was noted to all digits of the right foot. No pulsatile bleeding was noted. The skin was reapproximated with 4-0 nylon utilizing horizontal mattress and simple suture techniques. A postoperative dressing consisting of Adaptic, 4 x 4 gauze, and Kerlix was applied to the foot. She was further splinted with fiberglass posterior mold with the right lower extremity in a neutral position. This was padded well with webril. After procedure: The patient tolerated the procedure and anesthesia well. She was transferred to the PACU with vital signs stable and vascular status intact to the right lower extremity. She will be discharged home today upon continued stability. The patient was advised to ice and elevate for postoperative pain and inflammation control. She was provided with postoperative pain medication prescription and advised on proper and safe use. Smoking cessation, nutritional support, bone stimulator use, and vitamin D supplementation will be continued to optimize healing. She will keep her dressing and splint clean, dry, and intact until she follows up in clinic [facility]. Postoperative orders were entered electronically. Zeonbia Warner DPM, [facility] Grafts/Implants Used: cross medial augment - Complications none - Admit VTE Documentation VTE Present on Admission: No VTE Mechan Device Prophylaxis: SCD's VTE Pharm Prophylaxis ordered?: No Reason prophylaxis not ordered:: Treatment Not Indicated
[2019-10-06 10:00] VITALS: BP 107/64; BP 127/74; PULSE 98; RESP 16; O2SAT 92
[2019-10-06 10:15] VITALS: BP 115/67; BP 127/74; PULSE 98; RESP 16; O2SAT 94
[2019-10-06 10:30] VITALS: BP 105/66; BP 127/74; PULSE 92; RESP 16; TEMP 36.6; O2SAT 94
[2019-10-06] MEDS: HYDROcodone Bitartrate/Apap 5/325 Tablet PO (10:53)
[2019-10-06 12:27] VITALS: BP 105/80; BP 127/74; PULSE 112; RESP 20; TEMP 36.6; O2SAT 99
== END 2019-10-06 12:29 | disposition home or self-care (01) ==
LOC: SDC 05:49 → AC 05:50
PROVIDERS: Anesthesiology; Family Provider Family Medicine; PCP Family Medicine; Referring Provider Podiatrist; Visit Provider Podiatrist
PROC: (CPT 28725; principal; 2019-10-06 07:15)
DX: M96.0 Pseudarthrosis after fusion or arthrodesis (principal); Y83.8 Other surgical procedures as the cause of abnormal reaction of the patient, or of later complication, without mention of misadventure at the time of the procedure; E11.9 Type 2 diabetes mellitus without complications; I10 Essential (primary) hypertension; F41.9 Anxiety disorder, unspecified; F32.9 Major depressive disorder, single episode, unspecified; E66.01 Morbid (severe) obesity due to excess calories; Z68.43 Body mass index [BMI] 50.0-59.9, adult; E55.9 Vitamin D deficiency, unspecified; K21.9 Gastro-esophageal reflux disease without esophagitis; Z87.440 Personal history of urinary (tract) infections; Z87.442 Personal history of urinary calculi; Z86.2 Personal history of diseases of the blood and blood-forming organs and certain disorders involving the immune mechanism; Z79.84 Long term (current) use of oral hypoglycemic drugs; Z79.899 Other long term (current) drug therapy; F17.210 Nicotine dependence, cigarettes, uncomplicated
CPT/HCPCS: 01480; 28725; 28740; 73630; 76000; 81025; 82962; 87015; 87070; 87075; 87102; 87116; 87176; 87205; 87206; 88304; 88305; 88311; J7120; J2405

== ENCOUNTER 2020-01-14 16:44 | Emergency (ER) | payer MEDICAID, SELFPAY ==
[2020-01-14 16:47] VITALS: BP 153/114; PULSE 134; RESP 20; TEMP 37.1; O2SAT 96; BMI 58.5
--- NOTE | 2020-01-14 16:58 | EKG12_ITS ---
Test Reason : COUGH Blood Pressure : / mmHG Vent. Rate : 120 BPM Atrial Rate : 120 BPM P-R Int : 128 ms QRS Dur : 078 ms QT Int : 302 ms P-R-T Axes : 047 021 025 degrees QTc Int : 426 ms Sinus tachycardia Otherwise normal ECG Confirmed by LISSETH RAY, GRICELDA ([id number]), book editor TERRANCE BARNARD ([id number]) on 01/17/2020 9:00:15 AM Referred By: MONICA Confirmed By:GRICELDA MONTANEZ MD
[2020-01-14 17:08] VITALS: O2SAT 99
[2020-01-14 17:10] VITALS: BP 153/114; PULSE 120; RESP 20; TEMP 37.1; O2SAT 100
--- NOTE | 2020-01-14 17:10 | RAD_ITS ---
STUDY: X-RAY CHEST REASON FOR EXAM: Female, 29 years old. Cough, chest pain. TECHNIQUE: Portable chest. COMPARISON: 01/13/2019. FINDINGS: The lungs are clear and expanded. There is no demonstrated pleural abnormality. Normal size heart. Normal mediastinum and marissa. Normal visualized pulmonary arteries. Normal visualized aortic arch and descending thoracic aorta. Normal visualized thoracic spine. Normal visualized ribs, clavicles, and shoulders. There is no demonstrated abnormality of the visualized soft tissue structures of the upper abdomen. RAD/Chest 1 View (Portable) IMPRESSION: Normal x-ray examination of the chest. Electronically Signed: Stella Simpson MD at 17:56 EST Tel , Service support ,
[2020-01-14] MEDS: 0.9% Normal Saline 1,000 ML 1000 ML IV (17:16)
[2020-01-14 17:27] LABS: Absolute Lymphocyte Count 0.79 X10^3/uL (0.83-4.51); Absolute Neutrophil Count 5.2 X10^3/uL (2.0-7.7); Basophil# 0.02 X10^3/uL; Basophil% 0.3 % (0-1); Eosinophil# 0.11 X10^3/uL; Eosinophils% 1.7 % (0-5); Hematocrit 38.9 % (37-47); Hemoglobin 12.6 g/dL (12.0-15.0); Lymphocyte # 0.79 X10^3/ul (4.0); Mean Corp Hgb Conc 32.4 g/dL (32-36); Mean Corpuscular Hgb 30.1 pg (27.0-32.0); Mean Corpuscular Volume 92.8 fL (81-99); Mean Platelet Vol. 9.5 fl (6.2-12.0); Monocyte# 0.37 X10^3/uL; Monocyte% 5.6 % (0-10); NRBC Flagged by Analyzer 0 % (0-5); Neutrophil # 5.22 X10^3/uL (2.7-7.7); Neutrophil % 79.2 % (47-70); Platelet Count 256 K/mm3 (150-450); RBC Distribution Width CV 12.8 % (11.6-14.6); RBC Distribution Width SD 43.6 fl (35.1-43.9); Red Blood Count 4.19 M/mm3 (4.2-5.4); White Blood Count 6.6 K/mm3 (4.4-11.0)
[2020-01-14] MEDS: Acetaminophen 500 MG Tablet 1000 MG PO (17:40)
[2020-01-14 17:50] LABS: Anion Gap 6 (5-15); BUN 9 mg/dL (7-18); BUN/Creat Ratio 8.9 RATIO (10-20); Calcium,Total 9.1 mg/dL (8.5-10.1); Chloride 107 mmol/L (98-107); Creatinine, Serum 1.01 mg/dL (0.55-1.02); EST Glomerular Filtration Rate 68 mL/min (>60); Est Glom Filt Rate - Afr Amer 82 mL/min (>60); Estimated Creatinine Clearance 78.48 ml/min; Glucose 239 mg/dL (74-106); Potassium 4.1 mmol/L (3.5-5.1); Sodium Level 138 mmol/L (136-145)
[2020-01-14 18:38] VITALS: BP 153/99; PULSE 110; RESP 18; TEMP 37.2; O2SAT 99
--- NOTE | 2020-01-14 18:52 | ED.VISSUMM ---
- ER Visit Summary Date of Service: 01/14/20 Chief Complaint: Cough History of Present Illness: The patient is a 29 F who presents with a cough that started yesterday. The cough is dry. No fevers or chills. Associated with chest pain that she describes as tightness and a headache. She has a history of diabetes, hypertension, and depression. She is a smoker. Her family was diagnosed with influenza. Physical Examination: Afebrile and vital signs unremarkable except blood pressure 153/114 and heart rate 134. Patient appears uncomfortable but not toxic or in distress. HEENT exam is unremarkable. Heart is tachycardic but regular. Lungs are diminished but otherwise clear. Abdomen is soft and nontender. Extremities show trace symmetric lower extremity edema without any tenderness. Skin appears normal. Test Results: EKG shows sinus rhythm at a rate of 120 with no signs of ischemia or infarction pattern. No S1 Q3 T3 pattern or signs of heart strain. Influenza test negative. Troponin normal. Glucose 239. CBC normal. Chest x-ray normal. Emergency Department Course and Treatment: Patient was treated with IV fluids and Tylenol. Repeat heart rate 110. Patient is stable. No new or worsening issues. I suspect she has influenza given her family was all positive. This is likely a false negative test. Patient has no complications or red flag features which would require hospitalization or further testing. She will be discharged home. Tylenol and/or Motrin as needed for pain or fevers. Stay hydrated. Follow-up with primary care. Return right away for any new or worsening issues. Treatment Plan: As above Disposition: Discharge Impression: 1. Upper respiratory infection This note was generated with [employer] dictation software. It may contain incorrect words, spelling, and punctuation that were not noted in review of the chart prior to signing ED Disposition - Plan for ED Patient: Referrals: Prateek Honeycutt MD [Primary Care Provider] -
--- NOTE | 2020-01-14 18:55 | ED.DEP ---
ED Disposition - Plan for ED Patient: Instructions: INFLUENZA (Adult) Referrals: Prateek Honeycutt MD [Primary Care Provider] -
[2020-01-14 19:07] VITALS: BP 150/93; PULSE 108; RESP 21; O2SAT 99
== END 2020-01-14 19:08 | disposition home or self-care (01) ==
LOC: ED 17:33
PROVIDERS: Emergency Provider Emergency Medicine; PCP Family Medicine
DX: J06.9 Acute upper respiratory infection, unspecified (principal); E11.9 Type 2 diabetes mellitus without complications; I10 Essential (primary) hypertension; F32.9 Major depressive disorder, single episode, unspecified; F17.200 Nicotine dependence, unspecified, uncomplicated; Z79.84 Long term (current) use of oral hypoglycemic drugs
CPT/HCPCS: 71045; 80048; 84484; 85025; 87804; 93005; 96360; 99285; J7030; A4216

== ENCOUNTER 2020-11-15 15:17 | Outpatient (CLI) | payer MEDICAID, SELFPAY ==
[2020-11-15 15:25] VITALS: BP 145/79; PULSE 125; TEMP 37.1
[2020-11-15 15:26] VITALS: BMI 57.4
--- NOTE | 2020-11-15 18:11 | OB.TRI.NOTE ---
- Problem List (1) 35 weeks gestation of Status: Acute (2) Decreased movement Status: Acute (3) Cramping affecting , antepartum Status: Acute History of Present Illness Date of Service: 11/15/20 Was patient seen by the physician?: No Reason For Visit: R/O LABOR Date of Service: 11/15/20 Final NAHOMI: 12/15/20 Gestational age: 35 Weeks and 5 Days History of Present Illness: Patient is a at 35.5 weeks gestation that presents to triage for decreased movement and cramping. Patient denies any loss of fluid or vaginal bleeding. Allergies Penicillins Allergy (Verified 11/15/20 15:40) Hives angioedema as well etodolac [From Lodine] Adverse Reaction (Intermediate, Verified 11/15/20 15:40) Chest tightness bupropion HCl [From Wellbutrin] Adverse Reaction (Verified 11/15/20 15:40) suicidal suicidal metoclopramide [From Reglan] Adverse Reaction (Verified 11/15/20 15:40) Other ANXIETY prochlorperazine [From Compazine] Adverse Reaction (Verified 11/15/20 15:40) Other ANXIETY - Pertinent Past Medical History Medical History: Past Medical History (Last Updated 09/25/19 @ 15:01 by Neisha Leal) Depressive disorder Essential hypertension Type 2 diabetes mellitus Vitamin D deficiency Surgical History: Past Surgical History (Last Updated 09/25/19 @ 15:01 by Neisha Leal) History of ankle surgery History of cholecystectomy calcneal cuboid arthrodesis fracture fragment excision gastrocnemius recessio Review of Systems Constitutional: Denies: Chills, Fever HEENT: Denies: Head Aches Cardiovascular: Denies: Chest Pain Respiratory: Denies: Cough, Shortness of Breath Genitourinary: Denies: Dysuria Physical Exam Vitals: Vital Signs Temp Pulse BP 98.7 F 125 H 145/79 H 11/15/20 15:25 11/15/20 15:25 11/15/20 15:25 General: Alert HEENT: Atraumatic Cardiovascular: Regular rate Lungs: Normal air movement Abdomen: Soft, Non Tender, Gravid Neurological: Cranial nerves II-XII grossly intact NST - FHR Rate Baby A Baseline: 135 Accelerations:: 15 x 15 Decelerations:: None NST Reactive:: Yes FHR Category:: Category I Uterine Activity:: irritability only Impression/Plan A/P at 35.5 weeks gestation with decreased movement and cramping. Category 1 tracing Increased movement since arrival TOCO reading irritability CE unchanged Discharge home with follow up in office Education on kick counts Dr. Field involved in plan of care
== END 2020-11-15 16:50 | disposition home or self-care (01) ==
LOC: WPOUT 15:19 → WP 15:19
PROVIDERS: PCP Family Medicine; Referring Provider Advanced Practice Midwife; Visit Provider Advanced Practice Midwife
DX: O36.8130 Decreased fetal movements, third trimester, not applicable or unspecified (principal); Z3A.35 35 weeks gestation of pregnancy; Z88.0 Allergy status to penicillin; Z88.8 Allergy status to other drugs, medicaments and biological substances; O16.3 Unspecified maternal hypertension, third trimester; Z90.49 Acquired absence of other specified parts of digestive tract
CPT/HCPCS: 59025; 59050; 99218; G0378

== ENCOUNTER 2021-05-24 22:37 | Emergency (ER) | payer MEDICAID, SELFPAY ==
[2021-05-24 22:37] VITALS: BP 149/107; PULSE 122; RESP 18; TEMP 37.2; O2SAT 98; BMI 57.8
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
[2021-05-24] MEDS: Ketorolac 30 MG/ML Syringe IM (23:16)
== END 2021-05-24 23:36 | disposition home or self-care (01) ==
PROVIDERS: Emergency Provider Emergency Medicine; PCP Family Medicine
DX: T23.122A Burn of first degree of single left finger (nail) except thumb, initial encounter (principal); X04.XXXA Exposure to ignition of highly flammable material, initial encounter; Y92.89 Other specified places as the place of occurrence of the external cause; Y99.8 Other external cause status; F32.9 Major depressive disorder, single episode, unspecified; I10 Essential (primary) hypertension; E11.9 Type 2 diabetes mellitus without complications; F17.210 Nicotine dependence, cigarettes, uncomplicated; Z79.84 Long term (current) use of oral hypoglycemic drugs; Z79.899 Other long term (current) drug therapy
CPT/HCPCS: 96372; 99283

== ENCOUNTER 2021-11-29 17:00 | Outpatient (CLI) | payer MEDICAID, SELFPAY ==
[2021-11-29] VITALS (22 sets, daily range): BP systolic 135–205; BP diastolic 80–93; PULSE 108–123; TEMP 37.1; O2SAT 97–99; BMI 61.7
--- NOTE | 2021-11-29 17:23 | OB.TRI.HP_ITS ---
HPI - General HPI Narrative TODD RODRIGUEZ, is a 31 F at 31.4 weeks gestation who presents to triage with cramping and lower pelvic and back pain since yesterday. Nausea and vomiting off and on today. Denies any headache, vision changes, SOB or CP. Denies loss of fluid or vaginal bleeding. Positive movement. complicated by Chronic HTN, Type 2 DM, Anemia, Obesity. Maternal Data Information NAHOMI Calculator Estimated Delivery Date Method Current WG Current Estimate 01/27/22 Manual 31w 4d PFSH PFSH Medical History Depressive disorder Essential hypertension Type 2 diabetes mellitus Vitamin D deficiency Home Medications famotidine 20 mg PO DAILY 07/10/19 [History Last Taken 11/14/20 22:00] sertraline 50 mg tablet 100 mg PO DAILY tab 09/25/19 [History Last Taken 11/14/20 22:00] labetalol 400 mg PO TID 11/15/20 [History Last Taken 11/15/20 08:00] metformin 1,000 mg BID 05/24/21 [History Last Taken Unknown] Allergy/AdvReac Type Severity Reaction Status Date / Time Penicillins Allergy Hives Verified 05/24/21 22:42 etodolac [From Lodine] AdvReac Intermediate Chest Verified 05/24/21 22:42 tightness bupropion HCl AdvReac suicidal Verified 05/24/21 22:42 [From Wellbutrin] metoclopramide [From Reglan] AdvReac Other Verified 05/24/21 22:42 prochlorperazine AdvReac Other Verified 05/24/21 22:42 [From Compazine] Family History Unknown Heart disease CAD (coronary artery disease) Surgical History calcneal cuboid arthrodesis fracture fragment excision gastrocnemius recessio History of ankle surgery History of cholecystectomy Social History Smoking Status: Current every day smoker tobacco type: cigarettes ROS Eyes Eyes: Denies blurry vision Cardiovascular Cardiovascular: Reports none; Denies chest pain at rest, chest pain with activity or dizziness Respiratory/Chest Respiratory/Chest: Denies cough or dyspnea Gastrointestinal Gastrointestinal: Reports none, abdominal pain, nausea and other; Denies diarrhea or vomiting Genitourinary Genitourinary: Denies dysuria Musculoskeletal Musculoskeletal: Reports none Integumentary Integumentary: Reports none; Denies rash Neurologic Neurologic: Denies dizziness, headache(s) or other visual disturbances Physical Exam Const alert and no apparent distress General Appearance: cooperative Orientation / Consciousness: awake Exam Limitations: no limitations HEENT normocephalic Eyes General Eye: normal appearance of both eyes Neck full ROM Chest inspection of chest normal Resp normal respiratory effort and normal air movement Effort and Inspection: symmetric chest movement Auscultation: clear to auscultation bilaterally Cardio regular rate GI soft to palpation, non-tender and non-distended Inspection: and other Back/Spine normal ROM Extremity full ROM, normal capillary refill and no calf tenderness Skin no rashes or lesions noted Neuro oriented x3 and CN's II-XII intact bilaterally Psych mental status grossly normal NST FHR Rate Baby A Baseline: 150 Variability:: Moderate Accelerations:: 15 x 15 Decelerations:: None NST Reactive:: Yes FHR Category:: Category I Uterine Activity:: None Assessment & Plan (1) Type 2 diabetes mellitus: (2) Chronic hypertension affecting : (3) Obesity affecting , antepartum: COMMENT: BMI 61 (4) Cramping affecting , antepartum: (5) 31 weeks gestation of : PLAN: BP monitoring and HTN protocol initiated- [facility] labs - WNL BS- 97 UA collected and sent- +Nitrates, blood, glucose, ketones, protein and leukocytes Macrobid 100 mg PO BID x 7 days- RX sent CE- 1/thick/high D/C home with follow up in office this week PTL and preeclampsia precautions reviewed Dr. Beasley notified and involved with plan of care
[2021-11-29] MEDS: Lactated Ringers 1,000 ML 50 ML IV (17:35)
[2021-11-29 17:38] LABS: Mucous, Urine 0 SEEN /hpf (<or=2+)
[2021-11-29 17:40] LABS: Color, Urine Yellow (Yellow); Glucose, Dipstick 1000 mg/dl (Normal); Ketone-Dipstick 15 mg/dl (Negative); Leukocyte Esterase-Dipstick 500 /ul (Negative); Nitrite-Dipstick Positive (Negative); Occult Blood-Urine 150 /ul (Negative); Protein-Dipstick 30 mg/dl (Negative); Urine Bilirubin Dipstick Negative (Negative); Urine Clarity Cloudy (Clear); Urine Urobilinogen Normal (Normal)
[2021-11-29] MEDS: Labetalol (Prefilled) 20 MG/4 ML IV (17:40)
[2021-11-29 17:55] LABS: Hematocrit 32.1 % (37-47); Hemoglobin 10.2 g/dL (12.0-15.0); Mean Corp Hgb Conc 31.8 g/dL (32-36); Mean Corpuscular Hgb 27.9 pg (27.0-32.0); Mean Corpuscular Volume 87.9 fL (81-99); Platelet Count 240 K/mm3 (150-450); RBC Distribution Width SD 56.6 fl (35.1-43.9); Red Blood Count 3.65 M/mm3 (4.2-5.4); White Blood Count 6.5 K/mm3 (4.4-11.0)
[2021-11-29 18:08] LABS: Protein:Creat Ratio 306 mg/g CRE (0-200)
[2021-11-29 18:11] LABS: AST(SGOT) 4 U/L (15-37); Alanine Aminotransfer ALT/SGPT 13 U/L (13-56); Creatinine, Serum 0.74 mg/dL (0.55-1.02); EST Glomerular Filtration Rate 95 mL/min (>60); Est Glom Filt Rate - Afr Amer 115 mL/min (>60); Estimated Creatinine Clearance 105.15 ml/min; Uric Acid 5.7 mg/dL (2.6-6.0)
[2021-11-29 18:16] LABS: Red Blood Cells-Urine 10-25 SEEN /hpf (0-5); Squamous Epithelial Cells - UA 10-25 SEEN /hpf (5-10)
[2021-11-29 18:18] LABS: White Blood Cells 5-10 SEEN /hpf (0-5)
[2021-11-29 18:19] LABS: Bacteria 1+ /hpf (None Seen)
[2021-11-29 18:32] LABS: International Normalized Ratio 1.1; Partial Thromboplast Time 27.8 Seconds (24.1-36.2); Prothrombin Time (Protime)PT. 13.6 SECONDS (11.7-14.9)
[2021-11-29 18:46] LABS: Bedside Glucose 97 mg/dL (70-110)
[2021-11-29] MEDS: Ondansetron 4 MG/2 ML Vial IV (19:20)
--- NOTE | 2021-11-30 10:48 | NURSING ---
*late entry d/t busy unit. 1710 11/29/21 Pt arrived to unit with c/o of ctx and vaginal pressure. Upon arrival when going over home medication lists pt states she takes 400mg of labetolol TID and had only taken it at 0900. BP on arrival was elevated and HTN protocol was initiated. One dose of IV labetolol 20mg given and BP came down to 130s/80s. Providers watched serial BP's for 70 min and were ok with discharge with pt to go home and take regular dose of 400mg of bp medication. Pt also had UTI and was treated with antibiotic.
== END 2021-11-29 23:59 | disposition home or self-care (01) ==
LOC: WPOUT 17:01 → WP 17:01
PROVIDERS: PCP Family Medicine; Visit Provider Advanced Practice Midwife
DX: O24.113 Pre-existing type 2 diabetes mellitus, in pregnancy, third trimester (principal); E11.9 Type 2 diabetes mellitus without complications; O99.333 Smoking (tobacco) complicating pregnancy, third trimester; F17.210 Nicotine dependence, cigarettes, uncomplicated; Z79.84 Long term (current) use of oral hypoglycemic drugs; Z3A.31 31 weeks gestation of pregnancy; O99.213 Obesity complicating pregnancy, third trimester; E66.9 Obesity, unspecified; O10.913 Unspecified pre-existing hypertension complicating pregnancy, third trimester
CPT/HCPCS: 59025; 59050; 81001; 82565; 82570; 82962; 84156; 84450; 84460; 84550; 85027; 85610; 85730; 86850; 86900; 86901; 87426; 99218; J7120; G0378; J2405

== ENCOUNTER 2021-12-03 19:00 | Inpatient (IN) | payer MEDICAID, SELFPAY ==
[2021-12-02 16:17] VITALS: BMI 61.4
[2021-12-02 16:43] VITALS: BP 139/80; PULSE 108; TEMP 36.8; O2SAT 98
[2021-12-02 16:45] VITALS: BP 139/80; PULSE 106; O2SAT 99
[2021-12-02 16:46] VITALS: O2SAT 83
[2021-12-02 17:41] VITALS: BP 141/79; PULSE 103
[2021-12-02 17:51] LABS: Hematocrit 29.9 % (37-47); Hemoglobin 9.6 g/dL (12.0-15.0); Mean Corp Hgb Conc 32.1 g/dL (32-36); Mean Corpuscular Hgb 28.2 pg (27.0-32.0); Mean Corpuscular Volume 87.7 fL (81-99); Mean Platelet Vol. 8.9 fl (6.2-12.0); Platelet Count 245 K/mm3 (150-450); RBC Distribution Width CV 17.9 % (11.6-14.6); RBC Distribution Width SD 57.1 fl (35.1-43.9); Red Blood Count 3.41 M/mm3 (4.2-5.4); White Blood Count 5.7 K/mm3 (4.4-11.0)
[2021-12-02 17:55] LABS: Prothrombin Time (Protime)PT. 12.9 SECONDS (11.7-14.9)
--- NOTE | 2021-12-02 18:01 | HP.PCM.OB_ITS ---
HPI - General HPI Narrative TODD RODRIGUEZ, is a 31 F who presents with headache & elevated BP at home (160 systolic). She was seen by ([facility]) who recommended overnight observation. Maternal Data Information NAHOMI Calculator Estimated Delivery Date Method Current WG Current Estimate 01/27/22 Manual 32w 0d [facility] Medical History (Updated 12/02/21 @ 18:[address] Abena Stone MD) Depressive disorder Essential hypertension Insulin-dependent diabetes mellitus during , antepartum Type 2 diabetes mellitus Vitamin D deficiency Home Medications famotidine 20 mg PO DAILY 07/10/19 [History Last Taken 12/01/21 22:00] sertraline 50 mg tablet 100 mg PO DAILY tab 09/25/19 [History Last Taken 12/02/21 08:00] labetalol 400 mg PO TID 11/15/20 [History Last Taken 12/02/21 08:00] metformin 1,000 mg BID 05/24/21 [History Last Taken 12/02/21 08:00] insulin NPH isoph U-100 human [Humulin N NPH U-100 Insulin] 20 unit SUBCUT BREAKFAST 12/02/21 [History Last Taken 12/02/21 08:00] insulin NPH isoph U-100 human [Humulin N NPH U-100 Insulin] 75 unit SUBCUT QHS 12/02/21 [History Last Taken 12/01/21 20:00] insulin lispro 10 unit SUBCUT TID 12/02/21 [History Last Taken 12/01/21 19:00] Allergy/AdvReac Type Severity Reaction Status Date / Time Penicillins Allergy Hives Verified 05/24/21 22:42 etodolac [From Lodine] AdvReac Intermediate Chest Verified 05/24/21 22:42 tightness bupropion HCl AdvReac suicidal Verified 05/24/21 22:42 [From Wellbutrin] metoclopramide [From Reglan] AdvReac Other Verified 05/24/21 22:42 prochlorperazine AdvReac Other Verified 05/24/21 22:42 [From Compazine] Family History Unknown Heart disease CAD (coronary artery disease) Surgical History calcneal cuboid arthrodesis fracture fragment excision gastrocnemius recessio History of ankle surgery History of cholecystectomy Social History Smoking Status: Current every day smoker tobacco type: cigarettes NST FHR Rate Baby A Baseline: 145 Variability:: Moderate Accelerations:: 15 x 15 Decelerations:: Variable NST Reactive:: Yes Uterine Activity:: Irritability Vital Signs Vital Signs Vital Signs: 12/02/21 16:43 12/02/21 16:45 12/02/21 16:46 Temperature 98.2 F Temperature Source Temporal Pulse Rate 108 H 106 H Blood Pressure 139/80 H 139/80 H BP Systolic 139 139 BP Diastolic 80 80 Pulse Ox 98 99 83 12/02/21 17:41 Temperature Temperature Source Pulse Rate 103 H Blood Pressure 141/79 H BP Systolic 141 BP Diastolic 79 Pulse Ox Weight Weight: 392 lb Body Mass Index (BMI) 61.4 Physical Exam Const alert and oriented x3 Chest inspection of chest normal Resp normal respiratory effort GI soft to palpation, non-tender and non-distended Inspection: gravid Extremity no calf tenderness General Extremity: calf tenderness Labs Labs Labs: Blood Type B POSITIVE Antibody Screen NEGATIVE Hct 29.9 % (37-47) L Hgb 9.6 g/dL (12.0-15.0) L Assessment & Plan (1) Obesity affecting , antepartum: COMMENT: BMI 61 PLAN: Plan for delivery at [facility] tertiary care center (2) Chronic hypertension affecting : PLAN: Continue labetalol BP's normal to mild elevation and overall reassuring PreE labs pending 24hr urine in progress (3) Insulin-dependent diabetes mellitus during , antepartum: PLAN: Insulin adjusted by today ([facility] endo) and updated dosing or dered Plan for diabetic diet & BS monitoring
[2021-12-02 18:06] LABS: Protein, Urine (Random) 42.3 mg/dL (<11.9); Protein:Creat Ratio 261 mg/g CRE (0-200)
[2021-12-02 18:07] LABS: AST(SGOT) 6 U/L (15-37); Alanine Aminotransfer ALT/SGPT 11 U/L (13-56); Creatinine, Serum 0.68 mg/dL (0.55-1.02); EST Glomerular Filtration Rate 106 mL/min (>60); Est Glom Filt Rate - Afr Amer 128 mL/min (>60); Estimated Creatinine Clearance 114.43 ml/min; Uric Acid 5.8 mg/dL (2.6-6.0)
[2021-12-02 21:13] VITALS: BP 149/84; PULSE 112; TEMP 36.2
[2021-12-02 21:15] VITALS: O2SAT 98
[2021-12-02] MEDS: Acetaminophen 500 MG Tablet 1000 MG PO (21:25)
[2021-12-02] MEDS: Famotidine 20 MG Tablet PO (21:35)
[2021-12-02] MEDS: metFORMIN HCl 1,000 MG Tablet 1000 MG PO (21:35)
[2021-12-02 21:40] LABS: Bedside Glucose 103 mg/dL (70-110)
[2021-12-02] MEDS: Ondansetron ODT 4 MG Tablet PO (21:40)
[2021-12-02] MEDS: Labetalol 200 MG Tablet 400 MG PO (21:40)
[2021-12-02] MEDS: Nitrofurantoin Macrocrystals 100 MG Capsule PO (21:40)
[2021-12-02] MEDS: Insulin NPH Human 100 UNITS/ML PEN 75 UNITS SC (21:41)
[2021-12-03] VITALS (21 sets, daily range): BP systolic 123–144; BP diastolic 59–87; PULSE 83–118; TEMP 36.3–36.6; O2SAT 92–99
[2021-12-03 06:06] LABS: Bedside Glucose 107 mg/dL (70-110)
[2021-12-03] MEDS: Labetalol 200 MG Tablet 400 MG PO ×3 (07:25→21:28)
[2021-12-03] MEDS: Insulin Lispro 100 UNIT/ML INSULN.PEN 10 UNIT SC ×3 (08:04→17:52)
[2021-12-03] MEDS: Insulin NPH Human 100 UNITS/ML PEN 20 UNITS SC (08:05)
[2021-12-03] MEDS: Nitrofurantoin Macrocrystals 100 MG Capsule PO ×2 (08:07→21:28)
[2021-12-03] MEDS: Sertraline 100 MG Tablet PO (08:08)
[2021-12-03] MEDS: metFORMIN HCl 1,000 MG Tablet 1000 MG PO ×2 (08:08→21:28)
--- NOTE | 2021-12-03 09:17 | PCM.PN.OB ---
Subjective Subjective C/o feeling dizzy and lightheaded. Mild ARNOLD this am, was a little more last night. Ate breakfast. FBS was 107. Some mild BH. Denies epigatric pain Objective Data Objective Data Vital Signs: Vital Signs Temp Pulse BP Pulse Ox 97.4 F L 107 H 129/67 H 99 12/03/21 05:48 12/03/21 09:15 12/03/21 09:15 12/03/21 05:52 Weight: 177.808 kg Body Mass Index (BMI) 61.4 Lab / Micro Data Result Diagrams: 12/02/21 17:24 12/02/21 17:24 Labs: Laboratory Results - last 24 hr 12/02/21 16:15: U Random Total Protein 42.3 H, Urine Creatinine 162.00, Protein/Creatinin Ratio 261 H 12/02/21 17:24: WBC 5.7, RBC 3.41 L, Hgb 9.6 L, Hct 29.9 L, MCV 87.7, MCH 28.2, MCHC 32.1, RDW Std Deviation 57.1 H, RDW Coeff of Sarah 17.9 H, Plt Count 245, MPV 8.9 12/02/21 17:24: PT 12.9, INR 1.0, APTT 26.0 12/02/21 17:24: U Random Total Protein Cancelled, Urine Creatinine Cancelled, Protein/Creatinin Ratio Cancelled 12/02/21 17:24: Creatinine 0.68, Estim Creat Clear Calc 114.43, Est GFR (MDRD) Af Amer 128, Est GFR (MDRD) Non-Af 106, Uric Acid 5.8, AST 6 L, ALT 11 L 12/02/21 21:34: POC Glucose 103 12/03/21 06:01: POC Glucose 107 Physical Exam Narrative Large pannus, nontender fundus, no rebound or guarding. Ext 2+ edema, 1+D TRS, no clonus Assessment & Plan (1) Insulin-dependent diabetes mellitus during , antepartum: PLAN: Monitor BS. check Bp and BS this am due to feeling nauseated after eating and lightheaded. BP stable here. Insulin for GDM adjusted yesterday. Check Fe levels. may need fe infusion as hgb decreased despite PO fe. (2) Obesity affecting , antepartum: COMMENT: BMI 61 (3) Chronic hypertension affecting :
[2021-12-03 09:21] LABS: Bedside Glucose 164 mg/dL (70-110)
[2021-12-03] MEDS: Ondansetron ODT 4 MG Tablet PO (10:04)
[2021-12-03 10:46] LABS: Bedside Glucose 128 mg/dL (70-110)
[2021-12-03 10:47] LABS: Ferritin 59 ng/mL (8-252); Iron Binding Capacity,Total 488 ug/dL (250-450)
[2021-12-03] MEDS: Acetaminophen 500 MG Tablet 1000 MG PO ×2 (12:10→21:28)
[2021-12-03 12:31] LABS: Bedside Glucose 109 mg/dL (70-110)
--- NOTE | 2021-12-03 15:28 | NURSING ---
Called Dr. Palmer about patient's vomiting. Pt received PO zofran around 1000 and is not due till 1800. Also informed that patient is a difficult IV stick and IV starts were unsuccessful. Order received for IM Phenergan 25mg X1 now.
[2021-12-03] MEDS: proMETHazine 25 MG/ML Syringe IM (16:00)
--- NOTE | 2021-12-03 16:03 | NURSING ---
oos pt up to BR to void at 1100 with c/o dizziness, tolerated well.100cc concentrated.
[2021-12-03 18:05] LABS: Bedside Glucose 92 mg/dL (70-110)
[2021-12-03 18:27] LABS: 24 Hour Urine Protein 489.1 mg/24HR (<150 MG/24HR); 24HR. UA Prot. Total Volume 1075 mL; 24HR. Urine Creatinine 2.27 g/24 HR (0.70-1.90); Urine Protein (24 Hour) 45.5 mg/dL (<11.9)
--- NOTE | 2021-12-03 18:37 | NURSING ---
Called Dr. Palmer to update her on 24 hour urine results, Pt's BP throughout the day, that pt c/o ARNOLD even after Tylenol, and that her vomiting/nausea has improved after the IM Phenergan. Orders received to keep patient the next 24 hours and give Betamethasone. Will be re-evaluated tomorrow.
[2021-12-03] MEDS: Betamethasone/Betamethasone 30 MG/5 ML Vial 12 MG IM (19:07)
[2021-12-03] MEDS: Famotidine 20 MG Tablet PO (21:28)
[2021-12-03] MEDS: Insulin NPH Human 100 UNITS/ML PEN 75 UNITS SC (21:28)
[2021-12-03 21:41] LABS: Bedside Glucose 144 mg/dL (70-110)
[2021-12-04] VITALS (20 sets, daily range): BP systolic 117–147; BP diastolic 55–101; PULSE 97–114; TEMP 36–37.2; O2SAT 93–98
--- NOTE | 2021-12-04 01:31 | NURSING ---
Rounded on pt-pt sitting in bed on phone. Fresh water provided. Pt denies any other needs at this time.
[2021-12-04] MEDS: Ondansetron ODT 4 MG Tablet PO ×2 (04:46→13:19)
[2021-12-04] MEDS: Acetaminophen 500 MG Tablet 1000 MG PO ×2 (04:46→13:19)
[2021-12-04 04:50] LABS: Bedside Glucose 127 mg/dL (70-110)
[2021-12-04] MEDS: Labetalol 200 MG Tablet 400 MG PO ×3 (06:01→22:35)
--- NOTE | 2021-12-04 08:12 | PCM.PN.OB ---
Subjective Subjective Pt is doing well this morning. She reports a mild headache that is rated a 3 out of 10 and improved with Tylenol. No vision changes. No upper abdominal pain. She has some nausea and vomiting that she attributes to the headache. Irregular contractions. No bleeding or gushes of fluid. Feeling movement. Objective Data Objective Data Vital Signs: Vital Signs Temp Pulse BP Pulse Ox 97.5 F L 114 H 134/101 H 93 12/04/21 04:44 12/04/21 08:09 12/04/21 08:09 12/04/21 05:59 Weight: 392 lb Body Mass Index (BMI) 61.4 Intake & Output: Intake and Output for Last 24 Hours 12/02/21 12/03/21 12/04/21 23:59 23:59 23:59 Output Total 400 / 400 Balance -400 / -400 Lab / Micro Data Result Diagrams: 12/02/21 17:24 12/02/21 17:24 Labs: Laboratory Results - last 24 hr 12/02/21 16:59: Urine Collection Time 24.0, Timed Urine Volume 1075, Ur Total Protein 24 Hr 489.1 H, Urine Total Protein 45.5 H 12/02/21 16:59: Ur Collection Duration 24.0, Urine Total Volume 1.10, Urine Creatinine 211.00, Ur Creatinine 24 Hour 2.27 H 12/03/21 09:13: POC Glucose 164 H 12/03/21 10:00: TIBC 488 H, Ferritin 59 12/03/21 10:40: POC Glucose 128 H 12/03/21 12:27: POC Glucose 109 12/03/21 17:51: POC Glucose 92 12/03/21 21:26: POC Glucose 144 H 12/04/21 04:44: POC Glucose 127 H Physical Exam Const alert and no apparent distress General Appearance: comfortable Resp normal respiratory effort GI soft to palpation and non-tender GI Narrative: Obese, no RUQ tenderness or epigastric tenderness Extremity Extremity Narrative: No hyperreflexia Assessment & Plan (1) 31 weeks gestation of : PLAN: Admitted with cHTN and superimposed pre eclampsia without severe features. BP's are normal to mild range. Continue Labetalol. Will repeat labs in the morning tomorrow. Continue to monitor for severe features and discussed with pt timing of delivery. (2) Obesity affecting , antepartum: COMMENT: BMI 61 PLAN: Plan is to deliver at tertiary care center. (3) Chronic hypertension affecting : PLAN: Continue Labetalol and baby ASA. (4) Type 2 diabetes mellitus: PLAN: SSI ordered this morning for coverage. Continue insulin and BG checks. So far BG controlled even after first dose of BMZ. (5) Insulin-dependent diabetes mellitus during , antepartum: (6) Pre-eclampsia: PLAN: BMZ tomorrow. Reassess tomorrow. Will update MFM today. (7) Anemia: PLAN: Receiving IV iron as outpatient.
[2021-12-04] MEDS: Insulin NPH Human 100 UNITS/ML PEN 20 UNITS SC (08:33)
[2021-12-04] MEDS: metFORMIN HCl 1,000 MG Tablet 1000 MG PO ×2 (08:38→22:35)
[2021-12-04 08:41] LABS: Bedside Glucose 116 mg/dL (70-110)
[2021-12-04] MEDS: Insulin Lispro 100 UNIT/ML INSULN.PEN 10 UNIT SC ×3 (09:14→17:06)
[2021-12-04] MEDS: Nitrofurantoin Macrocrystals 100 MG Capsule PO ×2 (11:20→22:36)
[2021-12-04] MEDS: Sertraline 100 MG Tablet PO (11:20)
[2021-12-04 11:25] LABS: Bedside Glucose 156 mg/dL (70-110)
--- NOTE | 2021-12-04 11:38 | NURSING ---
Pt. c/o nausea, as well as epigastric pain/lower sternal pressure. Dr. Field notified. Plans to touch base with M. Order for 1x Mylanta received, and will see how pt. responds. Will recheck VS at ~1200.
[2021-12-04] MEDS: Mag Hydrox/Al Hydrox/Simeth 30 ML UDC PO (12:08)
[2021-12-04] MEDS: Insulin Lispro 100 UNIT/ML INSULN.PEN SC (12:13)
[2021-12-04 14:20] LABS: Bedside Glucose 137 mg/dL (70-110)
--- NOTE | 2021-12-04 16:03 | NURSING ---
Phone report to Yolanda in office that pt. is rating headache pain 7/[address] Field want to try something else for pain, or just continue to monitor?
[2021-12-04] MEDS: Acetaminophen/Butalbital/Caffe 1 Tablet PO (18:02)
[2021-12-04] MEDS: Betamethasone/Betamethasone 30 MG/5 ML Vial 12 MG IM (19:06)
[2021-12-04 19:15] LABS: Bedside Glucose 115 mg/dL (70-110)
[2021-12-04] MEDS: Insulin NPH Human 100 UNITS/ML PEN 75 UNITS SC (22:36)
[2021-12-04] MEDS: Famotidine 20 MG Tablet PO (22:50)
[2021-12-04 22:51] LABS: Bedside Glucose 127 mg/dL (70-110)
[2021-12-05] VITALS (9 sets, daily range): BP systolic 140–174; BP diastolic 68–92; PULSE 88–109; TEMP 36.4–36.6; O2SAT 98
[2021-12-05 05:09] LABS: Hematocrit 28.7 % (37-47); Hemoglobin 8.9 g/dL (12.0-15.0); Mean Corpuscular Hgb 27.6 pg (27.0-32.0); Mean Corpuscular Volume 89.1 fL (81-99); Mean Platelet Vol. 8.7 fl (6.2-12.0); Platelet Count 251 K/mm3 (150-450); RBC Distribution Width SD 57.8 fl (35.1-43.9); Red Blood Count 3.22 M/mm3 (4.2-5.4); White Blood Count 6.1 K/mm3 (4.4-11.0)
[2021-12-05 05:25] LABS: ALB/GLOB Ratio 0.5 RATIO (0.9-2.4); AST(SGOT) 7 U/L (15-37); Alanine Aminotransfer ALT/SGPT 14 U/L (13-56); Albumin, Serum 2.4 g/dL (3.2-5.0); Alkaline Phosphatase 90 U/L (45-117); Anion Gap 9 (5-15); BUN 8 mg/dL (7-18); BUN/Creat Ratio 11.9 RATIO (10-20); Calcium,Total 8.8 mg/dL (8.5-10.1); Chloride 107 mmol/L (98-107); Creatinine, Serum 0.67 mg/dL (0.55-1.02); EST Glomerular Filtration Rate 107 mL/min (>60); Est Glom Filt Rate - Afr Amer 129 mL/min (>60); Estimated Creatinine Clearance 116.14 ml/min; Globulin 4.5 g/dL (2.2-4.2); Glucose 124 mg/dL (74-106); Protein, Total 6.9 g/dL (6.4-8.2); Sodium Level 138 mmol/L (136-145)
[2021-12-05] MEDS: Labetalol 200 MG Tablet 400 MG PO ×2 (06:04→14:13)
[2021-12-05 08:16] LABS: Bedside Glucose 119 mg/dL (70-110)
[2021-12-05] MEDS: Insulin Lispro 100 UNIT/ML INSULN.PEN 10 UNIT SC (09:13)
[2021-12-05] MEDS: Insulin NPH Human 100 UNITS/ML PEN 20 UNITS SC (09:13)
[2021-12-05] MEDS: metFORMIN HCl 1,000 MG Tablet 1000 MG PO (11:10)
[2021-12-05] MEDS: Sertraline 100 MG Tablet PO (11:10)
[2021-12-05] MEDS: Nitrofurantoin Macrocrystals 100 MG Capsule PO (11:10)
[2021-12-05 11:25] LABS: Bedside Glucose 121 mg/dL (70-110)
--- NOTE | 2021-12-05 13:43 | PN.OBGYN_ITS ---
Subjective Subjective Patient reports mild headache that is improved. Denies vision changes or other complaints today. Objective Data Objective Data Vital Signs: Vital Signs Temp Pulse BP Pulse Ox 97.6 F L 99 146/78 H 98 12/05/21 07:56 12/05/21 07:57 12/05/21 07:57 12/05/21 07:57 Weight: 392 lb Body Mass Index (BMI) 61.4 Intake & Output: Intake and Output for Last 24 Hours 12/03/21 12/04/21 12/05/21 23:59 23:59 23:59 Output Total 400 / 400 Balance -400 / -400 Lab / Micro Data Result Diagrams: 12/05/21 04:55 12/05/21 04:55 Labs: Laboratory Results - last 24 hr 12/04/21 14:16: POC Glucose 137 H 12/04/21 19:10: POC Glucose 115 H 12/04/21 22:33: POC Glucose 127 H 12/05/21 04:55: WBC 6.1, RBC 3.22 L, Hgb 8.9 L, Hct 28.7 L, MCV 89.1, MCH 27.6, MCHC 31.0 L, RDW Std Deviation 57.8 H, RDW Coeff of Sarah 18.0 H, Plt Count 251, MPV 8.7 12/05/21 04:55: Sodium 138, Potassium 4.0, Chloride 107, Carbon Dioxide 22.0, Anion Gap 9, BUN 8, Creatinine 0.67, Estim Creat Clear Calc 116.14, Est GFR (MDRD) Af Amer 129, Est GFR (MDRD) Non-Af 107, BUN/Creatinine Ratio 11.9, Glucose 124 H, Calcium 8.8, Total Bilirubin 0.30, AST 7 L, ALT 14, Alkaline Phosphatase 90, Total Protein 6.9, Albumin 2.4 L, Globulin 4.5 H, Albumin/Globulin Ratio 0.5 L 12/05/21 08:08: POC Glucose 119 H 12/05/21 11:21: POC Glucose 121 H Physical Exam Const alert and oriented x3 GI soft to palpation and non-tender Inspection: gravid NST FHR Rate Baby A Baseline: 150 Variability:: Minimal and Moderate Accelerations:: 10 x 10 Decelerations:: Variable Uterine Activity:: quiet Assessment & Plan (1) Pre-eclampsia: QUALIFIERS: Trimester: third trimester Qualified Code(s): O14.93 - Unspecified pre-eclampsia, third trimester COMMENT: 32&2 PLAN: BP's 140's/68-92 Repeat preE labs normal today Continue labetalol for chtn (2) Insulin-dependent diabetes mellitus during , antepartum: PLAN: Glucoregulation after BMZ administration Patient on home insulin dose and SSI as needed (3) Obesity affecting , antepartum: COMMENT: BMI 61 PLAN: Plan for delivery at [place] (4) 32 weeks gestation of : PLAN: EFW reassuring but no reactive at this time. Discussed with and will transfer to [place] for additional monitoring and evaluation.
== END 2021-12-05 15:10 | disposition short-term general hospital (02) | DRG 566 ==
LOC: WPOUT 20:57 → WP 20:58
PROVIDERS: Obstetrics & Gynecology; Admitting Provider Obstetrics & Gynecology; PCP Family Medicine; Visit Provider Obstetrics & Gynecology
DX: O11.3 Pre-existing hypertension with pre-eclampsia, third trimester (principal); O24.113 Pre-existing type 2 diabetes mellitus, in pregnancy, third trimester; E11.9 Type 2 diabetes mellitus without complications; Z79.4 Long term (current) use of insulin; F17.210 Nicotine dependence, cigarettes, uncomplicated; O24.913 Unspecified diabetes mellitus in pregnancy, third trimester; O21.2 Late vomiting of pregnancy; O99.333 Smoking (tobacco) complicating pregnancy, third trimester; O99.213 Obesity complicating pregnancy, third trimester; Z3A.32 32 weeks gestation of pregnancy; Z79.82 Long term (current) use of aspirin
CPT/HCPCS: 36415; 59025; 59050; 80053; 82565; 82570; 82728; 82962; 83550; 84156; 84450; 84460; 84550; 85027; 85610; 85730; 96372; 99218; G0378; J0702

== ENCOUNTER 2022-12-26 19:11 | Emergency (ER) | payer MEDICAID, SELFPAY ==
[2022-12-26 19:11] VITALS: BP 189/116; PULSE 111; RESP 18; TEMP 36
[2022-12-26 19:12] VITALS: BP 189/116; PULSE 111; RESP 18; TEMP 36; BMI 61.8
--- NOTE | 2022-12-26 19:30 | EDS_ITS ---
HPI History of Present Illness Chief Complaint: Lower Extremity Injury Informant: patient Onset/Context/Timing Onset: Days (3) Context: Sudden Onset Timing: Continuous Quality of Pain: Aching Location: R ankle Current Severity: Moderate Maximum Severity: Severe Worsened by: WBing, moving Relieved by: remaining still/rest Associated Symptoms Associated Symptoms: Negative for Parasthesia, Weakness or Loss of Funtion Narrative Narrative: Patient states she came in from wet weather, her foot slipped on her linoleum floor and she twisted her right ankle injuring it 3 days ago, pain, swelling has been getting worse. She has been bearing weight on it but it has been painful. She has had prior surgery in this foot/ankle. Denies any other injuries. [facility] Medical History Depressive disorder Essential hypertension Insulin-dependent diabetes mellitus during , antepartum Type 2 diabetes mellitus Vitamin D deficiency Home Medications famotidine 20 mg tablet 20 mg PO DAILY heartburn 07/10/19 [History Last Taken 12/01/21 22:00] sertraline 50 mg tablet 100 mg PO DAILY 09/25/19 [History Last Taken 12/02/21 08:00] labetalol 100 mg tablet 400 mg PO TID 11/15/20 [History Last Taken 12/02/21 08:00] metformin 1,000 mg tablet 1,000 mg BID 05/24/21 [History Last Taken 12/02/21 08:00] glimepiride 4 mg tablet 4 mg PO DAILY 12/26/22 [History Last Taken Unknown] Allergy/AdvReac Type Severity Reaction Status Date / Time Penicillins Allergy Hives Verified 05/24/21 22:42 etodolac [From Lodine] AdvReac Intermediate Chest Verified 05/24/21 22:42 tightness bupropion HCl AdvReac suicidal Verified 05/24/21 22:42 [From Wellbutrin] metoclopramide [From Reglan] AdvReac Other Verified 05/24/21 22:42 prochlorperazine AdvReac Other Verified 05/24/21 22:42 [From Compazine] Family History Unknown Heart disease CAD (coronary artery disease) Surgical History calcneal cuboid arthrodesis fracture fragment excision gastrocnemius recessio History of ankle surgery History of cholecystectomy Social History Smoking Status: Former smoker ROS ROS ED Constitutional Constitutional ED: Denies chills or fever(s) Musculoskeletal Musculoskeletal: Reports extremity pain; Denies neck pain Integumentary Denies Abrasions, rash or wounds Neurologic Neurologic: Denies paresthesias or weakness EXAM Physical Exam Const Vital Signs: 12/26/22 19:12 12/26/22 19:11 Temperature 96.8 F L 96.8 F L Temperature Source Temporal Temporal Pulse Rate 111 H 111 H Respiratory Rate 18 18 Blood Pressure 189/116 H 189/116 H Blood Pressure Mean 140 140 Positive well nourished and well developed Constitutional Narrative: Morbid obesity General Appearance ED: well developed and NAD Neck full ROM and supple Back/Spine normal ROM and normal to inspection Extremity Extremity Narrative: Limited range of motion right ankle due to pain. Tender laterally about the right ankle and its ligamentous complex, no tenderness in the bony midfoot, medial malleolus, base of the fifth metatarsal, or proximal fibula. Neurovascular intact distally. No deformities. Stable ankle joint with lateral stressing. Neuro oriented x3, no focal motor deficits and no sensory deficits noted Sensorium / Orientation: alert Psych mental status grossly normal and thought process normal Skin no wounds Rashes: no rashes MDM MDM MDM Narrative Medical decision making narrative: Three-view x-ray series of the right ankle were obtained, on my interpretation they are negative for any acute ankle fracture or dislocation. The mortise appears to be intact. Radiology report reviewed, they are in agreement. Hardware in her midfoot is noted. Patient will be given an Aircast, Naprosyn and we discussed treating with NSAIDs which she is okay with, and will be offered crutches if she needs them after trying Aircast. Radiography Diagnostic Testing: Clinical Impression(s) from Imaging Studies Ankle X-Ray 12/26/22 19:45 IMPRESSION: 1. Surgical changes of the hindfoot. The ankle is intact. 2. Diffuse soft tissue edema. Electronically Signed: Nii Rizzo DO at 20:07 [facility] , Discharge Plan Triage Chief Complaint: Lower Extremity Injury ED Provider: Herbert Pickett Dx/Rx/DC Orders Clinical Impression: Right ankle sprain Instructions: ED Ankle Sprain (Adult) Prescriptions: No Action sertraline 50 mg tablet 100 mg PO DAILY famotidine 20 tablet 20 mg PO DAILY labetalol 100 MG tablet 400 mg PO TID metformin 1,000 mg tablet 1,000 mg BID Label Comments: TAKE 1 TABLET BY MOUTH TWICE DAILY WITH MEALS glimepiride 4 mg tablet 4 mg PO DAILY Primary Care Provider: Prateek Honeycutt Referrals: Prateek Honeycutt MD [Primary Care Provider] - 10-14 Days if not better Disposition Disposition: Home, Self Care
--- NOTE | 2022-12-26 19:45 | RAD_ITS ---
STUDY: X-RAY - RIGHT ANKLE REASON FOR EXAM: Female, 32 years old. Fall 4 days ago. Right ankle pain. 5 previous right ankle surgeries. TECHNIQUE: 3 view(s) of the ankle. COMPARISON: Right ankle, July 19, 2017. FINDINGS: Normal visualized distal tibia and fibula. Normal medial and lateral malleoli. Normal tibiotalar articulation and ankle mortise. There is surgical fusion of the subtalar articulations with 2 transfixing screws. There are metallic fragments fusing the calcaneocuboid joint. One of which appears fractured. Normal talonavicular and tarsal articulations Diffuse soft tissue edema. RAD/Ankle min 3 Views IMPRESSION: 1. Surgical changes of the hindfoot. The ankle is intact. 2. Diffuse soft tissue edema. Electronically Signed: Nii Rizzo DO at 20:07 EST ,
[2022-12-26] MEDS: Naproxen 250 MG Tablet 500 MG PO (20:15)
== END 2022-12-26 20:45 | disposition home or self-care (01) ==
PROVIDERS: Emergency Provider Emergency Medicine; PCP Family Medicine; Visit Provider Emergency Medicine
DX: S93.401A Sprain of unspecified ligament of right ankle, initial encounter (principal); Z79.4 Long term (current) use of insulin; E11.9 Type 2 diabetes mellitus without complications; I10 Essential (primary) hypertension; Z87.891 Personal history of nicotine dependence; W01.0XXA Fall on same level from slipping, tripping and stumbling without subsequent striking against object, initial encounter
CPT/HCPCS: 73610; 99284

== ENCOUNTER 2024-06-06 23:25 | Emergency (ER) | payer MEDICAID, SELFPAY ==
[2024-06-06 23:25] VITALS: BP 177/113; PULSE 114; RESP 17; TEMP 36.1; O2SAT 98; BMI 58.0
--- NOTE | 2024-06-06 23:45 | RAD_ITS ---
STUDY: X-RAY - RIGHT ANKLE REASON FOR EXAM: Female, 34 years old patient with right-sided ankle pain. TECHNIQUE: 3 view(s) of the ankle. COMPARISON: Radiograph of the right ankle dated December 26, 2022. FINDINGS: Normal visualized distal tibia and fibula. Normal medial and lateral malleoli. Normal tibiotalar articulation and ankle mortise. There are two orthopedic screws that traverse the calcaneus as well as the subtalar joint and talus. The patient has also had surgical arthrodesis of the calcaneus and cuboid. There is a fracture of one of the nails similar to previous study. There is mild soft tissue swelling. RAD/Ankle min 3 Views IMPRESSION: 1. Chronically fractured orthopedic nail. 2. Postoperative appearance of the ankle and hindfoot, as described. Electronically Signed: Tomasa Chi MD at 0:25 EDT ,
--- NOTE | 2024-06-06 23:45 | RAD_ITS ---
STUDY: X-RAY - RIGHT FOOT CLINICAL: Female, 34 years old patient with right-sided foot pain. TECHNIQUE: 3 view(s) of the foot. COMPARISON: Radiographs of the right foot dated February 17, 2019. FINDINGS: Patient has two orthopedic screws traversing the talus, calcaneus and subtalar joint. Patient has had surgical arthrodesis of the calcaneocuboid articulation. There is a chronically fractured orthopedic nail. Normal metatarsi. There is degenerative arthrosis of the metatarsophalangeal joint of the hallux . Normal tibial and fibular sesamoid bones. Normal interphalangeal joint of the great toe. Normal phalanges of the great toe. Normal second through fifth metatarsophalangeal joints. Normal interphalangeal joints and phalanges of the lesser toes. There is non-specific soft tissue swelling of the foot. There is no demonstrated fracture. RAD/Foot min 3 Views IMPRESSION: Postoperative changes as described. Electronically Signed: Tomasa Chi MD at 0:28 EDT ,
[2024-06-07] MEDS: oxyCODONE 5 MG Tablet 10 MG PO (00:05)
--- NOTE | 2024-06-07 01:13 | EX.ED.DYSGE1 ---
HPI History of Present Illness Chief Complaint: Lower Extremity Injury Informant: patient and family Narrative Narrative: Patient is a 34-year-old female with past medical history of hypertension type 2 diabetes and morbid obesity as well as recurrent surgeries and fusions of her right foot. She states a few hours prior to arrival she was standing in the yard folding up the wagon that she uses to walk her kids around. She states she is unsure if she stepped in a small hole or twisted but that she felt and heard a pop. Since that time she has had persistent pain and swelling of the right ankle and with concern for underlying injury presents for evaluation. [facility] Medical History Insulin-dependent diabetes mellitus during , antepartum Depressive disorder Essential hypertension Type 2 diabetes mellitus Vitamin D deficiency Home Medications ?Medication ?Instructions ?Recorded ?Last Taken ?Type famotidine 20 mg tablet 20 mg PO DAILY heartburn 07/10/19 12/01/21 22:00 History sertraline 50 mg tablet 100 mg PO DAILY 09/25/19 12/02/21 08:00 History labetalol 100 mg tablet 400 mg PO TID 11/15/20 12/02/21 08:00 History metformin 1,000 mg tablet 1,000 mg BID 05/24/21 12/02/21 08:00 History glimepiride 4 mg tablet 4 mg PO DAILY 12/26/22 Unknown History oxycodone-acetaminophen 5 mg-325 1 tab PO Q6H PRN pain 3 days #12 06/07/24 Unknown Rx mg tablet (Percocet) tabs Allergy/AdvReac Type Severity Reaction Status Date / Time Penicillins Allergy Hives Verified 06/06/24 23:25 etodolac (From Lodine) AdvReac Intermediate Chest Verified 06/06/24 23:25 tightness bupropion HCl (From AdvReac suicidal Verified 06/06/24 23:25 Wellbutrin) metoclopramide (From Reglan) AdvReac Other Verified 06/06/24 23:25 prochlorperazine (From AdvReac Other Verified 06/06/24 23:25 Compazine) Family History Unknown Heart disease CAD (coronary artery disease) Surgical History calcneal cuboid arthrodesis fracture fragment excision gastrocnemius recessio History of ankle surgery History of cholecystectomy Social History Smoking Status: Current every day smoker tobacco type: cigarettes ROS ROS ED Constitutional Constitutional ED: Denies chills or fever(s) ENT ENT ED: Denies sore throat Cardiovascular Cardiovascular: Denies chest pain Respiratory/Chest Respiratory/Chest: Denies cough or dyspnea Gastrointestinal Gastrointestinal: Denies abdominal pain, diarrhea, nausea or vomiting Genitourinary Genitourinary ED: Denies dysuria Musculoskeletal Musculoskeletal: Reports other Details: Positive right foot/ankle pain Integumentary Denies Abrasions or rash Neurologic Neurologic: Reports paresthesias; Denies headache(s) Hematologic/Lymphatic Hematologic/Lymphatic: Denies easy bleeding or easy bruising EXAM Physical Exam Const Vital Signs: 06/06/24 23:25 06/07/24 01:32 Temperature 96.9 F L 97.5 F L Temperature Source Temporal Pulse Rate 114 H 100 Respiratory Rate 17 18 Blood Pressure 177/113 H 163/109 H Blood Pressure Mean 134 127 Pulse Ox 98 99 Oxygen Delivery Method Room Air Positive well nourished, well developed and obese General Appearance ED: well developed Nutritional Appearance: obese HEENT HEENT Narrative: Normocephalic atraumatic Eyes PERRL and EOMs intact bilaterally Neck supple Resp normal respiratory effort and clear to auscultation bilaterally Cardio regular rate and regular rhythm Extremity Extremity Narrative: Right lower extremity is neurovascularly intact. There is mild soft tissue swelling mainly around the lateral malleolus of the right ankle. No obvious bony deformity or joint effusion. Achilles tendon is intact and ankle ligaments are stable. There is pain on palpation of the lateral malleolus as well as the joint space just below it. The patient's pain does worsen with inversion. No erythema or warmth to suggest infection or abscess. Patient also has pain palpation along the lateral aspect of the right foot near the fifth metatarsal. No proximal pain with palpation of the right lower leg Remainder of the exam is normal Neuro oriented x3, CN's II-XII intact bilaterally and no sensory deficits noted Sensorium / Orientation: alert Psych mental status grossly normal Skin no rashes or lesions noted and no wounds Skin Narrative: No overlying erythema or warmth no abrasions or ecchymosis Cap refill is less than 3 seconds General Skin Exam: Negative for jaundice MDM MDM MDM Narrative Medical decision making narrative: Patient arrived to the ER hypertensive but has a past medical history of this. She denies any fall or direct trauma but did report standing and moving to put together this wagon and she very well could have twisted her right ankle. Therefore differential diagnosis is for ankle sprain versus fracture. Secondary to his x-rays were obtained. X-rays revealed chronic findings without changes to suggest acute fracture or dislocation or new hardware derangement. By exam she does not have cellulitis abscess or gout. There is no calf tenderness to suggest DVT and she does not have any type of changes to suggest compartment syndrome. Therefore do not feel there is need for further workup other than the x-ray which did not show any type of acute finding and she can be discharged home with stabilization of her ankle sprain History & Record Review Discussion w/independent historian: Patient and Family Radiography Diagnostic Testing: Clinical Impression(s) from Imaging Studies Ankle X-Ray 06/06/24 23:45 IMPRESSION: 1. Chronically fractured orthopedic nail. 2. Postoperative appearance of the ankle and hindfoot, as described. Electronically Signed: Tomasa Chi MD at 0:25 EDT , Foot X-Ray 06/06/24 23:45 IMPRESSION: Postoperative changes as described. Electronically Signed: Tomasa Chi MD at 0:28 EDT , Right ankle x-ray as interpreted by the emergency medicine physician reveals postoperative changes with a chronically fractured nail without acute fracture or dislocation Right foot x-ray as interpreted by the emergency medicine physician reveals chronic postoperative changes without acute finding Discharge Plan Triage Chief Complaint: Lower Extremity Injury ED Provider: David Velasquez Dx/Rx/DC Orders Clinical Impression: Right ankle sprain, HTN (hypertension), Type 2 diabetes mellitus Instructions: ED Ankle Sprain (Adult) Prescriptions: New oxycodone-acetaminophen [Percocet] 5-325 mg tablet 1 tab PO Q6H PRN (Reason: pain) 3 Days Qty: 12 0RF No Action sertraline 50 mg tablet 100 mg PO DAILY famotidine 20 tablet 20 mg PO DAILY labetalol 100 MG tablet 400 mg PO TID metformin 1,000 mg tablet 1,000 mg BID Patient Comments: TAKE 1 TABLET BY MOUTH TWICE DAILY WITH MEALS glimepiride 4 mg tablet 4 mg PO DAILY Primary Care Provider: Prateek Honeycutt Referrals: Prateek Honeycutt MD [Primary Care Provider] - Activity Restrictions/Additional Instructions: Please wear your walking boot for stabilization and follow-up with your family doctor or supervisor delivery department for repeat evaluation. Your x-ray showed chronic changes from the previous surgeries without fracture or dislocation indicating this is a ankle sprain. Return to the ER should you have any further concerns Print Language: South African Disposition Disposition: Home, Self Care Discharge Date/Time: 06/07/24 02:03
[2024-06-07 01:32] VITALS: BP 163/109; PULSE 100; RESP 18; TEMP 36.4; O2SAT 99
== END 2024-06-07 02:03 | disposition home or self-care (01) ==
PROVIDERS: Emergency Provider Emergency Medicine; PCP Family Medicine; Visit Provider Emergency Medicine
DX: S93.401A Sprain of unspecified ligament of right ankle, initial encounter (principal); E66.01 Morbid (severe) obesity due to excess calories; E11.9 Type 2 diabetes mellitus without complications; I10 Essential (primary) hypertension; F17.210 Nicotine dependence, cigarettes, uncomplicated; R20.2 Paresthesia of skin; X58.XXXA Exposure to other specified factors, initial encounter; Z98.890 Other specified postprocedural states
CPT/HCPCS: 73610; 73630; 99283

== ENCOUNTER 2024-08-06 21:30 | Emergency (ER) | payer MEDICAID, SELFPAY ==
[2024-08-06 21:30] VITALS: BP 145/111; PULSE 110; RESP 16; TEMP 36.8; O2SAT 100; BMI 56.0
[2024-08-06 21:32] VITALS: BP 145/111; PULSE 111; RESP 16; TEMP 36.8; O2SAT 100
--- NOTE | 2024-08-06 21:58 | CT_ITS ---
STUDY: CT ABDOMEN AND PELVIS WITH CONTRAST REASON FOR EXAM: Female, 34 years old. Right-sided abdominal pain RADIATION DOSAGE (If Supplied By Facility): CTDIvol = ( 18.74 ) mGy, DLP = ( 1308.41 ) mGycm TECHNIQUE: Transaxial images were obtained from the dome of the diaphragm to the symphysis pubis without oral contrast. IV 100mL Isovue-370 was administered. Sagittal and coronal images were reconstructed. Individualized dose optimization techniques were used for this CT. COMPARISON: 2016 FINDINGS: The visualized lung bases are unremarkable. The visualized portions of the heart are within normal limits. There is decreased attenuation of the liver consistent with steatosis. There is non-visualization of the gallbladder, which may be secondary to either contraction or a prior cholecystectomy. Normal spleen. Normal pancreas. Normal bilateral adrenal glands. No obstructive uropathy, or suspicious solid renal lesion, there are nonobstructing left renal stones. Normal visualized stomach. Normal small intestine. Normal colon. There is non-visualization of the appendix. Normal abdominal aorta. Normal inferior vena cava. Normal retroperitoneum. Normal urinary bladder. Normal-appearing uterus. No suspicious enlarged cystic mass or free fluid in the pelvis. Fat-containing ventral hernia. Normal osseous structures. CT/Abdomen/Pelvis W IV Cont ONLY IMPRESSION: Fatty liver, no discrete lesion No free intraperitoneal fluid, air, or suspicious adenopathy Nonobstructing left renal stones Fat-containing ventral hernia Electronically Signed: Cheikh Bowman MD at 23:01 EDT ,
--- NOTE | 2024-08-06 22:00 | ED.VIS.GI ---
HPI HPI - GI History of Present Illness Chief Complaint: Abd Pain Informant: patient Abdominal Pain/Flank Pain Onset: Today and Hours Context: Gradual Onset Timing: Continuous Quality: Sharp Location: RUQ and RLQ Current Severity: Moderate Maximum Severity: Moderate Worsened by: Nothing Relieved by: Nothing Nausea/Vomiting/Emesis GI Symptom: Positive for Nausea and Vomiting Onset: Today and Hours Severity: Mild Diarrhea/Melena/Hematochezia GI Symptom: Positive for Diarrhea Onset: Days Stool Quality: Positive for Loose Severity: Mild Associated Symptoms Associated Symptoms: Negative for Dysuria, Frequency, Hematuria or Urgency Narrative Narrative: 34-year-old female history of insulin-dependent diabetes prior cholecystectomy. Hypertension prior kidney stones. Ab2 with there is been miscarriages. Said she felt fine yesterday. This morning she woke up around 7:30 AM with right-sided abdominal pain. Right upper and right lower quadrant. Denies any trauma. Denies any fever. Pain is progressively worsened throughout the day has been constant. She developed nausea and vomiting around 730. And decreased oral intake. Denies any dysuria. States her last menstrual period was normal between 8 24-8 29. States she is never had any pain like this before. States her kidney stones always gave her back pain. Prior similar symptoms: No Recent Illness/Hospitalization: No PFSH PFSH Medical History Insulin-dependent diabetes mellitus during , antepartum Depressive disorder Essential hypertension Type 2 diabetes mellitus Vitamin D deficiency Home Medications ?Medication ?Instructions ?Recorded ?Last Taken ?Type famotidine 20 mg tablet 20 mg PO DAILY heartburn 07/10/19 12/01/21 22:00 History labetalol 100 mg tablet 400 mg PO TID 11/15/20 12/02/21 08:00 History metformin 1,000 mg tablet 1,000 mg BID 05/24/21 12/02/21 08:00 History glimepiride 4 mg tablet 4 mg PO DAILY 12/26/22 Unknown History fluoxetine 40 mg capsule 40 mg PO DAILY 08/06/24 Unknown History lisinopril 20 mg tablet 20 mg PO DAILY 08/06/24 Unknown History ondansetron 4 mg disintegrating 4 mg PO Q6H PRN nausea and 08/06/24 Unknown Rx tablet vomiting #7 tabs Allergy/AdvReac Type Severity Reaction Status Date / Time Penicillins Allergy Hives Verified 08/06/24 21:32 etodolac (From Lodine) AdvReac Intermediate Chest Verified 08/06/24 21:32 tightness bupropion HCl (From AdvReac suicidal Verified 08/06/24 21:32 Wellbutrin) metoclopramide (From Reglan) AdvReac Other Verified 08/06/24 21:32 prochlorperazine (From AdvReac Other Verified 08/06/24 21:32 Compazine) Family History Unknown Heart disease CAD (coronary artery disease) Surgical History gastrocnemius recessio calcneal cuboid arthrodesis fracture fragment excision History of cholecystectomy History of ankle surgery Social History Smoking Status: Current every day smoker tobacco type: cigarettes ROS ROS ED ROS Narrative Right-sided abdominal pain. Recent diarrhea and constipation. Nausea and vomiting today. Constitutional Constitutional ED: Denies chills or fever(s) ENT ENT ED: Denies ear pain Cardiovascular Cardiovascular: Denies chest pain Respiratory/Chest Respiratory/Chest: Denies cough or dyspnea Gastrointestinal Gastrointestinal: Reports abdominal pain, constipation, diarrhea, nausea and vomiting; Denies melena Genitourinary Genitourinary ED: Denies dysuria or hematuria Musculoskeletal Musculoskeletal: Denies arthralgias or back pain Integumentary Denies abscess or Abrasions Neurologic Neurologic: Denies headache(s) Psychiatric Psychiatric: Denies anxiety Endocrine Endocrinology: Denies polydipsia or polyphagia Hematologic/Lymphatic Hematologic/Lymphatic: Denies easy bleeding Allergic/Immunologic Allergic/Immunologic ED: Denies mouth swelling, tongue swelling or urticaria EXAM Physical Exam Narrative Exam Narrative: 34-year-old female vital signs are stable she is afebrile she does not look septic toxic she does look like she did not feel well. H EENT exam dry mucous members. Neck nontender. Lungs clear to auscultation. Heart tachycardic 110 no murmur. Chest wall ribs nontender. Abdomen soft tender both right upper and right lower quadrant. No hernia or mass. Left side abdomen nontender. No distention. Moving all 4 extremities. Nontender no edema normal strength. Back nontender. She is awake and alert. No focal motor deficits. Const Vital Signs: 08/06/24 21:30 08/06/24 21:32 Temperature 98.2 F 98.2 F Temperature Source Temporal Temporal Pulse Rate 110 H 111 H Respiratory Rate 16 16 Blood Pressure 145/111 H 145/111 H Blood Pressure Mean 122 122 Pulse Ox 100 100 Oxygen Delivery Method Room Air Room Air Positive well nourished, well developed and obese; Negative for cachectic, contractures or unkempt General Appearance ED: well developed; Negative for unkempt, cachectic, contractures, NAD or pallor Nutritional Appearance: obese; Negative for cachectic HEENT Reports dry mucous membranes; Denies moist mucous membranes normocephalic and atraumatic; Negative for trauma or tenderness Mouth ED: Yes dry mucous membranes Mouth: dry mucous membranes Eyes PERRL and EOMs intact bilaterally General Eye ED: Negative for pale conjunctiva or scleral icterus Neck no lymphadenopathy, supple and no JVD General: Negative for tenderness Carotids: Negative for other Lymph Lymphatic: Negative for other Resp normal respiratory effort and clear to auscultation bilaterally Effort and Inspection: Negative for respiratory distress Auscultation: Negative for rales, rhonchi, wheezes or diminished lung sounds Cardio regular rhythm, S1 normal heart sound, S2 normal heart sound and no murmurs; Negative for regular rate Rate: tachycardic GI Negative for non-tender Inspection: Negative for abdominal distention Palpation: soft and tender; Negative for guarding, rigid, hernia, mass, pulsatile mass or rebound tenderness present Back/Spine no CVA tenderness General Back: Negative for CVA tenderness Cervical Spine: Negative for cervical spine tenderness Thoracic Spine / Upper Back: Negative for thoracic spinal tenderness Lumbar Spine / Lower Back: Negative for lumbar spinal tenderness Extremity full ROM General Extremety ED: Negative for edema or other findings General Extremity: Negative for edema or other findings Neuro CN's II-XII intact bilaterally and moves all extremities Sensorium / Orientation: alert, oriented to person, oriented to place and oriented to time; Negative for orientation impaired or confused Motor Exam: strength 5/5 throughout; Negative for general weakness or strength abnormal Psych mental status grossly normal and thought process normal Appearance: Negative for unkempt Attitude: No agitated Mood & Affect: Negative for depressed, anxious or tearful Skin no wounds General Skin Exam: Negative for jaundice or pallor Lesions: no lesions Rashes: no rashes MDM MDM MDM Narrative Medical decision making narrative: 34-year-old female right-sided abdominal pain. Prior cholecystectomy. Differential would include appendicitis, kidney stone, UTI, right-sided diverticulitis, ovarian cyst, ectopic . CAT scan labs are pending. Should be treated with IV fluids, Zofran for nausea and morphine for pain. Repeat exam at 11:17 PM. Patient doing well. She was treated with morphine for pain and Zofran. Pains almost resolved. Repeat abdominal exam is benign. She really not have any significant tenderness. Specifically knows significant tenderness in the right lower quadrant. We went over all of her test results. She is comfortable being discharged to home. Fluids and rest. Tylenol and Motrin as needed. Follow-up with primary care physician not improving or return if she is feeling worse. She is having no urinary symptoms I think the urinalysis is contaminated and she will not be put on any antibiotics. History & Record Review Discussion w/independent historian: Patient Additional record(s) reviewed:: Prior inpatient record, Prior outpatient record, Prior ED visit and Prior labs Lab Data Attestation: I reviewed the patient's lab results. Lab results narrative: CBC normal. White count of 10. H&H 13 and 42. Platelets 306. Electrolytes show gap 7. Normal BUN and creatinine. Glucose 217. History of diabetes. Liver enzymes normal. Lipase 110. Serum test negative. Urinalysis shows 10-25 white cells but is contaminated with 10-25 epithelial cells. 2+ bacteria. No nitrites. She is not having any urinary symptoms. This will not be treated. Labs: Laboratory Results - last 24 hr 08/06/24 08/06/24 22:04 22:09 WBC 10.5 RBC 4.63 Hgb 13.5 Hct 42.4 MCV 91.6 MCH 29.2 MCHC 31.8 L RDW Std Deviation 42.6 RDW Coeff of Sarah 12.8 Plt Count 306 MPV 9.9 Immature Gran % (Auto) 0.700 Neut % (Auto) 66.0 Lymph % (Auto) 25.9 [place] % (Auto) 5.1 Eos % (Auto) 1.8 Baso % (Auto) 0.5 Absolute Neuts (auto) 6.9 Absolute Lymphs (auto) 2.71 Nucleated RBC % 0 Sodium 137 Potassium 3.5 Chloride 105 Carbon Dioxide 25.0 Anion Gap 7 BUN 10 Creatinine 0.92 Estim Creat Clear Calc 136.01 Est GFR (MDRD) Af Amer 89 Est GFR (MDRD) Non-Af 73 BUN/Creatinine Ratio 10.9 Glucose 217 H Calcium 9.7 Total Bilirubin 0.40 AST 22 ALT 40 Alkaline Phosphatase 94 Total Protein 8.0 Albumin 3.5 Globulin 4.5 H Albumin/Globulin Ratio 0.8 L Lipase 110 H Serum , Qual NEGATIVE Urine Color Yellow Urine Clarity Sl. Cloudy Urine pH 5.0 Ur Specific [place] 1.025 Urine Protein 30 H Urine Glucose (UA) Normal Urine Ketones 5 H Urine Occult Blood Negative Urine Nitrite Negative Urine Bilirubin 1 H Urine Urobilinogen 1 H Ur Leukocyte Esterase 100 H Urine RBC 0 SEEN Urine WBC 10-25 SEEN Ur Squamous Epith Cells 10-25 SEEN Urine Bacteria 2+ Hyaline Casts 5-10 SEEN Fine Granular Casts 0-5 SEEN Urine Mucus 3+ Radiography Diagnostic Testing: Clinical Impression(s) from Imaging Studies Abdomen/Pelvis CT 08/06/24 21:58 IMPRESSION: Fatty liver, no discrete lesion No free intraperitoneal fluid, air, or suspicious adenopathy Nonobstructing left renal stones Fat-containing ventral hernia Electronically Signed: Cheikh Bowman MD at 23:01 EDT Reading Location ID and State: [facility] / ID , Service support , Discharge Plan Triage Chief Complaint: Abd Pain ED Provider: Link Chapman Dx/Rx/DC Orders Clinical Impression: Abdominal pain, Vomiting Instructions: Abdominal Pain Prescriptions: New ondansetron 4 mg tablet,disintegrating 4 mg PO Q6H PRN (Reason: nausea and vomiting) Qty: 7 0RF No Action famotidine 20 tablet 20 mg PO DAILY labetalol 100 MG tablet 400 mg PO TID metformin 1,000 mg tablet 1,000 mg PO BID Patient Comments: TAKE 1 TABLET BY MOUTH TWICE DAILY WITH MEALS glimepiride 4 mg tablet 4 mg PO DAILY fluoxetine 40 mg capsule 40 mg PO DAILY lisinopril 20 mg tablet 20 mg PO DAILY Primary Care Provider: Prateek Honeycutt Referrals: Prateek Honeycutt MD [Primary Care Provider] - 3-5 Days if not improving Activity Restrictions/Additional Instructions: Plenty of fluids and rest. Increase your diet slowly as tolerated. Zofran as needed for nausea you may swallow it or let it dissolve under your tongue if you needed for nausea. Return if increasing pain or feeling worse. Otherwise follow-up with your doctor if not improving. This may be a virus. Your labs and CAT scan look good. Print Language: Dominican Disposition Disposition: Home, Self Care
[2024-08-06] MEDS: 0.9% Normal Saline (1000mL) 1,000 ML 999 ML IV (22:11)
[2024-08-06] MEDS: Ondansetron 4 MG/2 ML Vial IV (22:12)
[2024-08-06] MEDS: morphine 8 MG/ML Syringe 6 MG IV (22:12)
[2024-08-06 22:20] LABS: Absolute Lymphocyte Count 2.71 X10^3/uL (0.83-4.51); Absolute Neutrophil Count 6.9 X10^3/uL (2.0-7.7); Basophil# 0.05 X10^3/uL; Basophil% 0.5 % (0-1); Eosinophil# 0.19 X10^3/uL; Eosinophils% 1.8 % (0-5); Hematocrit 42.4 % (37-47); Hemoglobin 13.5 g/dL (12.0-15.0); Lymphocyte # 2.71 X10^3/ul (0.83-4.51); Lymphocyte % 25.9 % (19-41); Mean Corp Hgb Conc 31.8 g/dL (32-36); Mean Corpuscular Hgb 29.2 pg (27.0-32.0); Mean Corpuscular Volume 91.6 fL (81-99); Mean Platelet Vol. 9.9 fl (6.2-12.0); Monocyte# 0.53 X10^3/uL; Monocyte% 5.1 % (0-10); NRBC Flagged by Analyzer 0 % (0-5); Neutrophil # 6.93 X10^3/uL (2.7-7.7); Platelet Count 306 K/mm3 (150-450); RBC Distribution Width CV 12.8 % (11.6-14.6); RBC Distribution Width SD 42.6 fl (35.1-43.9); Red Blood Count 4.63 M/mm3 (4.2-5.4); White Blood Count 10.5 K/mm3 (4.4-11.0)
[2024-08-06 22:21] LABS: Red Blood Cells-Urine 0 SEEN /hpf (0-5)
[2024-08-06 22:25] LABS: Color, Urine Yellow (Yellow); Glucose, Dipstick Normal (Normal); Ketone-Dipstick 5 mg/dl (Negative); Leukocyte Esterase-Dipstick 100 /ul (Negative); Nitrite-Dipstick Negative (Negative); Occult Blood-Urine Negative /ul (Negative); Protein-Dipstick 30 mg/dl (Negative); Specific Gravity, Urine 1.025 (1.002-1.030); Urine Clarity Sl. Cloudy (Clear); Urine Urobilinogen 1 mg/dl (Normal)
[2024-08-06 22:30] LABS: Internal QC Validated? YES +Cl - CLEAR BKGD; Pregnancy, Serum, hCG Quali. NEGATIVE Negative
[2024-08-06 22:38] LABS: ALB/GLOB Ratio 0.8 RATIO (0.9-2.4); AST(SGOT) 22 U/L (15-37); Alanine Aminotransfer ALT/SGPT 40 U/L (13-56); Albumin, Serum 3.5 g/dL (3.2-5.0); Alkaline Phosphatase 94 U/L (45-117); Anion Gap 7 (5-15); BUN 10 mg/dL (7-18); BUN/Creat Ratio 10.9 RATIO (10-20); Calcium,Total 9.7 mg/dL (8.5-10.1); Chloride 105 mmol/L (98-107); Creatinine, Serum 0.92 mg/dL (0.55-1.02); EST Glomerular Filtration Rate 73 mL/min (>60); Est Glom Filt Rate - Afr Amer 89 mL/min (>60); Estimated Creatinine Clearance 136.01 ml/min; Globulin 4.5 g/dL (2.2-4.2); Glucose 217 mg/dL (74-106); Lipase 110 U/L (13-75); Potassium 3.5 mmol/L (3.5-5.1); Sodium Level 137 mmol/L (136-145)
[2024-08-06 22:46] LABS: Urine Bilirubin Dipstick 1 mg/dL (Negative)
[2024-08-06 22:47] LABS: Bacteria 2+ /hpf (None Seen); Fine Granular Cast- Urine 0-5 SEEN /lpf (0-5); Hyaline Cast 5-10 SEEN /lpf (0-5); Mucous, Urine 3+ /hpf (<or=2+); Squamous Epithelial Cells - UA 10-25 SEEN /hpf (5-10); White Blood Cells 10-25 SEEN /hpf (0-5)
[2024-08-06 23:30] VITALS: BP 166/109; PULSE 98; RESP 17; TEMP 36.3; O2SAT 100
== END 2024-08-06 23:31 | disposition home or self-care (01) ==
PROVIDERS: Emergency Provider Emergency Medicine; PCP Family Medicine; Visit Provider Emergency Medicine
DX: R10.11 Right upper quadrant pain (principal); E11.9 Type 2 diabetes mellitus without complications; Z79.4 Long term (current) use of insulin; R11.2 Nausea with vomiting, unspecified; I10 Essential (primary) hypertension; F17.210 Nicotine dependence, cigarettes, uncomplicated; Z90.49 Acquired absence of other specified parts of digestive tract; Z79.899 Other long term (current) drug therapy; Z79.84 Long term (current) use of oral hypoglycemic drugs; F32.A Depression, unspecified; R10.31 Right lower quadrant pain
CPT/HCPCS: 74177; 80053; 81001; 83690; 84703; 85025; 96361; 96374; 96375; 99283; J7030; Q9967; A4216; J2405

== ENCOUNTER → 2024-08-21 | Outpatient (CLI) | payer MEDICAID, SELFPAY ==
[2024-08-21 12:04] LABS: Color, Urine Yellow (Yellow); Glucose, Dipstick 1000 mg/dl (Normal); Ketone-Dipstick Negative (Negative); Leukocyte Esterase-Dipstick 100 /ul (Negative); Nitrite-Dipstick Negative (Negative); Occult Blood-Urine Negative /ul (Negative); Protein-Dipstick Negative (Negative); Specific Gravity, Urine 1.015 (1.002-1.030); Urine Bilirubin Dipstick Negative (Negative); Urine Clarity Clear (Clear); Urine Urobilinogen Normal (Normal)
[2024-08-21 12:25] LABS: Absolute Lymphocyte Count 1.52 X10^3/uL (0.83-4.51); Absolute Neutrophil Count 5.3 X10^3/uL (2.0-7.7); Basophil# 0.03 X10^3/uL; Basophil% 0.4 % (0-1); Eosinophil# 0.12 X10^3/uL; Eosinophils% 1.6 % (0-5); Hematocrit 36.5 % (37-47); Hemoglobin 11.8 g/dL (12.0-15.0); Lymphocyte # 1.52 X10^3/ul (0.83-4.51); Lymphocyte % 20.7 % (19-41); Mean Corp Hgb Conc 32.3 g/dL (32-36); Mean Corpuscular Hgb 29.8 pg (27.0-32.0); Mean Corpuscular Volume 92.2 fL (81-99); Mean Platelet Vol. 9.8 fl (6.2-12.0); Monocyte# 0.33 X10^3/uL; Monocyte% 4.5 % (0-10); NRBC Flagged by Analyzer 0 % (0-5); Neutrophil # 5.28 X10^3/uL (2.7-7.7); Neutrophil % 72.1 % (47-70); Platelet Count 247 K/mm3 (150-450); RBC Distribution Width CV 12.8 % (11.6-14.6); Red Blood Count 3.96 M/mm3 (4.2-5.4); White Blood Count 7.3 K/mm3 (4.4-11.0)
[2024-08-21 12:26] LABS: ALB/GLOB Ratio 0.8 RATIO (0.9-2.4); AST(SGOT) 21 U/L (15-37); Alanine Aminotransfer ALT/SGPT 33 U/L (13-56); Alkaline Phosphatase 76 U/L (45-117); Anion Gap 6 (5-15); BUN 6 mg/dL (7-18); BUN/Creat Ratio 6.6 RATIO (10-20); Calcium,Total 9.2 mg/dL (8.5-10.1); Chloride 104 mmol/L (98-107); EST Glomerular Filtration Rate 75 mL/min (>60); Est Glom Filt Rate - Afr Amer 90 mL/min (>60); Globulin 3.9 g/dL (2.2-4.2); Glucose 268 mg/dL (74-106); Lipase 78 U/L (13-75); Potassium 3.8 mmol/L (3.5-5.1); Protein, Total 6.9 g/dL (6.4-8.2); Sodium Level 135 mmol/L (136-145)
== END | disposition home or self-care (01) ==
PROVIDERS: PCP Family Medicine; Referring Provider Student in an Organized Health Care Education/Training Program; Visit Provider Student in an Organized Health Care Education/Training Program
DX: R11.0 Nausea (principal)
CPT/HCPCS: 36415; 80053; 81002; 83690; 85025

== ENCOUNTER → 2024-09-19 | Outpatient (CLI) | payer MEDICAID, SELFPAY ==
--- NOTE | 2024-09-19 10:46 | NM_ITS ---
CLINICAL: 34-year-old female with history of chronic nausea. SEMI-SOLID PHASE 99m Tc SULFUR COLLOID GASTRIC EMPTYING STUDY COMPARISON: None available FINDINGS: The patient was administered 1.2 mCi of 99m Tc sulfur colloid mixed with oatmeal and consumed per os. Image acquisitions in the anterior-posterior projections were obtained for 60 minutes. There is prompt visualization of the stomach. There is no gastroesophageal reflux identified. The T ? linear fit was calculated to be 51.48 minutes, (Normal: 12-56 minutes). NM/Gastric Emptying Study IMPRESSION: 1. NORMAL 99m Tc sulfur colloid semi-solid phase (oatmeal) gastric emptying imaging examination. A. There is normal and preserved semi-solid phase gastric emptying compared to normal controls. (Martha et al, J Nucl Med Tech 38: 186, 2010). Electronically Signed: Scott Jimenez DO at 23:50 EDT ,
== END | disposition home or self-care (01) ==
LOC: NM 10:44
PROVIDERS: PCP Family Medicine; Referring Provider Student in an Organized Health Care Education/Training Program; Visit Provider Student in an Organized Health Care Education/Training Program
DX: R11.0 Nausea (principal)
CPT/HCPCS: 78264; A9541

== ENCOUNTER 2024-10-25 12:26 | Day surgery (SDC) | payer MEDICAID, SELFPAY ==
[2024-10-25] VITALS (8 sets, daily range): BP systolic 123–149; BP diastolic 85–99; PULSE 89–99; RESP 16–18; TEMP 36.8–37.1; O2SAT 98–99; BMI 54.5
--- NOTE | 2024-10-25 | IMM_PTH ---
PATIENT: TODD NESS LOC: [facility] U#:[id number] AGE/SX: 34/F ROOM: RE10/25/[address]: Dr. Bakari Cooper DO : 1990 BED: DIS: 10/25/2024 SPEC #: [id number] RECD: 10/30/24 11:50 STATUS: ARIELLE REQ #: [id number] ANTHONY: 10/25/24 00:[address]: Bakari Cooper DEPT: IMMUNOHISTOCHEMISTRY RECD BY: Loyd Fine ENTERED: 10/30/24 11:50 SP TYPE: IMMUNO OTHR DR: Dr. Prateek Honeycutt MD Tissues: B - Esophagus, NOS Procedures: P53 (initial) KI-67 (add) PHYSICIAN & INSTITUTION [place] [id number] SPECIMEN INFORMATION: Tissue Source: B- Distal esophagus biopsy Clinical Info: Nausea/vomiting Specimen Number: [id number] CPT code: 26060,63695 METHODOLOGY: Deparaffinized sections of prefer/formalin-fixed tissue or PAP/DQ stained slides are incubated with monoclonal/polyclonal antibodies/oligonucleotide probes. Localization is made via biotin free immunoperoxidase method. Appropriate controls are performed and reacted as expected. Results on target cell population are indicated in the following table: RESULTS: ANTIBODY / CLONE RESULT Block B P53 (DO-7) positive, wild type Ki-67 (30-9) positive, low These tests were developed and their performance characteristics determined by [facility]. They may not have been cleared or approved by the U.S. Food and Drug Administration. The FDA has determined that such clearance or approval is not necessary. The above immunohistochemical/dualISH markers are ordered and reviewed by the Pathologist. INTERPRETATION: B. Distal esophagus, biopsy: No evidence of dysplasia. AM 10/31/2024
--- NOTE | 2024-10-25 12:37 | PRE.ANES_ITS ---
ASA Classification* ASA Classification ASA Classification: 2 Assessment & Plan Anesthesia* Anesthesia Assessment Anesthesia Assessment: Discussed sedation and/or anesthesia options, risks, benefits, and alternatives with patient/parents/legal guardian/POA. Questions invited. The patient/parents/legal guardian/POA seems to understand and agrees to proceed with anesthesia plan. Reviewed the physical assessment, medical history, allergy history and patient home medications list prior to surgery/procedure/anesthetic and documented any changes. Performed airway and anesthesia risk assessments. Anesthesia Type Anesthesia Type: MAC Anesthesia Focused Assessment* Airway Assessment Mouth opens: >3 cm Mallampati Score: II Focused Labs Anesthesia Preop lab: CBC WBC 7.3 K/mm3 (4.4-11.0) 08/21/24 10:51 RBC 3.96 M/mm3 (4.2-5.4) L 08/21/24 10:51 Hgb 11.8 g/dL (12.0-15.0) L 08/21/24 10:51 Hct 36.5 % (37-47) L 08/21/24 10:51 Plt Count 247 K/mm3 (150-450) 08/21/24 10:51 CHEMISTRY Potassium 3.8 mmol/L (3.5-5.1) 08/21/24 10:51 Sodium 135 mmol/L (136-145) L 08/21/24 10:51 BUN 6 mg/dL (7-18) L 08/21/24 10:51 Creatinine 0.90 mg/dL (0.55-1.02) 08/21/24 10:51 Glucose 268 mg/dL (74-106) H 08/21/24 10:51 POC Glucose 121 mg/dL (70-110) H 12/05/21 11:21 COAG PT 12.9 SECONDS (11.7-14.9) 12/02/21 17:24 HCG, Quant < 1 mIU/mL (<9 non-preg) 03/23/13 09:15 Urine Test Negative Negative 10/06/19 06:02 Pre-Assessment Diagnosis/Proposed Procedure Planned Operative Procedure(s): EGD Anesthesia History 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 When Was Last Pacemaker Check QUESTION #4 FULL TEXT: You/Your Family Experience fever (hyperthermia) with Anesthesia Last Oral Intake Last Oral intake: Last Oral Intake NPO since Meds taken in AM with sips of water? 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 Female Yes 10/24/24 09:01 HX of Motion Sickness No 10/24/24 09:01 HX of N/V After Surgery No 10/24/24 09:01 Non-Smoker Yes 10/24/24 09:01 Duration of Surgery greater No 10/24/24 09:01 than 60 minutes Number of Risk Factors 2 10/24/24 09:01 PONV Score Moderate Risk 10/24/24 09:01 Height & Weight Height & Weight: Anesthesia: Height & Weight Height 5 ft 7 in 08/06/24 21:30 Respiratory Assessment Respiratory Assessment - power cutting machine operator: Respiratory Tract Infection Hx - power cutting machine operator Hx Respiratory Tract Infection No 10/24/24 09:01 STOP Sleep Apnea STOP Sleep Apnea - power cutting machine operator: STOP Sleep Apnea - power cutting machine operator Hx Hypertension Yes: CONTROLLED WITH MEDS 10/24/24 09:01 Hx Sleep Apnea No 10/24/24 09:01 CPAP No 10/06/19 09:42 BIPAP No 10/03/19 15:10 Do you snore loudly (louder No 10/24/24 09:01 than talking or can be heard Do you often feel tired/ No 10/24/24 09:01 fatigued/ sleepy during daytime? Has anyone observed you stop No 10/24/24 09:01 breathing during sleep? STOP Results Negative 10/24/24 09:01 QUESTION #5 FULL TEXT : Do you snore loudly (louder than talking or can be heard through closed doors)? 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 Specify any problems Hx of Preganancy in last 3 No 10/24/24 09:01 Months Nurse Filling Out Transfusion [id number] 10/24/24 09:01 & Questions: Date: 10/24/24 10/24/24 09:01 Time: 09:03 10/24/24 09:01 Patient unable to answer at this time (ie. 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 Hx Now Gestational Age (in weeks): EDC: Hx Hx Para Hx Section SAB No 10/24/24 09:01 [facility] Medical History Wears glasses Anxiety Fatty liver Gastric reflux Insulin-dependent diabetes mellitus during , antepartum Depressive disorder Essential hypertension Type 2 diabetes mellitus Vitamin D deficiency Home Medications ?Medication ?Instructions ?Recorded ?Last Taken ?Type famotidine 20 mg tablet 20 mg PO DAILY heartburn 07/10/19 12/01/21 22:00 History metformin 1,000 mg tablet 1,000 mg PO BID 05/24/21 12/02/21 08:00 History glimepiride 4 mg tablet 4 mg PO DAILY 12/26/22 Unknown History fluoxetine 40 mg capsule 40 mg PO DAILY 08/06/24 Unknown History lisinopril 20 mg tablet 20 mg PO DAILY 08/06/24 Unknown History dicyclomine 10 mg capsule 10 mg PO BID #30 caps 08/15/24 Unknown Rx ondansetron 8 mg disintegrating 8 mg PO Q12H #20 tabs 08/15/24 Unknown Rx tablet labetalol 200 mg tablet 400 mg PO TID 10/24/24 Unknown History Allergy/AdvReac Type Severity Reaction Status Date / Time Penicillins Allergy Hives Verified 10/24/24 08:59 etodolac (From L[place]ine) AdvReac Intermediate Chest Verified 10/24/24 08:59 tightness bupropion HCl (From AdvReac suicidal Verified 10/24/24 08:59 Wellbutrin) metoclopramide (From Reglan) AdvReac Other Verified 10/24/24 08:59 prochlorperazine (From AdvReac Other Verified 10/24/24 08:59 Compazine) Family History Unknown Heart disease CAD (coronary artery disease) Surgical History gastrocnemius recessio calcneal cuboid arthrodesis fracture fragment excision History of cholecystectomy History of ankle surgery Social History Smoking Status: Current every day smoker tobacco type: cigarettes Review of Systems (Anesthesia) ROS Narrative System reviewed and no additional complaints, except as documented.
[2024-10-25 12:52] LABS: Internal QC Validated? YES +Cl - CLEAR BKGD; Pregnancy, Urine Negative Negative
--- NOTE | 2024-10-25 13:30 | EGD_PTH ---
PATIENT: TODD NESS LOC: [facility] U#:[id number] AGE/SX: 34/F ROOM: RE10/25/[address]: Dr. Bakari Cooper DO : 1990 BED: DIS: 10/25/2024 SPEC #: [id number] RECD: 10/27/24 09:03 STATUS: ARIELLE YUNI #: [id number] ANTHONY: 10/25/24 13:[address]: Bakari Cooper DEPT: SURGICAL PATHOLOGY RECD BY: Helena Hernandez ENTERED: 10/27/24 09:52 SP TYPE: EGD BIOPSY OT DR: Dr. Prateek Honeycutt MD Tissues: A - PAPILLOMA (except papilloma of bladder - [id number]) B - Esophagus, NOS C - Duodenum, NOS Procedures: Special Stain Group I Surgery Specimen Level IV Alcian Blue/PAS (control) HEADER OPERATION: EGD with biopsy PRE-OP DIAGNOSIS: Nausea and vomiting TISSUE SUBMITTED: A- Papilloma biopsy, B- Distal esophagus biopsy, C- Duodenum biopsy MICROSCOPIC DIAGNOSIS A. Papilloma, biopsy: Consistent with squamous papilloma. B. Distal esophagus, biopsy: Gastroesophageal junctional mucosa with mild chronic inflammation. 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 No evidence of dysplasia. Focal changes of reflux. See comment. C. Duodenum, biopsy: No pathologic change. [facility] 10/30/2024 COMMENT B. Alcian blue/PAS stain with matched control supports the above diagnosis. Immunohistochemistry ([id number]) for P53 and Ki-67 will be performed and results will be reported separately. MICROSCOPIC DESCRIPTION Slides are reviewed. GROSS DESCRIPTION A. Received in fixative is one container labeled with the patient's name and designated Papilloma biopsy. The specimen consists of one irregular fragment of light bennett soft tissue that measures 0.3 x 0.3 x 0.1 cm. The specimen is totally submitted in one cassette. B. Received in fixative is one container labeled with the patient's name and designated Distal esophagus biopsy. The specimen consists of multiple irregular fragments of light bennett soft tissue that in aggregate measure 1.0 x 0.5 x 0.1 cm. The specimen is totally submitted in one cassette. C. Received in fixative is one container labeled with the patient's name and designated Duodenum biopsy. The specimen consists of multiple irregular fragments of light bennett soft tissue that in aggregate measure 1.2 x 0.3 x 0.1 cm. The specimen is totally submitted in one cassette. 10/27/2024 TC:3 CPT:90009k6,38492
--- NOTE | 2024-10-25 14:11 | HP.PCM_ITS ---
History and Physical Date of Admission: 10/25/24 Chief Complaint: nausea Details: TODD RODRIGUEZ, is a 34 F who presents to the office today for establishment with [facility]. Patient has a PMHx of anemia, GERD,HTN, diabetes, and kidney stones. She is here today for two months of persistent nausea, vomiting, and abdominal pain which prompted her visit to [facility] ED on 08.06.24. CT abdomen/pelvis; Fatty liver, no discrete lesion No free intraperitoneal fluid, air, or suspicious adenopathy Nonobstructing left renal stones Fat-containing ventral hernia Biochemical Work up; CBC, CMP without pertinent abnormality, lipase 110, abnormal UA OV 08.15.24 pt continues to have constant nausea. She has been vomiting daily and has no appetite. She tells me she has lost 20 lbs unintentionally since January of 2024. Her vomiting is worse when she is under more stress. She does have a hx of GERD but has never had an EGD. In the ED she was given Zofran and has been taking this since but is not much help to her. SHe is s/p cholecystectomy in 2012. She denies constipation, diarrhea or blood in her stool ROS Const Constitutional: Positive for headache(s); No fatigue, fever(s) or weight change ENT ENT: Positive for headache(s); No difficulty swallowing Gastro GI: Positive for abdominal pain, bloating, heartburn, excessive flatus, nausea/dyspepsia and vomiting; No belching, change in bowel habits, change in stool character, coffee ground emesis, constipation, cramping, diarrhea, difficulty swallowing, feeling full early, incontinent of stools, Vomiting blood/hematemesis, Blood in stool, loose stools, Black,tarry stools, pain with swallowing or other Musc Musculoskeletal: Positive for joint pain, back pain, muscle cramps, numbness, tingling, Arthritis and leg pain at night Skin Skin: No yellowing of the eye or itchy eyes Neuro Neurology: Positive for headache(s), numbness and tingling Psych Psychiatric: Positive for anxiety and Positive for depression Endo Endocrine: No fatigue or weight change Aller/Imm Allergy/Immunologic: No itchy eyes Vincent/Lymp Hematologic/Lymphatic: No easy bleeding or easy bruising Exam Const General: cooperative and comfortable Nutritional Appearance: average body habitus and well nourished HENMT Head: normal to inspection Ears: hearing grossly normal bilaterally Nose: external nose normal Face and sinus: normal facial exam Eyes General: appearance normal, both eyes and all related structures Neck Neck: normal visual inspection Chest Chest palpation & inspection: normal inspection of the chest Resp Effort & Inspection: normal respiratory effort GI Inspection: normal to inspection Skin General: no rashes or lesions noted Neuro General: patient alert Extrem General: normal to inspection Psych Affect: normal affect Assessment and Plan Assessment and Plan (1) Nausea and vomiting: Plan: Patient is a 34 yo female with PMHx pertinent for diabetes, HTN, anemia and GERD. She has had nausea, vomiting, abdominal pain for a few months now. SHe was seen in the ED recently for this and work up was inconclusive for any GI problems. She has never had EGD or colonoscopy. Differential diagnosis includes bile acid reflux, GERD, PUD, or gastroparesis. We will start work up with a GES and blood work. In the meantime, I refilled her Zofran and prescribed dicyclomine for abdominal pain. We can consider further testing in the future pending these results. -ordered GES -Refilled Zofran -Prescribed dicyclomine -CBC, CMP, UA ordered -She will f/u in 3 months (2) Nausea: Status: Acute Orders: Orders Gastric Emptying Study Today R11.0 - Nausea Urinalysis, Routine (Dipstick) Today R11.0 - Nausea Lipase Today R11.0 - Nausea Comprehensive Metabolic Profil Today R11.0 - Nausea CBC W/Diff, Automated Today R11.0 - Nausea Medications: New dicyclomine 10 mg PO BID 30 caps 2RF ondansetron 8 mg PO Q12H 20 tabs 2RF Discontinued ondansetron Discontinued Reason: Duplicate Order 4 mg PO Q6H PRN 7 tabs 0RF nausea and vomiting I have examined the patient and the H&P has been reviewed. There are no clinical changes since date of exam.
--- NOTE | 2024-10-25 14:36 | OP.CCLET_ITS ---
10/25/2024 Prateek Honeycutt Re : Upper GI endoscopy procedure for Krista Rowe Dear Yinka This procedure was performed on Friday, October 25, 2024. My impressions and recommendations are as follows: Impressions : - LA Grade B reflux esophagitis with no bleeding. Biopsied. - Medium-sized hiatal hernia. - Bilious gastric fluid. - Chronic duodenitis. Biopsied. Recommendations : - Patient has a contact number available for emergencies. The signs and symptoms of potential delayed complications were discussed with the patient. Return to normal activities tomorrow. Written discharge instructions were provided to the patient. - Resume previous diet. - Continue present medications. - Await pathology results. - Repeat upper endoscopy in 1 year for surveillance. My findings are described in the full procedure note, which is enclosed. If I can be of further assistance, please feel free to contact me at . Sincerely, Bakari Cooper, 10/25/2024 2:36:29 PM This report has been signed electronically.
--- NOTE | 2024-10-25 14:36 | OP.EGD_ITS ---
Patient Name: Krista Rowe Procedure Date: 10/25/2024 1:36 PM Date of : 1990 Age: 34 Procedure: Upper GI endoscopy Indications: Epigastric abdominal pain, Functional Dyspepsia, Heartburn, Failure to respond to medical treatment Providers: Bakari Cooper DO Referring MD: Prateek Honeycutt Medicines: Monitored Anesthesia Care Patient Profile: This is a 34 year old female. Refer to note in patient chart for documentation of history and physical. Patient has symptoms of chronic epigastric abdominal pain, chronic dyspepsia and chronic nausea. Complications: No immediate complications. Procedure: Pre-Anesthesia Assessment: - Prior to the procedure, a History and Physical was performed, and patient medications and allergies were reviewed. The patient is competent. The risks and benefits of the procedure and the sedation options and risks were discussed with the patient. All questions were answered and informed consent was obtained. Patient identification and proposed procedure were verified by the physician in the pre-procedure area. Mental Status Examination: alert and oriented. Airway Examination: normal oropharyngeal airway and neck mobility. Respiratory Examination: clear to auscultation. CV Examination: normal. Prophylactic Antibiotics: The patient does not require prophylactic antibiotics. Prior Anticoagulants: The patient has taken no anticoagulant or antiplatelet agents except for NSAID medication. ASA Grade Assessment: II - A patient with mild systemic disease. After reviewing the risks and benefits, the patient was deemed in satisfactory condition to undergo the procedure. The anesthesia plan was to use monitored anesthesia care (MAC). Immediately prior to administration of medications, the patient was re-assessed for adequacy to receive sedatives. The heart rate, respiratory rate, oxygen saturations, blood pressure, adequacy of pulmonary ventilation, and response to care were monitored throughout the procedure. The physical status of the patient was re-assessed after the procedure. After obtaining informed consent, the endoscope was passed under direct vision. Throughout the procedure, the patient's blood pressure, pulse, and oxygen saturations were monitored continuously. The gastroscope was introduced through the mouth, and advanced to the second part of duodenum. The upper GI endoscopy was accomplished without difficulty. The patient tolerated the procedure well. Scope In: 2:20:41 PM Scope Out: 2:25:34 PM Total Procedure Duration Time 0 hours 4 minutes 53 seconds Findings: LA Grade B (one or more mucosal breaks greater than 5 mm, not extending between the tops of two mucosal folds) esophagitis with no bleeding was found 35 to 39 cm from the incisors. Biopsies were taken with a cold forceps for histology. Verification of patient identification for the specimen was done. Estimated blood loss was minimal. A medium-sized hiatal hernia was present. Bilious fluid was found in the gastric body. Diffuse moderate inflammation characterized by erosions, erythema, friability and granularity was found in the duodenal bulb and in the first portion of the duodenum. Biopsies were taken with a cold forceps for histology. Verification of patient identification for the specimen was done. Estimated blood loss was minimal. Impression: - LA Grade B reflux esophagitis with no bleeding. Biopsied. - Medium-sized hiatal hernia. - Bilious gastric fluid. - Chronic duodenitis. Biopsied. Recommendation: - Patient has a contact number available for emergencies. The signs and symptoms of potential delayed complications were discussed with the patient. Return to normal activities tomorrow. Written discharge instructions were provided to the patient. - Resume previous diet. - Continue present medications. - Await pathology results. - Repeat upper endoscopy in 1 year for surveillance. Procedure Code(s): --- Professional --- 76006, Esophagogastroduodenoscopy, flexible, transoral; with biopsy, single or multiple CPT copyright 2021 [employer]. All rights reserved. The codes documented in this report are preliminary and upon rotary derrick operator review may be revised to meet current compliance requirements. Bakari Cooper DO 10/25/2024 2:36:29 PM This report has been signed electronically. Number of Addenda: 0 Note Initiated On: 10/25/2024 1:36 PM
--- NOTE | 2024-10-25 14:40 | PCM.POST.ANE ---
Anesthesia: Postop Eval I Current Vital Signs Temperature: 98.4 F Pulse Rate: 89 Blood Pressure: 124/93 Respiratory Rate: 16 Pulse Ox: 98 Oxygen Delivery Method: Room Air Assessment Airway patent: Yes Spontaneous unlabored respirations: Yes Mental status: Awake and Calm nausea: No Vomiting: No Anesthesia Complication: No Fluid Hydration Crystalloid volume administer (ml): 30 Total IV fluid infused: 30 Progress Note Anesthesia document: Postop Eval 1 completed: Yes
--- NOTE | 2024-10-25 15:01 | PCM.POSTANE2 ---
Anesthesia Postop Eval I Sum Postop Eval Completion status Anesthesia document: Postop Eval 1 completed: Yes Anesthesia Postop Eval I Summary Anesthesia Postop Eval I Summary: Anesthesia Postop Eval I: Assessment Summary Airway patent Yes 10/25/24 14:41 [email or web address] Spontaneous unlabored Yes 10/25/24 14:41 [email or web address] respirations Mental status Awake,Calm 10/25/24 14:41 [email or web address] nausea No 10/25/24 14:41 [email or web address] Vomiting No 10/25/24 14:41 [email or web address] Anesthesia Postop Eval I: Fluid Summary Crystalloid volume administer 30 10/25/24 14:41 [email or web address] (ml) Colloids volume administered ( ml) Blood Product volume administered (ml) Total IV fluid infused 30 10/25/24 14:41 [email or web address] Anesthesia Postop Eval I: Summary Notes Anesthesia Complication No 10/25/24 14:41 [email or web address] Anesthesia Complication Comment: Post-operative progress note Anesthesia: Postop Eval II Evaluation Mental status: Awake Pain Level: 0 nausea: No Vomiting: No
== END 2024-10-25 15:27 | disposition home or self-care (01) ==
LOC: EN 12:27 → AC 12:29
PROVIDERS: Anesthesiology; PCP Family Medicine; Referring Provider Family Medicine; Visit Provider Internal Medicine Gastroenterology
PROC: 0DJ08ZZ Inspection of Upper Intestinal Tract, Via Natural or Artificial Opening Endoscopic (ICD-10-PCS; CPT 43235; principal; 2024-10-25 13:25)
DX: K22.70 Barrett's esophagus without dysplasia (principal); E11.9 Type 2 diabetes mellitus without complications; K29.80 Duodenitis without bleeding; K21.00 Gastro-esophageal reflux disease with esophagitis, without bleeding; K44.9 Diaphragmatic hernia without obstruction or gangrene; D64.9 Anemia, unspecified; I10 Essential (primary) hypertension; F41.9 Anxiety disorder, unspecified; F32.A Depression, unspecified; F17.210 Nicotine dependence, cigarettes, uncomplicated; Z88.0 Allergy status to penicillin; Z79.84 Long term (current) use of oral hypoglycemic drugs; Z90.49 Acquired absence of other specified parts of digestive tract; Z87.442 Personal history of urinary calculi; Z79.899 Other long term (current) drug therapy
CPT/HCPCS: 43239; 81025; 88305; 88312; 88341; 88342; A4216; J2405

== ENCOUNTER → 2025-08-13 | Outpatient (CLI) | payer MEDICAID, SELFPAY ==
--- NOTE | 2025-08-13 09:57 | RAD_ITS ---
PROCEDURE: ANKLE MIN 3 VIEWS 08/13/2025 REASON FOR EXAM: PAIN 4 day history of left ankle pain. No evidence TECHNIQUE: Procedure Code: RA of injury. REBEL Modality: DX Procedure: ANKLE MIN 3 VIEWS Laterality: Left ankle COMPARISON: None FINDINGS: Bones: Small plantar calcaneal spur. No fracture is seen. Joints: Normal alignment. Mortise appears intact. No effusion. Soft tissues: Medial soft tissue swelling. Other: RAD/Ankle min 3 Views IMPRESSION: No fracture seen. Medial soft tissue swelling. Reading Location: [place] [id number]
== END | disposition home or self-care (01) ==
LOC: MTRAD 09:57
PROVIDERS: PCP Family Medicine; Referring Provider Physician Assistant; Visit Provider Physician Assistant
DX: M25.572 Pain in left ankle and joints of left foot (principal)
CPT/HCPCS: 73610